=== PATIENT | female | born 1965 | race Caucasian/White ===

== ENCOUNTER 2023-09-10 06:43 | Outpatient (OUT) | payer OTHER, SELFPAY ==
[2023-09-10 07:13] LABS: Basophils Percent Auto 1.1 % (0.2-2.0); Eosinophils Absolute Auto 0.1 10^3/uL (0.0-0.7); Eosinophils Percent Auto 3.2 % (0.9-7.0); Hematocrit 42.1 % (36.0-48.0); Hemoglobin 13.5 g/dL (12.0-16.0); Immature Granulocytes Abs Auto 0.01 10^3/uL (0.00-0.03); Immature Granulocytes Pct Auto 0.3 % (0.0-0.5); Lymphocytes Absolute Auto 1.8 10^3/uL (1.2-3.8); Lymphocytes Percent Auto 47.5 % (20.5-60.0); Mean Corpuscular HGB Conc 32.1 g/dL (29.9-35.2); Mean Corpuscular Hemoglobin 30.1 pg (26.7-34.0); Mean Corpuscular Volume 93.8 fL (81.0-99.0); Mean Platelet Volume 9.4 fL (9.5-13.5); Monocytes Absolute Auto 0.4 10^3/uL (0.3-0.8); Monocytes Percent Auto 10.3 % (1.7-12.0); Neutrophils Absolute Auto 1.4 10^3/uL (1.4-6.5); Neutrophils Percent Auto 37.6 % (43.0-75.0); Platelet Count 209 10^3/uL (150-450); Red Blood Count 4.49 10^6/uL (4.20-5.40); Red Cell Distribution Width 11.7 % (11.0-15.0); White Blood Count 3.8 10^3/uL (4.0-11.0)
[2023-09-10 07:33] LABS: Alanine Aminotransferase 34 U/L (14-59); Albumin Globulin Ratio 1.2; Alkaline Phosphatase 72 U/L (46-116); Anion Gap 12.6; Aspartate Amino Transferase 21 U/L (15-37); BUN Creatinine Ratio 15.6; Bilirubin Total 0.5 mg/dL (0.2-1.0); Calcium 8.7 mg/dL (8.5-10.1); Carbon Dioxide 27.1 mmol/L (21.0-32.0); Chloride 104 mmol/L (98-107); Chol HDL Ratio 2.7; Cholesterol 239 mg/dL (<=200); Estimated GFR (African America >60 (>=60); Estimated GFR (Non-African Ame 60 (>=60); Globulin 3.3 g/dL; Glucose 101 mg/dL (74-106); HDL Cholesterol 88 mg/dL (40-60); Potassium 4.7 mmol/L (3.5-5.1); Sodium 139 mmol/L (136-145); Total Protein 7.3 g/dL (6.4-8.2); Triglycerides 104 mg/dL (<=150); VLDL CHOLESTEROL 20.8 mg/dL
== END 2023-09-10 06:44 | disposition home or self-care (01) ==
LOC: LAB 06:45
PROVIDERS: PCP Internal Medicine; Visit Provider Internal Medicine
DX: Z00.00 Encounter for general adult medical examination without abnormal findings (principal)
CPT/HCPCS: 36415; 80053; 80061; 85025

== ENCOUNTER 2024-01-06 08:56 | Outpatient (OUT) | payer OTHER, SELFPAY ==
--- NOTE | 2024-01-06 09:00 | MM_ITS ---
Patient Name: CARL MILLER MR#: [id number] : 1965 Exam Date: 01/06/2024 Ordering Doctor: DR MARIEL SINGER RADIOLOGY REPORT PROCEDURE: MM TOMOSYNTHESIS SCREENING BI COMPARISON: MG MAMM SCREEN 3D YOVANNY CAD, 10/13/2022. MG MAMM LT DIAG W CAD, 10/11/2021. MG MAMM SCREEN YOVANNY W CAD, 10/09/2021. MG MAMM SCREEN YOVANNY W CAD, 10/01/2018. INDICATIONS: Screening Calculator Name NCI Breast Cancer Risk Assessment Tool 5 Year Breast Cancer Risk 1.40% Lifetime Breast Cancer Risk 7.60% Personal Breast Cancer No Personal Ovarian Cancer No Treatments None Family Cancers Aunt-maternal with breast cancer at age 40; Grandmother-maternal with cervical cancer at age 70. LOCATION: [facility] BREAST COMPOSITION: The breasts are heterogeneously dense,which may obscure small masses. FINDINGS: DIAGNOSTIC CATEGORY 1--NEGATIVE. RIGHT BREAST: No significant suspicious finding. No significant change has occurred. LEFT BREAST: No significant suspicious finding. No significant change has occurred. RECOMMENDATIONS: ROUTINE MAMMOGRAM AND CLINICAL EVALUATION IN 12 MONTHS. PLEASE NOTE: A NORMAL MAMMOGRAM DOES NOT EXCLUDE THE POSSIBILITY OF BREAST CANCER. A CLINICALLY SUSPICIOUS PALPABLE LUMP SHOULD BE BIOPSIED. Dictated by: Juan Alberto Foote M.D. on 01/10/2024 at 18:22 Approved by: Juan Alberto Foote M.D. on 01/10/2024 at 18:25
== END 2024-01-06 08:57 | disposition home or self-care (01) ==
LOC: MAMMO 08:56
PROVIDERS: PCP Internal Medicine; Visit Provider Obstetrics & Gynecology
DX: Z12.31 Encounter for screening mammogram for malignant neoplasm of breast (principal); D72.819 Decreased white blood cell count, unspecified; Z80.3 Family history of malignant neoplasm of breast; Z80.8 Family history of malignant neoplasm of other organs or systems
CPT/HCPCS: 36415; 77063; 77067; 85025

== ENCOUNTER 2024-01-06 09:18 | Outpatient (OUT) | payer OTHER, SELFPAY ==
[2024-01-06 09:29] LABS: Basophils Percent Auto 0.8 % (0.2-2.0); Eosinophils Absolute Auto 0.1 10^3/uL (0.0-0.7); Eosinophils Percent Auto 1.7 % (0.9-7.0); Hematocrit 41.9 % (36.0-48.0); Hemoglobin 13.8 g/dL (12.0-16.0); Immature Granulocytes Abs Auto 0.01 10^3/uL (0.00-0.03); Immature Granulocytes Pct Auto 0.2 % (0.0-0.5); Lymphocytes Absolute Auto 1.9 10^3/uL (1.2-3.8); Lymphocytes Percent Auto 38.8 % (20.5-60.0); Mean Corpuscular HGB Conc 32.9 g/dL (29.9-35.2); Mean Corpuscular Volume 94.2 fL (81.0-99.0); Monocytes Absolute Auto 0.4 10^3/uL (0.3-0.8); Monocytes Percent Auto 8.1 % (1.7-12.0); Neutrophils Absolute Auto 2.4 10^3/uL (1.4-6.5); Neutrophils Percent Auto 50.4 % (43.0-75.0); Platelet Count 227 10^3/uL (150-450); Red Blood Count 4.45 10^6/uL (4.20-5.40); Red Cell Distribution Width 11.9 % (11.0-15.0); White Blood Count 4.8 10^3/uL (4.0-11.0)
== END 2024-01-06 09:19 | disposition home or self-care (01) ==
LOC: LAB 09:19
PROVIDERS: PCP Internal Medicine; Visit Provider Internal Medicine
DX: D72.819 Decreased white blood cell count, unspecified (principal)
CPT/HCPCS: 36415; 85025

== ENCOUNTER 2024-10-01 08:57 | Outpatient (OUT) | payer OTHER, SELFPAY ==
--- OUTSIDE RECORDS SUMMARY | 2024-10-01 08:59 | XMS_ITS | CCD ---
Author Organization [facility] Care Team Providers Care Shipping And Receiving Operator Name Role Phone Kartik Priest Unavailable Unavailable Unavailable Sander, Dr. Rashmi Churchill Admitting Unava ilable Sander, Dr. Rashmi Churchill Referring Unava ilable Sander, Dr. Rashmi Churchill Attending Unava ilable Kartik Priest [facility] Unavailabl e Sander, Dr. Rashmi Churchill Attending Unava ilable Self, Referral Referring Unavailable Kartik Priest [facility] Unavailabl e Sander, Dr. Rashmi Churchill Referring Unava ilable Sander, Dr. Rashmi Churchill Attending Unava ilable Kartik Priest [facility] Unavailabl e Sander, Dr. Rashmi Churchill Referring Unava ilable Sander, Dr. Rashmi Churchill Attending Unava ilable Kartik Priest [facility] Unavailabl e Kartik Priest Unavailable DR KARTIK PRIEST Attending Unavailable JENNIFER, DR BOLIVAR Consulting Unavailable JENNIFER, DR BOLIVAR Primary Care Unavailable JENNIFER, DR BOLIVAR Admitting Unavailable DO Kartik Priest Primary Care Provider MD Rashaun William Attending Provider [phone] DO Kartik Priest Primary Care Provider [phone] MD Rashaun William Attending Provider [phone] Kartik Priest Primary Care Unavailable Rashaun William Admitting Unavailable Rashaun William Attending Unavailable Kartik Priest Primary Care Unavailable Rashaun William Admitting Unavailable Rashaun William Attending Unavailable NO FAMILY, PHYSICIAN Primary Care Unavailable Nicolasa Delgado Admitting Unavailable Nicolasa Delgado Attending Unavailable Delgado, HIGHWAY ENGINEER Nicolasa Fraser Attending Provider NO FAMILY, PHYSICIAN Primary Care Provider Unava Kartik Morel MD Primary Care Provider Carolyn Jasmine MD Unavailable Kartik Priest MD Primary Care Provider Kartik Priest DO Primary Care Provider CAROLYN JASMINE Attending Unavailable TIMMIPhillip, CAROLYN H Referring Unavailable TIMMIS, CAROLYN H Attending Unavailable RUSHERFIDEL Attending Unavailable VISCI, MARIEL Saunders Attending Unavailable TIMYOANA, CAROLYN Painter Attending Unavailable MITALI, CAROLYN Painter Attending Unavailable PETITTRAULITO Fernandez Attending Unavailable Kartik Priest DO Primary Care Provider SANDERRASHMI MERINO Attending Unavailable CAROLYN JASMINE Referring Unavaila ble JENNIFER, KARTIK Moralez Primary Care Unavailable SANDERRASHMI Watson Admitting Unavailable RASHMI BOUCHER Attending Unavailable CAROLYN JASMINE Referring Unavaila ble JENNIFER, KARTIK E Primary Care Unavailable BENJIE LARSEN Attending Unavailable KARTIK PRIEST Primary Care Unavailable RASHMI BOUCHER E Referring Unavailable KARTIK PRIEST E Primary Care Unavailable Allergies Allergy Classification Reported Allergen(s) Allergy Type Date of Onset Reaction(s) Facility (3 sources) patient allergy list reviewed by nurse or physicia Propensity to adverse reactions 4 Comment:Done [employer] Other (1 source) ALLERGIES NOT ON FILE; Translations: [ALLERGIES NOT ON FILE] Propensity to adverse reactions (disorder) [facility] Medications Current Medications Medication Drug Class(es) Dates Sig (Normalized) Sig (Original) 0.5 ML semaglutide 0.5 MG/ML Auto-Injector [Wegovy] (6 sources) Start: 07-08-2022 Start: 07-08-2022 Wegovy 0.25 MG /0.5ML 0.5 mL Subcutaneous 28 for 30 days Jun, Active azithromycin 250 mg oral tablet (6 sources) Macrolide Antimicrobial Start: 03-18-2022 Azithromycin 250 MG as directed Orally daily for 5 days Jan, Active molnupiravir 200 MG Oral Capsule [Lagevrio] (1 source) Start: 02-20-2023 take 4 capsules by mouth every twelve hours Molnupiravir 200 MG 4 capsules Orally every 12 hrs for 5 days Feb, Active ofloxacin 3 mg/ml otic solution (4 sources) Quinolone Antimicrobial Start: 07-11-2024 End: 07-21-2024 ofloxacin (Floxin) 0.3 % otic solution Indications: Cholesteatoma of left external auditory canal Administer 4 drops into the left ear in the morning and 4 drops before bedtime. Do all this for 10 days. 10 mL 07/11/2024 07/21/2024 Active paxlovid (300/100) 20 x 150 mg & 10 x 100mg tablet therapy pack (1 source) Start: 02-19-2023 Paxlovid (300/100) 20 x 150 MG & 10 x 100MG as directed Orally bid for 5 days Feb, Active phentermine hydrochloride 37.5 mg oral tablet (20 sources) Sympathomimetic Amine Anorectic Start: 12-26-2023 Phentermine (Adipex-P) 37.5 mg tablet Active 18.75 MG PO Daily December 26, 2023 1:17pm must administer 30 minutes before or 1-2 hours after breakfast p/u 10/27, start 10/28 Start: 06-01-2023 End: 07-05-2024 take 1 tablet by mouth once daily 30 minutes after breakfast Phentermine (Adipex-P) 37.5 mg tablet Discontinued 37.5 MG PO Daily July 29, 2023 3:57pm August 31, 2023 4:11pm must administer 30 minutes before or 1-2 hours after breakfast Start: 09-04-2022 take 1 tablet by devika th once daily before breakfast Adipex-P 37.5 MG 1 tablet before breakfast Orally Once a day for 30 days Aug, Active Start: 06-04-2017 End: 01-07-2023 take 1 capsule by mouth once daily Phentermine (Adipex-P) 37.5 mg Capsule Discontinued 37.5 MG PO Daily June 04, 2017 12:00am January 07, 2023 3:47pm 0.25 mg, 0.5 mg dose 1.5 ml semaglutide 1.34 mg/ml pen injector (2 sources) Start: 08-18-2024 semaglutide (O zempic) 0.25 mg or 0.5 mg(2 mg/1.5 mL) pen injector Inject 0.25 mg under the skin 1 (one) time per week. 08/18/2024 Active Semaglutide (Weight Loss) (5 sources) Start: 07-13-2024 Semaglutide (W eight Loss) (Wegovy) 0.25 mg/0.5 mL pen injector Active 0.25 MG SUBCUT every week 2 July 13, 2024 12:00am administer weeks 1 through 4 of therapy Start: 05-22-2023 End: 07-29-2023 Semaglutide (Weight Loss) (W egovy) 0.25 mg/0.5 mL pen injector Discontinued 0.25 MG SUBCUT every week 2 May 22, 2023 3:26pm July 29, 2023 3:57pm Start: 05-21-2023 End: 05-22-2023 Semaglutide (Weight Loss) (W egovy) 0.25 mg/0.5 mL pen injector Discontinued 0.25 MG SUBCUT May 21, 2023 1:00am May 22, 2023 3:27pm wegovy 0.25 mg/0.5ml solution auto-injector (1 source) Start: 07-08-2022 Wegovy 0.25 MG /0.5ML 0.5 mL Subcutaneous 28 for 30 days Jun, Active zolpidem tartrate 5 mg oral tablet (14 sources) gamma-Aminobutyric Acid-ergic Agonist Start: 01-22-2024 zolpidem (Ambien) 5 MG tablet 01/22/2024 Active Start: 12-26-2023 End: 06-10-2024 take 2.5 mg by mouth once daily at bedtime as needed Zolpidem 5 mg tablet Active 2.5 MG PO Daily at bedtime as needed for insomnia June 10, 2024 12:57pm Start: 12-26-2023 take 2.5 mg by mouth once daily at bedtime Zolpidem Active 2.5 MG PO Daily at bedtime December 26, 2023 1:18pm Start: 08-31-2023 End: 12-26-2023 take 1 tablet by mouth once daily at bedtime as needed Zolpidem 5 mg tablet Discontinued 5 MG PO Daily at bedtime as needed for insomnia August 31, 2023 12:00am December 26, 2023 1:19pm {20 (nirmatrelvir 150 MG Ora l Tablet) / 10 (ritonavir 100 MG Oral Tablet) } Pack [Paxlovid 5-Day] (1 source) Start: 02-19-2023 Paxlovid (300/ 100) 20 x 150 MG & 10 x 100MG as directed Orally bid for 5 days Feb, Active Completed/Discontinued Medications Medication Drug Class(es) Dates Sig (Normalized) Sig (Original) acetaminophen 325 mg / HYDROcodone bitartrate 5 mg oral tablet (3 sources) Opioid Agonist Start: 01-22-2023 End: 05-21-2023 take 2 tablets by mouth every six hours as needed for pain Hydrocodone-Acetam inophen 5-325 mg tablet Discontinued 2 TAB PO Q6H as needed for pain 12 10January 22, 2023 May 21, 2023 11:41am cephalexin 500 mg oral capsule (2 sources) Cephalosporin Antibacterial Start: 12-26-2023 End: 07-13-2024 take 1 capsule by mouth twice daily Cephalexin 500 mg capsule Discontinued 500 MG PO Twice daily 12 18December 26, 2023 12:00am July 13, 2024 9:28am doxycycline hyclate 100 mg oral capsule (2 sources) Tetracycline-class Drug Start: 08-04-2023 End: 08-31-2023 take 1 capsule by mouth twice daily Doxycycline Hyclate 100 mg capsule Discontinued 100 MG PO Twice daily 12 18August 04, 2023 12:00am August 31, 2023 3:31pm estradiol 0.1 mg/ml vaginal cream (5 sources) Estrogen Start: 01-04-2024 End: 01-03-2025 estradiol (Estrace) 0.1 MG/GM vaginal cream Indications: Vulvovaginal Atrophy Insert 1 g into the vagina 2 (two) times a week 42.5 g 2 01/04/2024 01/05/2024 Discontinued (Therapy completed) Estradiol-Norethind joyce Acet (4 sources) Estrogen Start: 01-07-2023 End: 05-21-2023 Estradiol-Norethin drone Acet 1-0.5 mg tablet Discontinued 1 TAB PO Every morning January 07, 2023 12:00am May 21, 2023 11:41am Start: 01-07-2023 End: 05-21-2023 take 1 tablet by mouth once daily in the morning Estradiol-Norethindrone Acet Discontinue d 1 TAB PO Every morning January 07, 2023 12:00am May 21, 2023 11:41am Start: 01-07-2023 take 1 tablet by devika th once daily in the morning Estradiol-Norethindrone Acet Active 1 TA B PO Every morning January 06, 2023 11:00pm Start: 01-07-2023 take 1 tablet by devika th once daily in the morning Estradiol-Norethindrone Acet Active 1 TA B PO Every morning January 07, 2023 12:00am Estradiol-Norethindrone Acet 1-0.5 MG Oral Tablet (5 sources) Start: 09-19-2021 Estradiol-Norethindrone Acet 1-0.5 MG Oral Tablet Quantity: 28 Refills: 0 Ordered: 19-Sep-2021 DO Start : 19-Sep-2021 Active gabapentin 300 mg oral capsule (3 sources) Anti-epileptic Agent Start: 01-22-2023 End: 05-21-2023 take 1 capsule by mouth three times daily Gabapentin 300 mg capsule Discontinued 300 MG PO Three times daily 12 01January 22, 2023 1:00am May 21, 2023 11:41am oseltamivir 75 mg oral capsule (7 sources) Neuraminidase Inhibitor Start: 04-21-2018 take 1 capsule by mouth every twelve hours Tamiflu 75 MG 1 capsule Orally Twice a day for 5 day(s) Apr, Not-Taking/PRN polyethylene glycol 3350 65384 mg powder for oral solution (3 sources) Osmotic Laxative Start: 01-24-2022 take 1 capsule by mouth once daily Polyethylene Glycol 3350 17 GM/SCOOP Oral Powder TAKE 17 GRAMS (1 CAP FULL) MIX WITH LIQUID BY MOUTH ONCE A DAY Quantity: 238 Refills: 0 Ordered: 24-Jan-2022 DO Start : 24-Jan-2022 Active sulfacetamide sodium 100 mg/ml ophthalmic solution (2 sources) Sulfonamide Antibacterial Start: 08-04-2023 End: 12-26-2023 take 2 drop(s) into the eye(s) four times daily Sulfacetamide Sodium 10 % drops Discontinued 2 DROPS OPHTHALMIC Four times daily 07 23August 04, 2023 12:00am December 26, 2023 1:18pm 2 drops in right eye qid Start: 08-04-2023 End: 12-26-2023 take 2 drop(s) into the eye(s) four times daily Sulfacetamide Sodium Discontinued 2 DROPS OPHTHALMIC Four times daily 07 23August 04, 2023 12:00am December 26, 2023 1:18pm 2 drops in right eye qid valACYclovir 500 mg oral tablet (20 sources) Herpesvirus Nucleoside Analog DNA Polymerase Inhibitor, Herpes Simplex Virus Nucleoside Analog DNA Polymerase Inhibitor, Herpes Zoster Virus Nucleoside Analog DNA Polymerase Inhibitor Start: 12-26-2023 End: 07-13-2024 take 2 tablets by mouth once as needed Valacyclovir 500 mg tablet Discontinued 1000 MG PO Once as needed December 26, 2023 1:18pm July 13, 2024 9:28am Start: 12-26-2023 take 1000 mg by mouth once Mariana acyclovir Active 1000 MG PO Once December 26, 2023 1:18pm Start: 09-22-2023 End: 12-26-2023 take 1 tablet by mouth once daily Valacyclovir 500 mg tablet Discontinued 0 .ROUTE .COMPLEX September 22, 2023 8:41am December 26, 2023 1:19pm TAKE 1 TABLET BY MOUTH DAILY Start: 01-02-2022 valACYclovir H Cl - 500 MG Oral Tablet Quantity: 30 Refills: 0 Ordered: 02-Jan-2022 DO Start : 02-Jan-2022 Active Start: 06-04-2017 End: 09-22-2023 valACYclovir (Valtrex) 500 M G tablet Take 500 mg by mouth if needed 09/04/2022 Active Z Philipp (4 sources) Start: 06-05-2017 End: 01-07-2023 take 1 tablet by mouth once daily Z Philipp Discontinued 1 TAB PO Daily June 04, 2017 11:00pm January 07, 2023 2:47pm Start: 06-05-2017 End: 01-07-2023 take 1 tablet by mouth once daily Z Philipp Discontinued 1 TAB PO Daily June 05, 2017 12:00am October 25th, 2023 3:47pm Problems Active Problems Problem Classification Problem Date Documented Date Episodic/Chronic Diabetes mellitus without complication (3 sources) Impaired fasting glycemia; Translations: [Impaired fasting glucose] 05-22-2023 Episodic Diseases of white blood cells (3 sources) Leukopenia; Translations: [Decreased white blood cell count, unspecified] 11-30-2023 Chronic Genitourinary symptoms and ill-defined conditions (2 sources) Hematuria, unspecified; Translations: [Hematuria, unspecified] Onset: 12-26-2023 12-26-2023 Episodic Miscellaneous mental health disorders (2 sources) Primary insomnia; Translations: [Primary insomnia] 08-31-2023 Chronic Open wounds of head; neck; and trunk (7 sources) Traumatic tympanic membrane perforation; Translations: [Open wound of ear drum, without mention of complication] Onset: 01-24-2022 Episodic Other acquired deformities (16 sources) Contracture of joint of right ankle; Translations: [Contracture, right ankle] Onset: 01-27-2023 01-27-2023 Chronic Other aftercare (10 sources) Therapeutic drug level - finding; Translations: [Encounter for therapeutic drug level monitoring] Episodic Other and unspecified benign neoplasm (2 sources) Melanocytic nevus of trunk; Translations: [Melanocytic nevi of trunk] 02-16-2024 Episodic Other circulatory disease (2 sources) Spider nevus; Translations: [Nevus, non-neoplastic] 02-16-2024 Episodic Other connective tissue disease (7 sources) Iliotibial band friction syndrome of left knee; Translations: [Iliotibial band syndrome, left leg] Episodic Other connective tissue disease (3 sources) Enthesopathy of hip region; Translations: [Iliotibial band syndrome, left leg] Episodic Other ear and sense organ disorders (5 sources) Mixed conductive and sensorineural hearing loss, bilateral; Translations: [Mixed hearing loss, bilateral] Chronic Other ear and sense organ disorders (2 sources) Mixed conductive and sensorineural hearing loss, bilateral; Translations: [Mixed conductive and sensorineural hearing loss, bilateral] Onset: 01-24-2022 Chronic Other ear and sense organ disorders (1 source) Mixed conductive and sensorineural hearing loss, unilateral, left ear, with unrestricted hearing on the contralateral side; Translations: [Mix cndct/snrl hear loss,uni,l ear,w unrestr hear cntra side] Onset: 01-24-2022 Chronic Other ear and sense organ disorders (16 sources) Left conductive hearing loss; Translations: [Conductive hearing loss, unilateral, left ear, with unrestricted hearing on the contralateral side] Onset: 01-27-2023 01-27-2023 Chronic Other ear and sense organ disorders (16 sources) Bilateral hearing loss; Translations: [Conductive hearing loss, unilateral, left ear with restricted hearing on the contralateral side] Onset: 01-27-2023 01-27-2023 Chronic Other ear and sense organ disorders (14 sources) Cholesteatoma; Translations: [Unspecified cholesteatoma, unspecified ear] Onset: 08-30-2024 07-05-2024 Episodic Comment on above: Left EAC Other ear and sense organ disorders (5 sources) Cholesteatoma of external ear; Translations: [Cholesteatoma of left external ear] 07-05-2024 Episodic Other ear and sense organ disorders (2 sources) Unspecified cholesteatoma, left ear; Translations: [Unspecified cholesteatoma, left ear] Onset: 09-02-2024 Episodic Other female genital disorders (2 sources) Vaginal irritation; Translations: [Other specified noninflammatory disorders of vagina] 01-01-2024 Episodic Other injuries and conditions due to external causes (2 sources) Foreign body in left ear; Translations: [Foreign body in left ear, initial encounter] 01-05-2024 Episodic Other nervous system disorders (5 sources) H/O: ear disorder; Translations: [Personal history of other disorders of nervous system and sense organs] Episodic Other nutritional; endocrine; and metabolic disorders (10 sources) Obesity; Translations: [Obesity, unspecified] Chronic Other nutritional; endocrine; and metabolic disorders (12 sources) Overweight; Translations: [Overweight] 06-01-2023 Episodic Other nutritional; endocrine; and metabolic disorders (4 sources) Overweight; Translations: [Overweight] Episodic Other skin disorders (2 sources) Inflamed seborrheic keratosis; Translations: [Inflamed seborrheic keratosis] 02-16-2024 Episodic Other skin disorders (2 sources) Actinic keratosis; Translations: [Actinic keratosis] 02-16-2024 Episodic Other skin disorders (2 sources) Lentiginosis; Translations: [Other melanin hyperpigmentation] 02-16-2024 Episodic Residual codes; unclassified (3 sources) General well-being finding; Translations: [Unspecified problems with limbs and other problems] Episodic Residual codes; unclassified (1 source) Preoperative state 09-01-2024 Episodic Spondylosis; intervertebral disc disorders; other back problems (3 sources) Solitary sacroiliitis; Translations: [Sacroiliitis, not elsewhere classified] Onset: 01-01-2015 Chronic Thyroid disorders (6 sources) Subclinical hypothyroidism; Translations: [Other specified hypothyroidism] Chronic Unclassified (1 source) Encounter for preprocedural cardiovascular examination; Translations: [Encounter for preprocedural cardiovascular examination] Onset: 01-07-2023 Unclassified (1 source) Autogenerated Problem Onset: 09-01-2024 09-01-2024 Unclassified (2 sources) New Patient Visit; Translations: [New Patient Visit] Onset: 08-30-2024 Viral infection (1 source) Herpesviral vesicular dermatitis Episodic Viral infection (12 sources) Disease caused by 2019-nCoV; Translations: [COVID-19] Past or Other Problems Problem Classification Problem Date Documented Date Episodic/Chronic Allergic reactions (3 sources) Contact dermatitis; Translations: [Contact dermatitis and other eczema, due to unspecified cause] Onset: 11-27-2014 Episodic Menopausal disorders (20 sources) Menopausal symptom; Translations: [Menopausal and female climacteric states] Onset: 01-27-2023 Resolved: 01-27-2023 01-27-2023 Chronic Menstrual disorders (16 sources) Irregular periods; Translations: [Irregular menstruation, unspecified] Onset: 01-27-2023 Resolved: 01-27-2023 01-27-2023 Chronic Other connective tissue disease (3 sources) Spasm; Translations: [Spasm of muscle] Onset: 06-29-2015 Episodic Other connective tissue disease (3 sources) Achilles bursitis; Translations: [Achilles bursitis or tendinitis] Onset: 07-13-2018 Episodic Other connective tissue disease (3 sources) Plantar fascial fibromatosis; Translations: [Plantar fascial fibromatosis] Onset: 07-13-2018 Episodic Other ear and sense organ disorders (3 sources) Otorrhea of left ear; Translations: [Otorrhea, left ear] Onset: 11-12-2015 Episodic Other ear and sense organ disorders (16 sources) 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; Translations: [Cholesteatoma of left external ear] Onset: 02-17-2023 02-17-2023 Episodic Other female genital disorders (16 sources) Cervical intraepithelial neoplasia grade 1; Translations: [Mild cervical dysplasia] Onset: 06-09-2013 01-27-2023 Episodic Other lower respiratory disease (3 sources) Chronic cough; Translations: [Chronic cough] Onset: 07-28-2017 Episodic Other non-epithelial cancer of skin (16 sources) Basal cell carcinoma of back; Translations: [Basal cell carcinoma of skin of other part of trunk] Onset: 01-27-2023 01-27-2023 Episodic Other nutritional; endocrine; and metabolic disorders (12 sources) Body mass index 25-29 - overweight; Translations: [Body mass index 27.0-27.9, adult] Onset: 05-26-2016 Episodic Other screening for suspected conditions (not mental disorders or infectious disease) (20 sources) Patient encounter status; Translations: [Encounter for screening for malignant neoplasm of colon] Onset: 01-27-2023 Resolved: 01-27-2023 06-05-2017 Episodic Comment on above: Problem List clean-u p per request of Phys. EHR Cmte Other skin disorders (18 sources) Seborrheic keratosis; Translations: [Other seborrheic keratosis] Onset: 01-27-2023 01-27-2023 Episodic Otitis media and related conditions (5 sources) Unspecified perforation of tympanic membrane, left ear; Translations: [Otitis media] Onset: 11-12-2015 Episodic Residual codes; unclassified (1 source) Encounter for cosmetic surgery; Translations: [Encounter for cosmetic surgery] Onset: 01-22-2023 Episodic Sexually transmitted infections (not HIV or hepatitis) (16 sources) Human papillomavirus deoxyribonucleic acid test positive, high risk on cervical specimen; Translations: [Cervical high risk human papillomavirus (HPV) DNA test positive] Onset: 01-27-2023 01-27-2023 Episodic Spondylosis; intervertebral disc disorders; other back problems (9 sources) Low back pain; Translations: [Lumbago] Onset: 08-10-2014 Episodic Sprains and strains (3 sources) Sprain of hip; Translations: [Sprain and strain of unspecified site of hip and thigh] Onset: 11-25-2013 Episodic Superficial injury; contusion (3 sources) Contusion of left elbow; Translations: [Contusion of left elbow, initial encounter] Onset: 09-15-2018 Episodic Unclassified (1 source) Exposure to 2019 novel coronavirus; Translations: [Contact with and (suspected) exposure to COVID19] Unclassified (2 sources) Onset: 08-30-2024 08-30-2024 Results Test Name Value Interpretation Reference Range Facility CT TRANSFER OF OUTSIDE FILMS on 09-01-2024 CT TRANSFER OF OUTSIDE FILMS Outside images for comparison or treatment purposes, not interpreted by Radiologists. Normal [facility] Study Interpretation of outs chani studyon 09-01-2024 Outside images for comparison or treatment purposes, not interpreted by Radiologists. IMAGING CT ORBITS/SELLA WO IV CONTRA STon 07-08-2024 CT ORBITS/SELLA WO IV CONTRAST EXAM: CT Orbits/Sella Without IV Contrast. REASON FOR EXAM: Cholesteatoma left ear. COMPARISON: None TECHNIQUE: Multiplanar noncontrast images of the temporal bones obtained. FINDINGS: The visualized mandible is intact. The paranasal sinuses and mastoid air cells are well aerated without significant fluid or mucosal thickening. The zygomatic arches are symmetric. The internal auditory canals, semicircular canals and cochlea are symmetric. The visualized acoustic ossicles and tympanic membranes are without abnormality. The middle ear cavities and epitympanum are normal. The scuta are symmetric. The coronal thin cuts are submitted in soft tissue windows. This limits evaluation of fine bone detail. There is a soft tissue nodule along the superior border of the peripheral external auditory canal on the left measuring 1.17 x 0.88 cm. There is no bony erosion, calcification, soft tissue gas or extension into the middle ear cavity. The sella turcica is not enlarged. The ostiomeatal units are patent. The orbits are symmetric. IMPRESSION: There is a soft tissue noncalcified nodule of the superior margin of the peripheral left external auditory canal near the pinna. There is no bony erosion or deep extension. Consistent with stage I cholesteatoma of the EAC given the history. The differential includes keratosis obliterans, otitis externa, squamous cell carcinoma. *This report is generated using voice recognition reporting (Panizon). On occasion [email or web address] erroneously drops words from the report or replaces the spoken word with similar sounding words. Please call with any questions/concerns regarding this report.* Dictated and transcribed 07/11/24/dpd This report has been electronically signed and approved by the interpreting radiologist. Normal Not Available Comment on above: Order Comment: CT Te mporal WO at [facility]. Please call patient to schedule. HX CHOLESTEATOMA LT EAR No Panel Informationon 02-15 [facility] - Microbiology an d Antimicrobial susceptibilityon 01-01-2024 Bacterial vaginosis and vaginitis DNA panel Probe+sig amp (Vag fld) Negative [facility] No Panel Informationon 12-31 Interpretation and review of laboratory results Abnormal [facility] Trichomonas, UA Negative [facility] Yeast Negative [facility] + Parabasal cells c/ w atrophy [facility] Urine Cultureon 12-26-2023 Bacteria identified Cx Nom (U) ORGANISM: Escherichia coli (O:ESCCOL) Imogene Count >100,000 Aerobic MARQUIS Charge ([id number]) SUSCEPTIBILITY ORGANISM: O:ESCCOL ANTIBIOTIC INTERPRETATION MARQUIS Amikacin S <16 Amoxacillin/K Clavulanate S <8 Ampicillin S <8 Ampicillin/Sulbactam S <4 Aztreonam S <4 Cefazolin S <2 Cefepime S <2 Ceftazidime S <1 Ceftazidime/Avibactam S <4 Ceftolozane/Tazobactam S <2 Ceftriaxone S <1 Cefuroxime S <4 Ciprofloxacin S <0.25 Ertapenem S <0.5 Gentamicin S <2 Levofloxacin S <0.5 Meropenem S <1 Meropenem/Vaborbactam S <2 Nitrofurantoin S <32 Piperacillin/Tazobactam S <8 Tetracycline S <4 Tigecycline S <2 Tobramycin S <2 Trimethoprim/Sulfamethoxa zole S <0.5 S = SUSCEPTIBLE I = INTERMEDIATE R = RESISTANT BLANK = DATA NOT AVAILABLE, OR DRUG NOT ADVISABLE OR TESTED R* = RESISTANCE DUE TO EXTENDED SPECTRUM BETA-LACTAMASES ESBL = EXTENDED SPECTRUM BETA-LACTAMASE TFG = THYMIDINE-DEPENDENT STRAIN MATT = BETA-LACTAMASE POSITIVE IB = INDUCIBLE BETA-LACTAMASE. APPEARS IN PLACE OF 'S' WITH SPECIES KNOWN TO POSSESS INDUCIBLE BETA-LACTAMASES. POTENTIALLY THEY MAY BECOME RESISTANT TO ALL B-LACTAM DRUGS. PERFORMED BY: [place] [address] PATHOLOGIST PRINCIPAL WEB DEVELOPER SACHIN RAI M.D. Normal [facility] Comment on above: Performed By: #### C UU #### [address] ECG 12 lead ECGon 01-07-2023 ECG 12 lead ECG [facility] Main [place] [address] [place] [address] Electrocardiograph Report Signed Patient: Mai Miller MR#: [id number] : 1965 Acct:[id number] Age/Sex: 57 / F ADM Date: 01/07/23 Loc: Room: Type: [facility] Attending Dr: Rashaun William MD Ordering Provider: Rashaun William MD Date of Service: 01/07/23 ECG/ECG 12 lead ECG: surgery 01/22 Copies to: Test Reason : Blood Pressure : / mmHG Vent. Rate : 084 BPM Atrial Rate : 084 BPM P-R Int : 148 ms QRS Dur : 078 ms QT Int : 364 ms P-R-T Axes : 058 075 034 degrees QTc Int : 430 ms Normal sinus rhythm Normal ECG No previous ECGs available Confirmed by AMINA APODACA DO ([id number]) on 01/07/2023 6:10:09 PM Referred By: FAHAD Electronically Signed By:AMINA APODACA DO Transcribed By: DOMINIQUE Signed By Amina Apodaca DO 01/07 Normal [facility] CBC AUTO DIFFon 07-10-2022 BASO # 0.0 103/ul Normal 0.0-0.1 [facility] Comment on above: Performed By: #### C BC #### [facility] [address] [place] [address] Dr. Nelly Virk Basophils/100 WBC (Bld) 0.8 % Normal 0.2-2.0 [facility] Comment on above: Performed By: #### C BC #### [facility] [address] [place] [address] Dr. Nelly Virk EO # 0.1 103/ul Normal 0.0-0.7 [facility] Comment on above: Performed By: #### C BC #### [facility] [address] [place] [address] Dr. Nelly Virk Eosinophils/100 WBC (Bld) 2.3 % Normal 0.9-7.0 [facility] Comment on above: Performed By: #### C BC #### [facility] [address] [place] [address] Dr. Nelly Virk Erythrocyte distribution width (RBC) [Ratio] 12.3 % Normal 11.0-15.0 [facility] Comment on above: Performed By: #### C BC #### [facility] [address] [place] [address] Dr. Nelly Virk Hematocrit (Bld) [Volume fraction] 41.4 % Normal 36.0-48.0 [facility] Comment on above: Performed By: #### C BC #### [facility] [address] [place] [address] Dr. Nelly Virk Hemoglobin (Bld) [Mass/Vol] 13.5 g/dL Normal 12.0-16.0 [facility] Comment on above: Performed By: #### C BC #### [facility] [address] [place] [address] Dr. Nelly Virk IG # 0.01 10e3/ul Normal 0.00-0.03 [facility] Comment on above: Performed By: #### C BC #### [facility] [address] [place] [address] Dr. Nelly Virk IG % 0.2 % Normal 0.0-0.5 [facility] Comment on above: Performed By: #### C BC #### [facility] [address] [place] [address] Dr. Nelly Virk LYMPH # 1.9 103/ul Normal 1.2-3.8 [facility] Comment on above: Performed By: #### C BC #### [facility] [address] [place] [address] Dr. Nelly Virk Lymphocytes/100 WBC (Bld) 40.6 % Normal 20.5-60.0 [facility] Comment on above: Performed By: #### C BC #### [facility] [address] [place] [address] Dr. Nelly Virk MANUAL DIFF REQ NO Normal [facility] Comment on above: Performed By: #### C BC #### [facility] [address] [place] [address] Dr. Nelly Virk MCH (RBC) [Entitic mass] 30.8 pg Normal 26.7-34.0 [facility] Comment on above: Performed By: #### C BC #### [facility] [address] [place] [address] Dr. Nelly Virk MCHC (RBC) [Mass/Vol] 32.6 g/dL Normal 29.9-35.2 [facility] Comment on above: Performed By: #### C BC #### [facility] [address] [place] [address] Dr. Nelly Virk MCV (RBC) [Entitic vol] 94.5 fL Normal 81.0-99.0 [facility] Comment on above: Performed By: #### C BC #### [facility] [address] [place] [address] Dr. Nelly Virk MONO # 0.4 103/ul Normal 0.3-0.8 [facility] Comment on above: Performed By: #### C BC #### [facility] [address] [place] [address] Dr. Nelly Virk Monocytes/100 WBC (Bld) 8.5 % Normal 1.7-12.0 [facility] Comment on above: Performed By: #### C BC #### [facility] [address] [place] [address] Dr. Nelly Virk NEUT # 2.2 103/ul Normal 1.4-6.5 [facility] Comment on above: Performed By: #### C BC #### [facility] [address] [place] [address] Dr. Nelly Virk Neutrophils/100 WBC (Bld) 47.6 % Normal 43.0-75.0 [facility] Comment on above: Performed By: #### C BC #### [facility] [address] [place] [address] Dr. Nelly Virk Platelet mean volume (Bld) [Entitic vol] 9.3 fL Critically low 9.5-13.5 [facility] Comment on above: Performed By: #### C BC #### [facility] [address] [place] [address] Dr. Nelly Virk PLT 207 103/ul Normal 150-450 [facility] Comment on above: Performed By: #### C BC #### [facility] [address] [place] [address] Dr. Nelly Virk RBC 4.38 106/ul Normal 4.20-5.40 [facility] Comment on above: Performed By: #### C BC #### [facility] [address] [place] [address] Dr. Nelly Virk WBC 4.7 103/ul Normal 4.0-11.0 [facility] Comment on above: Performed By: #### C BC #### [facility] [address] [place] [address] Dr. Nelly Virk LIPID PROFILEon 07-10-2022 CHOL-HDL RATIO NORM SEE BELOW Normal [facility] Comment on above: Result Comment: 3.3 - 4.4 LOW RISK 4.4 - 7.1 AVERAGE RISK 7.1 - 11.0 MODERATE RISK >11.0 HIGH RISK Performed By: #### L IPID, CMP, TSH #### [facility] [address] [place] [address] Dr. Nelly Virk Cholesterol [Mass/Vol] 219 mg/dL Critically high <=200 [facility] Comment on above: Performed By: #### L IPID, CMP, TSH #### [facility] [address] [address] [address] Nelly Virk Cholesterol in HDL [Mass/Vol] 80 mg/dL Critically high 40-60 [facility] Comment on above: Performed By: #### L IPID, CMP, TSH #### [facility] [address] [address] [address] Nelyl Virk Cholesterol in LDL [Mass/Vol] 111.2 mg/dL Normal [facility] Comment on above: Performed By: #### L IPID, CMP, TSH #### [facility] [address] [address] [address] Nelly Virk Cholesterol.total/C holesterol in HDL [Mass ratio] 2.7 {ratio} Normal [facility] Comment on above: Performed By: #### L IPID, CMP, TSH #### [facility] [address] [address] [address] Nelly Virk HDL NORMAL > or = 60 mg/dl - LO W CARDIOVASCULAR RISK <40 mg/dl - HIGH CARDIOVASCULAR RISK Normal [facility] Comment on above: Performed By: #### L IPID, CMP, TSH #### [facility] [address] [address] [address] Nelly Virk LDL CALC NORMAL SEE BELOW Normal [facility] Comment on above: Result Comment: <100 mg/dl OPTIMAL 100 - 129 mg/dl NEAR OR ABOVE OPTIMAL 130 - 159 mg/dl BORDERLINE HIGH 160 - 189 mg/dl HIGH >190 mg/dl VERY HIGH Performed By: #### L IPID, CMP, TSH #### [facility] [address] [address] [address] Nelly Virk Triglyceride [Mass/Vol] 139 mg/dL Normal <=150 [facility] Comment on above: Performed By: #### L IPID, CMP, TSH #### [facility] [address] [address] [address] Nelly Virk VLDL CALC 27.8 mg/dL Normal [facility] Comment on above: Performed By: #### L IPID, CMP, TSH #### [facility] [address] [address] [address] Nelly Virk PROF 14(COMP METB)on 023 Albumin [Mass/Vol] 3.7 g/dL Normal 3.4-5.0 [facility] Comment on above: Performed By: #### L IPID, CMP, TSH #### [facility] [address] [address] [address] Nelly Virk Albumin/Globulin [Mass ratio] 1.0 {ratio} Normal [facility] Comment on above: Performed By: #### L IPID, CMP, TSH #### [facility] [address] [address] [address] Nelly Virk ALP [Catalytic activity/Vol] 62 U/L Normal 46-116 [facility] Comment on above: Performed By: #### L IPID, CMP, TSH #### [facility] [address] [address] [address] Nelly Virk ALT [Catalytic activity/Vol] 24 U/L Normal 14-59 [facility] Comment on above: Performed By: #### L IPID, CMP, TSH #### [facility] [address] [address] [address] Nelly Virk Anion gap [Moles/Vol] 14.4 mmol/L Normal [facility] Comment on above: Performed By: #### L IPID, CMP, TSH #### [facility] [address] [address] [address] Nelly Virk AST [Catalytic activity/Vol] 16 U/L Normal 15-37 [facility] Comment on above: Performed By: #### L IPID, CMP, TSH #### [facility] [address] [address] [address] Nelly Virk Bilirubin [Mass/Vol] 0.4 mg/dL Normal 0.2-1.0 [facility] Comment on above: Performed By: #### L IPID, CMP, TSH #### [facility] [address] [address] [address] Nelly Virk Calcium [Mass/Vol] 8.9 mg/dL Normal 8.5-10.1 [facility] Comment on above: Performed By: #### L IPID, CMP, TSH #### [facility] [address] [address] [address] Nelly Virk Chloride [Moles/Vol] 104 mmol/L Normal 98-107 [facility] Comment on above: Performed By: #### L IPID, CMP, TSH #### [facility] [address] [address] [address] Nelly Virk CO2 [Moles/Vol] 26.6 mmol/L Normal 21.0-32.0 [facility] Comment on above: Performed By: #### L IPID, CMP, TSH #### [facility] [address] [address] [address] Nelly Virk Creatinine [Mass/Vol] 0.88 mg/dL Normal 0.55-1.02 [facility] Comment on above: Performed By: #### L IPID, CMP, TSH #### [facility] [address] [address] [address] Nelly Virk EGFR-AF MACEDONIAN >60 Normal >=60 [facility] Comment on above: Performed By: #### L IPID, CMP, TSH #### [facility] [address] [address] [address] Nelly Virk EGFR-NON AF MACEDONIAN >60 Normal >=60 [facility] Comment on above: Performed By: #### L IPID, CMP, TSH #### [facility] [address] [address] [address] Nelly Virk Globulin (S) [Mass/Vol] 3.8 g/dL Normal [facility] Comment on above: Performed By: #### L IPID, CMP, TSH #### [facility] [address] [address] [address] Nelly Virk Glucose [Mass/Vol] 108 mg/dL Critically high 74-106 T [facility] Comment on above: Performed By: #### L IPID, CMP, TSH #### [facility] [address] [address] [address] Nelly Virk Potassium [Moles/Vol] 4.0 mmol/L Normal 3.5-5.1 [facility] Comment on above: Performed By: #### L IPID, CMP, TSH #### [facility] [address] [place] [address] Dr. Nelly Virk Protein [Mass/Vol] 7.5 g/dL Normal 6.4-8.2 [facility] Comment on above: Performed By: #### L IPID, CMP, TSH #### [facility] [address] [place] [address] Dr. Nelly Virk Sodium [Moles/Vol] 141 mmol/L Normal 136-145 [facility] Comment on above: Performed By: #### L IPID, CMP, TSH #### [facility] [address] [place] [address] Dr. Nelly Virk Urea nitrogen [Mass/Vol] 18.0 mg/dL Normal 7.0-18.0 [facility] Comment on above: Performed By: #### L IPID, CMP, TSH #### [facility] [address] [place] [address] Dr. Nelly Virk Urea nitrogen/Creatinine [Mass ratio] 20.5 mg/mg Normal [facility] Comment on above: Performed By: #### L IPID, CMP, TSH #### [facility] [address] [place] [address] Dr. Nelly Virk TSHon 07-10-2022 TSH 4.057 uIU/mL Critically high 0.358-3.740 [facility] Comment on above: Performed By: #### L IPID, CMP, TSH #### [facility] [address] [place] [address] Dr. 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 Boucher?s clinic. We are here to assist you through your ENT care at [facility]. Dr. Boucher is an Ear surgeon. This means that she specializes in taking care of patients with complex ear problems. Dr. Boucher's office number is [phone]. While you may see her at a satellite office, she has a team committed to help meet your healthcare needs at [facility]'s main [place]. This number is the most direct way to communicate with the office. Symone is Dr. Boucher?s corporate secretary and she answers the office phone from 8am-4pm Thu-Thu. She can help you with many general questions and information. Questions that she cannot answer will be directed to the appropriate staff. You may need to leave a message. In this case, someone from the team will call you back. Pj is Dr. Boucher?s primary nurse and can be reached by calling the office. Pj is in clinic with Dr. Sanford on Mondays and Tuesdays. Non-urgent calls will be returned on non-clinic days typically . Sometimes, other team members will also be involved in your care. These people may include dieticians, social workers, speech therapists, chief informatics officer, neurologist, and physical therapist. Dr. Boucher will provide these referrals as needed. Please let her know if you would like to request a specific referral. For your convenience, Dr. Boucher sees patients at several [facility] locations including [facility] and [facility] at the main campus of [facility]. While we try to make your appointments as convenient as possible, occasionally a visit to another location may be necessary to provide the best care for you. We look forward to working with you to meet your healthcare goals. Dr. Boucher makes every effort to run on time for your appointments. Therefore, if you are more than 30 minutes late unrelated to a scan or another appointment such therapy or audio you will have to reschedule. This note is prepared by Carey Thakkar acting as Rashmi Boucher MD. All medical record entries made by the Scribe were at my direction and personally dictated by me. I have reviewed the chart and agree that the record accurately reflects my personal performance of the history, physical exam, assessment, plan, and diagnosis. I have also personally directed, reviewed, and agree with the discharge instructions. Rashmi Boucher MD. Provider Impressions 56 yo female w/ a hx of left TM perforation and left-sided mixed hearing loss, she is s/p left lateral graft tympanoplasty on 01/24/22. Her hearing is not yet back to baseline, otherwise she's doing well postoperatively. It can take 3-6 months for the graft to fully thin out, her hearing should continue to improve. - No longer need to follow dry ear precautions - Okay to follow-up with Dr. Jasmine routinely, would get another hearing test summer Chief Complaint postoperative visit History of Present IllnessMai is a 56 yo female w/ a hx of left TM perforation and left-sided mixed hearing loss, she is s/p left lateral graft tympanoplasty on 01/24/22. Her hearing is not completely restored, but overall her ear is feeling better. Recall 02/11/22 Mai is a 56 yo female w/ a hx of left TM perforation and left-sided mixed hearing loss, she is s/p left lateral graft tympanoplasty on 01/24/22. She is doing well overall, she had drainage for 1 week after surgery. Denies pain, malodorous drainage. Recall 10/07/21 HPI: The patient is a 55 year old woman referred by Dr. Jasmine to ENT clinic for left sided TM perforation. Her medical history is notable for a left sided tympanoplasty and removal of cholesteatoma in 2004. She then was seen in follow up and was noted to have a TM perforation again in 2015 after a traumatic fall. She underwent revision tympanoplasty with repair of the perforation abut was then found to have recurrent perforation when seen in 2021. Her symptoms include changes in hearing, but no other significant symptoms. Prior audiogram demonstrates bilateral mixed hearing loss. Mother with history of Meniere syndrome. The patient denies otalgia, otorrhea, vertigo, tinnitus, noise exposure, denies family history of hearing disorders, denies childhood infections. PMH: Denies PSH: As above ear surgeries; bladder sling SHx: Seldom etoh, denies tob FHx: None relevant to presenting complaint Outpt Rx: Reviewed - estrogen All: NKDA ROS: A full review of systems was obtained and all other systems are negative for complaint except as stated in history Review of Systems ENT and Constitutional systems have been reviewed and are negative for complaint except what is stated in the HPI and/or Past Medical History. Active Problems History o (more content not included)... Normal [employer] Tobacco Screening.on Adult depression screening assessment No -Otolaryngo [facility] [address] Work Phone: Fall risk assessment a) No falls within the last year [facility] [address] Work Phone: Tobacco use status [facility] b) No -Otolaryngo 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 Boucher?s clinic. We are here to assist you through your ENT care at [facility]. Dr. Boucher is an Ear surgeon. This means that she specializes in taking care of patients with complex ear problems. Dr. Boucher's office number is [phone]. While you may see her at a satellite office, she has a team committed to help meet your healthcare needs at [facility]'s main campus. This number is the most direct way to communicate with the office. Symone is Dr. Boucher?s corporate secretary and she answers the office phone from 8am-4pm Thu-Thu. She can help you with many general questions and information. Questions that she cannot answer will be directed to the appropriate staff. You may need to leave a message. In this case, someone from the team will call you back. Pj is Dr. Boucher?s primary nurse and can be reached by calling the office. Pj is in clinic with Dr. Sanford on Mondays and Tuesdays. Non-urgent calls will be returned on non-clinic days typically . Sometimes, other team members will also be involved in your care. These people may include dieticians, social workers, speech therapists, chief informatics officer, neurologist, and physical therapist. Dr. Boucher will provide these referrals as needed. Please let her know if you would like to request a specific referral. For your convenience, Dr. Boucher sees patients at several [facility] locations including [facility] and [facility] at the main campus of [facility]. While we try to make your appointments as convenient as possible, occasionally a visit to another location may be necessary to provide the best care for you. We look forward to working with you to meet your healthcare goals. Dr. Boucher makes every effort to run on time for your appointments. Therefore, if you are more than 30 minutes late unrelated to a scan or another appointment such therapy or audio you will have to reschedule. Provider Impressions 56 yo female w/ a hx of left TM perforation and left-sided mixed hearing loss, she is s/p left lateral graft tympanoplasty on 01/24/22. Healing well with some exposed bone along canal. -Continue drops daily (2-3 drops) -Dry ear precautions on left -Follow up in 2-3 weeks Chief Complaint postoperative visit History of Present IllnessMai is a 56 yo female w/ a hx of left TM perforation and left-sided mixed hearing loss, she is s/p left lateral graft tympanoplasty on 01/24/22. She is doing well overall, she had drainage for 1 week after surgery. Denies pain, malodorous drainage. Recall 10/07/21 HPI: The patient is a 55 year old woman referred by Dr. Jasmine to ENT clinic for left sided TM perforation. Her medical history is notable for a left sided tympanoplasty and removal of cholesteatoma in 2004. She then was seen in follow up and was noted to have a TM perforation again in 2015 after a traumatic fall. She underwent revision tympanoplasty with repair of the perforation abut was then found to have recurrent perforation when seen in 2021. Her symptoms include changes in hearing, but no other significant symptoms. Prior audiogram demonstrates bilateral mixed hearing loss. Mother with history of Meniere syndrome. The patient denies otalgia, otorrhea, vertigo, tinnitus, noise exposure, denies family history of hearing disorders, denies childhood infections. PMH: Denies PSH: As above ear surgeries; bladder sling SHx: Seldom etoh, denies tob FHx: None relevant to presenting complaint Outpt Rx: Reviewed - estrogen All: NKDA ROS: A full review of systems was obtained and all other systems are negative for complaint except as stated in history Review of Systems ENT and Constitutional systems have been reviewed and are negative for complaint except what is stated in the HPI and/or Past Medical History. 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 Ability to communicate: Normal communication without aids, normal voice quality. Head and face: Atraumatic with no masses, lesions, or scarring. Facial strength: Normal streng (more content not included)... Normal Touchworks No Panel Informationon 01-24 [facility] Work Phone: Order Reconciliationon 01-24 Order Reconciliation Page 1 Discharge Reconciliation Document Reconciliation Type: Discharge requested on behalf of Mariel Thurman (Resident) done by Mariel Thurman (Resident)) Discharge - Reconciliation: 24-Jan-2022 11:05 by: Mariel Thurman (Resident)) Discharge - Reset to Incomplete: 24-Jan-2022 13:35 by: Mariel Thurman (Resident)) Discharge - Reconciliation: 24-Jan-2022 13:35 by: Mariel Thurman (Resident)) Home Medications EnteredHOME MEDICATIONS AT DISCHARGE DateReconciliation Comment/ Additional Information estradiol-norethindrone 0.5 mg-0.1 mg oral tablet 1 tab(s) orally once a day 08-Jan-2022 13:31 estradiol-norethindrone 0.5 mg-0.1 mg oral tablet 1 tab(s) orally once a day 08-Jan-2022 13:31 estradiol-norethindrone 0.5 mg-0.1 mg oral tablet is continued as estradiol-norethindrone 0.5 mg-0.1 mg oral tablet Current OrdersDateHOME MEDICATIONS AT DISCHARGE DateReconciliation Comment/ Additional Information HYDROmorphone Injectable (DILAUDID)DOSE = 0.5 mg IntraVenous Push Every 5 Minutes, PRN Pain - Mod (4-6) (PACU)Clinician Notes: Vivian-operative order ONLYMax total of 4 mg regardless of dose. 08-Jan-2022 17:30 HYDROmorphone Injectable is not required HYDROmorphone Injectable (DILAUDID)DOSE = 1 mg IntraVenous Push Every 5 Minutes, PRN Pain - Severe (7-10) (PACU)Clinician Notes: Vivian-operative order ONLYMax total of 4 mg regardless of dose. 08-Jan-2022 17:30 HYDROmorphone Injectable is not required Labetalol Injectable (TRANDATE)DOSE = 5 mg IntraVenous Push Once, PRN For SBP>180, DBP>100, HR>60Clinician Notes: Vivian-operative order ONLY 08-Jan-2022 17:30 Labetalol Injectable is not required Lactated Ringers Infusion IV Bag Volume = 1,000 mL Run at: 100 mL/hr IntraVenous Clinician Notes: Vivian-operative order ONLY 08-Jan-2022 17:30 Lactated Ringers Infusion is not required Lidocaine 1% Injectable DOSE = 0.1 mL SubCutaneous Once, PRN analgesia for IV startClinician Notes: Vivian-operative order ONLYTo be used for IV Insertion Only 08-Jan-2022 17:30 Lidocaine 1% Injectable is not required Ondansetron Injectable (ZOFRAN)DOSE = 4 mg IntraVenous Push Once, PRN PONV, first lineClinician Notes: Vivian-operative order ONLY 08-Jan-2022 17:30 Ondansetron Injectable is not required oxyCODONE Immediate Release Tablet (OXYIR, ROXICODONE)DOSE = 5 mg Oral Every 4 Hours, PRN Pain - Mild (1-3) (PACU) when able to take OralClinician Notes: Vivian-operative order ONLY 08-Jan-2022 17:30 oxyCODONE Immediate Release is not required Promethazine IV Piggy Back in Sodium Chloride 0.9% 50 mL (PHENERGAN)DOSE = 6.25 mg Once, PRN persistent PONV if first line ineffectiveRecommended Infusion Time: 15 minute(s)Clinician Notes: Vivian-operative order ONLY 08-Jan-2022 17:30 Promethazine IV Piggy Back is not required Home Medications Added During Discharge Reconciliation ofloxacin 0.3% ophthalmic solution 4 drop(s) in the left ear 2 times a day begin 1 week before follow-up appointment - Discontinued; Discontinue from ORM Activity as Tolerated 24-Jan-2022, Routine, Assistance Level: None, Restrictions: None, Limit your activities and rest today. Additional Patient Instructions Do not engage in sports, heavy work or lifting. Additional Patient Instructions Do not remove steri strips, they will fall off on their own. Additional Patient Instructions Keep Surgical incision dry and clean. Additional Patient Instructions remove kandis dressing 24-48 hours after surgery. Call Physician For: excessive bleeding (slow general oozing that completely soaks dressing or fresh bright red bleeding) or bleeding that will not stop. Apply pressure to the area and elevate. Call Physician For: persistant nausea and/or vomiting Over 24 hours Call Physician For: signs and sypmtoms of infection Increased redness or swelling at incision site, increased pain/tenderness at surgical site, increased temperature greater than 100 degress, increasing and/or progressive drainage from surgical site, and/or unusual odor from surgical site. cephalexin 500 mg oral tablet 1 tab(s) orally 3 times a day Diet Regular Discharge Discharge Diagnosis< H72.90 Perforation of tympanic membrane Discharge Provider, Rashmi Boucher Discharge Disposition : .Home Condition at Discharge: Satisfactory Discharge Communication Instructions for Nursing Only: Remove IV prior to discharge from hospital. Do not remove any midline, if present, without an order from the provider. Discharge Instructions - PHR After your discharge from the hospital, two Summary of Care Documents will be available online in your Personal Health Record (PHR). 1.Consolidated-Clinical Document Architecture (C-CDA) Patient Discharge Summary This document is a summary of your hospital stay to be kept for your reference.2.C-CDA Visit Summary This document is a summary of your hospital stay to be shared with you (more content not included)... Normal [facility] Surgical Pathology Depar tmenton 01-24-2022 [facility] Surgical Pathology Department Name MAI MILLER Pathologist: ANDREWS SERRANO DMD. Date of Procedure: 01/24/2022 Date Received: 01/24/2022 Date Reported 02/10/2022 Submitting Physician: RASHMI BOUCHER MD Location: [facility] Copy To/Referring/Attending: RASHMI BOUCHER MD Other External # FINAL DIAGNOSIS MIDDLE EAR, LEFT, CONTENTS, BIOPSY: --KERATINIZING SQUAMOUS EPITHELIUM AND KERATIN DEBRIS CONSISTENT WITH CHOLESTEATOMA. --MIDDLE EAR MUCOSA WITH SCAR, CHRONIC INFLAMMATORY INFILTRATE, AND GLANDULAR METAPLASIA, CONSISTENT WITH CHRONIC OTITIS MEDIA, SEE NOTE. --DEVITALIZED CARTILAGE. Note: Appropriately controlled [place] red stain shows no evidence of amyloid. at Electronically Signed Out By ANDREWS SERRANO DMD./AMT By the signature on this report, the individual or group listed as making the Final Interpretation/Diagnosis certifies that they have reviewed this case. Diagnostic interpretation performed at [facility], [place], operated by [facility] [address] Pending Sale To [facility]. [facility] [address] Clinical History: Physician Contact Number: [phone] Fixative (A): Formalin Clinical Diagnosis History 56 yo F with mixed hearing loss, prior cholesteatoma, multiple tympanoplasties with left unsable tympanic membrane perforation and u Specimens Submitted As: A: LEFT MIDDLE EAR CONTENTS Gross Description: Received in formalin, labeled with the patient's name and hospital number and left middle ear contents , are multiple segments of soft tissue aggregating to 1.2 x 0.9 x 0.2 cm. The specimen is submitted in toto in one cassette. ALT alt/01/30/2022 The assays/tests were performed with appropriate positive and negative controls which stained appropriately. [facility] Department of Pathology [address] [place] [address] Normal [facility] Comment on above: Performed By: #### U [facility] #### [facility] Surgical Pathology Department [address] [place], [place] [id number] Patient Profile - Preop v3on 01-08-2022 Patient Profile - Preop v3 Patient Profile - Preop: Initial Info: Patient DemographicsName: MAI MILLER Date: 1965 Address: [address] [place], [facility] Date/Time [id number] 13:32 Primary Phone [phone] Instructions GivenStop taking aspirin, NSAIDs (Ibuprofen, Motrin, Aleve, Naprosyn), fish oil, and vitamin E one week before surgery as these medications increase the risk of bleeding during surgery. Tylenol is okay to take. How to be AddressedKristen Spoken Language PreferredEnglish Source of Informationpatient Stated Reason for AdmissionLeft-sided lateral graft tympanoplasty with possible acicular chain reconstruction by Dr. Rashmi Boucher on January 24, 2022 Primary Contact Name and NumberMark [phone] Limitations on Visitors/Phone Callsnone Medications Brought to Hospitalno General Health: Weight in kg80 kilogram(s) Weight in vul906.3 pound(s) Weight Methodstated Scale Typestanding Height in feet5 feet Height in inches5.94 inch(es) Height in cm167.4 centimeter(s) Height Methodstated BMI (kg/m2)28.548 square meter Patient or Family Member Reaction to AnesthesiaPatient exercises at the [facility] 3-5 times a week. Patient walks on the treadmill, weight lifting, stretches. She is able to do moderate ADLs such as vacuuming, Raking leaves, walking up and down stairs. Patient denies history of chest pain, or [place]. METS >4; patient reaction Patient Reaction to Anesthesiaawakening delayed; nausea and vomiting; Tympanoplasty in 2005 patient was admitted overnight due to nausea. Revision tympanoplasty in 2016 no nausea after surgery on delayed awakening. Blood Avoidance/Restrictionsnon e Previous Transfusion Reactionno Health Mgmt: Symptoms/Conditions Managed at HomeHEENT (head, eyes, ears, nose, throat); obstetric/gynecologic HEENT Symptoms/Conditionsear problem(s) HEENT Symptoms/Conditions CommentLeft tympanic membrane perforation, bilateral high-frequency mixed hearing lossCC DBA Symptoms/Conditions Commenttakes estrogen Barriers to Managing Healthnone Relationship/Environ: Lives Withspouse Living Arrangementshouse Resource/Environmental Concernsnone Anticipated [facility] Anticipated at Transitionnone Tobacco Use: Tobacco Useno Never smoker EtOH: 1 drink per week Denies medical marijuana, recreational drug use Pre-op Checklist: Procedure TypeLEFT SIDE LATERAL GRAFT TYMPANOPLASTY WITH POSSIBLE OCR NPOyes Last Food [id number] 19:00 Last Clear Fluid [id number] 19:00 ID Band On Patientpatient ID (name) Consent Signedpending Anesthesia Assessment Completedpending EKG Performednot ordered Chest X-Ray Performednot ordered Preop Antibioticsnot ordered COVID 19 Results in Last 7 daysN/A Type and Screen Resultedn/a Chlorhexadine Bath Givennot applicable Nasal Antiseptic Appliednot applicable Soap and Water Bath the Night Before Surgerynot applicable Hair Washed with Shampoonot applicable Bowel Prepno Surgical Site Infection Preventionyes Pain Scales and Managementyes Additional Information: Information Review: Allergies, Home Meds and Significant Events have been Reviewed and Verified with Patient/Familyyes Allergy, Intolerance, Adverse Event: Allergies: No Known Allergies: Active Problem List: Medical History: Tympanic membrane perforation: Onset Date: 08-Jan-2022, Catalog Name: Unspecified perforation of tympanic membrane, unspecified ear, Description: left Surg History: History of tympanoplasty of left ear: Catalog Name: Other specified postprocedural states, Description: 2015 History of surgery: Onset Date: 08-Jan-2022, Catalog Name: Other specified postprocedural states, Description: Bladder sling placement Electronic Signatures: rPiscilla Adam (PAC) (Signed 08-Jan-2022 14:01) Authored: Initial Info, General Health, Health Mgmt, Tobacco Use, Additional Information Rachelle Murillo) (Signed 24-Jan-2022 10:57) Authored: Initial Info, General Health, Health Mgmt, Relationship/Environ, Pre-op Checklist Last Updated: 24-Jan-2022 10:57 by Rachelle Murillo) Normal [facility] Diagnostic Mammogram, Unilat eral left w/Jose Maria (3D)on 10-11-2021 Diagnostic Mammogram, Unilateral left w/Jose Maria (3D) COMPARISON: October 09, 2021 TECHNIQUE: Additional 2D and 3D Tomosynthesis of the left breast was performed. FINDINGS: On these additional views, no underlying nodule, mass, suspicious calcification or distortion is identified. IMPRESSION: BIRADS 2: Benign mammogram. Please see ultrasound report. Board Certified Radiologist. Accredited by the ACR and FDA. MAMMOGRAPHY IS VERY IMPORTANT TO YOUR HEALTH. THE CURRENT [employer] GUIDELINES RECOMMENDS ANNUAL MAMMOGRAPHY BEGINNING AT AGE 40 THIS FACILITY USES A REMINDER SYSTEM TO ENSURE ALL PATIENTS RECEIVE REMINDER NOTIFICATIONS AT THE APPROPRIATE TIME BASED ON THE RECOMMENDATIONS OF THIS EXAM. EXAM: US LEFT BREAST FINDINGS: Sonographic evaluation of the left breast was performed, correlation made with the same day mammogram and prior exam of October 09, 2021. No solid nodule or mass. Several subcentimeter cysts, largest 3 o'clock location 4 cm from the nipple, likely contribute to the mammogram findings. No suspicious solid nodule or mass. Examination demonstrates no suspicious cystic or solid mass lesions, distortion or ductal dilatation. Echotexture is normal for this age. IMPRESSION: CATEGORY 2 - Benign Report reported and signed by Ruben Bueno on 10/11/2021 1407 Normal [facility] Specialist US Breast Limited, Lefton US Breast Limited, Left Please see the mammogram report from this same date Report reported and signed by Ruben Bueno on 10/11/2021 1405 Normal [facility] SCREENING MAMMOGRAM W/JOSE MARIA, BILATERAL*on 10-09-2021 SCREENING MAMMOGRAM W/JOSE MARIA, BILATERAL* COMPARISON: Dating back to October 08, 2020, October 05, 2019 and October 01, 2018 TECHNIQUE: 2D and 3D Tomosynthesis of the right and left breasts was performed. FINDINGS: Breast composition demonstrates scattered fibroglandular densities. RIGHT BREAST: Stable, unremarkable. LEFT BREAST: New 5 mm focal asymmetry within the upper outer quadrant 5.5 cm from the nipple (BTO LMLO Image 33 of 72, BTO LCC Image 28 of 72). No significant axillary lymphadenopathy. IMPRESSION: BI RADS 0 : ADDITIONAL IMAGING EVALUATION NEEDED. Recommend spot compression and ultrasound (attention directed to the left upper outer quadrant, mid depth). Board Certified Radiologist. Accredited by the ACR and FDA. MAMMOGRAPHY IS VERY IMPORTANT TO YOUR HEALTH. THE CURRENT [employer] GUIDELINES RECOMMENDS ANNUAL MAMMOGRAPHY BEGINNING AT AGE 40. THIS FACILITY USES A REMINDER SYSTEM TO ENSURE ALL PATIENTS RECEIVE REMINDER NOTIFICATIONS AT THE APPROPRIATE TIME BASED ON THE RECOMMENDATIONS OF THIS EXAM. Asymmetry: Visible on only one projection. Asymmetries that returned telephone equipment appraiser to be summation artifact are benign (BI-RADS 2). The BI-RADS [place] offers guidance regarding the other categories of asymmetries. Focal Asymmetry: Visible on two projections, involves less than one quadrant, lacks convex-outwards borders or is interspersed with fat. A solitary focal asymmetry (without architectural distortion, calcification, or underlying mass identified on the diagnostic mammography and ultrasound) is assessed as BI-RADS 3 (likely benign). Developing Asymmetry: Focal asymmetry that is new, larger, or more conspicuous than on prior examinations. A developing asymmetry, unless shown to be characteristically benign such as a cyst or ultrasound, is assessed BI-RADS 4 (suspicious). An exception would be if there is a clear benign explanation, such as recent surgery, trauma, or infection at that site. Global Asymmetry: Visible on two projections, involves more than one quadrant. Global asymmetry, in the absence of palpable correlate, is assessed BI-RADS 2 (benign). Report reported and signed by Ruben Bueno on 10/09/2021 1531 Normal [facility] Talent Acquisition Program Manager Initial Visit (Otolaryngolog y)on 10-07-2021 Initial Visit (Otolaryngology) Diagnoses/Problems Perforation of tympanic membrane, traumatic, left, initial encounter (872.61) (S09.22XA) Mixed conductive and sensorineural hearing loss of both ears (389.22) (H90.6) History of cholesteatoma (V12.49) (Z86.69) Patient Discussion/Summary Welcome to Dr. Boucher?s clinic. We are here to assist you through your ENT care at [facility]. Dr. Boucher is an Ear surgeon. This means that she specializes in taking care of patients with complex ear problems. Dr. Boucher's office number is [phone]. While you may see her at a satellite office, she has a team committed to help meet your healthcare needs at [facility]'s main campus. This number is the most direct way to communicate with the office. Symone is Dr. Boucher?s corporate secretary and she answers the office phone from 8am-4pm Thu-Thu. She can help you with many general questions and information. Questions that she cannot answer will be directed to the appropriate staff. You may need to leave a message. In this case, someone from the team will call you back. Pj is Dr. Dominguezs primary nurse and can be reached by calling the office. Pj is in clinic with Dr. Sanford on Mondays and Tuesdays. Non-urgent calls will be returned on non-clinic days typically . Sometimes, other team members will also be involved in your care. These people may include dieticians, social workers, speech therapists, chief informatics officer, neurologist, and physical therapist. Dr. Boucher will provide these referrals as needed. Please let her know if you would like to request a specific referral. For your convenience, Dr. Boucher sees patients at several [facility] locations including [facility] and [facility] at the main campus [facility]. While we try to make your appointments as convenient as possible, occasionally a visit to another location may be necessary to provide the best care for you. We look forward to working with you to meet your healthcare goals. Dr. Boucher makes every effort to run on time for your appointments. Therefore, if you are more than 30 minutes late unrelated to a scan or another appointment such therapy or audio you will have to reschedule. Provider Impressions Mai is a 55 year old woman who presents for initial evaluation of left sided tympanic membrane perforation. Her history is notable for prior left cholesteatoma removal s/p tympanoplasty and subsequent traumatic perforation s/p revision tympanoplasty. Examination today demonstrates a left sided TM perforation with ingrowth of skin consistent with unstable perforation. Audiogram demonstrates bilateral high frequency mixed hearing loss. -Discussed lateral graft tympanoplasty and cartilage graft in detail along with the risks, benefits, and alternatives including but not limited to recurrent perforation, taste, bleeding, infection, facial weakness -Dry ear precautions -Plan to schedule surgery at her earliest convenience -Follow up postoperatively Chief Complaint NPV History of Present IllnessHPI: The patient is a 55 year old woman referred by Dr. Jasmine to ENT clinic for left sided TM perforation. Her medical history is notable for a left sided tympanoplasty and removal of cholesteatoma in 2004. She then was seen in follow up and was noted to have a TM perforation again in 2015 after a traumatic fall. She underwent revision tympanoplasty with repair of the perforation abut was then found to have recurrent perforation when seen in 2021. Her symptoms include changes in hearing, but no other significant symptoms. Prior audiogram demonstrates bilateral mixed hearing loss. Mother with history of Meniere syndrome. The patient denies otalgia, otorrhea, vertigo, tinnitus, noise exposure, denies family history of hearing disorders, denies childhood infections. PMH: Denies PSH: As above ear surgeries; bladder sling SHx: Seldom etoh, denies tob FHx: None relevant to presenting complaint Outpt Rx: Reviewed - estrogen All: NKDA ROS: A full review of systems was obtained and all other systems are negative for complaint except as stated in history Allergies No Known Drug Allergies Recorded By: Belgica Kumar; 10/07/2021 4:11:04 PM Current Meds Medication NameInstruction Estradiol-Norethindrone Acet 1-0.5 MG Oral Tablet Vitals Vital Signs Recorded: [id number] 04:10PM Ankczt147 lb Tobacco Useb) No Falls Screening (Age 18+)a) No falls within the last year Physical Exam GEN: Well appearing in no acute distress RESP: Unlabored on room air CV: Well perfused HEAD: Normocephalic and atraumatic with no facial lesions NEURO: Facial nerve appears intact bilaterally with House-Brackmann score of 1/6 bilaterally, no other cranial nerve deficits noted EXT EARS: Auricles appear normally developed with no preauricular pits or tags bilaterally; postauricular incision well healed on right AD LOS: EAC appears normal, TM appears normal with no effusion or perfora (more content not included)... Normal [facility] Tobacco Screening.on 022 Fall risk assessment a) No falls within the last year MG-Otolaryngo logy-[employer] 0720A Work Phone: Tobacco use status [facility] b) No MG-Otolaryngo logy-[employer] 3300A Work Phone: COVID-19 ([facility]on 06-12-2021 SARS-CoV-2 (COVID-19) RNA CLAUDE+probe Ql (Resp) Not detected Normal Not Detected [facility] Comment on above: Result Comment: This test result should be correlated with clinical presentations and medical history by a healthcare provider to determine its clinical significance. This assay was performed by a reverse transcriptase real-time polymerase chain reaction (rt PCR) method on the [employer] system. This test has been authorized only for the detection of nucleic acid from SARS-CoV-2, not for any other viruses or pathogens. This test has not been FDA cleared or approved. This test has been authorized by FDA under an Emergency Use Authorization (EUA). This test is only authorized for the duration of time the declaration on that circumstances exist justifying the authorization emergency use of in vitro diagnostic tests for detection and/or diagnosis of COVID-19 infection under section 564 (b) (1) of the Act, 21 U.S.C. 360 bbb-3 (b) (1), unless authorization is terminated or revoked sooner. Performed By: #### 2 [id number] #### [facility] [address] [place] [address] SARS-CoV-2 (COVID-19) RNA CLAUDE+probe Ql (Unsp spec) Pass Normal Pass [facility] Comment on above: Performed By: #### 2 [id number] #### [facility] [address] [id number] Specimen source Nom (Unsp spec) Nasal Normal [facility] Comment on above: Performed By: #### 2 [id number] #### [facility] [address] [id number] Coding Summary.on 06-12-2021 Coding Summary. [id number] Gh0bW w+PGhlYWQ+KW1FGFWqM49wkBD imH8JV6fCKW2ZRFQXLWAOIS1K SZ5gmOK3IWssP1ZtdoSk WbmbqQWrIG74RNe3GFY3zMccQ PzprI3tuHJvI6z9DmPpOT78tI 20CGrfZKPoOgE9HoZigvkseHH y W7zbNlHcyBYyScr+PHRhYmxlI HdpZHRoPScxMDAlJyBzdHlsZT 6yPw6pNYAhVOSvgZgoyDTnScI j x9xlCYElOTgmFS4lpJzwI0Nps MU2OOVpt5v4Zv26tYI+PHRkIH X5cVutMOelu042HmLdl2okQLS 3 uYCbJBtqHDU1W15cd6L4FFUsL AWgHYP1kSC3xR5pnKtxjgsoT9 WjrLEnVlW1CDI4nNIdvQ5dwXb n frijcP6cUuq+X75VCJ1QMDZCR H7KKxr9U8UgLhhptQU+PC90YW LaAE43iQSgbROfd2zssFs7EjX w OGAnAYD5qYbzVTxea7PmUCRsC 39qbEIfp2M4BZIctGtmvSMdLn NkjHM2gX7fHGqktxwoj2jxzys n Ofrod5mvva72pF39Q38iJQuiI FPeYVK7YZTmKSEhzYqpil6ddX 9wIi8+SJops5zpz7xgbYm9GpA w CDUyazDftDsqEHH9s4PwHp40E 4QufXcky7FeSzs7tw09rHXis0 E8fFQ5SFsvRSFmpV1kBQuzYpT 6 GSNxFkIfiR98tXYiYJjjLw1iz VzhaEajIX9yKJRumdkuFWAqlE 4iFTKqiCAgbQcjJD8dOEYsydn m d346VcLkGAN3ZHWlhBMqQ4Wcd E3sOfIvUHGyRSMeS2LnqACjVJ jgM165TZxvAaE0SANtcfEyH9U s CFCkcUswJrJ9x1Z3Yt8Zi7Lat jwyHVN9SGfaVJIvPvCwMxUxQg L1H0MwDqb4QAEizLpzWF0fV2C h CIPexiyawlkciUT7RTQhKDTgk M90rIGmNPljPr1po7F0a514EK HiAYDenO52Bm5jfFdfCCSutCU U zA8faolfw2aomadlAcUkFONiX Tt6SOl1XDEmyVwoKsUyKWW2Ok D8XSE7iOZprL5spFerfxywgY3 w Oyc+S95hcQ3eNAL8EII6lcydT YJobjQpFM64VL93V0QlCpyjjT FibGU+KSGiffVumXluTN6mPwG j h1zen5MkURumJ1ShCEWnVFyaK xl1JLEsLYP1cRG5uE4cGLLpWB gti7L2bXT7V5JzqoQgnm5om1r s BRLhJKlhB00avVEcg5T1NGKvf KG3HTGlbSeuWkItqB36Byj+PG GrbVfyc4GtZjsoo7oci3xxpUr 9 AaBiCCEmrjGijTbeVHZ8u6UvF h43H79dECqbDBTuFZSlRSMoUE WqjJnhda2txX6hEw9+PGNvbCB 3 dTP4fH2nHRYrDqW3KJhhV864B kNisDCfJbmjl2abk8uevPv9Hd DtTAUzxpEouJfeXOO2s7NbLd9 8 V74mSBeeJNTkTJIdCLInGIZjs Kdifd5fwU8gKt8+HE4rx1homg 66eH34rGD+NIBsJWN2sDhfGKq w RMRhpO9eICpgUiO1VWZsBoGmu X62ePSrHPxxXr1ggBcjiMbtSB 5zLEIsjlcvz045YgUsp7hrMXS w uDQlXQwoAFP3J20sy7X1BIKoE KBrNXJ4aBQ0sH6yjVtukrwzjW JauWjmdgGxtVklBGxfCGejG20 6 IHRvcDsnPlBhdGllbnQgTmFtZ Vi4M9TfIfp8VIAkdSmxMD7zsG ZjUFusWd7uoJpxmVkqWZ0yKPN p psxze784KcYqo3piHNSewTOgV JrsSZU1Q15mi8Y3VKGxJHEqIC V3bNB3sZ4usOhnkfnplHYotYk g yqTddLarSCsdSXrkG121WSFou PaoScYamuGnCPOldDO2IG56LV 22pEVbf2O5wXU4D9MxLOJczho t hjgulDI0YZDiGCOisO20Pf9hc KgzUm4pIZYsSGE8FODczUPeK5 VnaQ1mHzCoCRJoUKGbK0RtbGK t DRmcC746GNssNtJ3STZrqgIcD 7XgVFTppFwsZlA1x0F5Ts2BR6 T3NU18DA45oNXyp9Q3oIK8A4T h GXLplmrojqyrvUM9DLBwUVMjt G52Vt4hzBahGi3pHEJnNDN3LA IfoZDjC0FkaI0bDpWwFAAnBUS w E7ZsaXNxOGjmA601STxbVoP7C REulvLtM0ZaMYRbeEilSeY8c3 V7Bl0OQHv6NJ52SY66yBEda5E 5 aVZ0C9GnOQDvvfvjjwvrfEQ2E NMbRPSdxL19Ie6poPejBp4tVD UsFJX2PMNiiBKvX7AsdM0rIfJ j BIAqGOQaA0TliUWpSQdeU734W SisZyZ7VNVouyBqF7LiHLHyoU ujUoX2y6H7Ta6AEKAwGL74XJN 5 rXE6CJ50JS60J7RwLixeeKJmp +PHRhYmxlIHdpZHRoPScxMD SiFjXokJcxVP9uWq6pIDWkQGH v iWeqdXYxGhPtc7enDEHpCXceZ J5cuPgfH1ZwaQT1KJAqf5m9Uc 80E08lD5AatTA+MYEiiLD7cEK 0 yN2aEpAgWrC0FFzaO727JlEif SPcHtenb5hpm7mweMc7JfJ5BV XogdNijMzbWOM3n7ClDz26V25 s IHdpZHRoPSIxNSUiIHZhbGlnb w9orC4qYh8+MGHolWE0fOF9wD 8jHoUgPzT9FIkbF823UuEfzRR v Ejqfu2utk8zfxFf8WjBlAUHoq xApvOcwMMR7l4OyAa64U9LnuV jgj7WnFsp9rc32nARsy4Q2xEA 9 P0VqXOUfftapaPOwcGpwYK8iQ LTkgenvFPHunC2iPVAsH6o3Tv LtUmJ2QDueB2VsdyT4WIHvvDG g YHayXXJ8J12ee7C0BYRtQKMfN UN7dFI2hK6cqPxdrmulaAYxdV ruejYfjUomHRsvQEwgY754NYV v tYlaLUWkyA2mEHAspYMwnGzlA X1gOPSyuewsVgXSKCIsGM3EM9 aoPEyGGEXYWX0wBSrjmKQ+PHR k IOF7fBdvSTjfWRMdtM9jKHCyE 1k5OuNnLaO1IRgvE1EgTZSfib vaIp99hN8yCaMxXkA3BEmaM3J v gjX3DAXyqXJkZCfkDKB4X58vo 0G9PPPmBMNbMJD7fLN0tD3wqY lnbjogbGVmdDsgdmVydGljYWw t VRrkF257CCDkpQplFtH0ZuW6U uL2UiE8N5HrGge7NCSdwTpkEY 7hiVZhQTbnVn1nfYgzpOyhNF0 w GQRstilcYYXhiV8pHJWizYJyq ExiNU8xRWRkedmpy695NyTyZU C3EOFrcBZjO2MgjR7aFrNtDIN w EIBfS2OjxMRjLPwdF175KByiV oC0OVOsukNgI2QcHQPdbZtlVc W2n4B7Vf68PdKXNBRuqkibrAU + HGTvHBL0aWzoSQdaISPieN1uU CQlF1i5JyRxKfN1KSqqO4EtBF RcbojwLa85lM2mTmLvSwI4PBl u P7RiunF3FFVwpLZeOLcsVZX0R 56uo9P8HXKzFGEwFNV6sTC7nN 1hbGlnbjogbGVmdDsgdmVydGl j FDrqDYvbE684NSWmhUjzGuIar WFsZTwvdGQ+QDErLMZ7rYonJA edAOCodN3mPBVgD6p7CfBgTbW 1 VTvwS9KxYIUvapkvSo96lT2xE fAuFyR1HNweM8CyozA1EYCfbB ApQOtdDVG8H20jm1F1LWXaAJN w HSC8gND1pO7rvJkxheadcEZkb AqcqzJusPnzDVzdRAfuD511NZ DsyBcsFuLnR4QdlolvDsczpXX + DU76hx03O5IkPlzhNvi5CBMzC CU2oKI7hW5gHRNiPNggs3E0zK V8H8RezgTlwb3vs7eiAZPfFCu g Z50whSQmf3G7HMPaxXA9MPFuy MpwMuMerB06Uzb+PGNvbGdyb3 ByOnkuy1ltq4peuHz0FqQsMDS g uxCjrMelKQV4t8SuSb76W68dS HdpZHRoPSIzMCUiIHZhbGlnbj 3nqE4pDd4+PXUleHW4mFS7pS0 i AiEhJmK4HZuvP202CbGcyFUvK jpto5zud1cqcXf4MiVtQEJqrl YdoEbcTFS2z6WoKx64R2QkmCk y p2QbFgb9vb32sOBlf4B5eOT6Z 7RhZOZctgaugSRekLouHL3gGQ SicicxPBEzyP1aFQJtQ7b9AoF w RiZ0ANzzM6CyygG9IEOivSAoM OFohXWIkD6onsplg4hncjpsMw JcXGNrREe3EKv2RQXitJmdDjY s SBK4WnM9PRT2iYXyiL0lvHvwm zjphA7rWjo+ZUs3d8iplVFgYK 6sgNW1RM43QI19xYZfd9D1lDM 9 O3NtNHUxmgqcyjlihKP3LRAjS ALccM89Mi1psIxxMz0sGMVpDZ H3EZHhoFLwQ3EpsB3bCcOjTYB w FTMhO7DqwLZaVPhwN432LGlzG nY4BFGystJbF7XdGHWekVmjZw A9k8D1Cu6FJC73CW35IH37lPS g n1R5nFN5I4QnJTAqblbdwfrqs NK5FGJqQLDjcI24Ut2asSguCb 8dVNPdGJQ2XFMpyQIxA9NbcH7 y YkEzYLAaSNQiJ8KozPYmASqpS 348SBkhIpC8JMLdzdNlZ2PqIZ RmtKopKaC3w7V0Iq3XIm20WA1 0 BN12gJJtr8W2tXR6F7KcPHMzg iulhjitdPX7IMUyTQDyyT33Jr 7yhXozYw2xPNTcXHM4PTTwbLK z N2HowI0qNuCmMVKdILGuD4Uvk OUxPCnlJ653MDxdGcA6NMWiax XwR0OuVOFjuJndYbZ5x3B5Uk7 Q BVqnpec9L3DoFirvvMI+PC90Y RHvDP51vIIgpTZzs9awuGj4Wy KjKFHgVPY6bRoeBMeyq0SgKZB t Y29s (more content not included)... Normal [facility] Consent for Treatmenton 05-16 Consent for Treatment [id number]:127 Normal [facility] COVID-19 [place]on 06-11-2021 ADMITTED TO INTENSIVE CARE UNIT FOR CONDITION OF INTEREST:FIND:PT: NO Normal [facility] Comment on above: Performed By: #### 2 [id number] #### [facility] [address] [place] [address] EMPLOYED IN A HEALTHCARE SETTING:FIND:PT: Unknown Normal [facility] Comment on above: Performed By: #### 2 [id number] #### [facility] [address] [place] [address] FIRST TEST FOR CONDITION OF INTEREST:FIND:PT: Unknown Normal [facility] Comment on above: Performed By: #### 2 [id number] #### [facility] [address] [place] [address] HAS SYMPTOMS RELATED TO CONDITION OF INTEREST:FIND:PT: Unknown Normal [facility] Comment on above: Performed By: #### 2 [id number] #### [facility] [address] [place] [address] HOSPITALIZED FOR CONDITION OF INTEREST:FIND:PT: NO Normal [facility] Comment on above: Performed By: #### 2 [id number] #### [facility] [address] [id number] STATUS:FIND:PT: NO Normal [facility] Comment on above: Performed By: #### 2 [id number] #### [facility] [address] [place] [address] RESIDES IN A CONGREGATE CARE SETTING:FIND:PT: Unknown Normal [facility] Comment on above: Performed By: #### 2 [id number] #### [facility] [address] [id number] Vital Signs Date Time Vital Sign Value Performing Clinician Facility 08-30-2024 09:51-0400 Body height 165.1 cm Rashmi Boucher MD Work Phone: [facility] 08-30-2024 09:51-0400 Body mass index (BMI) [Ratio] 29.95 kg/m2 Rashmi Boucher MD Work Phone: [facility] 08-30-2024 09:51-0400 Body weight 81.65 kg Rashmi Boucher MD Work Phone: [facility] 07-18-2024 11:20-0400 Body height 165.1 cm Carolyn Jasmine MD Work Phone: [facility] 07-18-2024 11:20-0400 Body mass index (BMI) [Ratio] 31.95 kg/m2 Carolyn Jasmine MD Work Phone: [facility] 07-18-2024 11:20-0400 Body weight 87.09 kg Carolyn Jasmine MD Work Phone: [facility] 07-18-2024 11:20-0400 Diastolic blood pressure 81 mm[Hg] Carolyn Jasmine MD Work Phone: [facility] 07-18-2024 11:20-0400 Heart rate 89 /min Carolyn Jasmine MD Work Phone: [facility] 07-18-2024 11:20-0400 Systolic blood pressure 136 mm[Hg] Carolyn Jasmine MD Work Phone: [facility] 07-13-2024 09:31-0400 Body height 165.1 cm [facility] 07-13-2024 09:31-0400 Body mass index (BMI) [Ratio] 31.4 kg/m2 [facility] 07-13-2024 09:31-0400 Body weight 85.72 kg [facility] 07-13-2024 09:31-0400 Diastolic blood pressure 84 mm[Hg] [facility] 07-13-2024 09:31-0400 Heart rate 91 /min [facility] 07-13-2024 09:31-0400 Respiratory rate 12 /min [facility] 07-13-2024 09:31-0400 Systolic blood pressure 127 mm[Hg] [facility] 07-05-2024 15:38-0400 Body height 165.1 cm Carolyn Jasmine MD Work Phone: [facility] 07-05-2024 15:38-0400 Body mass index (BMI) [Ratio] 32.28 kg/m2 Carolyn Jasmine MD Work Phone: [facility] 07-05-2024 15:38-0400 Body weight 88 kg Carolyn Jasmine MD Work Phone: [facility] 07-05-2024 15:38-0400 Diastolic blood pressure 76 mm[Hg] Carolyn Jasmine MD Work Phone: [facility] 07-05-2024 15:38-0400 Heart rate 85 /min Carolyn Jasmine MD Work Phone: [facility] 07-05-2024 15:38-0400 Systolic blood pressure 126 mm[Hg] Carolyn Jasmine MD Work Phone: [facility] 01-05-2024 15:39-0400 Body height 165.1 cm Carolyn Jasmine MD Work Phone: [facility] 01-05-2024 15:39-0400 Body mass index (BMI) [Ratio] 28.46 kg/m2 Carolyn Jasmine MD Work Phone: [facility] 01-05-2024 15:39-0400 Body weight 77.56 kg Carolyn Jasmine MD Work Phone: [facility] 01-05-2024 15:39-0400 Diastolic blood pressure 80 mm[Hg] Carolyn Jasmine MD Work Phone: [facility] 01-05-2024 15:39-0400 Systolic blood pressure 133 mm[Hg] Carolyn Jasmine MD Work Phone: [facility] 01-01-2024 09:10-0400 Body mass index (BMI) [Ratio] 27.62 kg/m2 Mariel Singer DO Work Phone: [facility] 01-01-2024 09:10-0400 Body weight 75.3 kg Mariel Visci DO Work Phone: [facility] 01-01-2024 09:10-0400 Diastolic blood pressure 84 mm[Hg] Mariel Visci DO Work Phone: [facility] 01-01-2024 09:10-0400 Systolic blood pressure 118 mm[Hg] Mariel Visci DO Work Phone: [facility] 12-26-2023 13:14-0400 Body height 165.1 cm PHYSICIAN NO [facility] 12-26-2023 13:14-0400 Body mass index (BMI) [Ratio] 27.8 kg/m2 PHYSICIAN NO [facility] 12-26-2023 13:14-0400 Body temperature 97.7 [degF] PHYSICIAN NO [facility] 12-26-2023 13:14-0400 Body weight 75.86 kg PHYSICIAN NO [facility] 12-26-2023 13:14-0400 Diastolic blood pressure 88 mm[Hg] PHYSICIAN NO [facility] 12-26-2023 13:14-0400 Heart rate 91 /min PHYSICIAN NO [facility] 12-26-2023 13:14-0400 Respiratory rate 16 /min PHYSICIAN NO [facility] 12-26-2023 13:14-0400 SaO2% (BldA) [Mass fraction] 98 % PHYSICIAN NO [facility] 12-26-2023 13:14-0400 Systolic blood pressure 126 mm[Hg] PHYSICIAN NO [facility] 11-30-2023 11:21-0400 Body height 165.1 cm PHYSICIAN NO [facility] 11-30-2023 11:21-0400 Body mass index (BMI) [Ratio] 27.8 kg/m2 PHYSICIAN NO [facility] 11-30-2023 11:21-0400 Body weight 75.86 kg PHYSICIAN NO [facility] 11-30-2023 11:21-0400 Diastolic blood pressure 78 mm[Hg] PHYSICIAN NO [facility] 11-30-2023 11:21-0400 Heart rate 80 /min PHYSICIAN NO [facility] 11-30-2023 11:21-0400 Respiratory rate 12 /min PHYSICIAN NO [facility] 11-30-2023 11:21-0400 Systolic blood pressure 125 mm[Hg] PHYSICIAN NO [facility] 01-22-2023 13:56-0500 Diastolic blood pressure 87 mm[Hg] DO Kartik Ball Work Phone: [facility] 01-22-2023 13:56-0500 Heart rate 87 /min DO Kartik Ball Work Phone: [facility] 01-22-2023 13:56-0500 Respiratory rate 16 /min DO Kartik Ball Work Phone: [facility] 01-22-2023 13:56-0500 SaO2% (BldA) [Mass fraction] 96 % DO Kartik Ball Work Phone: [facility] 01-22-2023 13:56-0500 Systolic blood pressure 140 mm[Hg] DO Kartik Ball Work Phone: [facility] 01-22-2023 13:27-0500 Body height 165.1 cm DO Kartik Ball Work Phone: [facility] 01-22-2023 13:27-0500 Body mass index (BMI) [Ratio] 30 kg/m2 DO Kartik Ball Work Phone: [facility] 01-22-2023 13:27-0500 Body weight 82 kg DO Kartik Ball Work Phone: [facility] 01-22-2023 12:21-0500 Body temperature 98.1 [degF] DO Kartik Ball Work Phone: [facility] 01-22-2023 12:21-0500 Inhaled oxygen flow rate 6 L/min DO Kartik Ball Work Phone: [facility] 09-04-2022 08:45-0400 Body height 167.64 cm Kartik Ball Other [employer] Other 09-04-2022 08:45-0400 Body mass index (BMI) [Ratio] 27.44 kg/m2 Kartik Ball Other [employer] Other 09-04-2022 08:45-0400 Body weight 77.11 kg Kartik Ball Other [employer] Other 09-04-2022 08:45-0400 Diastolic blood pressure 76 mm[Hg] Kartik Ball Other [employer] Other 09-04-2022 08:45-0400 Respiratory rate 12 /min Kartik Ball Other [employer] Other 09-04-2022 08:45-0400 Systolic blood pressure 119 mm[Hg] Kartik Ball Other [employer] Other 07-08-2022 12:30-0400 Body height 167.64 cm Kartik Ball Other [employer] Other 07-08-2022 12:30-0400 Body mass index (BMI) [Ratio] 29.86 kg/m2 Kartik Ball Other [employer] Other 07-08-2022 12:30-0400 Body weight 83.92 kg Kartik Ball Other [employer] Other 07-08-2022 12:30-0400 Diastolic blood pressure 81 mm[Hg] Kartik Ball Other [employer] Other 07-08-2022 12:30-0400 Respiratory rate 12 /min Kartik Ball Other [employer] Other 07-08-2022 12:30-0400 Systolic blood pressure 136 mm[Hg] Kartik Ball Other [employer] Other 03-11-2022 14:20-0500 Body height 167.64 cm Kartik Priest Work Phone: [facility] Work Phone: 03-11-2022 14:20-0500 Body mass index (BMI) [Ratio] 27.44 kg/m2 Kartik Priest Work Phone: [facility] [address] Work Phone: 03-11-2022 14:20-0500 Body surface area Derived from formula 1.87 m2 Kartik Priest Work Phone: [facility] [address] Work Phone: 03-11-2022 14:20-0500 Body temperature 96.7 [degF] Kartik Priest Work Phone: [facility] [address] Work Phone: 03-11-2022 14:20-0500 Body weight 77.11 kg Kartik Priest Work Phone: [facility] [address] Work Phone: 10-07-2021 16:10-0400 Body weight 76.66 kg Kartik Priest Work Phone: [facility] Work Phone: Encounters Encounter Date Encounter Type Care Provider Facility Start: 09-02-2024 ambulatory RASHMI BOUCHER [facility] Start: 09-01-2024 End: 09-01-2024 Subsequent hospital visit by physician Rad External Film [facility] Comment on above: Arrived Start: 09-01-2024 End: 09-01-2024 ambulatory RASHMI BOUCHER [facility] Start: 08-30-2024 End: 08-30-2024 Office outpatient new 45 minutes Rashmi Boucher MD Work Phone: [facility] Comment on above: Preoperative clearbrandy ce; Cholesteatoma of left ear Start: 08-30-2024 End: 08-30-2024 Preoperative state Rashmi Boucher MD Work Phone: [facility] Start: 08-30-2024 End: 08-30-2024 ambulatory RASHMI Moralez SANDER [facility] Start: 07-18-2024 End: 07-18-2024 Bamboo flowsheet Carolyn Jasmine MD Work Phone: [facility] Start: 07-18-2024 End: 07-18-2024 Chandrakant Jasmine MD Work Phone: [facility] Start: 07-18-2024 End: 07-18-2024 Office outpatient visit 15 minutes Carolyn [facility]asmine MD [facility] Comment on above: 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) Start: 07-18-2024 End: 07-18-2024 ambulatory CAROLYN JASMINE Not Available Start: 07-13-2024 End: 07-13-2024 ambulatory [facility] Work Phone: Start: 07-13-2024 End: 07-13-2024 Patient encounter procedure [facility] Work Phone: Start: 07-11-2024 End: 07-11-2024 Telephone encounter Carolyn Jasmine MD Work Phone: [facility] Comment on above: needs rx Start: 07-08-2024 End: 07-08-2024 ambulatory CAROLYN DANIELSMIPhillip Not Available Start: 07-05-2024 End: 07-05-2024 Office outpatient visit 15 minutes Carolyn Jasmine MD Work Phone: [facility] Comment on above: 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) Start: 07-05-2024 End: 07-05-2024 ambulatory CAROLYN JASMINE Not Available Start: 07-05-2024 End: 07-05-2024 Bamboo flowsashley Jasmine MD Work Phone: [facility] Start: 07-05-2024 End: 07-05-2024 Bamboo flowsashley Jasmine MD Work Phone: [facility] Start: 02-16-2024 End: 02-16-2024 Office outpatient visit 15 minutes Raulito Nuñez MD Work Phone: [facility] Comment on above: Melanocytic nevus of trunk (Primary Dx); Seborrheic keratosis; Seborrheic keratosis, inflamed; Actinic keratosis; Capillary angioma; Lentigines Start: 02-16-2024 End: 02-16-2024 ambulatory RAULITO NUÑEZ Not Available Start: 02-16-2024 End: 02-16-2024 Bamboo flowsashley Nuñez MD Work Phone: [facility] Start: 02-16-2024 End: 02-16-2024 Bamboo flowsashley Nuñez MD Work Phone: [facility] Start: 01-05-2024 End: 01-05-2024 Patient encounter procedure Carolyn Jasmine MD Work Phone: [facility] Comment on above: Foreign body of left ear, initial encounter (Primary Dx) Start: 01-05-2024 End: 01-05-2024 ambulatory CAROLYN JASMINE Not Available Start: 01-05-2024 End: 01-05-2024 Bamboo flowsashley Jasmine MD Work Phone: [facility] Start: 01-05-2024 End: 01-05-2024 Bamboo flowsashley Jasmine MD Work Phone: [facility] Start: 01-01-2024 End: 01-01-2024 Bamboo flowsheet Mariel Singer DO Work Phone: [facility] Start: 01-01-2024 End: 01-01-2024 Bamboo flowsheet Mariel Saunders Visckelly DO Work Phone: [facility] Start: 01-01-2024 End: 01-01-2024 ambulatory MARIEL SINGER Not Available Start: 01-01-2024 End: 01-01-2024 Patient encounter status Mariel Saunders Visci DO Work Phone: [facility] Healthcare Work Phone: Start: 01-01-2024 End: 01-01-2024 Periodic preventive med est patient 40-64yrs Mariel Saunders Visckelly DO Work Phone: [facility] Comment on above: Encounter for gyneco logical examination with abnormal finding (Primary Dx); Encounter for screening mammogram for malignant neoplasm of breast; Vaginal atrophy; Vaginal irritation Start: 12-26-2023 End: 12-26-2023 ambulatory PHYSICIAN NO [facility] Facility:[facility] Start: 12-26-2023 End: 12-26-2023 Departed Referred PHYSICIAN NO [facility] [place] Work Phone: Start: 12-26-2023 End: 12-26-2023 Patient encounter procedure PHYSICIAN NO [facility] Work Phone: Start: 11-30-2023 End: 11-30-2023 Patient encounter procedure PHYSICIAN NO [facility] Work Phone: Start: 10-22-2023 End: 10-22-2023 ambulatory FIDEL VILLAR Not Available Start: 09-29-2023 End: 09-29-2023 ambulatory CAROLYN JASMINE Not Available Start: 02-20-2023 End: 02-20-2023 ambulatory Kartik Priest Other [employer] Other Start: 02-20-2023 Telephone encounter Kartik Priets [facility] Start: 02-19-2023 End: 02-19-2023 ambulatory Kartik Priest Other [employer] Other Start: 02-19-2023 Office outpatient vi sit 15 minutes Kartik Ball [facility] Start: 01-22-2023 Telephone encounter Kartik Priest [facility] Start: 01-22-2023 End: 01-22-2023 Admission to same day surgery center DO Kartik Ball Work Phone: [facility] [place] Start: 01-22-2023 End: 01-22-2023 ambulatory DO Kartik Ball Work Phone: [facility] Work Phone: Start: 01-07-2023 End: 01-07-2023 Patient encounter procedure DO Kartik Ball Work Phone: [facility] Work Phone: Start: 01-07-2023 End: 01-07-2023 ambulatory DO Kartik Jennifer Work Phone: [facility] Work Phone: Start: 09-04-2022 End: 09-04-2022 ambulatory Kartik Priest Other [employer] Other Start: 09-04-2022 Office outpatient vi sit 15 minutes Kartik Jennifer [facility] Start: 09-04-2022 Telephone encounter Kartik Priest [facility] Start: 08-28-2022 End: 08-28-2022 ambulatory Kartik Priest Other [employer] Other Start: 08-28-2022 Telephone encounter Kartik Priest [facility] Start: 07-14-2022 Encounter for genera l adult medical examination without abnormal findings DR KARTIK PRIEST [facility] Start: 07-10-2022 End: 07-11-[address] KARTIK PRIEST Facility:[facility] Start: 07-10-2022 End: 07-11-2022 Encounter for general adult medical examination without abnormal findings DR KARTIK PRIEST Facility:[facility] Start: 07-08-2022 End: 07-08-2022 ambulatory Kartik Priest Other [facility] [employer] Other Start: 07-08-2022 Encounter for genera l adult medical examination without abnormal findings Kartik Priest [facility] Start: 07-08-2022 Periodic preventive med est patient 40-64yrs Kartik Priest [facility] Start: 03-11-2022 Patient encounter procedure Kartik Priest Work Phone: [facility] [address] Work Phone: Start: 03-11-2022 Postop follow up vis it related to original px Kartik Priest Work Phone: [id number]-Rgwlocmkqipjoi-Pcjjy in [facility] [address] Work Phone: Start: 03-11-[address] Rashmi Boucher Facility:[id number] Start: 02-11-[address] Rashmi Boucher Facility:[id number] Start: 02-11-2022 Chart Update Kartik salamanca Work Phone: ZD[facility]Zuxouiacsviiwr[facility]Sswly in [facility] [address] Work Phone: Start: 01-24-2022 End: 01-24-[address] Rashmi Boucher Facility:[facility] Start: 10-07-2021 Office consultation new/estab patient 60 min Kartik Priest Work Phone: [facility][id number][facility]Dksna [facility] [id number] Work Phone: Start: 10-07-2021 Patient encounter procedure Kartik Priest Work Phone: [id number]-Anhzi [facility] [id number] Work Phone: Start: 10-07-[address] Rashmi Boucher Facility:[id number] Start: 06-05-2021 End: 09-10-2021 Patient encounter procedure Jasper Farley [facility] Start: 05-10-2019 Adult health examination Duy Priest Other [employer] Other Procedures Date Procedure Procedure Detail Performing Clinician Start: 09-01-2024 Study Interpretation of outside study Rashmi Boucher MD Work Phone: Start: 02-16-2024 End: 02-16-2024 CRYOTHERAPY SKIN LESION Raulito Nuñez MD Work Phone: Start: 01-01-2024 Smr prim src wet devika nt nfct agt Mariel Singer DO Work Phone: Start: 01-22-2023 Blepharoplasty DO Duy Priest Work Phone: Start: 10-13-2022 Mammography Rashmi watson MD Work Phone: Start: 04-30-2017 Screening for malign ant neoplasm of colon Kartik Priest Other Start: 01-01-2015 General examination of patient Kartik Priest Other Plan of Treatment Date Care Activity Detail Author Start: 02-15-2025 End: 02-15-2025 Patient encounter procedure 02/15/2025 4:00 PM EST Office Visit [facility] [address] [place] [address] Raulito Nuñez MD [address] [place], [place] [id number] [facility] Start: 01-11-2025 End: 01-11-2025 Patient encounter procedure 01/11/2025 3:30 PM EDT Office Visit [facility] [address] [place] [address] Mariel Singer, [address] [place], [place] [id number] [facility] Start: 01-01-2025 Yearly Adult Physical Yearly Adult P [facility] Start: 11-21-2024 Subsequent hospital visit by physician 11/21/2024 Hospital Encounter [facility] [place] [address] [place] [address] [place] [id number] [address], [place] [id number] [facility] [place] Start: 11-14-2024 Influenza vaccination Influenz a Vaccine (Season Ended) [facility] Start: 09-01-2024 End: 08-30-2025 CBC panel - Blood by Automated count CBC Lab Routine Cholesteatoma of left ear Expected: 09/01/2024 (Approximate), Expires: 08/30/2025 [facility] Service Area Work Phone: Comment on above: Expected: 09/01/2024 (Approximate), Expires: 08/30/2025 Start: 09-01-2024 End: 08-30-2025 Comprehensive metabolic 2000 panel - Serum or Plasma Comprehensive Metabolic Panel Lab Routine Cholesteatoma of left ear Expected: 09/01/2024 (Approximate), Expires: 08/30/2025 [facility] Work Phone: Comment on above: Expected: 09/01/2024 (Approximate), Expires: 08/30/2025 Start: 07-18-2024 End: 07-18-2024 Patient encounter procedure 07/18/2024 11:20 AM EDT Office Visit [facility] [address] [facility] [address] [place] [address] Carolyn Jasmine MD [address] [facility] [address] [place] [address] [facility] Start: 07-05-2024 End: 07-05-2024 Patient encounter procedure [facility] Comment on above: Arrived Start: 02-16-2024 End: 02-16-2024 Patient encounter procedure [facility] Comment on above: Arrived Start: 01-05-2024 End: 01-05-2024 Patient encounter procedure [facility] Comment on above: Arrived Start: 01-01-2024 End: 03-02-2025 DBT Breast - bilateral screening Bilateral screening mammogram with tomosynthesis Imaging Routine Encounter for screening mammogram for malignant neoplasm of breast Expected: 01/01/2024, Expires: 03/02/2025 [facility] Comment on above: Expected: 01/01/2024 , Expires: 03/02/2025 Start: 01-01-2024 End: 12-31-2024 IGP, APT HPV,RFX 16/18,45 IGP, APT HPV,RFX 16/18,45 Lab Routine Encounter for gynecological examination with abnormal finding Expected: 01/01/2024 (Approximate), Expires: 12/31/2024 [facility] Work Phone: Comment on above: Expected: 01/01/2024 (Approximate), Expires: 12/31/2024 Start: 12-26-2023 Bacteria identified in Urine by Culture Urine Culture [facility] Start: 12-26-2023 Urine culture [facility] Start: 11-15-2023 COVID-19 Vaccine ( season) COVID-19 Vaccine ( season) [facility] Start: 10-14-2023 Screening for malign ant neoplasm of breast Mammogram [facility] Start: 01-22-2023 [facility] Start: 01-22-2023 [facility] Start: 03-11-2022 FUV, Provider: Rashmi Boucher, Status: Pen, Time: 2:15 PM FUV, Provider: Rashmi Boucher, Status: Pen, Time: 2:15 PM [facility] Work Phone: Start: 2014 Pneumococcal vaccination Pneum ococcal Vaccine (1 of 1 - PCV) [facility] Start: 2014 Zoster Vaccines (1 of 2) Zoste r Vaccines (1 of 2) [facility] Start: 1986 DTaP/Tdap/Td Vaccine s (1 - Tdap) DTaP/Tdap/Td Vaccines (1 - Tdap) [facility] Start: 1985 Screening for malign ant neoplasm of cervix [facility] Start: 11-11-1983 Hepatitis B Vaccines (1 of 3 - 19+ 3-dose series) Hepatitis B Vaccines (1 of 3 - 19+ 3-dose series) [facility] Start: 1982 Diabetes mellitus screening Diabetes Screening [facility] Start: 1982 Hepatitis C screening Hepatitis C [facility] Start: 1965 MMR Vaccines (1 of 1 - Standard series) MMR Vaccines (1 of 1 - Standard series) [facility] Start: 1964 HIV screening HIV Screening [facility] Start: 1964 Lipid panel Lipid Panel [facility] Start: 1964 Screening for malign ant neoplasm of colon [facility] Start: 1964 Yearly Adult Physical Yearly Adult P hysical [facility] ECG 12 lead ECG 12 lead ECG Routine Preoperative clearance Cholesteatoma of left ear Ordered: 09/01/2024 [facility] Work Phone: Comment on above: Ordered: 09/01/2024 Patient referral [facility] Work Phone: Reconstruction exter nal auditory canal spx CANALOPLASTY, EAR Cholesteatoma of left ear [facility] [place] Payers Date Payer Category Payer Self-pay [id number] 2022 Unknown [id number] 2020 Managed Care (Private) [employer] [id number] 2019 Managed Care O (unspecified) [employer] [id number] 315 1964 Unknown [id number] 2.16.840.1.473257.3.57 9.2.356 1964 Unknown [id number] 2.16840.1.595570.3.57 9.2.356 1964 Unknown [id number] 2.16.840.1.987723.3.57 9.2.356 1964 Unknown [id number] 2.16.840.1.007276.3.57 9.2.356 1964 Unknown [id number] 2.16.840.1.955025.3.57 9.2.593 1964 Unknown [id number] 2.16.840.1.602216.3.57 9.2.1259 1964 Unknown [id number] 2.16.840.1.395595.3.57 9.2.1259 1964 Unknown [id number] 2.16.840.1.293196.3.57 9.2.1259 1964 Unknown [id number] 2.16.840.1.595905.3.57 9.2.1259 1964 Unknown [id number] 2.16.840.1.643340.3.57 9.2.1259 1964 Unknown [id number] 2.16.840.1.023272.3.57 9.2.1259 1964 Unknown [id number] 2.16.840.1.243007.3.57 9.2.1259 1964 Unknown [id number] 2.16.840.1.290336.3.57 9.2.1259 1964 Unknown [id number] 2.16.840.1.818437.3.57 9.2.1244 1964 Unknown [id number] 2.16.840.1.202954.3.57 9.2.1242 1964 Unknown [id number] 2.16.840.1.126328.3.57 9.2.1245 1964 Unknown [id number] 2.16.840.1.406100.3.57 9.2.1245 1959 Private Health Insurance [id number] [facility] [id number] Private Health Insurance [id number] 2.16840.1.736562.19 Unknown [employer] Unknown [id number] 2.16840.1.875949.3.57 9.2.531 Unknown [id number] 2.16840.1.063482.3.57 9.2.531 Unknown [id number] 2.16840.1.650378.3.57 9.2.531 Social History Date Type Detail Facility Tobacco smoking status No Smokin g Status Entered [facility] Start: 12-11-2022 End: 08-30-2024 Sex Assigned At Female [facility] Start: 1965 Sex Assigned At Female [facility] Start: 01-22-2023 End: 08-30-2024 Tobacco smoking status NHIS Never smoked tobacco (finding) [facility] Start: 10-28-2022 End: 08-30-2024 Tobacco use and exposure Smokeless tobacco non-user [facility] Start: 12-25-2023 End: 07-18-2024 Alcoholic beverage intake Current drinker of alcohol (finding) [facility] Start: 12-11-2022 End: 08-30-2024 History of Social function [facility] How often to you hav e a drink containing alcohol? Monthly or less [facility] How many standard drinks containing alcohol do you have on a typical day? 1 or 2 [facility] How often do you hav e 6 or more drinks on 1 occasion? Never [facility] Start: 10-24-2022 Alcohol Comment Caffeine: none [facility] Start: 12-10-2022 Gender identity Identifies as female gender (finding) [facility] Start: 12-10-2022 Sexual orientation Heterosexual (finding) [facility] Start: 07-13-2024 Sex Female (finding) [facility] Start: 1965 Sex assigned at Not on file [facility] Work Phone: Medical Equipment Procedure Code Equipment Code Equipment Original Text Equipment Identifier Dates Graft, Biodesign Otologic Repair 2.5 X 2.5 Case [id number] Start: 01-24-2022 Comment on above: Description: Convert ed from [facility]. Please see archived information for full log information. Goals Date Patient Goal Desired Activity /State Personal health goal Functional Status Date Assessment Result Facility 08-30-2024 Patient Health Quest ionnaire 2 item (PHQ-2) [Reported] [facility] Work Phone: Clinical Notes 01-24-2022 to 08-30-2024 Rashmi Boucher MD - 08/30/2024 9:30 AM EDTPatient InstructionsHimiky Jasmine MD - 07/18/2024 11:20 AM EDTTelephone Encounter - Carolyn Jasmine MD - 07/11/2024 11:22 AM EDT Note Date & Type Note Facility 08-30-2024 History of Present illness Narrative History Of Present Illness: Mai Miller is a 58 y.o. female whom presents for left EAC cholesteatoma, referred here today by Carolyn Jasmine MD. 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 Otology past surgical history: - left tympmastoid in 2005 for a choleste[address]oma with Dr. Jasmine - left lateral graft tympanoplasty on 01/24/[address] Boucher Recall 03/11/22: Mai is a 56 yo female w/ a hx of left TM perforation and left-sided mixed hearing loss, she is s/p left lateral graft tympanoplasty on 01/24/22. Her hearing is not completely restored, but overall her ear is feeling better. 08/30/24: Mai has been following with Dr. Jasmine every 6 months for observation and EAC debridements. In 06/2024, Dr. Jasmine noted a soft tissue mass in posterior quadrant of the left EAC. She denied recent infections, otorrhea, otalgia or changes in hearing Past Medical History: She has no past medical history on file. Surgical History: She has no past surgical history on file. Social History: She reports that she has never smoked. She has never used smokeless tobacco. No history on file for alcohol use and drug use. Family History: Family History[1] Medications: Current Outpatient Medications Medication Instructions semaglutide (OZEMPIC) 0.25 mg, Weekly Allergies: Patient has no known allergies. Review of Systems: A comprehensive 10-point review of systems was obtained including constitutional, neurological, HEENT, pulmonary, cardiovascular, genito-urinary, and other pertinent systems and was negative except as noted in the HPI. Physical Exam: Constitutional General appearance: Healthy-appearing, well-nourished, well groomed, in no acute distress. Ability to communicate: Normal communication without aids, normal voice quality. Head and face: Atraumatic with no masses, lesions, or scarring. Facial strength: Normal strength and symmetry, no synkinesis or facial tic. Ears Otoscopic examination: - Right: TM is intact with no EAC pathology - Left: large soft tissue mass in the posterior portion of the EAC at the level of the bony cartilaginous junction. There is a opening to the mass which has keratin debris in the pocket/mass. Posterior portion of the TM can not be fully visualized due to obstruction. No evidence of TM perforation in anterior quadrant. Nose: Dorsum symmetric with no visible or palpable deformities. Oral Cavity/Mouth Lips, teeth, and gums: Normal lips, gums, and dentition. Oropharynx: Mucosa moist, no lesions. Neck: Symmetrical, trachea midline. No masses visible. Neurological/Psychiatric Cranial Nerve Examination: II - XII grossly intact. Orientation to person, place, and time: Normal. Mood and affect: Normal. Skin: Normal without rashes or lesions. Pulmonary Respiratory effort: Chest expands symmetrically. Cardiovascular: Good peripheral pulses Peripheral vascular system: No varicosities, carotid pulse normal, no edema. No jugular venous distension. Extremities: Appearance of extremities: Normal. Gait normal. Procedure: Ear Cleaning Procedure: Cerumen Removal Indication: Cerumen Impaction and Debris in Ear Canal Location: Both Ears Prep: Nothing was placed in the ear canal(s) prior to the procedure. Preformed by: The procedure was performed by the Provider. Visualization Instrument: A Microscope and Speculum were placed in the ear canal(s) to visualize the ear canal debris. Ear cleaning Instruments: Alligator Forceps and Curette were used during the procedure. Outcome: The procedure was successful. Patient Status: The patient tolerated the procedure well. Complications: There were no complications. Patient Instructions: Dry Ear Precautions Last Recorded Vitals: Height 1.651 m (5' 5 ), weight 81.6 kg (180 lb). Relevant Results: I personally reviewed the CT orbit report from 07/08/24 which demonstrated a soft tissue noncalcified nodule of the superior margin of the peripheral left external auditory canal near the pinna. The images were not available for my review today. I personally reviewed the audiogram from 08/30/24 which demonstrated bilaterally mild to moderately-severe down sloping SNHL. Assessment/Plan 58 y.o. female whom presents to me as a new patient for left EAC cholesteatoma, referred here today by Carolyn Jasmine MD. Physical exam is significant for a large soft tissue mass in the posterior EAC at the level of the bony cartilaginous junction. It is most likely that this EAC cholesteatoma is due to entrapped skin from her 01/2022 lateral graft tympanoplasty. I will review the images for the CT and if there is bony eroision then she will need a mastoidectomy. I will call her when I have the images to review. We discussed the risks and benefits of left revision canalplasty, possible mastoidectomy and cartilage graft. These risks include damage to the ear bone, damage to the inner ear, hearing loss, dizziness, facial nerve injury, and taste disturbance. The patient opted to undergo this procedure and will be scheduled at their earliest convenience. - Follow up post-operatively for packing removal Sekou Salamanca, PGY-3 I saw and evaluated the patient. I personally obtained the barnes and critical portions of the history and physical exam or was physically present for barnes and critical portions performed by the resident/fellow. I reviewed the resident/fellow's documentation and discussed the patient with the resident/fellow. I agree with the resident/fellow's medical decision making as documented in the note. Rashmi Boucher MD [1] No family history on file. documented in this encounter [facility] Work Phone: 08-30-2024 Instructions Aleja Braxton - 08/30/2024 9:30 AM EDT Welcome to Dr. Boucher's clinic. We are here to assist you through your ENT care at [facility]. Dr. Boucher is an Ear surgeon. This means that she specializes in taking care of patients with complex ear problems. Dr. Boucher's office number is [phone]. While you may see her at a satellite office, she has a team committed to help meet your healthcare needs at [facility]'s main campus. This number is the most direct way to communicate with the office. Symone is Dr. Boucher's corporate secretary and she answers the office phone from 8am-4pm Thu-Thu. She can help you with many general questions and information. Questions that she cannot answer will be directed to the appropriate staff. You may need to leave a message. In this case, someone from the team will call you back. Pj Glover RN, is Dr. Boucher's primary nurse and can be reached by calling the office. Pj is in clinic with Dr. Boucher's on Mondays and Tuesdays. Non-urgent calls will be returned on non-clinic days typically . Sometimes, other team members will also be involved in your care. These people may include dieticians, social workers, speech therapists, chief informatics officer, neurologist, and physical therapist. Dr. Boucher will provide these referrals as needed. Please let her know if you would like to request a specific referral. For your convenience, Dr. Boucher sees patients at several [facility] locations including [facility] and [facility] at the main campus of [facility]. While we try to make your appointments as convenient as possible, occasionally a visit to another location may be necessary to provide the best care for you. We look forward to working with you to meet your healthcare goals. Dr. Boucher makes every effort to run on time for your appointments. Therefore, if you are more than 30 minutes late unrelated to a scan or another appointment such therapy or audio you will have to reschedule. documented in this encounter [facility] Work Phone: 07-18-2024 History of Present illness Narrative Subjective Patient ID: Mai Miller is a 58 y.o. female who presents for Ear Problem (Follow up CT [facility] 07/08/24) CT reviewed and there is a left post/lat EAC cholesteatoma with no extension into the mastoid but slight cortical erosion of the bone. Family History Problem Relation Name Age of Onset Melanoma Mother Diabetes Father Arun Hypertension Father Arun Heart disease Father Arun Melanoma Father Arun No Known Problems Sister No Known Problems Brother Breast cancer Mother's Sister Aunt Cervical cancer Maternal Grandmother Emphysema Maternal Grandfather Cancer Paternal Grandmother Hyun Heart disease Paternal Grandfather No Known Problems Daughter No Known Problems Daughter Active Ambulatory Problems Diagnosis Date Noted Basal cell carcinoma (BCC) of back 01/27/2023 Cervical high risk HPV (human papillomavirus) test positive 01/27/2023 Conductive hearing loss of left ear 01/27/2023 Conductive hearing loss, unilateral, left ear with restricted hearing on the contralateral side 01/27/2023 Contracture, right ankle 01/27/2023 Mild dysplasia of cervix 06/09/2013 Other seborrheic keratosis 01/27/2023 Keratosis obturans of external ear canal, left 02/17/2023 Resolved Ambulatory Problems Diagnosis Date Noted Abnormal mammogram 01/27/2023 Hot flashes due to menopause 01/27/2023 Menopausal symptom 01/27/2023 Irregular periods 01/27/2023 Past Medical History: Diagnosis Date Abnormal Pap smear of cervix Abnormal Pap smear of cervix Breast cyst, right 2014 Cholesteatoma 2004 COVID-19 02/2021 Pap smear abnormality of cervix/human papillomavirus (HPV) positive 2015 Ruptured ear drum YASMINE (stress urinary incontinence, female) 2011 Tinnitus Past Surgical History: Procedure Laterality Date COLONOSCOPY 06/05/2017 normal-[facility] COLPOSCOPY 2008 with biopsy -abnormal pap smear -LGSIL COLPOSCOPY 2011 with biopsy- Abnormal pap smear pos HPV DILATION AND CURETTAGE 1994 MYRINGOTOMY W/ TUBES Bilateral 07/10/2009 OTHER SURGICAL HISTORY LVB 6 7oz OTHER SURGICAL HISTORY 2003 [place] Ablation OTHER SURGICAL HISTORY 2011 TVT-O (YASMINE) TYMPANOPLASTY Left 05/06/2005 Type I tympanoplasty and canal wall reconstruction TYMPANOPLASTY Left 11/26/2004 Type I tympanoplasty w atticotomy and canal reconstruction, Timmis TYMPANOPLASTY Left 01/01/2016 lysis of ME adhesions, LMT, Timmis VAGINAL DELIVERY No Known Allergies Current Outpatient Medications on File Prior to Visit Medication Sig Dispense Refill ofloxacin (Floxin) 0.3 % otic solution Administer 4 drops into the left ear in the morning and 4 drops before bedtime. Do all this for 10 days. 10 mL 0 valACYclovir (Valtrex) 500 MG tablet Take 500 mg by mouth if needed zolpidem (Ambien) 5 MG tablet No current facility-administered medications on file prior to visit. Objective Last Recorded Vitals Vitals: 07/18/24 1120 BP: 136/81 Pulse: 89 ENT Physical Exam Constitutional Appearance: patient appears well-developed, well-nourished and well-groomed, Communication/Voice: communication appropriate for developmental age; vocal quality normal; Assessment/Plan Diagnoses and all orders for this visit: Cholesteatoma of left external auditory canal Pt has a large left EAC cholesteatoma that developed since Dec 2023. On exam there is fullness of the posterior EAC with an opening superiorly through which matrix can be suctioned. Prior to that she had been getting the EAC debrided for keratosis obturans every 3 mo. H/O left tympanomastoidectomy by Dr Boucher in 2021./ I will have Mai see her for management of this problem as well documented in this encounter [facility] 07-11-2024 Telephone encounter Note sent [facility] 07-11-2024 Miscellaneous Notes sent Pt was here last week and said a rx was to be called in but never received. Her pharmacy is [facility] in [place]. documented in this encounter [facility] 07-11-2024 Telephone encounter Note Pt was here last week and said a rx was to be called in but never received. Her pharmacy is [facility] in [place]. [facility] 07-05-2024 History of Present illness Narrative Subjective Patient ID: Mai Miller is a 58 y.o. female who presents for Ear Problem (6 month check ears) F/U to debrided left ear Family History Problem Relation Name Age of Onset Melanoma Mother Diabetes Father Arun Hypertension Father Arun Heart disease Father Arun Melanoma Father Arun No Known Problems Sister No Known Problems Brother Breast cancer Mother's Sister Aunt Cervical cancer Maternal Grandmother Emphysema Maternal Grandfather Cancer Paternal Grandmother Hyun Heart disease Paternal Grandfather No Known Problems Daughter No Known Problems Daughter Active Ambulatory Problems Diagnosis Date Noted Basal cell carcinoma (BCC) of back 01/27/2023 Cervical high risk HPV (human papillomavirus) test positive 01/27/2023 Conductive hearing loss of left ear 01/27/2023 Conductive hearing loss, unilateral, left ear with restricted hearing on the contralateral side 01/27/2023 Contracture, right ankle 01/27/2023 Mild dysplasia of cervix 06/09/2013 Other seborrheic keratosis 01/27/2023 Keratosis obturans of external ear canal, left 02/17/2023 Resolved Ambulatory Problems Diagnosis Date Noted Abnormal mammogram 01/27/2023 Hot flashes due to menopause 01/27/2023 Menopausal symptom 01/27/2023 Irregular periods 01/27/2023 Past Medical History: Diagnosis Date Abnormal Pap smear of cervix Abnormal Pap smear of cervix Breast cyst, right 2014 Cholesteatoma 2005 COVID-19 02/2021 Pap smear abnormality of cervix/human papillomavirus (HPV) positive 2015 Ruptured ear drum YASMINE (stress urinary incontinence, female) 2011 Tinnitus Past Surgical History: Procedure Laterality Date COLONOSCOPY 06/05/2017 normal-[facility]erman COLPOSCOPY 2008 with biopsy -abnormal pap smear -LGSIL COLPOSCOPY 2011 with biopsy- Abnormal pap smear pos HPV DILATION AND CURETTAGE 1994 MYRINGOTOMY W/ TUBES Bilateral 07/10/2009 OTHER SURGICAL HISTORY LVB 6 7oz OTHER SURGICAL HISTORY 2003 [place] Ablation OTHER SURGICAL HISTORY 2011 TVT-O (YASMINE) TYMPANOPLASTY Left 05/06/2005 Type I tympanoplasty and canal wall reconstruction TYMPANOPLASTY Left 11/26/2004 Type I tympanoplasty w atticotomy and canal reconstruction, Timmis TYMPANOPLASTY Left 01/01/2016 lysis of ME adhesions, LMT, Timmis VAGINAL DELIVERY No Known Allergies Current Outpatient Medications on File Prior to Visit Medication Sig Dispense Refill valACYclovir (Valtrex) 500 MG tablet Take 500 mg by mouth if needed zolpidem (Ambien) 5 MG tablet [DISCONTINUED] phentermine (Adipex-P) 37.5 MG tablet No current facility-administered medications on file prior to visit. Objective Last Recorded Vitals Vitals: 07/05/24 1538 BP: 126/76 Pulse: 85 ENT Physical Exam Ear Tympanic Membranes: left tympanic membrane normal; Ear comments: Bulging of the post EAC with a superior opening. Copious squamous debris suctioned from pocket Assessment/Plan Diagnoses and all orders for this visit: Cholesteatoma of left external auditory canal Since last being seen pt has developed a large left EAC cholesteatoma. Pocket evacuated to the extent possible. CT temporal bone to assess whether this originates within the mastoid. documented in this encounter [facility] 02-16-2024 History of Present illness Narrative Skin Check Location: Patient requests a full body skin examination Dermatologic history: no history of skin cancer, no history of atypical moles, no family history of melanoma Last visit: 1 year ago Established patient All pertinent medical history, medications, and allergies were reviewed. General Exam: alert, oriented to person, place, and time, normal affect, well appearing Unaccompanied Areas not examined despite medical recommendation: patient kept socks on Scalp, Examined , exam limited by hair Right leg Examined Head, Face Examined Left leg Examined Neck Examined Right foot Not examined Chest Examined Left foot Not examined Back Examined Buttocks Examined Abdomen Examined Digits,nails: Examined Right arm Examined Patient wearing nail filipino, Denies dark streaks under finger nails, Denies dark streaks on toenails Left arm Examined Lymphatics: Not examined Hands Examined 1. Melanocytic nevus of trunk Scattered benign appearing, regular brown to light brown melanocytic papules and macules with similar morphology Counseled regarding these benign growths. Rarely, a nevus can develop into malignant melanoma, so any changing nevi should be promptly re-evaluated. 2. Seborrheic keratosis Stuck on verrucous, ross-brown papules and plaques. Patient was counseled regarding these benign growths. Removal is normally not necessary, but they may be removed if they are symptomatic or for cosmetic reasons. 3. Seborrheic keratosis, inflamed Left Occipital Scalp [place] and brown stuck on verrucous scaly papule with surrounding erythema The patient was informed that symptomatic seborrheic keratoses are benign growths that become inflamed, itchy, tender, traumatized, caught on clothing, or bleed. Symptomatic lesions can be treated with cryotherapy or curretage. Thicker lesions treated with cryotherapy may require more than one treatment. The patient was instructed to notify the office if abnormal redness or tenderness develops at the treatment site. Cryotherapy today, see procedure note. Diagnosis: Inflamed seborrheic keratosis Indication: Inflamed Consent: Verbal consent was obtained and risks were discussed, including, but not limited to risks of scarring, darker or craft demonstrator pigmentary changes, recurrence, incomplete removal and infection. Method: Liquid nitrogen was used to treat the lesion(s) with two 5-10 second freeze-thaw cycles Number of lesions treated: 1 Post-procedure instructions: Instructions were given orally and in writing. The office will be contacted if the lesion fails to resolve despite treatment, or if a side effect develops such as abnormal crusting, scabbing, redness or tenderness Cryotherapy, skin lesion - Left Occipital Scalp 4. Actinic keratosis Mid Forehead Erythematous scaly papules Patient was counseled regarding these sun-induced growths that can develop into squamous cell carcinoma if left untreated. Discussed treatment with cryotherapy. It was emphasized that any treated lesions that fail to resolve should be re-evaluated. Cryotherapy performed today; see procedure note Diagnosis: Actinic keratosis Indication: Precancerous Location: see skin exam Consent: Verbal consent was obtained and risks were discussed, including, but not limited to risks of scarring, darker or craft demonstrator pigmentary changes, recurrence, incomplete removal and infection. Method: Liquid nitrogen was used to treat the lesion(s) with two 5-10 second freeze-thaw cycles. Number of lesions treated: 1 Post-procedure instructions: Instructions were given orally and in writing. The office will be contacted if the lesion fails to resolve despite treatment, or if a side effect develops such as abnormal crusting, scabbing, redness or tenderness Cryotherapy, skin lesion - Mid Forehead 5. Capillary angioma (2) Arms, Trunk Scattered garcias-red papule(s). The patient was informed that angiomas are benign growths on the the skin. No treatment is necessary. 6. Lentigines Scattered ross macules in sun-exposed areas. The patient was informed that lentigines are benign pigmented lesions that occur on sun-exposed and sun-damaged skin. No treatment is necessary. Recommended regular use of broad spectrum sunscreen SPF 30 or higher Next Visit: 1 year, skin check documented in this encounter [facility] 01-05-2024 History of Present illness Narrative Images from the original note were not included. Subjective Patient ID: Mai Miller is a 58 y.o. female who presents for Ear Problem (2 month check ) F/U to debride left ear Family History Problem Relation Name Age of Onset Melanoma Mother Diabetes Father Arun Hypertension Father Arun Heart disease Father Arun Melanoma Father Arun No Known Problems Sister No Known Problems Brother Breast cancer Mother's Sister Cervical cancer Maternal Grandmother Emphysema Maternal Grandfather Cancer Paternal Grandmother Hyun Heart disease Paternal Grandfather No Known Problems Daughter No Known Problems Daughter Active Ambulatory Problems Diagnosis Date Noted Basal cell carcinoma (BCC) of back 01/27/2023 Cervical high risk HPV (human papillomavirus) test positive 01/27/2023 Conductive hearing loss of left ear 01/27/2023 Conductive hearing loss, unilateral, left ear with restricted hearing on the contralateral side 01/27/2023 Contracture, right ankle 01/27/2023 Mild dysplasia of cervix 06/09/2013 Other seborrheic keratosis 01/27/2023 Keratosis obturans of external ear canal, left 02/17/2023 Resolved Ambulatory Problems Diagnosis Date Noted Abnormal mammogram 01/27/2023 Hot flashes due to menopause 01/27/2023 Menopausal symptom 01/27/2023 Irregular periods 01/27/2023 Past Medical History: Diagnosis Date Abnormal Pap smear of cervix Abnormal Pap smear of cervix Breast cyst, right 2013 Cholesteatoma 2005 COVID-19 02/2021 Pap smear abnormality of cervix/human papillomavirus (HPV) positive 2015 Ruptured ear drum YASMINE (stress urinary incontinence, female) 2011 Tinnitus Past Surgical History: Procedure Laterality Date COLONOSCOPY 06/05/2017 normal-[facility] COLPOSCOPY 2008 with biopsy -abnormal pap smear -LGSIL COLPOSCOPY 2011 with biopsy- Abnormal pap smear pos HPV DILATION AND CURETTAGE 1994 MYRINGOTOMY W/ TUBES Bilateral 07/10/2009 OTHER SURGICAL HISTORY LVB 6 7oz OTHER SURGICAL HISTORY 2003 [place] Ablation OTHER SURGICAL HISTORY 2011 TVT-O (YASMINE) TYMPANOPLASTY Left 05/06/2005 Type I tympanoplasty and canal wall reconstruction TYMPANOPLASTY Left 11/26/2004 Type I tympanoplasty w atticotomy and canal reconstruction, Timmis TYMPANOPLASTY Left 01/01/2016 lysis of ME adhesions, LMT, Timmis VAGINAL DELIVERY No Known Allergies Current Outpatient Medications on File Prior to Visit Medication Sig Dispense Refill phentermine (Adipex-P) 37.5 MG tablet Daily valACYclovir (Valtrex) 500 MG tablet Take 500 mg by mouth if needed. [DISCONTINUED] estradiol (Estrace) 0.1 MG/GM vaginal cream Insert 1 g into the vagina 2 (two) times a week 42.5 g 2 No current facility-administered medications on file prior to visit. Objective Last Recorded Vitals Vitals: 01/05/24 1539 BP: 133/80 ENT Physical Exam Ear Ear Canals: right ear canal normal; Tympanic Membranes: right tympanic membrane normal; Ear comments: LT - TM covered in thick squamous epithelium and debrided Patient ID: Mai Miller is a 58 y.o. female. Procedures Foreign body removed from the right ear canal under micro with a forecep and pick Assessment/Plan Diagnoses and all orders for this visit: Foreign body of left ear, initial encounter Left keratosis debrided documented in this encounter [facility] 01-01-2024 History of Present illness Narrative Images from the original note were not included. Mariel Singer, Obstetrics and Gynecology Mai Miller 1965 01/01/24 [id number] Yearly Wellness Exam Chief Complaint Patient presents with Gynecologic Exam Yearly, Pt denies Breast pain, urinary, bowel or internet project manager issues. LMP: Postmenopausal Last Pap: 07/27/2019 Visit Vitals BP 118/84 Wt 166 lb LMP (LMP Unknown) BMI 27.62 kg/m OB Status Postmenopausal Smoking Status Never BSA 1.86 m History of Present Illness The patient is a 58-year-old female who presents for her annual checkup. She reports that her Pap smear was normal last year, but she tested positive for HPV. She has an appointment with Dr. Jasmine next week. She is due for a mammogram and plans to have blood work done next week. Her colonoscopy in 2014 showed no abnormalities. She reports no breast issues or bowel or bladder problems. She experienced a urinary tract infection (UTI) during a trip to [facility] in either May or November 2022. She had a similar infection at the age of 15. She noticed a strong odor in her urine, which was followed by a burning sensation. She took antibiotics for 5 days, but the symptoms returned two days after she stopped the medication. She sought treatment at an urgent care center where she was prescribed cephalexin. She stopped taking it on Thursday and is unsure if her symptoms have resolved. She spent a significant amount of time in a hot pool during her trip, from 10 am to 6 pm, and wonders if this could have contributed to her UTI. She has not received any updates from the urgent care center. She reports no bladder leakage. She was on estrogen therapy for 3 to 4 years but stopped taking it in June or July 2023 on the advice of her wellness doctor. Current Outpatient Medications Medication Sig Dispense Refill phentermine (Adipex-P) 37.5 MG tablet Daily valACYclovir (Valtrex) 500 MG tablet Take 500 mg by mouth if needed. No current facility-administered medications for this visit. No Known Allergies Past Medical History: Diagnosis Date Abnormal mammogram 01/27/2023 Abnormal Pap smear of cervix pos HPV (2011) Abnormal Pap smear of cervix LGSIL Breast cyst, right 2013 Cholesteatoma 2005 left COVID-19 02/2021 Hot flashes due to menopause 01/27/2023 Irregular periods 01/27/2023 Menopausal symptom 01/27/2023 Pap smear abnormality of cervix/human papillomavirus (HPV) positive 2015 hospitalization history Ruptured ear drum YASMINE (stress urinary incontinence, female) 2011 Past Surgical History: Procedure Laterality Date COLONOSCOPY 06/05/2017 normal-[facility] COLPOSCOPY 2008 with biopsy -abnormal pap smear -LGSIL COLPOSCOPY 2011 with biopsy- Abnormal pap smear pos HPV DILATION AND CURETTAGE 1994 MYRINGOTOMY W/ TUBES Bilateral 07/10/2009 OTHER SURGICAL HISTORY LVB 6 7oz OTHER SURGICAL HISTORY 2003 [place] Ablation OTHER SURGICAL HISTORY 2011 TVT-O (YASMINE) TYMPANOPLASTY Left 05/06/2005 Type I tympanoplasty and canal wall reconstruction TYMPANOPLASTY Left 11/26/2004 Type I tympanoplasty w atticotomy and canal reconstruction, Timmis TYMPANOPLASTY Left 01/01/2016 lysis of ME adhesions, LMT, Timmis VAGINAL DELIVERY OB History Para Term AB Living 3 1 2 SAB IAB Ectopic Multiple Live Births 1 # Outcome Date GA Lbr Tate/2nd Weight Sex Type Anes PTL Lv 3 Vag-Spont 2 Vag-Spont 1 SAB Obstetric Comments Pap 12/11/22- Neg, HPV Neg ; 07/09/16- Neg; Neg HPV; 07/04/15- Neg; POSITIVE HPV (Neg 16, 18/45); 01/12/14- neg; 05/2013- ascus (neg hpv); 2012- neg; 2011- JENNIE I. Mammogram 10/13/22- Neg Colonoscopy 2018- normal ([facility]) ROS General: Denies fevers/chills Eyes: Denies vision changes ENT: Denies neck stiffness, neck mass Endocrine: Denies polydipsia and polyuria Respiratory: Denies shortness of breath Cardiovascular: Denies chest pain and palpitations Gastrointestinal: Denies changes in bowel habits, blood in stool, constipation and diarrhea. Hematology: Denies easy bruising. Women Only: Denies breast masses, skin changes, nipple discharge, abnormal bleeding, pelvic pain and dyspareunia Genitourinary: Denies dysuria, pelvic pain and nocturia Skin: Denies rashes/lesions Neurologic: Denies headaches, dizziness, syncope Psychiatric: Denies hallucinations, suicidal ideas EXAM GENERAL EXAMINATION: Alert, oriented, well developed, well nourished. HEAD: Normocephalic, atraumatic. EYES: CHAIM, sclera anicteric. EARS: No obvious hearing deficit. NECK/THYROID: Neck supple no cervical lymphadenopathy no thyromegaly. LYMPH NODES: No axillary, supraclavicular or inguinal adenopathy. SKIN: Warm and dry. No rashes HEART: Regular rate and rhythm. No murmur LUNGS: Clear to auscultation bilaterally. CHEST: Axillary nodes grossly normal. BREASTS: No dominant masses palpable bilaterally, no skin changes, nipple discharge, supra-clavicular or axillary adenopathy ABDOMEN: Soft, nontender, nondistended, no hernia or masses palpable. BACK: No obvious scoliosis/kyphosis. FEMALE GENITOURINARY: EFG without sores/lesions, atrophic vaginal mucosa-no discharge, cervix without lesions, uterus AV, NSSC, no adnexal masses, cul-de-sac negative, TVT in correct location without mesh erosion. EXTREMITIES No edema. NEUROLOGIC: Alert and oriented. PSYCH: Cooperative with exam. ICD-10-CM 1. Vaginal atrophy N95.2 2. Encounter for gynecological examination with abnormal finding Z01.411 IGP, APT HPV,RFX 16/18,45 IGP, APT HPV,RFX 16/18,45 3. Encounter for screening mammogram for malignant neoplasm of breast Z12.31 4. Vaginal irritation N89.8 POCT trichomonas manually resulted Assessment & Plan 1. Annual Checkup. Her Pap smear and HPV tests from last year were negative. A Pap smear will be conducted today to ensure there are no abnormalities, as the patient's records are currently inaccessible due to computer issues. 2. Menopausal Symptoms. The observed dryness is likely due to menopause and a lack of estrogen. She will be prescribed an estrogen cream to be applied twice weekly at bedtime. The cream will be sent to her pharmacy and should be applied in a small amount, approximately the size of a blueberry, at the vaginal opening twice weekly. 3. Urinary Tract Infection (UTI). She experienced a UTI recently and was treated with Cephalexin. Symptoms have improved, a wet prep will be examined under the microscope to ensure there is no ongoing infection. No current symptoms of bladder issues or leakage. Wet prep-+ parabasal cells c/w atrophy 4. Health Maintenance. A mammogram will be ordered and sent to [place]. She is due for a colonoscopy next year, as her last one was in 2014 and was normal. Return in 1 year. documented in this encounter [facility] 02-20-2023 Evaluation note Encounter Date Diagnosis Assessment Notes Feb, COVID- 19 (ICD-1 0 - U07.1) Tylenol and rest. Afrin x 2 days, Sudafed as needed. Initiate Paxlovid (unvaccinated w/ moderate symptoms) [employer] Other [id number] Evaluation note* Encounter Date Diagnosis Assessment Notes Treatment Notes Treatment Clinical Notes Feb, COVID-19 (ICD-10 - U07.1) Tylenol and rest. Afrin x 2 days, Sudafed as needed. Initiate Paxlovid (unvaccinated w/ moderate symptoms) Self isolate at home. - Cannot work - avoid contact with others - avoid pets - wipe counters, door knobs if touched - if can't avoid leaving home, must wear mask to protect others - need to stay isolated for 10 days from onset of symptoms - to discontinue isolation must be 5 days AND must be without fever for 24 hours AND symptoms must be improving. Always wear a mask in public places for complete 10 days Recommend starting Paxlovid to prevent hospitalization Instructed to use Robitussin or Mucinex for cough, saline or Flonase NS for congestion, Tylenol for pain and fever. [employer] Other 06-22-2023 Evaluation note* Encounter Date Diagnosis Assessment Notes Treatment Notes Treatment Clinical Notes Aug, Overweight (ICD-10 - E66.3) This patient has been instructed on a low-fat, high-fiber diet. They are instructed to reduce calories, portion sizes and snacks. It is recommended that they exercise for 30 minutes, 3-5 times weekly. Aug, Herpes labialis (ICD-10 - B00.1) Stopped her Valtrex and suffered an outbreak Requesting to restart medication [employer] Other 04-25-2023 Evaluation note* Encounter Date Diagnosis Assessment Notes Treatment Notes Treatment Clinical Notes Jun, Wellness examination (ICD-10 - Z00.00) Healthy diet and exercise. Reviewed age-appropriate preventive testing recommended. Jun, Overweight (ICD-10 - E66.3) This patient has been instructed on a low-fat, high-fiber diet. They are instructed to reduce calories, portion sizes and snacks. It is recommended that they exercise for 30 minutes, 3-5 times weekly. 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 LEFT SIDE LATERAL GRAFT TYMPANOPLASTY Anesthesia: Almazan Estimated Blood Loss: 5 Findings: see op note Specimens(s) Collected: yes, Operative Report: Operative Indications: Patient is a 56 year old female with mixed hearing loss and an unstable perforation of the left ear despite despite multiple prior surgeries. Therefore, discussion was held in clinic regarding proceeding to the OR for the above procedures. After discussing all risks, benefits, indications and alternatives to the planned procedures patient signed written informed consent to proceed. Procedure in Detail: Patient was seen and evaluated in the pre-operative area. Informed consent was obtained as described above. The patient was taken back to the operating room by the anesthesia team. Pre-operative huddle was performed by Dr. Boucher. General anesthesia was induced and patient was orotracheally intubated without issue. Patient was turned 180 degrees towards the ENT team. Patient was then secured to the table at 3 points. Test roll was performed. Facial nerve electrodes were placed over the orbicularis kay and orbicularis oculi muscles, and we confirmed appropriate functioning of the monitor. This was used throughout the case to ensure protection of the facial nerve. The ear was then prepped and draped in the usual sterile fashion. Pre-incision timeout was performed by Dr. Boucher. The surgical microscope was then brought in. The ear canal was cleared of Betadine. A four-quadrant injection of 1:20,000 epinephrine was performed. A vascular strip incision was made. The medial portion was just lateral to the annulus with the radial incisions being along the superior and inferior suture lines. Once the radial incisions were made we turned attention to the postauricular area. This area had been injected with 1% lidocaine with 1:100,000 epinephrine. The skin was incised and carried down to the periosteum. Periosteum was incised in a C shape fashion. The ear canal was exposed. The ear was then placed into retraction with the self-retaining retractor. The ear canal skin was elevated off the posterior wall to identify the ear canal incisions. Once this was done, the vascular strip was placed into a Guardado retractor. Next the anterior ear canal skin was incised lateral to the glenoid hump. This was then dissected down to the annulus and the short process of the malleus was exposed. The skin of the tympanic membrane was then decorticated. The ear canal skin was passed off and set aside for later use in a moist towel. The ear canal was examined to make sure the skin was completely removed. The glenoid hump was drilled down with a high-speed drill under continuous irrigation. Once the ear canal was widened the anterior sulcus was examined. This was widened further to create a more obtuse angle and prevent blunting. The middle ear was examined. The ossicular chain was intact and mobile. Biodesign was used to reconstruct the tympanic membrane. A slit was cut in the superior aspect of the graft to slide underneath the malleus handle. The middle ear was filled with Gelfoam impregnated with Ciprodex. The graft was brought in and placed underneath the malleus handle and slit slid up to cover the pars flaccida. The graft was positioned just to the edge of the tympanic annulus. Once the graft was in good position the previously harvested anterior ear canal skin was replaced with care being taken to make sure that the epithelial surface faced the ear canal and was appropriately positioned. The tympanic membrane graft in the medial portion of the ear canal was packed with Gelfoam impregnated with Ciprodex. The vascular strip was taken out of retraction and repositioned in its anatomic position. Once vascular strip was repositioned the ear canal was packed laterally with Gelfoam as well. The periosteum was then closed with interrupted 3-0 Vicryl. The skin was closed with interrupted 3-0 Vicryl and steri strips The facial nerve electrodes were removed and a Cottle was applied. The patient was returned to the care of anesthesia extubated without incident and transferred to the recovery room in stable condition. Dr. Boucher was presented and participated in all critical portions of the procedure. Attestation: Note Completion: Attending AttestationI was present for the entire procedure I am a:Resident/Fellow Electronic Signatures: Rashmi Boucher) (Signed 24-Jan-2022 16:13) Authored: Note Completion Co-Signer: (more content not included)...[facility]11-11-2022 History of Present illness Narrative* Mai is a 56 yo female w/ a hx of left TM perforation and left-sided mixed hearing loss, she is s/p left lateral graft tympanoplasty on 01/24/22. Her hearing is not completely restored, but overall her ear is feeling better. * Recall 02/11/22 * Mai is a 56 yo female w/ a hx of left TM perforation and left-sided mixed hearing loss, she is s/p left lateral graft tympanoplasty on 01/24/22. She is doing well overall, she had drainage for 1 week after surgery. Denies pain, malodorous drainage. * Recall 10/07/21 * HPI: The patient is a 55 year old woman referred by Dr. Jasmine to ENT clinic for left sided TM perforation. * Her medical history is notable for a left sided tympanoplasty and removal of cholesteatoma in 2004.She then was seen in follow up and was noted to have a TM perforation again in 2015 after a traumatic fall. She underwent revision tympanoplasty with repair of the perforation abut was then found to have recurrent perforation when seen in 2021. Her symptoms include changes in hearing, but no other significant symptoms. Prior audiogram demonstrates bilateral mixed hearing loss. Mother with historyof Meniere syndrome. * The patient denies otalgia, otorrhea, vertigo, tinnitus, noise exposure, denies family history of hearing disorders, denies childhood infections. * PMH: Denies * PSH: As above ear surgeries; bladder sling * SHx: Seldom etoh, denies tob * FHx: None relevant to presenting complaint * Outpt Rx: Reviewed - estrogen * All: NKDA * ROS: A full review of systems was obtained and all other systems are negative for complaint except as stated in history [facility] [address] Work Phone: [phone]) 597-776911-11-2022 History of Present illness Narrative* aMi is a 56 yo female w/ a hx of left TM perforation and left-sided mixed hearing loss, she is s/p left lateral graft tympanoplasty on 01/24/22. Her hearing is not completely restored, but overall her ear is feeling better. * Recall 02/11/22 * Mai is a 56 yo female w/ a hx of left TM perforation and left-sided mixed hearing loss, she is s/p left lateral graft tympanoplasty on 01/24/22. She is doing well overall, she had drainage for 1 week after surgery. Denies pain, malodorous drainage. * Recall 10/07/21 * HPI: The patient is a 55 year old woman referred by Dr. Jasmine to ENT clinic for left sided TM perforation. * Her medical history is notable for a left sided tympanoplasty and removal of cholesteatoma in 2004.She then was seen in follow up and was noted to have a TM perforation again in 2015 after a traumatic fall. She underwent revision tympanoplasty with repair of the perforation abut was then found to have recurrent perforation when seen in 2021. Her symptoms include changes in hearing, but no other significant symptoms. Prior audiogram demonstrates bilateral mixed hearing loss. Mother with historyof Meniere syndrome. * The patient denies otalgia, otorrhea, vertigo, tinnitus, noise exposure, denies family history of hearing disorders, denies childhood infections. * PMH: Denies * PSH: As above ear surgeries; bladder sling * SHx: Seldom etoh, denies tob * FHx: None relevant to presenting complaint * Outpt Rx: Reviewed - estrogen * All: NKDA * ROS: A full review of systems was obtained and all other systems are negative for complaint except as stated in history [facility] [address] Work Phone: [phone]) 364-866411-11-2022 NoteHistory of Present Illness: /Lactating: Are You maybe Order Testorder urine test Are You Currently Breastfeedingno History Present Illness: Reason for surgery: unstable TM perforation HPI: 56 yo F with mixed hearing loss, prior cholesteatoma, multiple tympanoplasties with left unsable tympanic membrane perforation and u Allergies: Allergies: No Known Allergies: Home Medication Review: Home Medications Reviewed: yes Impression/Procedure: Impression and Planned Procedure: left tympanoplasty, cartilage graft ERAS (Enhanced Recovery After Surgery): ERAS Patient: no Physical Exam by System: Respiratory/Thorax: nonlabored, room air Cardiovascular: no clubbing cyanosis or edema Consent: COVID-19 Consent: COVID-19 Risk ConsentSurgeon has reviewed barnes risks related to the risk of fernando COVID-19 and if they contract COVID-19 what the risks are. Attestation: Note Completion: I am a: Resident/Fellow Attending AttestationI saw and evaluated the patient. I personally obtained the barnes and critical portions of the history and physical exam or was physically present for barnes and critical portions performed by the resident/fellow. I reviewed the resident/fellows documentation and discussed the patient with the resident/fellow. I agree with the resident/fellows medical decision making as documented in the note. I personally evaluated the patient [id number] Electronic Signatures: Rashmi Boucher) (Signed 24-Jan-2022 13:28) Authored: Note Completion Co-Signer: History of Present Illness, Allergies, Home Medication Review, Impression/Procedure, ERAS, Physical Exam, Consent, Note Completion Mariel Thurman (Resident)) (Signed 24-Jan-2022 10:26) Authored: History of Present Illness, Allergies, Home Medication Review, Impression/Procedure, ERAS, Physical Exam, Consent, Note Completion Last Updated: 24-Jan-2022 13:28 by Rashmi Boucher)[facility] Evaluation + Plan note No data available for this section [facility] noteN[facility] [employer] Other Evaluation noteNo InformationNort [employer] Other Evaluation noteNo assessment information available [facility] Work Phone: Evaluation note* Diagnosis Onset Date Resolution Status IFG (impaired fasting glucose) acute Leukopenia acute Overweight acute Hematuria noneactive [facility] Work Phone: Evaluation note* Diagnosis Encounter for gynecological examination with abnormal finding- Primary Encounter for screening mammogram for malignant neoplasm of breast Vaginal atrophy Postmenopausal atrophic vaginitis Vaginal irritation Pruritus of genital organs documented in this encounter [facility] HealthcareEvaluation note* Diagnosis Foreign body of left ear, initial encounter- Primary documented in this encounter [facility] HealthcareEvaluation note* Diagnosis Melanocytic nevus of trunk- Primary Benign neoplasm of skin of trunk, except scrotum Seborrheic keratosis Seborrheic keratosis, inflamed Actinic keratosis Capillary angioma Nevus, non-neoplastic Lentigines documented in this encounter [facility] HealthcareEvaluation note* Diagnosis Cholesteatoma of left external auditory canal- Primary documented in this encounter [facility] HealthcareEvaluation note* Diagnosis Cholesteatoma of left external auditory canal- Primary documented in this encounter [facility] HealthcareEvaluation note* Diagnosis Cholesteatoma of left external auditory canal- Primary documented in this encounter [facility] Healthcare[facility] note* Diagnosis Preoperative clearance Unspecified pre-operative examination 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- Primary documented in this encounter [facility] Work Phone: History general Narrative - Reported* Type Description Date Medical History COVID Medical History Iliotibial band syndrome of left side Medical History Menopause syndrome Medical History Mild obesity Medical History Encounter for medication monitor ing Medical History Overweight with body mass index (BMI) 25.0-29.9 Medical History Unspecified cholesteatoma, unspe cified ear Surgical History bladder suspension, unspecified Surgical History ablasion of uterus Surgical History cholesteatoma left ear 2010 Surgical History left tympanoplasty 2004, 2005 Hospitalization History see surgical history [employer] Other History general Narrative - ReportedN[employer] Other History general Narrative - Reported* Type Description Date Medical History COVID Medical History Iliotibial band syndrome of left side Medical History Menopause syndrome Medical History Mild obesity Medical History Encounter for medication monitor ing Medical History Overweight with body mass index (BMI) 25.0-29.9 Medical History Unspecified cholesteatoma, unspe cified ear Surgical History bladder suspension, unspecified Surgical History ablasion of uterus Surgical History cholesteatoma left ear 2010 Surgical History left tympanoplasty 2004, 2005 Surgical History B/L blepharoplasty 01/2023 Hospitalization History see surgical history [employer] Other History of Present illness Narrative* HPI: The patient is a 55 year old woman referred by Dr. Jasmine to ENT clinic for left sided TM perforation. * Her medical history is notable for a left sided tympanoplasty and removal of cholesteatoma in 2004.She then was seen in follow up and was noted to have a TM perforation again in 2015 after a traumatic fall. She underwent revision tympanoplasty with repair of the perforation abut was then found to have recurrent perforation when seen in 2021. Her symptoms include changes in hearing, but no other significant symptoms. Prior audiogram demonstrates bilateral mixed hearing loss. Mother with historyof Meniere syndrome. * The patient denies otalgia, otorrhea, vertigo, tinnitus, noise exposure, denies family history of hearing disorders, denies childhood infections. * PMH: Denies * PSH: As above ear surgeries; bladder sling * SHx: Seldom etoh, denies tob * FHx: None relevant to presenting complaint * Outpt Rx: Reviewed - estrogen * All: NKDA * ROS: A full review of systems was obtained and all other systems are negative for complaint except as stated in history [id number] Work Phone: History of Present illness Narrative* HPI: The patient is a 55 year old woman referred by Dr. Jasmine to ENT clinic for left sided TM perforation. * Her medical history is notable for a left sided tympanoplasty and removal of cholesteatoma in 2004.She then was seen in follow up and was noted to have a TM perforation again in 2015 after a traumatic fall. She underwent revision tympanoplasty with repair of the perforation abut was then found to have recurrent perforation when seen in 2021. Her symptoms include changes in hearing, but no other significant symptoms. Prior audiogram demonstrates bilateral mixed hearing loss. Mother with historyof Meniere syndrome. * The patient denies otalgia, otorrhea, vertigo, tinnitus, noise exposure, denies family history of hearing disorders, denies childhood infections. * PMH: Denies * PSH: As above ear surgeries; bladder sling * SHx: Seldom etoh, denies tob * FHx: None relevant to presenting complaint * Outpt Rx: Reviewed - estrogen * All: NKDA * ROS: A full review of systems was obtained and all other systems are negative for complaint except as stated in history [id number] Work Phone: Hospital Discharge instructions No data available for this section [facility] Additional Instructions DISCHARGE INSTRUCTIONS FOR PLASTIC/RECONSTRUCTIVE SURGERY YOUR ACTIVITY MAY INCLUDE -Going up and down stairs slowly. -Walking around the house or outside if the weather is satisfactory. -No driving until you are seen in our office and cleared for driving. -No lifting more than 10 pounds for 2 weeks from the date of surgery. WOUND CARE -NO smoking as it may compromise your wound healing. -Do not remove dressing until your post-operative appointment. - - -Sutures will be removed at your post-operative visit. Apply Bacitracin to area 3 times a day. -Keep your incision dry for 48 hours then, you may shower (no tub baths) and allow water to flow over your incision. - -It is common to feel pulling or sharp sticking sensations in the area of the incision. PLEASE NOTIFY OUR OFFICE at [phone] if you: -Develop a fever of 101 degrees Fahrenheit, or higher. -Have increasing pain. -See redness or swelling around the incision. MEDICATION -Medications per Medication Reconciliation List. -Over the counter medications such as Acetaminophen and others may be used as directed for pain unless prescription was provided. Do NOT exceed 4 grams of Acetaminophen in a 24 hour period. -DO NOT use ibuprofen or NSAIDs unless directed by physician, as they may increase risk of bleeding. OTHER INSTRUCTIONS -No smoking as this increases post-operative complication rate. FOLLOW UP -Call the office at [phone] for a follow up appointment 1 week. * AFTER HOURS PHONE NUMBER [phone] *[facility] Work Phone: Progress note No data available for this section [facility] Summary Purpose Family History No Family History Records Found Relationship Condition Age at Onset Recorded Date/T joaquin father Heart disease Unknown Relationship Condition Age at Onset Recorded Date/T joaquin father Heart disease Unknown father Hypertension Unknown Heart disease Unknown Diabetes mellitus Unknown Advance Directives No Advanced Directives Records Found Advance Directive Response Recorded Date/ Time Advance Directives No June 02 11:04am Advance Directive Response Recorded Date/ Time Advance Directives No June 02 10:04am Chief Complaint NPVNPVpostoperative visitpostoperative visit Chief Complaint and Reason for Visit Chief Complaint Cosmetic Chief Complaint Cosmetic Cosmetic Chief Complaint check up Poss uti R31.9 Reason for Visit IFG (impaired fastin g glucose) Leukopenia Overweight Hematuria Chief Complaint Admit Date Sore throat, ackey, feverish July 13, 2024 9:17am Additional Source Comments INFORMATION SOURCE (unrecogn ized section and content) DATE CREATED AUTHOR 09/11/2021 [facility] DATE CREATED AUTHOR AUTHOR'S ORGANIZ ATION 10/12/2021 [facility] dical Specialist DATE CREATED AUTHOR AUTHOR'S ORGANIZ ATION 03/11/2022 [facility] ical Center DATE CREATED AUTHOR AUTHOR'S ORGANIZ ATION 03/14/2022 [facility] DATE CREATED AUTHOR AUTHOR'S ORGANIZ ATION 07/14/2022 [facility] pital DATE CREATED AUTHOR AUTHOR'S ORGANIZ ATION 12/28/2023 [facility] ysician Group DATE CREATED AUTHOR AUTHOR'S ORGANIZ ATION 07/21/2024 [facility] dical Specialists EPIC DATE CREATED AUTHOR AUTHOR'S ORGANIZ ATION 09/02/2024 [facility] DATE CREATED AUTHOR AUTHOR'S ORGANIZ ATION 09/05/2024 [facility] DATE CREATED AUTHOR AUTHOR'S ORGANIZ ATION 09/09/2024 [facility] REASON FOR VISIT (unrecogniz ed section and content) Reason Comments Gynecologic Exam Yearly, Pt denies Br east pain, urinary, bowel or internet project manager issues. LMP: Postmenopausal Last Pap: 07/27/2019 Reason Comments Ear Problem 2 month check Reason Comments Skin Check Reason Comments Ear Problem 6 month check ears Reason Onset Date Comments needs rx 07/11/2024 Reason Comments Ear Problem Follow up [facility] Reason Comments New Patient Visit Cholesteatoma Care Teams (unrecognized sec tion and content) Shipping And Receiving Operator Relationship Specialty Start Date End Date Kartik Priest DO PCP - General 10/07/21 Shipping And Receiving Operator Relationship Specialty Start Date End Date Kartik Priest DO [address] [place] [address] PCP - General Internal Medicine 07/05/24 Carolyn Jasmine MD [address] [facility] [address] [place] [address] Otolaryngology 08/28/21 Shipping And Receiving Operator Relationship Specialty Start Date End Date Kartik Priest MD [address] [place] [address] PCP - General Internal Medicine 12/11/22 Carolyn Jasmine MD [address] [facility] [address] [place] [address] Otolaryngology 08/28/21 Team Status: Active Member Role Status Dates PHYSICIAN NO FAMILY Primary Care Provider Active Team Status: Inactive Member Role Status Dates Kartik Priest DO Primary Care Provide r, Attending Provider Active Start: November 30, 2023 End: November 30, 2023 Team Status: Inactive Member Role Status Dates Kartik Priest DO Primary Care Provider Active Start: December 26, 2023 End: December 26, 2023 Nicolasa Delgado APRN Attending Provider Active Sta rt: December 26, 2023 End: December 26, 2023 Team Status: Inactive Member Role Status Dates Nicolasa Delgado APRN Attending Provider Active Sta rt: December 26, 2023 End: December 26, 2023 PHYSICIAN NO FAMILY Primary Care Provider Active Start: December 26, 2023 End: December 26, 2023 Team Status: Active Member Role Status Dates Kartik Priest , Primary Care Provider Active Team Status: Inactive Member Role Status Dates Kartik Priest DO Primary Care Provider Active Rashaun William MD Attending Provider Active Goals (unrecognized section and content) Goals may be documented in a n alternate section FOR RECORDS PERTAINING TO PATIENTS WHO ARE OR HAVE BEEN ENROLLED IN A CHEMICAL DEPENDENCY/SUBSTANCEABUSE PROGRAM, SOME INFORMATION MAY BE OMITTED. This clinical summary was aggregated from multiple sources. Caution should be exercised in using it in the provision of clinical care. This summary normalizes information from multiple sources, and as a consequence, information in this document may materially change the coding, format and clinical context of patient data. In addition, data may be omitted in some cases. CLINICAL DECISIONS SHOULD BE BASED ON THE PRIMARY CLINICAL RECORDS. [employer] provides no warranty or guarantee of the accuracy or completeness of information in this document.
--- OUTSIDE RECORDS SUMMARY | 2024-10-01 08:59 | XMS_ITS | Clinical Summary ---
Author Organization [facility] Address [address] [place] [address] Phone Care Team Providers Care Administrative Sales Assistant Name Role Phone Kartik Priest DO Primary Care Provider [phone] Allergies No known active allergies Medications semaglutide (Ozempic) 0.25 mg or 0.5 mg(2 mg/1.5 mL) pen injector Inject 0.25 mg under the skin 1 (one) time per week. 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/30/2024 Encounters Date Type Department Care Team Description 09/09/2024 Scanned Document [facility] [address] [place] [phone] Echo Larsen, ALESSANDRA, CCC-A 09/01/2024 2:49 PM EDT - 09/01/2024 11:59 PM EDT Hospital Encounter [facility] [address] [place] [address] Discharge Disposition: Home 08/30/2024 9:30 AM EDT Office Visit [facility] [address] [place] [phone] Rashmi Christine MD Preoperative clearance; Cholesteatoma of left ear 08/30/2024 9:00 AM EDT Clinical Support [facility] [address] [place] [address] Echo Larsen, AUD, CCC-A Sensorineural hearing loss, bilateral (Primary Dx) 08/29/2024 Travel from Last 3 Months Social History Tobacco Use Types Packs/Day Years Used Date Smoking Tobacco: Never Smokeless Tobacco: Never Tobacco Cessation:Counseling Given: Not Answered PHQ-2 Answer Date Recorded Patient Health Questionnaire-2 Score 0 08/30/2024 Comments Unknown Sex and Gender Information Value Date Recorded Sex Assigned at Not on file Legal Sex Female 1:14 AM EST Gender Identity Not on file Sexual Orientation Not on file Last Filed Vital Signs Vital Sign Reading Time Taken Comments Blood Pressure - - Pulse - - Temperature 35.9 C (96.7 F) 03/11/2022 2:20 PM EST Respiratory Rate - - Oxygen Saturation - - Inhaled Oxygen Concentration - - Weight 81.6 kg (180 lb) 08/30/2024 9:51 AM EDT Height 165.1 cm (5' 5 ) 08/30/2024 9:51 AM EDT Body Mass Index 29.95 08/30/2024 9:51 AM EDT Plan of Treatment Upcoming Encounters Date Type Department Care Team (Latest Contact Info) Description 11/21/2024 9:20 AM EDT Hospital Encounter [facility] [place] [address] [place] [address] [place] [address] [place] [address] 11/21/2024 10:50 AM EDT - 11/21/2024 1:55 PM EDT Surgery [facility] [place] [address] [place] [address] [place] [address] [id number] Left Revision Canalplasty; Possible Mastoidectomy; Cartilage Graft [62024 (CPT ) +1 more] Scheduled Procedures Name Priority Associated Diagnoses Date/Ti me CANALOPLASTY, EAR Cholesteatoma of left ear 11/21/2024 10:50 AM EDT Health Maintenance Due Date Last Done Comments CT Colonography 1965 Colonoscopy 1965 Colorectal Cancer Screening 1965 FIT-DNA (Cologuard) 1965 FIT 1965 HIV Screening 1965 Lipid Panel 1965 Sigmoidoscopy 1965 MMR Vaccines (1 of 1 - Standard series) 1965 Diabetes Screening 1982 Hepatitis C Screening 1982 Hepatitis B Vaccines (1 of 3 - 19+ 3-dose series) 11/11/1983 Cervical Cancer Screening 1985 HPV/Cotest 1985 Pap Smear 1985 DTaP/Tdap/Td Vaccines (1 - Tdap) 1986 Pneumococcal Vaccine (1 of 1 - PCV) 2014 Zoster Vaccines (1 of 2) 2014 Mammogram 10/14/2023 10/13/2022, 09/14, 10/09/2021, Additional history exists COVID-19 Vaccine ( - season) 2023 Influenza Vaccine (#1) 2024 Yearly Adult Physical 01/01/2025 01/01/2024 , 12/11/2022, 07/08/2022 HIB Vaccines Aged Out No longer eligi ble based on patient's age to complete this topic HPV Vaccines Aged Out No longer eligi ble based on patient's age to complete this topic Hepatitis A Vaccines Aged Out No long er eligible based on patient's age to complete this topic IPV Vaccines Aged Out No longer eligi ble based on patient's age to complete this topic Meningococcal Vaccine Aged Out No casie surya eligible based on patient's age to complete this topic Rotavirus Vaccines Aged Out No longer eligible based on patient's age to complete this topic Goals Goal Patient Goal Type Associated Problems Recent Progress Patient-Stated? Author Autogenerat ed Goal Care Plan Autogenerated Problem No Rashmi Christine MD Medical Devices Implanted Type Area Household Personal Assistant Device Identifier Shelf Expiration Date Model / Serial / Lot Graft, [employer] 2.5 X 2.5 Case [id number] Implanted:Qty: 1 on 01/24/2022 by Rashmi Christine MD Cochlear Implant [employer] [facility] 04/07/2023 [id number] / / [id number] Description:Converted from [facility]. Please see archived information for full log information. Procedures Procedure Name Priority Date/Time Associated Diagnosis Comments CT TRANSFER OF OUTSIDE FILMS Routine 09/01/2024 2:50 PM EDT from Last 3 Months Results * CT transfer of outside films (09/01/2024 2:50 PM EDT) Narrative IMAGING - 09/01/2024 2:51 PM EDT Outside images for comparison or treatment purposes, not interpreted by Radiologists. Rashmi Christine MD IMG CT PROCEDURES Final Result IMAGING from Last 3 Months Additional Health Concerns Active Problems Noted Date Diagnosed Date Autogenerated Problem 09/01/2024 Insurance [facility] AD[facility] [employer] [facility] Care Teams Administrative Sales Assistant Relationship Specialty Start Date End Date Kartik Priest DO PCP - General 10/07/21
--- OUTSIDE RECORDS SUMMARY | 2024-10-01 08:59 | XMS_ITS | Encounter Summary ---
Author Organization [facility] Address [address] [place] [address] Phone Care Team Providers Care Home Mortgage Disclosure Act Specialist Name Role Phone Kartik Priest Primary Care Provider [phone] Encounter Details Date Type Department Care Team (Late Contact Info) Description 08/28/2021 Orders Only [facility] [address] [place] [address] Conversion, Onbase Social History Tobacco Use Types Packs/Day Years Used Date Smoking Tobacco: Never Assessed Comments Unknown Sex and Gender Information Value Date Recorded Sex Assigned at Not on file Legal Sex Female 1:14 AM EST Gender Identity Not on file Sexual Orientation Not on file documented as of this encounter Plan of Treatment Upcoming Encounters Date Type Department Care Team (Latest Contact Info) Description 11/21/2024 9:20 AM EDT Hospital Encounter [facility] [place] [address] [place] [address] [place] [address] [place] [address] 11/21/2024 10:50 AM EDT - 11/21/2024 1:55 PM EDT Surgery [facility] [place] [address] [place] [address] [place] [address] [place], [place] [id number] Left Revision Canalplasty; Possible Mastoidectomy; Cartilage Graft [75812 (CPT ) +1 more] Scheduled Orders Name Type Priority Associated Diagnoses Orde r Schedule AUDIOLOGY REPORT - ONBASE SCAN Audiology Ordered: 022 Scheduled Procedures Name Priority Associated Diagnoses Date/Ti me CANALOPLASTY, EAR Cholesteatoma of left ear 11/21/2024 10:50 AM EDT documented as of this encounter Visit Diagnoses Not on filedocumented in this encounter Care Teams Home Mortgage Disclosure Act Specialist Relationship Specialty Start Date End Date Kartik Priest DO PCP - General 10/07/21 documented as of this encounter
[2024-10-01 09:16] LABS: Hematocrit 40.3 % (36.0-48.0); Hemoglobin 13.6 g/dL (12.0-16.0); Immature Granulocytes Abs Auto 0.01 10^3/uL (0.00-0.03); Immature Granulocytes Pct Auto 0.2 % (0.0-0.5); Lymphocytes Absolute Auto 1.9 10^3/uL (1.2-3.8); Mean Corpuscular HGB Conc 33.7 g/dL (29.9-35.2); Mean Corpuscular Hemoglobin 30.8 pg (26.7-34.0); Mean Corpuscular Volume 91.4 fL (81.0-99.0); Platelet Count 227 10^3/uL (150-450); Red Blood Count 4.41 10^6/uL (4.20-5.40); White Blood Count 4.7 10^3/uL (4.0-11.0)
[2024-10-01 09:56] LABS: Alanine Aminotransferase 40 U/L (14-59); Albumin Globulin Ratio 1.0; Albumin Level 3.6 g/dL (3.4-5.0); Alkaline Phosphatase 85 U/L (46-116); Anion Gap 14.4; Aspartate Amino Transferase 22 U/L (15-37); Blood Urea Nitrogen 19.0 mg/dL (7.0-18.0); Calcium 8.6 mg/dL (8.5-10.1); Carbon Dioxide 28.1 mmol/L (21.0-32.0); Chloride 106 mmol/L (98-107); Cholesterol 198 mg/dL (<=200); Estimated GFR (African America >60 (>=60 mL/min/1.73m^2); Estimated GFR (Non-African Ame >60 (>=60 mL/min/1.73m^2); Globulin 3.5 g/dL; Glucose 92 mg/dL (74-106); HDL Cholesterol 75 mg/dL (40-60); Potassium 4.5 mmol/L (3.5-5.1); Sodium 144 mmol/L (136-145); Thyroid Stimulating Hormone 4.370 uIU/mL (0.358-3.740); Total Protein 7.1 g/dL (6.4-8.2); Triglycerides 177 mg/dL (<=150); VLDL CHOLESTEROL 35.4 mg/dL
== END 2024-10-01 08:58 | disposition home or self-care (01) ==
LOC: LAB 08:57
PROVIDERS: PCP Internal Medicine; Visit Provider Internal Medicine
DX: Z00.00 Encounter for general adult medical examination without abnormal findings (principal)
CPT/HCPCS: 36415; 80053; 80061; 84443; 85025

== ENCOUNTER 2024-10-25 07:41 | Outpatient (OUT) | payer OTHER, SELFPAY ==
--- NOTE | 2024-10-25 08:00 | ECG_ITS ---
[facility] Test Date: 2024-10-25 Pat Name: CARL MILLER Department: Room: - Gender: Female Adjunct Political Science Instructor: : 1965 Requested By: OSMEL RODRIGUEZ Order Number: [id number] Reading MD: DEVI VENTURA M.D. Measurements Intervals [place] Rate: 78 P: 67 MS: 152 QRS: 77 QRSD: 82 T: 55 QT: 374 QTc: 429 Interpretive Statements SINUS RHYTHM Normal ECG No previous ECG available for comparison Electronically Signed On 10-25-2024 13:57:08 EDT by DEVI VENTURA M.D.
== END 2024-10-25 07:42 | disposition home or self-care (01) ==
LOC: CARD 07:42
PROVIDERS: PCP Internal Medicine; Visit Provider Otolaryngology
DX: Z01.818 Encounter for other preprocedural examination (principal); H71.92 Unspecified cholesteatoma, left ear
CPT/HCPCS: 93005

== ENCOUNTER 2024-11-16 07:16 | Outpatient (OUT) | payer OTHER, SELFPAY ==
--- OUTSIDE RECORDS SUMMARY | 2024-11-16 07:20 | XMS_ITS ---
Author Organization [facility] Address [address] [place] [address] Care Team Providers Care Caterers Helper Name Role Phone Preeti Lopez MD Unavailable [phone] Kartik Priest DO Primary Care Provider [phone] Active Problems Problem Noted Date Diagnosed Date Keratosis obturans of external ear canal, left 1 04/20/2022 Basal cell carcinoma (BCC) of back 01/27/2023 Cervical high risk HPV (human papillomavirus) te st positive 01/27/2023 Conductive hearing loss of left ear 01/27/2023 Conductive hearing loss, uni lateral, left ear with restricted hearing on the contralateral side 01/27/2023 Contracture, right ankle 01/27/2023 Other seborrheic keratosis 01/27/2023 Mild dysplasia of cervix 06/09/2013 Current Treatment and Therapy Plans No current plan information found. Past Treatment and Therapy Plans No past plan information found. Lifetime Dose Tracking * Chemical Lifetime Dose Automatic Entry Manual Entr y Radiation 37.84 mSv 37.84 mSv 0 mSv Resolved Problems Problem Noted Date Diagnosed Date Resolved Date Abnormal mammogram 01/27/2023 3 Hot flashes due to menopause 01/27/2023 01/27/2023 Menopausal symptom 01/27/2023 3 Irregular periods 01/27/2023 01/27/2023
--- OUTSIDE RECORDS SUMMARY | 2024-11-16 07:20 | XMS_ITS | Encounter Summary ---
Author Organization [facility] Address [address] [place] [address] Phone Care Team Providers Care Air Hammer Operator Name Role Phone Cem Kartik Moralez Primary Care Provider [phone] Encounter Details Date Type Department Care Team (Late st Contact Info) Description 08/28/2021 Orders Only [facility] [address] [place] [address] Conversion, Onbase Social History Tobacco Use Types [...] Care Team (Latest Contact Info) Description 11/21/2024 9:15 AM EDT Hospital Encounter [facility] [place] [address] [place] [address] [place] [address] [place], [place] [phone] 11/21/2024 10:45 AM EDT - 11/21/2024 2:15 PM EDT Surgery [facility] [place] [address] [place] [address] [place] [address] [place] [address] Left Side post auricular Revision Canalplasty; Cartilage Graft [38373 (CPT ) +1 more] 12/06/2024 1:15 PM EDT Office Visit [facility] [address] [place] [address] [place] [address] [place] [address] Scheduled Orders Name Type Priority Associated Diagnoses Orde r Schedule AUDIOLOGY REPORT - ONBASE SCAN Audiology Ordered: 022 Scheduled Procedures Name Priority Associated Diagnoses Date/Ti me CANALOPLASTY, EAR Cholesteatoma of left ear 11/21/2024 10:45 AM EDT documented as of this encounter Visit Diagnoses Not on filedocumented in this encounter Care Teams Air Hammer Operator Relationship Specialty Start Date End Date Kartik Priest DO PCP - General 10/07/21 documented as of this encounter
--- OUTSIDE RECORDS SUMMARY | 2024-11-16 07:20 | XMS_ITS | Encounter Summary ---
Author Organization [facility] Address [address] [facility] [place] [address] Care Team Providers Care Cab Worker Name Role Phone Preeti Lopez MD Unavailable [phone] aKrtik Priest DO Primary Care Provider [phone] Encounter Details Date Type Department Care Team (Late st Contact Info) Description 01/10/2024 Clinisync Result Encounter [facility] External Department Unsolicited Marcos Singer DO [address] [place] [address] Social History Tobacco Use Types Packs/Day Years Used Date Smoking Tobacco: Never Smokeless Tobacco: Never Alcohol Use Standard Drinks/Week Comments Yes 1 (1 standard drink = 0.6 oz pur e alcohol) Caffeine: none AUDIT-C Answer Date Recorded Q1: How often do you have a drink containing alc ohol? Monthly or less 12/11/2022 Q2: How many drinks containi ng alcohol do you have on a typical day when you are drinking? 1 or 2 12/11/2022 Q3: How often do you have si x or more drinks on one occasion? Never 12/11/2022 Comments No Sex and Gender Information Value Date Recorded Sex Assigned at Female 12/10/2022 6:39 PM EDT Legal Sex Female 7:06 PM EDT Gender Identity Female 12/10/2022 6:39 PM EDT Sexual Orientation Straight 12/10/2022 6: 39 PM EDT documented as of this encounter Plan of Treatment Upcoming Encounters Date Type Department Care Team (Late st Contact Info) Description 01/11/2025 3:30 PM EDT Office Visit [facility] [address] [place] [address] Marcos Singer DO [address] [place] [address] 02/15/2025 4:00 PM EST [facility] [address] [place] [address] Sharmila Cota MD [address] [place] [address] documented as of this encounter Procedures Procedure Name Priority Date/Time Associated Diagnosis Comments MM TOMOSYNTHESIS SCREENING BI 01/10/2024 6:25 PM EDT documented in this encounter Results * MM TOMOSYNTHESIS SCREENING BI (01/10/2024 6:25 PM EDT) Anatomical Region Laterality Modality Other 01/10/2024 6:25 PM EDT Narrative 01/10/2024 6:26 PM EDT The [address] [address] Mammography Report Signed Patient: MAI MILLER MR#: [id number] : 1965 Acct:[id number] Age/Sex: 58 / F ADM Date: 01/06/24 Loc: MAMMO Attending Dr: MARCOS SINGER Ordering Physician: MARCOS SINGER Results: Date of Service: 01/06/24 Follow Up: Procedure(s): MM tomosynthesis screening BI Accession Number(s): [id number] cc: Kartik Priest D.O.; MARCOS SINGER Patient Name: MAI MILLER MR#: [id number] : 1965 Exam Date: 01/06/2024 Ordering Doctor: DR MARCOS SINGER RADIOLOGY REPORT PROCEDURE: MM TOMOSYNTHESIS SCREENING BI COMPARISON: MG MAMM SCREEN 3D YOVANNY CAD, 10/13/2022. MG MAMM LT DIAG W CAD, 10/11/2021. MG MAMM SCREEN YOVANNY W CAD, 10/09/2021. MG MAMM SCREEN YOVANNY W CAD, 10/01/2018. INDICATIONS: Screening Calculator Name NCI Breast Cancer Risk Assessment Tool 5 Year Breast Cancer Risk 1.40% Lifetime Breast Cancer Risk 7.60% Personal Breast Cancer No Personal Ovarian Cancer No Treatments None Family Cancers Aunt-maternal with breast cancer at age 40; Grandmother-maternal with cervical cancer at age 70. LOCATION: The [facility] BREAST COMPOSITION: The breasts are heterogeneously dense,which may obscure small masses. FINDINGS: DIAGNOSTIC CATEGORY 1--NEGATIVE. RIGHT BREAST: No significant suspicious finding. No significant change has occurred. LEFT BREAST: No significant suspicious finding. No significant change has occurred. RECOMMENDATIONS: ROUTINE MAMMOGRAM AND CLINICAL EVALUATION IN 12 MONTHS. PLEASE NOTE: A NORMAL MAMMOGRAM DOES NOT EXCLUDE THE POSSIBILITY OF BREAST CANCER. A CLINICALLY SUSPICIOUS PALPABLE LUMP SHOULD BE BIOPSIED. Dictated by: Juan Alberto Foote M.D. on 01/10/2024 at 18:22 Approved by: Juan Alberto Foote M.D. on 01/10/2024 at 18:25 Dictated By: Juan Alberto Foote M.D. Signed By: 01/10/241825 DD/ 24 TD/TT: Bar Machine Operator: Procedure Note Radiology, Radiologist, MD - 01/10/2024 [place] [address] Mammography Report Signed Patient: MAI MILLER LMR#: [id number] : 1965Acct:[id number] Age/Sex: 58 / FADM Date: 01/06/24 Loc: MAMMO Attending Dr: MARCOS SINGER Ordering Physician: MARCOS SINGERResults: Date of Service: 01/06/24Follow Up: Procedure(s): MM tomosynthesis screening BI Accession Number(s): [id number] cc: Kartik Priest D.O.; MARCOS SINGER Patient Name: MAI MILLER MR#: [id number] : 1965 Exam Date: 01/06/2024 Ordering Doctor: DR MARCOS SINGER RADIOLOGY REPORT PROCEDURE: MM TOMOSYNTHESIS SCREENING BI COMPARISON: MG MAMM SCREEN 3D YOVANNY CAD, 10/13/2022. MG MAMM LT DIAG WCAD, 10/11/2021. MG MAMM SCREEN YOVANNY W CAD, 10/09/2021. MG MAMM SCREEN YOVANNY WCAD, 10/01/2018. INDICATIONS: Screening Calculator Name NCI Breast Cancer Risk Assessment Tool 5 Year Breast Cancer Risk 1.40% Lifetime Breast Cancer Risk 7.60% Personal Breast Cancer No Personal Ovarian Cancer No Treatments None Family Cancers Aunt-maternal with breast cancer at age 40; Grandmother-maternal with cervical cancer at age 70. LOCATION: The [facility] BREAST COMPOSITION: The breasts are heterogeneously dense,which may obscure small masses. FINDINGS: DIAGNOSTIC CATEGORY 1--NEGATIVE. RIGHT BREAST: No significant suspicious finding. No significant changehas occurred. LEFT BREAST: No significant suspicious finding. No significant changehas occurred. RECOMMENDATIONS: ROUTINE MAMMOGRAM AND CLINICAL EVALUATION IN 12 MONTHS. PLEASE NOTE: A NORMAL MAMMOGRAM DOES NOT EXCLUDE THE POSSIBILITY OFBREAST CANCER. A CLINICALLY SUSPICIOUS PALPABLE LUMP SHOULD BE BIOPSIED. Dictated by: Juan Alberto Foote M.D. on 01/10/2024 at 18:22 Approved by: Juan Alberto Foote M.D. on 01/10/2024 at 18:25 Dictated By: Juan Alberto Foote M.D. Signed By:01/10/241825 DD/ 24 TD/TT: Bar Machine Operator: Marcso Singer DO [facility] Final Resul t documented in this encounter Visit Diagnoses Not on filedocumented in this encounter Care Teams Cab Worker Relationship Specialty Start Date End Date Kartik Priest DO [address] [place] [address] PCP - General Internal Medicine 07/05/24 Preeti Lopez MD [address] [address] Otolaryngology 08/28/21 documented as of this encounter
--- OUTSIDE RECORDS SUMMARY | 2024-11-16 07:20 | XMS_ITS | Clinical Summary ---
Author Organization [facility] Address [address] [facility] [place] [address] Care Team Providers Care Fish Skinning Machine Feeder Name Role Phone Preeti Lopez MD Unavailable [phone] Kartik Priest DO Primary Care Provider [phone] Allergies No known active allergies Medications valACYclovir (Valtrex) 500 MG tablet Take 500 mg by mouth if needed 09/04/2022 Active zolpidem (Ambien) 5 MG tablet 01/22/2024 Active Active Problems Problem Noted Date Diagnosed [...] keratosis 01/27/2023 Mild dysplasia of cervix 06/09/2013 Resolved Problems Problem Noted Date Diagnosed Date Resolved Date Abnormal mammogram 01/27/2023 3 Hot flashes due to menopause 01/27/2023 01/27/2023 Menopausal symptom 01/27/2023 3 Irregular periods 01/27/2023 01/27/2023 Family History Medical History Relation Name Comments No Known Problems Brother No Known Problems Daughter 1 No Known Problems Daughter 2 Diabetes Father Arun Heart disease Father Arun Hypertension Father Arun Melanoma Father Arun Emphysema Maternal Grandfather Cervical cancer Maternal Grandmother Melanoma Mother Breast cancer Mother's Sister Aunt Heart disease Paternal Grandfather Cancer Paternal Grandmother Hyun No Known Problems Sister Relation Name Status Comments Brother Daughter 1 Alive Daughter 2 Alive Father Arun Alive Maternal Grandfather Maternal Grandmother Mother Alive Mother's Sister Aunt Paternal Grandfather Paternal Grandmother Hyun Sister Social History Tobacco Use Types Packs/Day Years Used Date Smoking Tobacco: Never Smokeless Tobacco: Never Tobacco Cessation:Counseling Given: Not Answered Alcohol Use Standard Drinks/Week Comments Yes 1 [...] Orientation Straight 12/10/2022 6: 39 PM EDT Last Filed Vital Signs Vital Sign Reading Time Taken Comments Blood Pressure 136/81 07/18/2024 11:20 AM EDT Pulse 89 07/18/2024 11:20 AM EDT Temperature - - Respiratory Rate - - Oxygen Saturation - - Inhaled Oxygen Concentration - - Weight 87.1 kg (192 lb) 07/18/2024 11:20 AM EDT Height 165.1 cm (5' 5 ) 07/18/2024 11:20 AM EDT Body Mass Index 31.95 07/18/2024 11:20 AM EDT Plan of Treatment Upcoming Encounters Date Type Department Care Team (Late st Contact Info) Description 01/11/2025 3:30 PM EDT Office Visit [facility] [address] [place] [address] Marcos Tian DO [address] [place] [address] 02/15/2025 4:00 PM EST Office Visit [facility] [address] [place] [address] Sharmila Cota MD [address] [place] [address] [place] [facility]: [place] [id number] [place] [phone] Care Teams Fish Skinning Machine Feeder Relationship Specialty Start Date End Date Kartik Priest DO [address] [facility] [place] [phone] PCP - General Internal Medicine 07/05/24 Preeti Lopez MD [address] [facility] [address] [place] [address] Otolaryngology 08/28/21
--- OUTSIDE RECORDS SUMMARY | 2024-11-16 07:20 | XMS_ITS | Clinical Summary ---
Author Organization [facility] Address [address] [place] [address] Phone Care Team Providers Care Production Superintendent Name Role Phone CemKartik Primary Care Provider [phone] Allergies No known active allergies Medications semaglutide (Ozempic) 0.25 mg or 0.5 mg(2 mg/1.5 mL) pen injector Inject 0.25 mg under the skin 1 (one) time per week. 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/30/2024 Encounters Date Type Department Care Team Description 11/11/2024 Telephone [facility] [address] [place] [address] Aleja Glover RN 09/09/2024 Scanned Document [facility] [address] [place] [address] Echo Larsen, ALESSANDRA, CCC-A 09/01/2024 2:49 PM EDT - 09/01/2024 11:59 PM EDT Hospital Encounter [facility] [address] [place] [address] Discharge Disposition: Home 08/30/2024 9:30 AM EDT Office Visit [facility] [address] [place] [address] Rashmi Christine MD Preoperative clearance; Cholesteatoma of left ear 08/30/2024 9:00 AM EDT Clinical Support [facility] [address] [place] [address] Echo Larsen, AUD, CCC-A Sensorineural hearing loss, [...] Description 11/21/2024 9:15 AM EDT Hospital Encounter [facility] [place] [address] [place] [address] [place] [address] [place] [address] 11/21/2024 10:45 AM EDT - 11/21/2024 2:15 PM EDT Surgery [facility] [place] [address] [place] [address] [place] [address] [place] [id number] Left Side post auricular Revision Canalplasty; Cartilage Graft [[id number] (CPT ) +1 more] 12/06/2024 1:15 PM EDT Office Visit [facility] [address] [place] [address] [place] [address] [place] [address] Scheduled Procedures Name Priority Associated Diagnoses Date/Ti me CANALOPLASTY, EAR Cholesteatoma of left ear 11/21/2024 10:45 AM EDT Health Maintenance Due Date Last Done Comments CT Colonography 1965 Colonoscopy 1965 Colorectal Cancer Screening 1965 FIT-DNA (Cologuard) 1965 FIT 1965 HIV Screening 1965 Lipid Panel 1965 Sigmoidoscopy 1965 MMR Vaccines (1 of 1 - Standard series) 1965 COVID-19 Vaccine (#1) 1969 Diabetes Screening 1982 Hepatitis C Screening 1982 Pneumococcal Vaccine (1 of 2 - PCV) 11/11/1983 Zoster Vaccines (1 of 2) 11/11/1983 Cervical Cancer Screening 1985 HPV/Cotest 1985 Pap Smear 1985 DTaP/Tdap/Td Vaccines (1 - Tdap) 1986 Mammogram 10/14/2023 10/13/2022, 09/14, 10/09/2021, Additional history exists RSV High Risk: (Elderly (60+) or Population) (1 - Risk 60-74 years 1-dose series) 2024 Influenza Vaccine (#1) 2024 Yearly Adult Physical 01/01/2025 01/01/2024 , 01/01/2024, 08/31/2023, Additional history exists HIB Vaccines Aged Out No longer eligi ble based on patient's age to complete this topic HPV Vaccines Aged Out No longer eligi ble based on patient's age to complete this topic Hepatitis A Vaccines Aged Out No long er eligible based on patient's age to complete this topic Hepatitis B Vaccines Aged Out No long er eligible [...] Christine MD Medical Devices Implanted Type Area Crutch Maker Device Identifier Shelf Expiration Date Model / Serial / Lot Graft, Biod[employer] 2.5 X 2.5 Case [id number] Implanted:Qty: 1 on 01/24/2022 by Rashmi Christine MD Cochlear Implant [employer] 04/07/2023 [id number] / / [id number] Description:Converted from [facility]. Please see archived information for full [...] Date Diagnosed Date Autogenerated Problem 09/01/2024 Insurance [employer] N[employer] Care Teams Production Superintendent Relationship Specialty Start Date End Date Kartik Priest DO PCP - General 10/07/21
--- OUTSIDE RECORDS SUMMARY | 2024-11-16 07:20 | XMS_ITS | Encounter Summary ---
Author Organization [facility] Address [address] [place] [address] Phone Care Team Providers Care Yard Clerk Name Role Phone Kartik Priest DO Primary Care Provider [phone] Encounter Details Date Type Department Care Team (Late st Contact Info) Description 11/11/2024 Telephone [facility] [address] [facility] [address] [place] [address] Aleja Glover RN Social History Tobacco Use Types Packs/Day Years Used Date Smoking Tobacco: Never Smokeless Tobacco: Never PHQ-2 Answer Date Recorded Patient Health Questionnaire-2 Score 0 08/30/2024 Comments Unknown Sex and Gender Information Value Date Recorded Sex Assigned at Not on file Legal Sex Female 1:14 AM EST Gender Identity Not on file Sexual Orientation Not on file documented as of this encounter Miscellaneous Notes * Telephone Encounter - Aleja Glover RN - 11/11/2024 1:35 PM EDT Patient called regaridng completing lab work prior to surgery on 11/21. CBC and CMP orders sent to [facility] fax [phone] as well as patient's email address. She has no other questions or concerns at this time. documented in this encounter Plan of Treatment Upcoming Encounters Date Type Department Care Team (Latest Contact Info) Description 11/21/2024 9:15 AM EDT Hospital Encounter [facility] [place] [address] [place] [address] [place] [address] [place], [place] [phone] 11/21/2024 10:45 AM EDT - 11/21/2024 2:15 PM EDT Surgery [facility] [place] [address] [place] [address] [place] [address] [place], [place] [phone] Left Side post auricular Revision Canalplasty; Cartilage Graft [18692 (CPT ) +1 more] 12/06/2024 1:15 PM EDT Office Visit [facility] [address] [place] [address] [place] [address] [place], [place] [phone] Scheduled Procedures Name Priority Associated Diagnoses Date/Ti me CANALOPLASTY, EAR Cholesteatoma of left ear 11/21/2024 10:45 AM EDT documented as of this encounter Goals Goal Patient Goal Type Associated Problems Recent Progress Patient-Stated? Author Autogenerat ed Goal Care Plan Autogenerated Problem No Rashmi Christine MD documented as of this encounter Visit Diagnoses Not on filedocumented in this encounter Additional Health Concerns Active Problems Noted Date Diagnosed Date Autogenerated Problem 09/01/2024 Assessment Noted Time A fall risk assessment has been complete d for the patient 08/30/2024 9:55 AM EDT documented as of this encounter Care Teams Yard Clerk Relationship Specialty Start Date End Date Kartik Priest DO PCP - General 10/07/21 documented as of this encounter
--- OUTSIDE RECORDS SUMMARY | 2024-11-16 07:21 | XMS_ITS | CCD ---
Author Organization [facility] Care Team Providers Care Chief Radiologic Technologist Name Role Phone Kartik Priest Unavailable Unavailable Unavailable Sander, Dr. Rashmi Churchill Admitting Unava ilable Sander, Dr. Rashmi Churchill Referring Unava ilable Sander, Dr. Rashmi Churchill Attending Unava ilable Kartik Priest [facility] Unavailabl e Sander, Dr. Rashmi Churchill Attending Unava ilable Self, Referral Referring Unavailable Kartik Priest Primary Care Unavailabl e Sander, Dr. Rashmi Churchill Referring Unava ilable Sander, Dr. Rashmi Churchill Attending Unava ilable Kartik Priest [facility] Unavailabl e Sander, Dr. Rashmi Churchill Referring Unava ilable Sander, Dr. Rashmi Churchill Attending Unava ilable Kartik Priest Primary Care Unavailmichelle e Kartik Priest Unavailable DR KARTIK PRIEST Attending Unavailable JENNIFER, DR BOLIVAR Consulting Unavailable JENNIFER, DR BOLIVAR Primary Care Unavailable JENNIFER, DR BOLIVAR Admitting Unavailable DO Kartik Priest Primary Care Provider [phone] MD Rashaun William Attending Provider DO Kartik Priest Primary Care Provider [phone] MD Rashaun William Attending Provider Kartik Priest Primary Care Unavailable Rashaun William Admitting Unavailable Rashaun William Attending Unavailable Kartik Priest Primary Care Unavailable Rashaun William Admitting Unavailable Rashaun William Attending Unavailable NO FAMILY, PHYSICIAN Primary Care Unavailable Nicolasa Delgado Admitting Unavailable Nicolasa Delgado Attending Unavailable Delgado, OPERATIONS PROJECT MANAGER Nicolasa Fraser Attending Provider NO FAMILY, PHYSICIAN Primary Care Provider Unava Kartik Morel MD Primary Care Provider Carolyn Jasmine MD Unavailable [phone] Kartik Priest MD Primary Care Provider Kartik Priest DO Primary Care Provider CAROLYN JASMINE Attending Unavailable TIMMIS, CAROLYN H Referring Unavailable TIMMIS, CAROLYN Painter Attending Unavailable RUSHER, FIDEL Saunders Attending Unavailable VISCI, MARIEL Saunders Attending Unavailable TIMMIS, CAROLYN Painter Attending Unavailable TIMMIS, CAROLYN Painter Attending Unavailable PETITTI, RAULITO Saunders Attending Unavailable Kartik Priest DO Primary Care Provider BENJIE LARSEN Attending Unavailable KARTIK PRIEST Primary Care Unavailable SANDER, RASHMI E Referring Unavailable KARTIK PRIEST Primary Care Unavailable SANDER, RASHMI E Admitting Unavailable SANDER, RASHMI E Attending Unavailable CAROLYN JASMINE Referring Unavaila ble KARTIK PRIEST Primary Care Unavailable SANDERRASHMI Watson E Attending Unavailable CAROLYN JASMINE Referring Unavaila ble JENNIFER, KATRIK Moralez Primary Care Unavailable Allergies Allergy Classification Reported Allergen(s) Allergy Type Date of Onset Reaction(s) Facility (3 sources) patient allergy list reviewed by nurse or physicia Propensity to adverse reactions 4 Comment:Done [employer] Other (1 source) ALLERGIES NOT ON FILE; Translations: [ALLERGIES NOT ON FILE] Propensity to adverse reactions (disorder) [facility] Medications Current Medications Medication Drug Class(es) [...] 2 01/04/2024 01/05/2024 Discontinued (Therapy completed) Estradiol-Norethind jocye Acet (4 sources) Estrogen Start: 01-07-2023 End: [...] 5 day(s) Apr, Not-Taking/PRN polyethylene glycol 3350 58128 mg powder for oral solution (3 sources) [...] TAB PO Daily June 05, 2017 12:00am January 07, 2023 3:47pm Problems Active Problems Problem Classification [...] ear; Translations: [Unspecified cholesteatoma, left ear] Onset: 11-11-2024 Episodic Other female genital disorders (2 sources) [...] treatment purposes, not interpreted by Radiologists. Normal [facility] Study Interpretation of outs chani studyon 09-01-2024 [...] report is generated using voice recognition reporting ([employer]). On occasion [employer] erroneously drops words from the report or replaces the spoken word with similar sounding words. Please call with any questions/concerns regarding this report.* Dictated and transcribed 07/11/24/dpd This report has been electronically signed and approved by the interpreting radiologist. Normal Not Available Comment on above: Order Comment: CT Te mporal WO at [facility]. Please call patient to schedule. HX CHOLESTEATOMA LT EAR No Panel Informationon 02-15 [facility] - Microbiology an d Antimicrobial susceptibilityon 01-01-2024 Bacterial vaginosis and vaginitis DNA panel Probe+sig amp (Vag fld) Negative [facility] No Panel Informationon 12-31 Interpretation and review of laboratory results Abnormal [facility] Trichomonas, UA Negative [facility] Yeast Negative [facility] + Parabasal cells c/ w atrophy [facility] Urine Cultureon 12-26-2023 Bacteria identified Cx Nom (U) ORGANISM: Escherichia coli (O:ESCCOL) [place] Count >100,000 Aerobic MARQUIS Charge (NMIC56) SUSCEPTIBILITY [...] RESISTANT TO ALL B-LACTAM DRUGS. PERFORMED BY: [place] [address] PATHOLOGIST WEB DEVELOPMENT INSTRUCTOR SACHIN RAI M.D. Normal [facility] Comment on above: Performed By: #### C UU #### [address] ECG 12 lead ECGon 01-07-2023 ECG 12 lead ECG [facility] Main [place] [address] [place] [address] Electrocardiograph Report Signed Patient: Mai Miller MR#: [id number] : 1965 Acct:[id number] Age/Sex: 57 / F ADM Date: 01/07/23 Loc: Room: Type: [facility] Attending Dr: Rashaun William MD Ordering [...] By Amina Apodaca DO 01/07 Normal [facility] CBC AUTO DIFFon 07-10-2022 BASO # 0.0 103/ul Normal 0.0-0.1 [facility] Comment on above: Performed By: #### C BC #### [facility] [address] [place] [address] Dr. Nelly Virk Basophils/100 WBC (Bld) 0.8 % Normal 0.2-2.0 [facility] Comment on above: Performed By: #### C BC #### [facility] [address] [place] [address] Dr. Nelly Virk EO # 0.1 103/ul Normal 0.0-0.7 [facility] Comment on above: Performed By: #### C BC #### [facility] [address] [place] [address] Dr. Nelly Virk Eosinophils/100 WBC (Bld) 2.3 % Normal 0.9-7.0 [facility] Comment on above: Performed By: #### C BC #### [facility] [address] [place] [address] Dr. Nelly Virk Erythrocyte distribution width (RBC) [Ratio] 12.3 % Normal 11.0-15.0 [facility] Comment on above: Performed By: #### C BC #### [facility] [address] [place] [address] Dr. Nelly Virk Hematocrit (Bld) [Volume fraction] 41.4 % Normal 36.0-48.0 [facility] Comment on above: Performed By: #### C BC #### [facility] [address] [place] [address] Dr. Nelly Virk Hemoglobin (Bld) [Mass/Vol] 13.5 g/dL Normal 12.0-16.0 [facility] Comment on above: Performed By: #### C BC #### [facility] [address] [place] [address] Dr. Nelly Virk IG # 0.01 10e3/ul Normal 0.00-0.03 [facility] Comment on above: Performed By: #### C BC #### [facility] [address] [place] [address] Dr. Nelly Virk IG % 0.2 % Normal 0.0-0.5 [facility] Comment on above: Performed By: #### C BC #### [facility] [address] [place] [address] Dr. Nelly Virk LYMPH # 1.9 103/ul Normal 1.2-3.8 [facility] Comment on above: Performed By: #### C BC #### [facility] [address] [place] [address] Dr. Nelly Virk Lymphocytes/100 WBC (Bld) 40.6 % Normal 20.5-60.0 [facility] Comment on above: Performed By: #### C BC #### [facility] [address] [place] [address] Dr. Nelly Virk MANUAL DIFF REQ NO Normal [facility] Comment on above: Performed By: #### C BC #### [facility] [address] [place] [address] Dr. Nelly Virk MCH (RBC) [Entitic mass] 30.8 pg Normal 26.7-34.0 [facility] Comment on above: Performed By: #### C BC #### [facility] [address] [place] [address] Dr. Nelly Virk MCHC (RBC) [Mass/Vol] 32.6 g/dL Normal 29.9-35.2 [facility] Comment on above: Performed By: #### C BC #### [facility] [address] [place] [address] Dr. Nelly Virk MCV (RBC) [Entitic vol] 94.5 fL Normal 81.0-99.0 [facility] Comment on above: Performed By: #### C BC #### [facility] [address] [place] [address] Dr. Nelly Virk MONO # 0.4 103/ul Normal 0.3-0.8 [facility] Comment on above: Performed By: #### C BC #### [facility] [address] [place] [address] Dr. Nelly Virk Monocytes/100 WBC (Bld) 8.5 % Normal 1.7-12.0 [facility] Comment on above: Performed By: #### C BC #### [facility] [address] [place] [address] Dr. Nelly Virk NEUT # 2.2 103/ul Normal 1.4-6.5 [facility] Comment on above: Performed By: #### C BC #### [facility] [address] [place] [address] Dr. Nelly Virk Neutrophils/100 WBC (Bld) 47.6 % Normal 43.0-75.0 [facility] Comment on above: Performed By: #### C BC #### [facility] [address] [place] [address] Dr. Nelly Virk Platelet mean volume (Bld) [Entitic vol] 9.3 fL Critically low 9.5-13.5 [facility] Comment on above: Performed By: #### C BC #### [facility] [address] [place] [address] Dr. Nelly Virk PLT 207 103/ul Normal 150-450 [facility] Comment on above: Performed By: #### C BC #### [facility] [address] [place] [address] Dr. Nelly Virk RBC 4.38 106/ul Normal 4.20-5.40 [facility] Comment on above: Performed By: #### C BC #### [facility] [address] [place] [address] Dr. Nelly Virk WBC 4.7 103/ul Normal 4.0-11.0 [facility] Comment on above: Performed By: #### C BC #### [facility] [address] [place] [address] Dr. Nelly Virk LIPID PROFILEon 07-10-2022 CHOL-HDL RATIO NORM SEE BELOW Normal [facility] Comment on above: Result Comment: 3.3 - 4.4 LOW RISK 4.4 - 7.1 AVERAGE RISK 7.1 - 11.0 MODERATE RISK >11.0 HIGH RISK Performed By: #### L IPID, CMP, TSH #### [facility] [address] [place] [address] Dr. Nelly Virk Cholesterol [Mass/Vol] 219 mg/dL Critically high <=200 [facility] Comment on above: Performed By: #### L IPID, CMP, TSH #### [facility] [address] [address] [address] Nelly Virk Cholesterol in HDL [Mass/Vol] 80 mg/dL Critically high 40-60 [facility] Comment on above: Performed By: #### L IPID, CMP, TSH #### [facility] [address] [address] [address] Nelly Virk Cholesterol in LDL [Mass/Vol] 111.2 mg/dL Normal [facility] Comment on above: Performed By: #### L IPID, CMP, TSH #### [facility] [address] [address] [address] Nelly Virk Cholesterol.total/C holesterol in HDL [Mass ratio] 2.7 {ratio} Normal [facility] Comment on above: Performed By: #### L IPID, CMP, TSH #### [facility] [address] [address] [address] Nelly Virk HDL NORMAL > or = 60 mg/dl - LO W CARDIOVASCULAR RISK <40 mg/dl - HIGH CARDIOVASCULAR RISK Normal [facility] Comment on above: Performed By: #### L IPID, CMP, TSH #### [facility] [address] [address] [address] Nelly Virk LDL CALC NORMAL SEE BELOW Normal [facility] Comment on above: Result Comment: <100 mg/dl OPTIMAL 100 - 129 mg/dl NEAR OR ABOVE OPTIMAL 130 - 159 mg/dl BORDERLINE HIGH 160 - 189 mg/dl HIGH >190 mg/dl VERY HIGH Performed By: #### L IPID, CMP, TSH #### [facility] [address] [address] [address] Nelly Virk Triglyceride [Mass/Vol] 139 mg/dL Normal <=150 [facility] Comment on above: Performed By: #### L IPID, CMP, TSH #### [facility] [address] [address] [address] Nelly Virk VLDL CALC 27.8 mg/dL Normal [facility] Comment on above: Performed By: #### L IPID, CMP, TSH #### [facility] [address] [address] [address] Nelly Virk PROF 14(COMP METB)on 023 Albumin [Mass/Vol] 3.7 g/dL Normal 3.4-5.0 [facility] Comment on above: Performed By: #### L IPID, CMP, TSH #### [facility] [address] [address] [address] Nelly Virk Albumin/Globulin [Mass ratio] 1.0 {ratio} Normal [facility] Comment on above: Performed By: #### L IPID, CMP, TSH #### [facility] [address] [address] [address] Nelly Virk ALP [Catalytic activity/Vol] 62 U/L Normal 46-116 [facility] Comment on above: Performed By: #### L IPID, CMP, TSH #### [facility] [address] [place] [address] Dr. Nelly Virk ALT [Catalytic activity/Vol] 24 U/L Normal 14-59 [facility] Comment on above: Performed By: #### L IPID, CMP, TSH #### [facility] [address] [address] [address] Nelly Virk Anion gap [Moles/Vol] 14.4 mmol/L Normal [facility] Comment on above: Performed By: #### L IPID, CMP, TSH #### [facility] [address] [place] [address] Dr. Nelly Virk AST [Catalytic activity/Vol] 16 U/L Normal 15-37 [facility] Comment on above: Performed By: #### L IPID, CMP, TSH #### [facility] [address] [address] [address] Nelly Virk Bilirubin [Mass/Vol] 0.4 mg/dL Normal 0.2-1.0 [facility] Comment on above: Performed By: #### L IPID, CMP, TSH #### [facility] [address] [address] [address] Nelly Virk Calcium [Mass/Vol] 8.9 mg/dL Normal 8.5-10.1 [facility] Comment on above: Performed By: #### L IPID, CMP, TSH #### [facility] [address] [address] [address] Nelly Virk Chloride [Moles/Vol] 104 mmol/L Normal 98-107 [facility] Comment on above: Performed By: #### L IPID, CMP, TSH #### [facility] [address] [address] [address] Nlely Virk CO2 [Moles/Vol] 26.6 mmol/L Normal 21.0-32.0 [facility] Comment on above: Performed By: #### L IPID, CMP, TSH #### [facility] [address] [address] [address] Nelly Virk Creatinine [Mass/Vol] 0.88 mg/dL Normal 0.55-1.02 [facility] Comment on above: Performed By: #### L IPID, CMP, TSH #### [facility] [address] [place] [address] Dr. Nelly Virk EGFR-AF [place] >60 Normal >=60 [facility] Comment on above: Performed By: #### L IPID, CMP, TSH #### [facility] [address] [place] [address] Dr. Nelly Virk EGFR-NON AF [place] >60 Normal >=60 [facility] Comment on above: Performed By: #### L IPID, CMP, TSH #### [facility] [address] [address] [address] Nelly Virk Globulin (S) [Mass/Vol] 3.8 g/dL Normal [facility] Comment on above: Performed By: #### L IPID, CMP, TSH #### [facility] [address] [address] [address] Nelly Virk Glucose [Mass/Vol] 108 mg/dL Critically high 74-106 [facility] Comment on above: Performed By: #### L IPID, CMP, TSH #### [facility] [address] [address] [address] Nelly Virk Potassium [Moles/Vol] 4.0 mmol/L Normal 3.5-5.1 [facility] Comment on above: Performed By: #### L IPID, CMP, TSH #### [facility] [address] [place] [address] Dr. Nelly Virk Protein [Mass/Vol] 7.5 g/dL Normal 6.4-8.2 [facility] Comment on above: Performed By: #### L IPID, CMP, TSH #### [facility] [address] [place] [address] Dr. Nelly Virk Sodium [Moles/Vol] 141 mmol/L Normal 136-145 [facility] Comment on above: Performed By: #### L IPID, CMP, TSH #### [facility] [address] [place] [address] Dr. Nelly Virk Urea nitrogen [Mass/Vol] 18.0 mg/dL Normal 7.0-18.0 [facility] Comment on above: Performed By: #### L IPID, CMP, TSH #### [facility] [address] [place] [address] Dr. Nelly Virk Urea nitrogen/Creatinine [Mass ratio] 20.5 mg/mg Normal [facility] Comment on above: Performed By: #### L IPID, CMP, TSH #### [facility] [address] [place] [address] Dr. Nelly Virk TSHon 07-10-2022 TSH 4.057 uIU/mL Critically high 0.358-3.740 [facility] Comment on above: Performed By: #### L IPID, CMP, TSH #### [facility] [address] [place] [address] Dr. 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 Boucher?s clinic. We are here to assist you through your ENT care at [facility]. Dr. Boucher is an Ear surgeon. This means that she specializes in taking care of patients with complex ear problems. Dr. Boucher's office number is [phone]. While you may see her at a satellite office, she has a team committed to help meet your healthcare needs at [facility]. This number is the most direct way to communicate with the office. Symone is Dr. Boucher?s adoption specialist and she answers the office phone from [...] may include dieticians, social workers, speech therapists, cook enchilada, neurologist, and physical therapist. Dr. Boucher will provide these referrals as needed. Please let her know if you would like to request a specific referral. For your convenience, Dr. Boucher sees patients at several [facility] locations including [facility] and [facility] at the main campus of [facility]. While we try to make your appointments [...] Screening.on Adult depression screening assessment No -Otolaryngo [facility] 4100 Work Phone: Fall risk assessment a) No falls within the last year [facility] 4100 Work Phone: Tobacco use status [facility] b) No -Otolaryngo 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 Boucher?s clinic. We are here to assist you through your ENT care at [facility]. Dr. Boucher is an Ear surgeon. This means that she specializes in taking care of patients with complex ear problems. Dr. Boucher's office number is [phone]. While you may see her at a satellite office, she has a team committed to help meet your healthcare needs at [facility]'s main campus. This number is the most direct way to communicate with the office. Symone is Dr. Boucher?s adoption specialist and she answers the office phone from [...] may include dieticians, social workers, speech therapists, cook enchilada, neurologist, and physical therapist. Dr. Boucher will provide these referrals as needed. Please let her know if you would like to request a specific referral. For your convenience, Dr. Boucher sees patients at several [facility] locations including [facility] and [facility] at the main campus [facility]. While we try to make your appointments [...] Normal [employer] No Panel Informationon 01-24 MG-Otolaryngo logy-[facility] 2684 Work Phone: Order Reconciliationon 01-24 Order Reconciliation [...] with you (more content not included)... Normal [facility] Surgical Pathology Depar tmenton 01-24-2022 [facility] Surgical Pathology Department Name MAI MILLER Pathologist: ANDREWS SERRANO DMD. Date of Procedure: 01/24/2022 Date Received: 01/24/2022 Date Reported 02/10/2022 Submitting Physician: RASHMI BOUCHER MD Location: [facility] Copy To/Referring/Attending: RASHMI BOUCHER MD Other External [...] reviewed this case. Diagnostic interpretation performed at [facility] [address] [facility] [address] Clinical History: Physician Contact Number: [phone] Fixative (A): Formalin Clinical Diagnosis History 56 [...] positive and negative controls which stained appropriately. [facility] Department of Pathology [address] [id number] Normal [facility] Comment on above: Performed By: #### U [facility] #### [facility] Surgical Pathology Department [id number] [place], [place] [id number] Patient Profile - Preop v3on 01-08-2022 Patient Profile - Preop v3 Patient Profile - Preop: Initial Info: Patient DemographicsName: MAI MILLER Date: 1965 Address: [address] [place] [place], [address] Date/Time [id number] 13:32 Primary Phone [phone] Instructions GivenStop taking aspirin, NSAIDs (Ibuprofen, Motrin, [...] 24, 2022 Primary Contact Name and NumberMark [phone] Limitations on Visitors/Phone Callsnone Medications Brought to Hospital[facility] General Health: Weight in kg80 kilogram(s) Weight in ijq594.3 pound(s) Weight Methodstated Scale Typestanding Height in feet5 feet Height in inches5.94 inch(es) Height in cm167.4 centimeter(s) Height Methodstated BMI (kg/m2)28.548 square meter Patient or Family Member Reaction to AnesthesiaPatient exercises at the [facility]-5 times a week. Patient walks [...] membrane perforation, bilateral high-frequency mixed hearing lossCC CLINICAL INFORMATICS STRATEGIST Symptoms/Conditions Commenttakes estrogen Barriers to Managing Healthnone Relationship/Environ: Lives Withspouse Living Arrangementshouse Resource/Environmental Concernsnone Anticipated Transition [facility] Anticipated at Transitionnone Tobacco Use: Tobacco Useno Never smoker EtOH: 1 drink per week Denies medical marijuana, recreational drug use Pre-op Checklist: Procedure TypeLEFT SIDE LATERAL GRAFT TYMPANOPLASTY WITH POSSIBLE OCR NPOyes Last Food [id number] 19:00 Last Clear Fluid [id number] 19:00 ID Band On Patientpatient ID (name) [...] states, Description: Bladder sling placement Electronic Signatures: Priscilla Adam (PAC) (Signed 08-Jan-2022 14:01) Authored: Initial Info, General Health, Health Mgmt, Tobacco Use, Additional Information Rachelle Murillo) (Signed 24-Jan-2022 10:57) Authored: Initial Info, General Health, Health Mgmt, Relationship/Environ, Pre-op Checklist Last Updated: 24-Jan-2022 10:57 by Rachelle Murillo) Normal [facility] Diagnostic Mammogram, Unilat eral left w/Jose Maria [...] VERY IMPORTANT TO YOUR HEALTH. THE CURRENT [place] [...] by Ruben Bueno on 10/11/2021 1407 Normal [facility] Intermediate Project Manager US Breast Limited, Lefton US Breast Limited, Left Please see the mammogram report from this same date Report reported and signed by Ruben Bueno on 10/11/2021 1405 Normal [facility] [facility] SCREENING MAMMOGRAM W/JOSE MARIA, BILATERAL*on 10-09-2021 [...] VERY IMPORTANT TO YOUR HEALTH. THE CURRENT [employer] GUIDELINES RECOMMENDS ANNUAL MAMMOGRAPHY BEGINNING AT AGE 39. THIS FACILITY USES A REMINDER SYSTEM TO ENSURE ALL PATIENTS RECEIVE REMINDER NOTIFICATIONS AT THE APPROPRIATE TIME BASED ON THE RECOMMENDATIONS OF THIS EXAM. Asymmetry: Visible on only one projection. Asymmetries that turnaround planner to be summation artifact are benign (BI-RADS 2). 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 Boucher?s clinic. We are here to assist you through your ENT care at [facility]. Dr. Boucher is an Ear surgeon. This means that she specializes in taking care of patients with complex ear problems. Dr. Boucher's office number is [phone]. While you may see her at a satellite office, she has a team committed to help meet your healthcare needs at [facility]'s main campus. This number is the most direct way to communicate with the office. Symone is Dr. Dominguezs adoption specialist and she answers the office phone from 8am-4pm Thu-Thu. She can help you with many general questions and information. Questions that she cannot answer will be directed to the appropriate staff. You may need to leave a message. In this case, someone from the team will call you back. Pj is Dr. Sanford primary nurse and can be reached by calling the office. Pj is in clinic with Dr. Sanford on Mondays and Tuesdays. Non-urgent calls will be returned on non-clinic days typically . Sometimes, other team members will also be involved in your care. These people may include dieticians, social workers, speech therapists, cook enchilada, neurologist, and physical therapist. Dr. Boucher will provide these referrals as needed. Please let her know if you would like to request a specific referral. For your convenience, Dr. Boucher sees patients at several [facility] locations including [facility] and [facility] at the [facility]. 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 She underwent revision [...] MG Oral Tablet Vitals Vital Signs Recorded: 11Pgh2515 04:10PM Axlqai622 lb Tobacco Useb) No Falls Screening (Age [...] or perfora (more content not included)... Normal [employer] Tobacco Screening.on 022 Fall risk assessment a) No falls within the last year MG-Otolaryngo logy-[facility] 3300A Work Phone: Tobacco use status [facility] b) No MG-Otolaryngo logy[facility] Work Phone: COVID-19 ([facility])on 06-12-2021 SARS-CoV-2 (COVID-19) RNA CLAUDE+probe Ql (Resp) Not detected Normal Not Detected [facility] Comment on above: Result Comment: This test result should be correlated with clinical presentations and medical history by a healthcare provider to determine its clinical significance. This assay was performed by a reverse transcriptase real-time polymerase chain reaction (rt PCR) method on the [employer] system. This test has been authorized only [...] or revoked sooner. Performed By: #### 2 [id number] #### [facility] [address] [place] [address] SARS-CoV-2 (COVID-19) RNA CLAUDE+probe Ql (Unsp spec) Pass Normal Pass [facility] Comment on above: Performed By: #### 2 [id number] #### [facility] [address] [place] [address] Specimen source Nom (Unsp spec) Nasal Normal [facility] Comment on above: Performed By: #### 2 [id number] #### [facility] [address] [place] [address] Coding Summary.on 06-12-2021 Coding Summary. CD:[id number] Gh0bW w+PGhlYWQ+TU1GEFDeT55dcQQ mdL1YJ8rDUO1TABPDLGKYQO2R IS3sxLY2KWhsU7UjgmSv VxubrINdIP41HQw5LXN3lZxtO WvmrU7kvMXpA4f2JoGtAD50nH 49BAopXDXzFjW9CtDlfewyhMA y O0nlYaTweXFhGit+PHRhYmxlI HdpZHRoPScxMDAlJyBzdHlsZT 3sEw4pXNXeMJVtfShxxJJkYoK j r7vgHKTsHDqhCI3udYqaV2Aol QJ3AFCts0l4Kv17yLA+PHRkIH M9fWsnHJnto858QmQxo5nmXYH 3 vTCjEDlkLGQ9J09lk0C9ELRwT ZBbQIB4wQX5gN7kwNamkpzpY1 DfqCEpZtB6RWZ0jAUpaT8lkEx n ikoysL5jWii+U32NWO3NZZFYS J8JByk9J0PgCnxuxEJ+PC90YW JhPJ24sOIgdUZsd1oduQs5UoL w ZLMhYCC4nBlkJTfbu2OlBIEyE 87gyGVgv5G7FFLkoKtjfYLkEe EanTX9pG4rAOhsrqcji4byuqq n Czfpw3gycg21oO23F52qHSmaI TLlYHW8MJMcAWPbvXfbor7dyU 9wIi8+NPlvl5vcc5whxGx8RfK w EGJzhnZhqPmwHBL8l3NkPs24X 3VjkKcgx6KfBng2hf97qTKiy2 B7sLB0VAnmVOLrlY1qHQffOvD 6 DRYuFbMubP10iDYzWTwxVr0av OmhqNczRC8tZTBjenbtOXXydD 2zUNHqbRRvdMqrNN2qOGUdhze m u033YiOcIZH4MYMfqRGiJ0Alz C9uSlPfLJEaVADaS4CfwYHmCN chI420ZInxCeY0DSQaejBfN7Q s NSFezUczSrW7u5P8Gg4Ou2Jyh oozUNG2SDyeLRZzYaJkWlHjQs T3W7JcBde9TSOfnYqtTV7lD1E h DPYmacjhcwjxmGA6IXRjGTOds I77uZTzYRloQw0ey1R3e887WY FrLETgkX05Rm2alWqsEKBphAP U iD1mnzcyl7rcrpqcWzTpOYTgQ Fs7JNs8TQNxzMgxXvFsSMN9Ep L2BTS7jLUdzJ2iiKyhvoukmN4 w Oyc+G64vmD3rMNL1RXD4bcsvW ZEgrhKqWJ93PL91J3RjNokulX FibGU+BLZdjbSyyLjyDI3kHqB j v5ntn0FjAExpC6ArPTDfZBlbE fq4WMJeXXA7kKW7pX7hPEMzBC ljw0U8wVJ2R8HzqfDtls4ti6d s TRVvFDkaM59nxIRch9M2CFMwh PQ4DHFcfRtlDvNvxE85Nnp+PG AaxIabu8CvXzcta0ajg3gedHn 9 JlHtYFXmeuTsfMhfIFZ8e2PaG a27K77wFArdGKMaYPMpQECpCV SzuCvjyx4kjK7eNk2+PGNvbCB 3 iFZ0wA4yMNGrAeO3KRbbH338G aZfkHWaLsype1iol7lrzVe6Sy ExWSQeogIxaAmpBZE7x5ReHv1 8 I68tOCnsEIGtAEFqVUElIWIvv Ijzmj7rxY3jKb1+RV1ys8ecsv 84kI20tKQ+RLLaYZN3pCtwBEx w HAHhvV3jTGekMiF9HHSjWhYun U41aQJjVNojKi8faMlitUpqFG 4fCDOwhevfb231EoRyx0mgSBA w cAIjFCskHEM6L63ap8V6EMHtK OHwAZM4dDH2pM6lyGcneilwpB CfpOiziyGbaUkfMIlzRJznH80 6 IHRvcDsnPlBhdGllbnQgTmFtZ Ik1K1UxXcq8AZEuhGwiGU6hlY SyCFpgJu6bcOppvLauKR9wSLQ p pyobq956ViSfo3kuCGCdhGIyM PapUWJ4K02zh4B3KELeTKGoVI R1uZG6dU8tqElpaqyswBXenTc g poYtqPiyQSsrMAvmD582GUUfq LioRnQwlzIbVIHvxIM1IE12PZ 16hNEcw3H0aMQ6O3WnQBSbgzd t sttegBV9EQRaWNNsuT82Nc4ae ZftYi0sLKEfBQO7YUQzwGJaV0 VohD4xVyKaHHIrRIXcK7SacBK t PQffL034IQuhBuG4WEWydhZvH 5KmXGYkuDtvJyA4y6Q1Do1IL0 U6FD04TB92cIJdb8Y3bQI6O7G h BFCvqaitevglpVQ0BJSmHMOic S99Vy3hoTqlLq2uHJYoETQ8IM HrhPFoD0UepJ5xReQuPCPcFHJ w Q1NtcBHsUThwT200FNaaSgZ7V XOwydLcZ8LuPSBfjVzzZjK2g5 Z1Cn4AXFv4YB01UE29aTWpf6U 5 xCC0C8IuEMShcryebspgyVG0M SUpXGGfkK58Xp9zvSdxCz0dHT AhZVS9PXXclBCaB5DuqA1qUnV j NUWrDSFmZ1ZkjVNlPJoqM455F SnbYzD7IADkdpBmX0HaRPHtwL pdExN6l4I4Qb8GBOOvKK39REZ 5 rPH2GK67TW75M9RwEddojIWmk +PHRhYmxlIHdpZHRoPScxMD XeFrYzkVaeTF4mPo3tIIBxMAJ v hBdukRThBuXtn7tpCAWrVTauQ G8qbMogN2YjwIV6IIFka9j0Yi 26Q81eT9ZmtTA+ZGCclOR9kUL 0 zN2jGdIrZnC9UDemF796WoWbl MBuGmqwf1pdm9qvvRt3VvS9MX RmeyNswIrzSWA6k3KtFz12Y44 s IHdpZHRoPSIxNSUiIHZhbGlnb c8hnM6yOp2+BILbgMW4uTE1yG 1oZuNqTyB4NOwgH756WiJnbUP v Sdfcl0xlk1emrXp7VyDjVRAdl wDbnYoyHSD3j5TuBp18X5BghC qzi5KnXds4tf26iVWtv2G6yRI 9 T4TaSZZybhnstIWukKdxXJ5jW LRombzfADFrzA2lQTMwA2d9Vo OxRiL6OKimL8QtsyI2QRXtdXD g HMnqGQO1V51hx9X5PPSoAEXgW QH0eYX5cF0qfLiizynfxNSfcW mpvoWluGiaVNhqHWtgP325JEM v iAueKRUooV6cGQYwmPArzRvbR S9cEVPzjprhJsQUPECmSL9UK0 icZAgMJOHQAX4lUEqyiWQ+PHR k FUS0wYcjCKyqZOZmmG5tJGXvI 1l8KtYjWcY5HMjkN7BsRETouv yuAv72aY2qUiPsZwL6RQpvH1K v bcP4SFNnnPKrCEjaDFD7L39wo 1L6LCJtUDIrBJK8hMQ6yO1wnE lnbjogbGVmdDsgdmVydGljYWw t MUoxP921ESMxgRksHvC1CnS8O xE8ItK4D3CjAys3SODcgAxnOR 2puRVsRQufYy4hrQxcoStiIZ1 w UCQcjezhYJOeyF6pGJLmqKOvj WwbOG7nCAEpdlpgx543EmUrMD N2ETZmsPVtP4BodK3wAgJdZQU w IVPsA4TtfMBhABdeF692NYicU mY5MCWymcSgP9GyIRYuxFnuAk X0k2C9Tb00RvYJNYTcezxnqLO + RTRvVVJ4hFqiCDvsHXTgrE0iT MTiX1a5McEoJuU2JNtzE7TsVS JiuuyvAd54gZ2xZrFeBpI9MSi u B6AgrqB9YNKjlOEeLQiqZKD9X 45ee8A8XHWyWYOeKCH0rFV5mZ 1hbGlnbjogbGVmdDsgdmVydGl j HWwxPVonS947CDKxxTpuFsBkm WFsZTwvdGQ+VXNyWKQ4kOiiHI yyMRQxxN3gJMZuJ0l8FxIkPtW 1 IRfiR8KaAZXrfufgYz14xV9dJ yIzAtA3QUtoI2SdhsR3XNJajE WoNZdqDTF3S75em2E8QVFeZGJ w SNI0kGO6uY1gmRyhwearoTXht YpjfqOgrZdaKLhrGSlzC041HC ItdKxwVgMtD8FbsvqgBphlvTP + QR13sn08P0SuIifvOce0IDJxT VL8rAI1pI9zVVRnWQqua9P9zJ I0M6HfooTpjj0rj7tvAIMhZWn g K35fsMTyd1R7YHOohCR5QPIef JzaJeAmxJ88Uki+PGNvbGdyb3 QrSybax1etb9tseCe1SsCdKRG g pjBolWkkTLR7q8DoBp55U24sN HdpZHRoPSIzMCUiIHZhbGlnbj 2cyE8oZn9+SIDvbEM7qHR2aX9 i MwLtSqY5NYucP649AmKjsIBbY dvmd9xcm2fccJc4OjScMVRyxk FngJvyHQP0q1YhZa74J8WspRn y q7YgNzy3sd36gLGxa7U4eSJ0R 4KqCQKkcsjnxSBvvCugLL5iHK DnwrhkBWAfcR5iAACmT5t6OwN w JlL6CCnoF9AhkwN4SFXbkAJrH EYxqYXNdQ1jnglqu9fuopxjSt VpXJIpENp9DAb5BRRzzNsoLnZ s VVK2BrM9EFU7gPTfvO7gkPtdm rnwgB0vEhh+SPo6u5rjqQHgVI 9mdEY1NS57SE96zWUhd0Q5eEZ 9 V0LiYAOdtdobjswusDQ0XMRbW KXxdR95Mw9zqGkiNg8kGQTuRD O5GVJyfFLfY3QrkT9xKwGiPEE w QKOrV0PeuGXqTQxuY081UVftA kE4TFZdypKdL7QqYVDlsOvwPv R9w7N0De7GSS14VQ69NJ94nFU g w9M5gAP0S3XnBQVywwjlxuokz AW4OSDdPWIcaI53Om9cjXvkQo 0qMVCmOUV7GYCujFJgI7DnjL2 y VqGdXZFgNVSnV4GeaTFoQWwbR 945OZjmUsJ4ZOWvhuDyU7JoGA YjrBtfGfQ2q7G0Um3AEy29QI3 0 GR27yOEep0D5wQD8Y2CbUBMfw bgmgkdgwDD8TINnJPLqjY25Xl 1bxDfrJt9pYFIqCPV3VQDazWV z M6GaeE9dCwOmIOAeQWYwO3Xib VQiPAagN388OFsiWnR2JTMrpp AsK4DsHXCrdKanOsP1o8L6Cs5 Q XZzwkpd9C6PrQqasfJL+PC90Y MRyTB88nWLsvAYim9xckZb6Hz HuLSYuVZO8mWzjKMcug6OjCNT t Y29s (more content not included)... Normal [facility] Consent for Treatmenton 05-16 Consent for Treatment [id number]:127 Normal [facility] COVID-19 ([facility])on 06-11-2021 ADMITTED TO INTENSIVE CARE UNIT FOR CONDITION OF INTEREST:FIND:PT: NO Normal [facility] Comment on above: Performed By: #### 2 [id number] #### [facility] [address] [place] [address] EMPLOYED IN A HEALTHCARE SETTING:FIND:PT: Unknown Normal [facility] Comment on above: Performed By: #### 2 [id number] #### [facility] [address] [place] [address] FIRST TEST FOR CONDITION OF INTEREST:FIND:PT: Unknown Normal [facility] Comment on above: Performed By: #### 2 [id number] #### [facility] [address] [place] [address] HAS SYMPTOMS RELATED TO CONDITION OF INTEREST:FIND:PT: Unknown Normal [facility] Comment on above: Performed By: #### 2 [id number] #### [facility] [address] [place] [address] HOSPITALIZED FOR CONDITION OF INTEREST:FIND:PT: NO Normal [facility] Comment on above: Performed By: #### 2 [id number] #### [facility] [address] [place] [address] STATUS:FIND:PT: NO Normal [facility] Comment on above: Performed By: #### 2 [id number] #### [facility] [address] [place] [address] RESIDES IN A CONGREGATE CARE SETTING:FIND:PT: Unknown Normal [facility] Comment on above: Performed By: #### 2 [id number] #### [facility] [address] [place] [address] Vital Signs Date Time Vital Sign Value Performing Clinician Facility 08-30-2024 09:51-0400 Body height 165.1 cm Rashmi Boucher MD Work Phone: [facility] 08-30-2024 09:51-0400 Body mass index (BMI) [Ratio] 29.95 kg/m2 Rashmi Boucher MD Work Phone: [facility] 08-30-2024 09:51-0400 Body weight 81.65 kg Rashmi Boucher MD Work Phone: [facility] 07-18-2024 11:20-0400 Body height 165.1 cm Carolyn Jasmine MD Work Phone: [facility] 07-18-2024 11:20-0400 Body mass index (BMI) [Ratio] 31.95 kg/m2 Carolyn Jasmine MD Work Phone: [facility] 07-18-2024 11:20-0400 Body weight 87.09 kg Carolyn Jasmine MD Work Phone: [facility] 07-18-2024 11:20-0400 Diastolic blood pressure 81 mm[Hg] Carolyn Jasmine MD Work Phone: [facility] 07-18-2024 11:20-0400 Heart rate 89 /min Carolyn Jasmine MD Work Phone: [facility] 07-18-2024 11:20-0400 Systolic blood pressure 136 mm[Hg] Carolyn Jasmine MD Work Phone: [facility] 07-13-2024 09:31-0400 Body height 165.1 cm [facility] 07-13-2024 09:31-0400 Body mass index (BMI) [Ratio] 31.4 kg/m2 [facility] 07-13-2024 09:31-0400 Body weight 85.72 kg [facility] 07-13-2024 09:31-0400 Diastolic blood pressure 84 mm[Hg] [facility] 07-13-2024 09:31-0400 Heart rate 91 /min [facility] 07-13-2024 09:31-0400 Respiratory rate 12 /min [facility] 07-13-2024 09:31-0400 Systolic blood pressure 127 mm[Hg] [facility] 07-05-2024 15:38-0400 Body height 165.1 cm Carolyn Jasmine MD Work Phone: [facility] 07-05-2024 15:38-0400 Body mass index (BMI) [Ratio] 32.28 kg/m2 Carolyn Jasmine MD Work Phone: [facility] 07-05-2024 15:38-0400 Body weight 88 kg Carolyn Jasmine MD Work Phone: [facility] 07-05-2024 15:38-0400 Diastolic blood pressure 76 mm[Hg] Carolyn Jasmine MD Work Phone: [facility] 07-05-2024 15:38-0400 Heart rate 85 /min Carolyn Jasmine MD Work Phone: [facility] 07-05-2024 15:38-0400 Systolic blood pressure 126 mm[Hg] Carolyn Jasmine MD Work Phone: [facility] 01-05-2024 15:39-0400 Body height 165.1 cm Carolyn Jasmine MD Work Phone: [facility] 01-05-2024 15:39-0400 Body mass index (BMI) [Ratio] 28.46 kg/m2 Carolyn Jasmine MD Work Phone: [facility] 01-05-2024 15:39-0400 Body weight 77.56 kg Carolyn Jasmine MD Work Phone: [facility] 01-05-2024 15:39-0400 Diastolic blood pressure 80 mm[Hg] Carolyn Jasmine MD Work Phone: [facility] 01-05-2024 15:39-0400 Systolic blood pressure 133 mm[Hg] Carolyn Jasmine MD Work Phone: [facility] 01-01-2024 09:10-0400 Body mass index (BMI) [Ratio] 27.62 kg/m2 Mariel Tian DO Work Phone: [facility] 01-01-2024 09:10-0400 Body weight 75.3 kg Mariel Visci DO Work Phone: [facility] 01-01-2024 09:10-0400 Diastolic blood pressure 84 mm[Hg] Mariel Visci DO Work Phone: [facility] 01-01-2024 09:10-0400 Systolic blood pressure 118 mm[Hg] Mariel Visci DO Work Phone: [facility] 12-26-2023 13:14-0400 Body height 165.1 cm PHYSICIAN NO [facility] 12-26-2023 13:14-0400 Body mass index (BMI) [Ratio] 27.8 kg/m2 PHYSICIAN NO [facility] 12-26-2023 13:14-0400 Body temperature 97.7 [degF] PHYSICIAN NO [facility] 12-26-2023 13:14-0400 Body weight 75.86 kg PHYSICIAN NO [facility] 12-26-2023 13:14-0400 Diastolic blood pressure 88 mm[Hg] PHYSICIAN NO [facility] 12-26-2023 13:14-0400 Heart rate 91 /min PHYSICIAN NO [facility] 12-26-2023 13:14-0400 Respiratory rate 16 /min PHYSICIAN NO [facility] 12-26-2023 13:14-0400 SaO2% (BldA) [Mass fraction] 98 % PHYSICIAN NO [facility] 12-26-2023 13:14-0400 Systolic blood pressure 126 mm[Hg] PHYSICIAN NO [facility] 11-30-2023 11:21-0400 Body height 165.1 cm PHYSICIAN NO [facility] 11-30-2023 11:21-0400 Body mass index (BMI) [Ratio] 27.8 kg/m2 PHYSICIAN NO [facility] 11-30-2023 11:21-0400 Body weight 75.86 kg PHYSICIAN NO [facility] 11-30-2023 11:21-0400 Diastolic blood pressure 78 mm[Hg] PHYSICIAN NO [facility] 11-30-2023 11:21-0400 Heart rate 80 /min PHYSICIAN NO [facility] 11-30-2023 11:21-0400 Respiratory rate 12 /min PHYSICIAN NO [facility] R [facility] 11-30-2023 11:21-0400 Systolic blood pressure 125 mm[Hg] PHYSICIAN NO [facility] 01-22-2023 13:56-0500 Diastolic blood pressure 87 mm[Hg] DO Kartik Ball Work Phone: [facility] 01-22-2023 13:56-0500 Heart rate 87 /min DO Kartik Ball Work Phone: [facility] 01-22-2023 13:56-0500 Respiratory rate 16 /min DO Kartik Ball Work Phone: [facility] 01-22-2023 13:56-0500 SaO2% (BldA) [Mass fraction] 96 % DO Kartik Ball Work Phone: [facility] 01-22-2023 13:56-0500 Systolic blood pressure 140 mm[Hg] DO Kartik Ball Work Phone: [facility] 01-22-2023 13:27-0500 Body height 165.1 cm DO Kartik Ball Work Phone: [facility] 01-22-2023 13:27-0500 Body mass index (BMI) [Ratio] 30 kg/m2 DO Kartik Ball Work Phone: [facility] 01-22-2023 13:27-0500 Body weight 82 kg DO Kartik Ball Work Phone: [facility] 01-22-2023 12:21-0500 Body temperature 98.1 [degF] DO Kartik Ball Work Phone: [facility] 01-22-2023 12:21-0500 Inhaled oxygen flow rate 6 L/min DO Kartik Ball Work Phone: [facility] 09-04-2022 08:45-0400 Body height 167.64 cm Kartik Ball Other [employer] Other 09-04-2022 08:45-0400 Body mass index (BMI) [Ratio] 27.44 kg/m2 Kartik Ball Other [employer] Other 09-04-2022 08:45-0400 Body weight 77.11 kg Kartik Ball Other [employer] Other 09-04-2022 08:45-0400 Diastolic blood pressure 76 mm[Hg] Kartik Ball Other [employer] Other 09-04-2022 08:45-0400 Respiratory rate 12 /min Kartik Ball Other [employer] Other 09-04-2022 08:45-0400 Systolic blood pressure 119 mm[Hg] Kartik Ball Other [employer] Other 07-08-2022 12:30-0400 Body height 167.64 cm Kartik Ball Other [employer] Other 07-08-2022 12:30-0400 Body mass index (BMI) [Ratio] 29.86 kg/m2 Kartik Ball Other [employer] Other 07-08-2022 12:30-0400 Body weight 83.92 kg Kartik Ball Other [employer] Other 07-08-2022 12:30-0400 Diastolic blood pressure 81 mm[Hg] Kartik Ball Other [employer] Other 07-08-2022 12:30-0400 Respiratory rate 12 /min Kartik Ball Other [employer] Other 07-08-2022 12:30-0400 Systolic blood pressure 136 mm[Hg] Kartik Ball Other [facility] [employer] Other 03-11-2022 14:20-0500 Body height 167.64 cm Kartik Priest Work Phone: [facility] [address] Work Phone: 03-11-2022 14:20-0500 Body mass index (BMI) [Ratio] 27.44 kg/m2 Kartik Priest Work Phone: [facility] Work Phone: 03-11-2022 14:20-0500 Body surface area Derived from formula 1.87 m2 Kartik Priest Work Phone: [facility] [address] Work Phone: 03-11-2022 14:20-0500 Body temperature 96.7 [degF] Kartik Priest Work Phone: [facility] [address] Work Phone: 03-11-2022 14:20-0500 Body weight 77.11 kg Kartik Priest Work Phone: [facility] [address] Work Phone: 10-07-2021 16:10-0400 Body weight 76.66 kg Kartik Priest Work Phone: [facility] Work Phone: Encounters Encounter Date Encounter Type Care Provider Facility Start: 11-11-2024 ambulatory [facility] Start: 09-01-2024 End: 09-01-2024 Subsequent hospital visit by physician Rad External Film EF [facility] EXTERNAL FILM [facility]IRTUAL Comment on above: Arrived Start: 09-01-2024 End: 09-01-2024 ambulatory RASHMI Kirt [facility] Start: 08-30-2024 End: 08-30-2024 Office outpatient new 45 minutes Rashmi Boucher MD Work Phone: [facility] Comment on above: Preoperative clearbrandy ce; Cholesteatoma of left ear Start: 08-30-2024 End: 08-30-2024 Preoperative state Rashmi Boucher MD Work Phone: [facility] Start: 08-30-2024 End: 08-30-2024 ambulatory BENJIE Campbell [facility] Start: 07-18-2024 End: 07-18-2024 Bamboo flowsashley Jasmine MD Work Phone: [facility] Start: 07-18-2024 End: 07-18-2024 Bamboo flowsashley Jasmine MD Work Phone: [facility] Start: 07-18-2024 End: 07-18-2024 Office outpatient visit 15 minutes Carolyn Jasmine MD Work Phone: [facility] Comment on above: 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) Start: 07-18-2024 End: 07-18-2024 ambulatory CAROLYN JASMINE Not Available Start: 07-13-2024 End: 07-13-2024 ambulatory [facility] Work Phone: Start: 07-13-2024 End: 07-13-2024 Patient encounter procedure [facility] Physician [facility] Work Phone: Start: 07-11-2024 End: 07-11-2024 Telephone encounter Carolyn Jasmine MD Work Phone: [facility] Comment on above: needs rx Start: 07-08-2024 End: 07-08-2024 ambulatory CAROLYN JASMINE Not Available Start: 07-05-2024 End: 07-05-2024 Office outpatient visit 15 minutes Carolyn Jasmine MD Work Phone: [facility] Comment on above: 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) Start: 07-05-2024 End: 07-05-2024 ambulatory CAROLYN JASMINE Not Available Start: 07-05-2024 End: 07-05-2024 Bamboo flowsheet Carolyn Jasmine MD Work Phone: [facility] [...] Not Available Start: 01-05-2024 End: 01-05-2024 Bamboo flowsheet Carolyn Jasmine MD Work Phone: [facility] Start: 01-05-2024 End: 01-05-2024 Bamboo flowsheet Carolyn Jasmine MD Work Phone: [facility] Start: 01-01-2024 End: 01-01-2024 Bamboo flowsheet Mariel Saunders Visci DO Work Phone: [facility] Start: 01-01-2024 End: 01-01-2024 Bamboo flowsheet Mariel Saunders Visci DO Work Phone: [facility] Start: 01-01-2024 End: 01-01-2024 ambulatory MARIEL HYDEI Not Available Start: 01-01-2024 End: 01-01-2024 Patient encounter status Mariel Saunders Visci DO Work Phone: [facility] Work Phone: Start: 01-01-2024 End: 01-01-2024 Periodic preventive med est patient 40-64yrs Mariel Saunders Visci DO Work Phone: [facility] Comment on above: Encounter for gyneco logical examination with abnormal finding (Primary Dx); Encounter for screening mammogram for malignant neoplasm of breast; Vaginal atrophy; Vaginal irritation Start: 12-26-2023 End: 12-26-2023 ambulatory PHYSICIAN NO FAMILY Facility:[facility] Start: 12-26-2023 End: 12-26-2023 Departed Referred PHYSICIAN NO [facility] [place] Work Phone: Start: 12-26-2023 End: 12-26-2023 Patient encounter procedure PHYSICIAN NO [facility] [place] Work Phone: Start: 11-30-2023 End: 11-30-2023 Patient encounter procedure PHYSICIAN NO [facility] Work Phone: Start: 10-22-2023 End: 10-22-2023 ambulatory FIDEL VILLAR Not Available Start: 09-29-2023 End: 09-29-2023 ambulatory CAROLYN JASMINE Not Available Start: 02-20-2023 End: 02-20-2023 ambulatory Kartik Priest Other [facility] Other Start: 02-20-2023 Telephone encounter Kartik JUAREZ [facility] Start: 02-19-2023 End: 02-19-2023 ambulatory Kartik Priest Other [facility] Other Start: 02-19-2023 Office outpatient vi sit 15 minutes Kartik Priest [facility] Start: 01-22-2023 Telephone encounter Kartik JUAREZ [facility] Start: 01-22-2023 End: 01-22-2023 Admission to same day surgery center DO Kartik Priest Work Phone: [facility] [place] Start: 01-22-2023 End: 01-22-2023 ambulatory DO Kartik Priest Work Phone: [facility] Work Phone: Start: 01-07-2023 End: 01-07-2023 Patient encounter procedure DO Kartik Priest Work Phone: [facility] Work Phone: Start: 01-07-2023 End: 01-07-2023 ambulatory DO Kartik Priest Work Phone: [facility] Work Phone: Start: 09-04-2022 End: 09-04-2022 ambulatory Kartik Priest Other [facility] Other Start: 09-04-2022 Office outpatient vi sit 15 minutes Kartik Priest [facility] Start: 09-04-2022 Telephone encounter Kartik JUAREZ [facility] Start: 08-28-2022 End: 08-28-2022 ambulatory Kartik Jennifer Other [facility] Other Start: 08-28-2022 Telephone encounter Kartik JUAREZ [facility] Start: 07-14-2022 Encounter for genera l adult medical examination without abnormal findings DR KARTIK PRIEST [facility] Start: 07-10-2022 End: 07-11-[address] KARTIK PRIEST Facility:H1 Start: 07-10-2022 End: 07-11-2022 Encounter for general adult medical examination without abnormal findings DR KARTIK PRIEST Facility:H1 Start: 07-08-2022 End: 07-08-2022 ambulatory Kartik Priest Other [facility] [employer] Other Start: 07-08-2022 Encounter for genera l adult medical examination without abnormal findings Kartik Priest [facility] Start: 07-08-2022 Periodic preventive med est patient 40-64yrs Kartik Priest [facility] Start: 03-11-2022 Patient encounter procedure Kartik Priest Work Phone: GW-Sxrfjigwtnlcwc-Kjtvi in [facility] 4100 Work Phone: Start: 03-11-2022 Postop follow up vis it related to original px Kartik Priest Work Phone: DZ-Iatkucwokbfpgq-Nbaso in [facility] 4100 Work Phone: Start: 03-11-[address] Rashmi Boucher Facility:[id number] Start: 02-11-[address] Rashmi Boucher Facility:[id number] Start: 02-11-2022 Chart Update Kartik salamanca Work Phone: IK-Gtutlzmukvdzzk-Asqcf in [facility] 4100 Work Phone: Start: 01-24-2022 End: 01-24-[address] Rashmi Boucher Facility:[facility] Start: 10-07-2021 Office consultation new/estab patient 60 min Kartik Priest Work Phone: QL-Lqtwwcbvddrbxg-Wsoxf 9010Q Work Phone: Start: 10-07-2021 Patient encounter procedure Kartik Priest Work Phone: EA-Gwzkhoasjwogog-Vdmrt ll 8359Q Work Phone: Start: 10-07-[address] Rashmi Boucher Facility:[id number] Start: 06-05-2021 End: 09-10-2021 Patient encounter procedure Jasper Farley [facility] Start: 05-10-2019 Adult health examination Duy Priest Other [employer] Other Procedures Date Procedure Procedure Detail Performing Clinician Start: 09-01-2024 Study Interpretation of outside study Rashmi Boucher MD Work Phone: Start: 02-16-2024 End: 02-16-2024 CRYOTHERAPY SKIN LESION Raulito Nuñez MD Work Phone: Start: 01-01-2024 Smr prim src wet devika nt nfct agt Mariel Tian DO Work Phone: Start: 01-22-2023 Blepharoplasty DO [...] MD [address] [place], [place] [id number] [facility] Start: 01-11-2025 End: 01-11-2025 Patient encounter procedure 01/11/2025 3:30 PM EDT Office Visit [facility] [address] [place] [address] Mariel Tian, [address] [place] [address] [facility] Start: 01-01-2025 Yearly Adult Physical Yearly Adult P [facility] Start: 11-21-2024 Subsequent hospital visit by physician 11/21/2024 Hospital Encounter Formerly named [facility] [place] [address] [place] [address] [place] [address] [place] [address] Formerly named [facility] [place] Start: 11-14-2024 Influenza vaccination Influenz a Vaccine (Season Ended) [facility] Start: 09-01-2024 End: 08-30-2025 CBC panel - Blood by Automated count CBC Lab Routine Cholesteatoma of left ear Expected: 09/01/2024 (Approximate), Expires: 08/30/2025 [facility] Service Area Work Phone: Comment on above: Expected: 09/01/2024 (Approximate), Expires: 08/30/2025 Start: 09-01-2024 End: 08-30-2025 Comprehensive metabolic 2000 panel - Serum or Plasma Comprehensive Metabolic Panel Lab Routine Cholesteatoma of left ear Expected: 09/01/2024 (Approximate), Expires: 08/30/2025 [facility] Work Phone: Comment on above: Expected: 09/01/2024 (Approximate), Expires: 08/30/2025 Start: 07-18-2024 End: 07-18-2024 Patient encounter procedure 07/18/2024 11:20 AM EDT Office Visit [facility] [address] [facility] [address] [place] [address] Carolyn Jasmine MD [address] [facility] [address] [place] [address] [facility] Start: 07-05-2024 End: 07-05-2024 [...] neoplasm of breast Expected: 01/01/2024, Expires: 03/02/2025 [facility] Comment on above: Expected: 01/01/2024 , Expires: 03/02/2025 Start: 01-01-2024 End: 12-31-2024 IGP, APT HPV,RFX 16/18,45 IGP, APT HPV,RFX 16/18,45 Lab Routine Encounter for gynecological examination with abnormal finding Expected: 01/01/2024 (Approximate), Expires: 12/31/2024 [facility] Work Phone: Comment on above: Expected: 01/01/2024 (Approximate), Expires: 12/31/2024 Start: 12-26-2023 Bacteria identified in Urine by Culture Urine Culture [facility] Start: 12-26-2023 Urine culture [facility] Start: 11-15-2023 COVID-19 Vaccine ( season) COVID-19 Vaccine ( season) [facility] Start: 10-14-2023 Screening for malign ant neoplasm of breast Mammogram [facility] Start: 01-22-2023 [facility] Start: 01-22-2023 [facility] Start: 03-11-2022 FUV, Provider: Rashmi Boucher, Status: Pen, Time: 2:15 PM FUV, Provider: Rashmi Boucher, Status: Pen, Time: 2:15 PM [facility] Work Phone: Start: 2014 Pneumococcal vaccination Pneum ococcal Vaccine (1 of 1 - PCV) [facility] Start: 2014 Zoster Vaccines (1 of 2) Zoste r Vaccines (1 of 2) [facility] Start: 1986 DTaP/Tdap/Td Vaccine s (1 - Tdap) DTaP/Tdap/Td Vaccines (1 - Tdap) [facility] Start: 1985 Screening for malign ant neoplasm of cervix [facility] Start: 11-11-1983 Hepatitis B Vaccines (1 of 3 - 19+ 3-dose series) Hepatitis B Vaccines (1 of 3 - 19+ 3-dose series) [facility] Start: 1982 Diabetes mellitus screening Diabetes Screening [facility] Start: 1982 [facility]atitis C [facility] Start: 1965 MMR Vaccines (1 of 1 - Standard series) MMR Vaccines (1 of 1 - Standard series) [facility] Start: 1964 HIV screening HIV Screening [facility] Start: 1964 Lipid panel Lipid Panel [facility] Start: 1964 Screening for malign ant neoplasm of colon [facility] Start: 1964 Yearly Adult Physical Yearly Adult P hysical [facility] ECG 12 lead ECG 12 lead ECG Routine Preoperative clearance Cholesteatoma of left ear Ordered: 09/01/2024 [facility] Work Phone: Comment on above: Ordered: 09/01/2024 Patient referral [facility] Work Phone: Reconstruction exter nal auditory canal spx CANALOPLASTY, EAR Cholesteatoma of left ear [facility] [place] Payers Date Payer Category Payer Self-pay [id number] 2022 Unknown [id number] 2020 Managed Care (Private) [employer] [id number] 2019 Managed Care HMO (unspecified) [employer] [id number]. 315 1964 Unknown [id number] 2.16.840.1.851789.3.57 9.2.356 1964 Unknown [id number] 2.16840.1.357121.3.57 9.2.356 1964 Unknown [id number] 2.16840.1.497833.3.57 9.2.356 1964 Unknown [id number] 2.16.840.1.414071.3.57 9.2.356 1964 Unknown [id number] 2.16.840.1.375123.3.57 9.2.593 1964 Unknown [id number] 2.16.840.1.431140.3.57 9.2.1259 1964 Unknown [id number] 2.16.840.1.697126.3.57 9.2.1259 1964 Unknown [id number] 2.16.840.1.766151.3.57 9.2.1259 1964 Unknown [id number] 2.16.840.1.979225.3.57 9.2.1259 1964 Unknown [id number] 2.16.840.1.929138.3.57 9.2.1259 1964 Unknown [id number] 2.16.840.1.219882.3.57 9.2.1259 1964 Unknown [id number] 2.16.840.1.458348.3.57 9.2.1259 1964 Unknown [id number] 2.16.840.1.790115.3.57 9.2.1259 1964 Unknown [id number] 2.16.840.1.526700.3.57 9.2.1245 1964 Unknown [id number] 2.16.840.1.349068.3.57 9.2.1245 1964 Unknown [id number] 2.16.840.1.238911.3.57 9.2.1242 1964 Unknown [id number] 2.16.840.1.274165.3.57 9.2.1244 1959 Private Health Insurance [id number] [facility] [id number] 2.16.840.1.309487.19 Private Health Insurance [id number] 2.16.840.1.919601.19 Unknown [employer] Unknown [id number] 2.16.840.1.796171.3.57 9.2.531 Unknown [id number] 2.16.840.1.162788.3.57 9.2.531 Unknown [id number] 2.16840.1.940172.3.57 9.2.531 Social History Date Type Detail Facility Tobacco smoking status No Smokin g Status Entered [facility] Start: 12-11-2022 End: 08-30-2024 Sex Assigned At Female [facility] Start: 1965 Sex Assigned At Female [facility] Start: 01-22-2023 End: 08-30-2024 Tobacco smoking status NHIS Never smoked tobacco (finding) [facility] Start: 10-28-2022 End: 08-30-2024 Tobacco use and exposure Smokeless tobacco non-user [facility] Start: 12-25-2023 End: 07-18-2024 Alcoholic beverage intake Current drinker of alcohol (finding) [facility] Start: 12-11-2022 End: 08-30-2024 History of [...] [facility] Start: 07-13-2024 Sex Female (finding) [facility] Start: 1965 Sex assigned at Not on file [facility] Work Phone: Medical Equipment Procedure Code Equipment Code Equipment Original Text Equipment Identifier Dates Graft, Biodesign Otologic Repair 2.5 X 2.5 Case [id number] Start: 01-24-2022 Comment on above: Description: Convert ed from [facility]. Please see archived information for full log information. Goals Date Patient Goal Desired Activity /State Personal health goal Functional Status Date Assessment Result Facility 08-30-2024 Patient Health Quest ionnaire 2 item (PHQ-2) [Reported] [facility] Work Phone: Clinical Notes 01-24-2022 to [...] Follow up post-operatively for packing removal Sekou Salamanca DO PGY-3 I saw and evaluated the patient. [...] history on file. documented in this encounter [facility] Work Phone: 08-30-2024 Instructions Aleja Braxton - 08/30/2024 9:30 AM EDT Welcome to Dr. Boucher's clinic. We are here to assist you through your ENT care at [facility]. Dr. Boucher is an Ear surgeon. This means that she specializes in taking care of patients with complex ear problems. Dr. Boucher's office number is [phone]. While you may see her at a satellite office, she has a team committed to help meet your healthcare needs at [facility]'s main campus. This number is the most direct way to communicate with the office. Symone is Dr. Boucher's adoption specialist and she answers the office phone from [...] may include dieticians, social workers, speech therapists, cook enchilada, neurologist, and physical therapist. Dr. Boucher will provide these referrals as needed. Please let her know if you would like to request a specific referral. For your convenience, Dr. Boucher sees patients at several [facility] locations including [facility] and [facility] at the main campus [facility]. While we try to make your appointments [...] have to reschedule. documented in this encounter [facility] Work Phone: 07-18-2024 History of Present [...] problem as well documented in this encounter [facility] 07-11-2024 Telephone encounter Note sent [facility] 07-11-2024 Miscellaneous Notes sent Pt was here last week and said a rx was to be called in but never received. Her pharmacy is [facility] in [place]. documented in this encounter [facility] 07-11-2024 Telephone encounter Note Pt was here last week and said a rx was to be called in but never received. Her pharmacy is [facility] in [place]. [facility] 07-05-2024 History of Present illness Narrative Subjective [...] HISTORY 2003 [place] [employer] OTHER SURGICAL HISTORY 2012 TVT-O (YASMINE) TYMPANOPLASTY Left 05/06/2005 Type I [...] within the mastoid. documented in this encounter [facility] 02-16-2024 History of Present illness Narrative Skin [...] Examined Right arm Examined Patient wearing nail khmer, Denies dark streaks under finger nails, Denies [...] 3. Seborrheic keratosis, inflamed Left Occipital Scalp [place] and brown stuck on verrucous scaly papule [...] limited to risks of scarring, darker or commission associate pigmentary changes, recurrence, incomplete removal and infection. [...] limited to risks of scarring, darker or commission associate pigmentary changes, recurrence, incomplete removal and infection. [...] year, skin check documented in this encounter [facility] 01-05-2024 History of Present illness Narrative Images [...] Left keratosis debrided documented in this encounter [facility] 01-01-2024 History of Present illness Narrative Images from the original note were not included. Mariel Tian, Obstetrics and Gynecology Mai Miller 1965 01/01/24 [id number] Yearly Wellness Exam Chief Complaint Patient presents with Gynecologic Exam Yearly, Pt denies Breast pain, urinary, bowel or talent specialist issues. LMP: Postmenopausal Last Pap: 07/27/2019 Visit [...] tract infection (UTI) during a trip to [facility] in either May or November 2022. [...] smear abnormality of cervix/human papillomavirus (HPV) positive 2016 hospitalization history Ruptured ear drum YASMINE (stress [...] I. Mammogram 10/13/22- Neg Colonoscopy 2018- normal ([facility]) ROS General: Denies fevers/chills Eyes: Denies vision [...] mammogram will be ordered and sent to [place]. She is due for a colonoscopy next year, as her last one was in 2014 and was normal. Return in 1 year. documented in this encounter [facility] 02-20-2023 Evaluation note Encounter Date Diagnosis Assessment Notes Feb, COVID- 19 (ICD-1 0 - U07.1) Tylenol and rest. Afrin x 2 days, Sudafed as needed. Initiate Paxlovid (unvaccinated w/ moderate symptoms) [facility] Other 12-07-2023 Evaluation note* Encounter Date Diagnosis Assessment Notes [...] for congestion, Tylenol for pain and fever. 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 LEFT SIDE LATERAL GRAFT [...] facial nerve electrodes were removed and a Kandis was applied. The patient was returned to [...] Authored: Note Completion Co-Signer: (more content not included)...[facility]11-11-2022 History of Present illness Narrative* Mai is [...] for complaint except as stated in history [facility] Work Phone: [phone]) 614-837711-11-2022 History of Present illness Narrative* Mai is [...] for complaint except as stated in history [facility] 4[facility] Work Phone: 1([phone]) 157-349311-11-2022 NoteHistory of Present Illness: /Lactating: Are You [...] the note. I personally evaluated the patient [id number] Electronic Signatures: Rashmi Boucher) (Signed 24-Jan-2022 13:28) Authored: Note Completion Co-Signer: History of Present Illness, Allergies, Home Medication Review, Impression/Procedure, ERAS, Physical Exam, Consent, Note Completion Mariel Thurman (Resident)) (Signed 24-Jan-2022 10:26) Authored: History of Present Illness, Allergies, Home Medication Review, Impression/Procedure, ERAS, Physical Exam, Consent, Note Completion Last Updated: 24-Jan-2022 13:28 by Rashmi Boucher)[facility] Evaluation + Plan note No data available for this section [facility] note[facility] [employer] Other Evaluation noteNo InformationNort [employer] Other Evaluation noteNo assessment information available [facility] [employer] Work Phone: Evaluation note* Diagnosis Onset Date Resolution Status IFG (impaired fasting glucose) acute Leukopenia acute Overweight acute Hematuria noneactive [facility] Work Phone: Evaluation note* Diagnosis Encounter for gynecological examination with abnormal finding- Primary Encounter for screening mammogram for malignant neoplasm of breast Vaginal atrophy Postmenopausal atrophic vaginitis Vaginal irritation Pruritus of genital organs [facility] Diagnosis Foreign body of left ear, initial encounter- Primary documented in this encounter [facility]* Diagnosis Melanocytic nevus of trunk- Primary Benign neoplasm of skin of trunk, except scrotum Seborrheic keratosis Seborrheic keratosis, inflamed Actinic keratosis Capillary angioma Nevus, non-neoplastic Lentigines documented in [facility]* Diagnosis Cholesteatoma of left external auditory canal- Primary documented in [facility] encounter [facility] Diagnosis Cholesteatoma of left external auditory canal- Primary documented in [facility] Diagnosis Cholesteatoma of left external auditory canal- Primary [facility] Diagnosis Preoperative clearance Unspecified pre-operative examination 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- Primary documented in this encounter [facility] Work Phone: History general Narrative - [...] 2004, 2005 Hospitalization History see surgical history [facility] Other History general Narrative - ReportedNort [employer] Other Hisdlxp general Narrative - Reported* Type Description Date [...] blepharoplasty 01/2023 Hospitalization History see surgical history [facility] Other History of Present illness Narrative* HPI: [...] for complaint except as stated in history [place]-Hdzpcmioulglwp-Unxhnli 8761A Work Phone: History of Present illness Narrative* [...] for complaint except as stated in history OT-Cdxwvjvathybmz-Lfticsp 6222I Work Phone: Hospital Discharge instructions No data available for this section [facility] Additional Instructions DISCHARGE INSTRUCTIONS FOR [...] the incision. PLEASE NOTIFY OUR OFFICE at [phone] if you: -Develop a fever of 101 [...] rate. FOLLOW UP -Call the office at [phone] for a follow up appointment 1 week. * AFTER HOURS PHONE NUMBER [phone] *[facility] Work Phone: Progress note No data available for this section [facility] Summary Purpose Family History No Family History [...] section and content) DATE CREATED AUTHOR 09/11/2021 [facility] DATE CREATED AUTHOR AUTHOR'S ORGANIZ ATION 10/12/2021 [facility] dical Specialist DATE CREATED AUTHOR AUTHOR'S ORGANIZ ATION 03/11/2022 [facility] DATE CREATED AUTHOR AUTHOR'S ORGANIZ ATION 03/14/2022 [employer] DATE CREATED AUTHOR AUTHOR'S ORGANIZ ATION 07/14/2022 [facility] pital DATE CREATED AUTHOR AUTHOR'S ORGANIZ ATION 12/28/2023 [facility] ysician Group DATE CREATED AUTHOR AUTHOR'S ORGANIZ ATION 07/21/2024 [facility] dical Specialists [facility] DATE CREATED AUTHOR AUTHOR'S ORGANIZ ATION 09/09/2024 [facility] DATE CREATED AUTHOR AUTHOR'S ORGANIZ ATION 11/12/2024 [facility] DATE CREATED AUTHOR AUTHOR'S ORGANIZ ATION 11/13/2024 [facility] REASON FOR VISIT (unrecogniz ed section and content) Reason Comments Gynecologic Exam Yearly, Pt denies Br east pain, urinary, bowel or talent specialist issues. LMP: Postmenopausal Last Pap: 07/27/2019 Reason Comments Ear Problem 2 month check Reason Comments Skin Check Reason Comments Ear Problem 6 month check ears Reason Onset Date Comments needs rx 07/11/2024 Reason Comments Ear Problem Follow up [facility] Reason Comments New Patient Visit Cholesteatoma Care Teams (unrecognized sec tion and content) Chief Radiologic Technologist Relationship Specialty Start Date End Date Kartik Priest DO PCP - General 10/07/21 Chief Radiologic Technologist Relationship Specialty Start Date End Date Kartik Priest DO [address] [place] [address] PCP - General Internal Medicine 07/05/24 Carolyn Jasmine MD [address] [facility] [address] [place] [address] Otolaryngology 08/28/21 Chief Radiologic Technologist Relationship Specialty Start Date End Date Kartik Priest MD [address] [place] [address] PCP - General Internal Medicine 12/11/22 Carolyn Jasmine MD [address] [facility] [address] [place] [address] Otolaryngology 08/28/21 Team Status: Active Member Role Status Dates PHYSICIAN NO FAMILY Primary Care Provider Active Team Status: Inactive Member Role Status Dates Kartik Priest DO Primary Care Provide r, Attending Provider Active Start: November 30, 2023 End: November 30, 2023 Team Status: Inactive Member Role Status Dates Kartik Priest , Primary Care Provider Active Start: December 26, [...] Inactive Member Role Status Dates Kartik Priest , Primary Care Provider Active Rashaun William MD [...] BE BASED ON THE PRIMARY CLINICAL RECORDS. [email or web address] provides no warranty or guarantee of the accuracy or completeness of information in this document.
[2024-11-16 08:06] LABS: Hematocrit 41.7 % (36.0-48.0); Hemoglobin 13.9 g/dL (12.0-16.0); Immature Granulocytes Abs Auto 0.01 10^3/uL (0.00-0.03); Immature Granulocytes Pct Auto 0.2 % (0.0-0.5); Lymphocytes Absolute Auto 2.2 10^3/uL (1.2-3.8); Mean Corpuscular HGB Conc 33.3 g/dL (29.9-35.2); Mean Corpuscular Hemoglobin 30.5 pg (26.7-34.0); Mean Corpuscular Volume 91.6 fL (81.0-99.0); Platelet Count 211 10^3/uL (150-450); Red Blood Count 4.55 10^6/uL (4.20-5.40); White Blood Count 5.3 10^3/uL (4.0-11.0)
[2024-11-16 10:23] LABS: Alanine Aminotransferase 42 U/L (14-59); Albumin Globulin Ratio 1.0; Albumin Level 3.8 g/dL (3.4-5.0); Alkaline Phosphatase 87 U/L (46-116); Anion Gap 12.2; Aspartate Amino Transferase 20 U/L (15-37); Blood Urea Nitrogen 15.0 mg/dL (7.0-18.0); Calcium 9.1 mg/dL (8.5-10.1); Carbon Dioxide 28.9 mmol/L (21.0-32.0); Chloride 106 mmol/L (98-107); Estimated GFR (African America >60 (>=60 mL/min/1.73m^2); Estimated GFR (Non-African Ame >60 (>=60 mL/min/1.73m^2); Globulin 3.9 g/dL; Glucose 107 mg/dL (74-106); Potassium 5.1 mmol/L (3.5-5.1); Sodium 142 mmol/L (136-145); Total Protein 7.7 g/dL (6.4-8.2)
== END 2024-11-16 07:17 | disposition home or self-care (01) ==
LOC: LAB 07:18
PROVIDERS: PCP Internal Medicine; Visit Provider Otolaryngology
DX: H71.92 Unspecified cholesteatoma, left ear (principal)
CPT/HCPCS: 36415; 80053; 85025

== ENCOUNTER 2024-11-26 11:48 | Outpatient (OUT) | payer OTHER, SELFPAY ==
--- OUTSIDE RECORDS SUMMARY | 2024-11-21 09:16 | XMS_ITS | Encounter Summary ---
Author Organization [facility] Address [address] 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] Procedures PA RECONSTRUCTION EXTERNAL AUDITORY CANAL SPX PA TMPP MASTOIDECT NTC/RCNSTED WALL W/O OCR Left Side Post Auricular Revision Canalplasty; Cartilage Graft Left Side Post Auricular Revision Canalplasty; [place] [address] [place] [address] Phone: tel: fax: [facility] [place] [address] [place] [address] fax: Referral ID Status Reason Start Date Expiration Date Visits Re quested Visits Authorized [id number] 1 1 Encounter Details Date Type Department Care Team (Latest Contact Info) Description 11/21/2024 9:16 AM EDT - 11/21/2024 3:45 PM EDT Hospital Encounter [facility] [place] [address] [place] [address] [place] [address] [place] [address] Cholesteatoma of left ear (Primary Dx) Discharge Disposition: Home Social History Tobacco Use Types Packs/Day Years Used Date Smoking Tobacco: Never Smokeless Tobacco: Never Alcohol Use Standard Drinks/Week Comments Not Asked 0 (1 standard drink = 0.6 oz pur e alcohol) once a month PHQ-2 Answer Date Recorded Patient Health Questionnaire-2 Score 0 08/30/2024 Comments No Sex and Gender Information Value Date Recorded Sex Assigned at Not on file Legal Sex Female 1:14 AM EST Gender Identity Not on file Sexual Orientation Not on file documented as of this encounter Last Filed Vital Signs Vital Sign Reading Time Taken Comments Blood Pressure 132/84 11/21/2024 3:10 PM EDT Pulse 94 11/21/2024 3:10 PM EDT Temperature 35.7 C (96.3 F) 11/21/2024 3:10 PM EDT Respiratory Rate 15 11/21/2024 3:10 PM EDT Oxygen Saturation 94% 11/21/2024 3:10 PM EDT Inhaled Oxygen Concentration - - Weight 85 kg (187 lb 6.3 oz) 11/21/2024 9:46 AM EDT Height 165.1 cm (5' 5 ) 11/21/2024 9:46 AM EDT Body Mass Index 31.18 11/21/2024 9:46 AM EDT documented in this encounter Functional Status * Calculated C-SSRS Risk Score (Lifetime/Recent) Answer Date of Assessment Author No Risk Indicated 11/21/2024 9:45 AM EDT Tila Villanueva RN * [place] Suicide Severity Rating Scale (Screener/Recent Self-Report) Question Answer Date of Assessment Author 1. Wish to be (Past 1 Month) No 025 9:45 AM EDT Tila Villanueva RN 2. Non-Specific Active Suici kirit Thoughts (Past 1 Month) No 11/21/2024 9:45 AM EDT Fern Villanueva RN 6. Suicidal Behavior (Lifetime) No 9:45 AM EDT Tila Villanueva RN documented as of this encounter Discharge Instructions * Discharge Instructions* Aleja Peguero MD - 11/21/2024 12:32 PM EDT POST OPERATIVE INSTRUCTIONS AFTER EAR SURGERY Rashmi Christine MD ? Robin Romero MD ? Jeff Wren MD? Cody Pineda MD Most ear surgeries should have a 2-4 week postoperative appointment. Please be sure to call the doctor's office and make a follow-up appointment, if you don't already have it. Dressing or Band-Aid can be removed the day after surgery. Once removed, replace the cotton ball inthe ear as needed. Once the dressing is off, and if you have an incision behind your ear with stitches, clean the incision twice daily with soap and water and apply Vaseline or antibiotic ointment after cleaning. If you have paper strips or surgical glue over the incision, Do not apply anything behi nd the ear. Bloody drainage from the ear is common. Call the office if discharge from the ear last longer than 21 days or develops an odor or color. Water should be kept out of the ear until it is healed. You may shower the day after surgery, if you keep your head dry. The hair may be shampooed 2 days following surgery, providing water is not allowed into the ear canal. A cotton ball covered with Vaseline should be used in the ear whenever you are around water. Bloody discharge from incision area may occur during the first 10 days following surgery. If this persists or increases, please call the office. A full sensation with popping sounds may be noticed during the healing process. DO NOT BLOW YOUR NOSE FOR THREE WEEKS FOLLOWING SURGERY. If you sneeze, do so with your mouth open for three weeks following surgery. Do not use a straw to drink beverages for 3 weeks following surgery. Do not use Q-Tips or put anything in the canal, until approved by your doctor. Do not be concerned regarding your hearing for a period of six to eight weeks following surgery. Your hearing will be evaluated at this time; until then, your hearing may sound muffled and your voicemay echo in your ear during speech. Minor swelling of the face on the same side of the surgery is not uncommon. Small bruising near theeye or mouth is not uncommon from the facial nerve monitor. Dizziness, ringing in the ear, taste disturbance, and after surgery are common. Call if severe. You might notice pain when chewing, please use soft diet for 2 weeks if you experience this. No lifting (more than 10 lbs) or straining until follow up. You will be discharged on pain medications and usually antibiotics. You may resume your routine medications as directed, unless you have been instructed otherwise by the prescribing healthcare provider. Should you experience any difficulty upon returning home, or if you simply have questions, please contact us. As your surgeons, we are most familiar with your operation and postoperative procedures. We are accessible by telephone 24 hours a day, 7 days a week. Once we have assessed your situation, we will be prepared to make specific suggestions for your care. Call [phone] ([phone]) or [phone] (after-hours) any time day or night if you have any of the following: Bad smell coming out of your ear Severe swelling around your ear Any questions Pain in your ear Redness around your ear Severe dizziness * Attachments The following attachments cannot be sent through Care Everywhere. * How to Prevent Surgical Site Infections (Tajik) documented in this encounter Medications at Time of Discharge acetaminophen (TylenoL) 325 mg tabletIndication s:Cholesteatoma of left ear Take 2 tablets (650 mg) by mouth every 6 hours if needed for mild pain (1 - 3) for up to 20 doses. 20 tablet 11/21/2024 cephalexin (Keflex) 500 mg capsuleIndicatio ns:Cholesteatoma of left ear Take 1 capsule (500 mg) by mouth 3 times a day for 7 days. 21 capsule 11/21/2024 5 docusate sodium (Colace) 100 mg capsuleIndicatio ns:Cholesteatoma of left ear Take 1 capsule (100 mg) by mouth 2 times a day for 10 days. Take while using narcotics for pain control. 20 capsule 11/21/2024 5 ibuprofen 600 mg tabletIndication s:Cholesteatoma of left ear Take 1 tablet (600 mg) by mouth every 6 hours if needed for moderate pain (4 - 6) for up to 20 doses. 20 tablet 11/21/2024 semaglutide (Ozempic) 0.25 mg or 0.5 mg(2 mg/1.5 mL) pen injector Inject 0.25 mg under the skin 1 (one) time per week. 08/18/2024 traMADol (Ultram) 50 mg tabletIndication s:Cholesteatoma of left ear Take 1 tablet (50 mg) by mouth every 4 hours if needed for severe pain (7 - 10) ((pain unrelieved by tylenol/ibuprofe n)) for up to 12 doses. 12 tablet 11/21/2024 ondansetron (Zofran) 4 mg tabletIndication s:Cholesteatoma of left ear Take 1 tablet (4 mg) by mouth every 8 hours if needed for nausea or vomiting for up to 3 days. 9 tablet 11/21/2024 documented as of this encounter H&P Notes * Aleja Peguero MD - 11/21/2024 9:56 AM EDT History Of Present Illness Mai Landa is a 59 y.o. female presenting with canal cholesteatoma. Past Medical History She has a past medical history of Ankle contracture, right, Breast cyst, right, Delayed emergence from general anesthesia, [place] (hard of hearing), HPV (human papilloma virus) anogenital infection, andPulsatile tinnitus. Surgical History She has a past surgical history that includes Colonoscopy; Colposcopy; Dilation and curettage of uterus; Other surgical history (Bilateral); Incontinence surgery; and Tympanoplasty (Left). Social History She reports that she has never smoked. She has never used smokeless tobacco. No history on file foralcohol use and drug use. Family History Family History[1] Allergies Patient has no known allergies. Review of Systems negative Physical Exam Constitutional General appearance: Healthy-appearing, well-nourished, [...] Extremities: Appearance of extremities: Normal. Gait normal. Last Recorded Vitals Blood pressure 132/80, pulse 85, temperature 36.2 ??C (97.2 ??F), temperature source Skin, resp. rate 16, height 1.651 m (5' 5 ), weight 85 kg (187 lb 6.3 oz), SpO2 96%. Relevant Results Scheduled medications Scheduled Medications[2] Continuous medications Continuous Medications[3] PRN medications PRN Medications[4] Assessment/Plan Assessment & Plan Cholesteatoma of left ear OR for Left canalplasty Aleja Peguero MD [1] No family history on file. [2] ceFAZolin, 2 g, intravenous, Once [3] [4] Cosigned by Rashmi Christine MD at 11/21/2024 9:58 AM EDT documented in this encounter Miscellaneous Notes * Significant Event - Carol Ann Cai RN - 11/21/2024 3:48 PM EDT at bedside, states he spoke with doctor awhile ago, but forgot the plan as she lives 2 hours away and will follow up with different doctor. Not clarified on instructions. Message with Dr. Christine. Pt will see Dr. Lopez [place] next [place], she needs to call his office, will remove packing and she will start drops. She will need to still follow up with her with scheduled appt and have deeper packing removed. All other instructions reviewed. All questions answered, and patient and verbalize an understanding. * Op Note - Rashmi Christine MD - 11/21/2024 11:06 AM EDT Left Side Post Auricular Revision Canalplasty;removal of ear canal cyst (L) Operative Note Date: 11/21/2024 OR Location: [facility] OR Name: Mai Landa, : 1965, Age: 59 y.o., , Sex: female Diagnosis Pre-op Diagnosis * 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] Post-op Diagnosis * 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] Procedures Left Side Post Auricular Revision Canalplasty;removal of ear canal cyst 75[address] - PA RECONSTRUCTION EXTERNAL AUDITORY CANAL SPX Left Side Post Auricular Revision Canalplasty;removal of ear canal cyst 58994 - PA TMPP MASTOIDECT NTC/RCNSTED WALL W/O OCR Surgeons * Rashmi Christine - Primary Resident/Fellow/Other Inspector Rag Sorting: Surgeons and Role: * No surgeons found with a matching role * Staff: Claim Approver: Priscilla Moran Person: Demi Nolasco Claim Approver: Cheyenne Nolasco Scrub: Heaven Anesthesia Staff: Anesthesiologist: Joo Andres MD CERTIFIED MEDICAL ASST: Lindsey Grayson APRN-JOSEY SRNA: Jaquan Ross Procedure Summary Anesthesia: General ASA: II Estimated Blood Loss: 3mL Intra-op Medications: Administrations occurring from 1045 to 1415 on 11/21/24: Medication Name Total Dose bacitracin ointment 1 Application lidocaine-epinephrine (Xylocaine W/EPI) 1 %-1:100,000 injection 3 mL ciprofloxacin-dexamethasone (CiproDEX) otic suspension 4 drop sodium chloride 0.9 % irrigation solution 1,000 mL ceFAZolin (Ancef) vial 1 g 2 g dexAMETHasone (Decadron) 4 mg/mL IV Syringe 2 mL 10 mg diphenhydrAMINE 50 mg/mL 6.25 mg LR infusion Cannot be calculated ondansetron (Zofran) 2 mg/mL injection 4 mg phenylephrine 100 mcg/mL syringe 10 mL (prefilled) 300 mcg remifentanil (Ultiva) 1,000 mcg in sodium chloride 0.9% 50 mL (20 mcg/mL) infusion 0.47 mg Anesthesia Record Intraprocedure I/O Totals Intake Remifentanil Drip 0.00 mL The total shown is the total volume documented since Anesthesia Start was filed. LR infusion 600.00 mL Total Intake 600 mL Output Est. Blood Loss 3 mL Total Output 3 mL Net Net Volume 597 mL Specimen: ID Type Source Tests Collected by Time 1 : LEFT EAR CANAL CONTENTS Tissue EAR LEFT SURGICAL PATHOLOGY EXAM Rashmi Christine MD 11/21/2024 1221 Drains and/or Catheters: * None in log * Tourniquet Times: Implants: Findings: Left lateral posterior superior EAC cholesteatoma with erosion through canal skin No evidence of cortical erosion Indications: Mai Landa is an 59 y.o. female who is having surgery for 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]. The patient was seen in the preoperative area. The risks, benefits, complications, treatment options, non-operative alternatives, expected recovery and outcomes were discussed with the patient. The possibilities of reaction to medication, pulmonary aspiration, injury to surrounding structures, bleeding, recurrent infection, the need for additional procedures, failure to diagnose a condition, and creating a complication requiring transfusion or operation were discussed with the patient. The patient concurred with the proposed plan, giving informed consent. The site of surgery was properly noted/marked if necessary per policy. The patient has been actively warmed in preoperative area. Preopera tive antibiotics have been ordered and given within 1 hours of incision. Venous thrombosis prophylaxis are not indicated. Procedure Details: Informed consent was obtained and the operative ear was marked. The patient was transported to the operating room. I conducted a timeout. General anesthesia was induced, the patient was intubated without complication, and the bed was turned 180-degrees. Facial nerve monitoring was setup and confirmed to be working. The postauricular incision was injected with 1% Lidocaine with 1:100,000 epinephrin e. The operative ear was prepped in a sterile fashion with betadine paint and draped in the standard otologic fashion. A pre-surgical pause was performed to confirm correct side and procedure. I then made a postauricular incision using a 15-blade scalpel. An anteriorly based modified Palva flap was formed and secured under a Weitlaner retractor. The otomicroscope was then brought into the field. Immediately there was evidence of skin emanating from the ear canal though the postauricular tissue. The cholesteatoma was then carefully dissected away from the bony EAC with care to preserve its sac. The sac was further from the posterior EAC skin and there was noted to be a smallthrough and through defect in the ear canal skin. The mastoid aircells were not exposed. The specimen was then removed from the field and sent for permanent pathology. Then, using an otologic drill with 3-mm ana maria meng a canalplasty was performed. This expanded the size of the EAC and smoothed down the edges. The cortex remained intact but was translucent. Next, the ear was examined using a speculum to reveal a small 1cm skin defect. Cartilage was then harvested from the tragus and shaped and thinned to fit the EAC bony cortical bone defect. Additionalperichondrium was pressed to overly the cartilage graft in order to fill the canal defect without exposed skin. Next, the EAC was packed with ciprodex gelfoam and bacitracin strip gauze. The wound was closed in a multi-layered fashion with the periosteum closed using 3-0 Vicryl sutures and the deepdermal layer using 3-0 Vicryl sutures, both thrown in a simple interrupted fashion. The superficiallayer was closed with 5-0 fast gut. All counts were confirmed to be correct. A mastoid dressing wasplaced and the patient was handed back to anesthesia. Evidence of Infection: No Complications: None; patient tolerated the procedure well. Disposition: PACU - hemodynamically stable. Condition: stable Additional Details: Attending Attestation: I was present for the entirety of the procedure(s). MD Rashmi Peralta documented in this encounter Plan of Treatment Upcoming Encounters Date Type Department Care Team (Late st Contact Info) Description 12/06/2024 1:15 PM EDT Office Visit [facility] [address] [place] [address] [place] [id number] [place] [address] [place] [address] documented as of this encounter Goals Goal Patient Goal Type Associated Problems Recent Progress Patient-Stated? Author Autogenerat ed Goal Care Plan Autogenerated Problem No Rashmi Christine MD documented as of this encounter Procedures Procedure Name Priority Date/Time Associated Diagnosis Comments SURGICAL PATHOLOGY EXAM Routine 11/21/2024 12:21 PM EDT Cholesteatoma of left ear PA TMPP MASTOIDECT NTC/RCNSTED WALL W/O OCR 11/21/2024 10:23 AM EDT Cholesteatoma of left ear Special Needs [facility] Microscope; NIM PA RECONSTRUCTION EXTERNAL AUDITORY CANAL SPX 11/21/2024 10:23 AM EDT Cholesteatoma of left ear Special Needs [facility] Microscope; NIM documented in this encounter Results * Surgical Pathology Exam (11/21/2024 12:21 PM EDT) Case Report Surgical Pathology Case: [id number] Authorizing Provider: Rashmi Christine MD Collected: 11/21/2024 1221 Ordering Location: [facility] [place] Received: 11/21/2024 1242 Pathologist: Avril Mckoy MD PhD Specimen: EAR EXTERNAL AUDITORY CANAL LEFT, LEFT EAR CANAL CONTENTS 11/23/2024 1:58 PM EDT [facility] FINAL DIAGNOSIS A. Left ear canal contents: - Cholesteatoma 11/23/2024 1:58 PM EDT [facility] at 1358 EDT By the signature on this report, the individual or group listed as making the Final Interpretation/D iagnosis certifies that they have reviewed this case. 11/23/2024 1:58 PM EDT [facility] Clinical History Pre-op diagnosis: 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] 11/23/2024 1:58 PM EDT [facility] Gross Description A. Received in formalin, labeled with the patient's name and number and left ear canal contents , are multiple fragments of ross-white soft tissue aggregating to 2.5 x 2.0 x 0.5 cm. The specimen is entirely submitted in one cassette. ATB Gross performed at: [facility] Department of Pathology [address] [id number] 11/23/2024 1:58 PM EDT [facility] Tissue (EAR EXTERNAL AUDITORY CANAL LEFT) 11/21/2024 12:21 PM EDT 11/21/2024 12:42 PM EDT Comment:Pre-op diagnosis: 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] us Rashmi Christine MD LAB PATHOLOGY ORDERABLES Final Result [facility] [id number] [place], [place] [id number] [facility] [address] [place] [address] documented in this encounter Visit Diagnoses Diagnosis Cholesteatoma of left ear- Primary Cholesteatoma of left ear documented in this encounter Admitting Diagnoses Diagnosis Cholesteatoma of left ear documented in this encounter Administered Medications Inactive Administered Medications - up to 3 most recent administrations Medication Order MAR Action Action Date Dose Rate Site acetaminophen (Tylenol) tablet 650 mg 650 mg, oral, Every 4 hours PRN, pain mild (1-3), first line, Starting on Thu11/21/24 at 1304, Recovery (only), When able to take oral medications., If ordered PRN for pain, nurse is permitted to administer this medication for higher pain scores based on patient preference? Yes albuterol 2.5 mg /3 mL (0.083 %) nebulizer solution 2.5 mg 2.5 mg, nebulization, Once as needed, wheezing, Starting on Thu11/21/24 at 1304, For 1 dose, Recovery (only) droperidol (Inapsine) injection 0.625 mg 0.625 mg, intravenous, Once as needed, nausea/vomiting, second line, Starting on Thu11/21/24 at 1304, For 1 dose, Recovery (only), Monitor QTc while on therapy (2 lead monitoring) HYDROmorphone (Dilaudid) injection 0.25 mg 0.25 mg, intravenous, Every 5 min PRN, pain moderate (4-6), first line, Starting on Thu11/21/24 at 1304, Recovery (only), Max total of 4 mg regardless of dose. HYDROmorphone (Dilaudid) injection 0.5 mg 0.5 mg, intravenous, Every 5 min PRN, pain severe (7-10), first line, Starting on Thu11/21/24 at 1304, For 4 doses, Recovery (only), Max total of 4 mg regardless of dose. Given 11/21/2024 1:46 PM EDT 0.5 mg Given 11/21/2024 1:07 PM EDT 0.5 mg lactated Ringer's infusion 100 mL/hr, intravenous, Continuous, Starting on Thu11/21/24 at 1330, For 3 hours, Recovery (only) Rate/Dose Verify 11/21/2024 2:30 PM EDT 100 mL/hr 100 mL/hr ondansetron (Zofran) injection 4 mg 4 mg, intravenous, Once as needed, nausea/vomiting, first line, Starting on Thu11/21/24 at 1304, For 1 dose, Recovery (only), When administering via IV Push, administer over 3-5 minutes. oxyCODONE (Roxicodone) immediate release tablet 5 mg 5 mg, oral, Every 4 hours PRN, pain moderate (4-6), second line, Starting on Thu11/21/24 at 1304, Recovery (only), When able to take oral medications., If ordered PRN for pain, nurse is permitted to administer this medication for higher pain scores based on patient preference? Yes Given 11/21/2024 2:45 PM EDT 5 mg oxygen (O2) therapy inhalation, Continuous - O2/gases, oxygen, Starting on Thu11/21/24 at 1304, Recovery (only), Device: Nasal Cannula, Rate in liters per minute: 4 LPM, Keep O2 Sat Above: 92% Start 11/21/2024 1:57 PM EDT documented in this encounter Active and Recently Administered Medications Times are shown in EDT. Scheduled Medication Order 11/19/2024 11/20/2024 11/21/2024 ceFAZolin (Ancef) 2 g in dextrose (iso) IV 50 mL 2 g, intravenous, at 100 mL/hr, Administer over 30 Minutes, Once, On Thu11/21/24 at 0945, For 1 dose, Preprocedure, Administer within 60 minutes prior to incision. Duplex bag - activate before hanging., Dosing of this medication varies based on severity of illness. Does this patient have sepsis or concern for sepsis (probable or documented infection plus systemic manifestations of infection)? No, Suspected Indication (Select all that apply): Surgical Prophylaxis, Indications: Surgical Prophylaxis 0945 (Canceled Entry - Provider: Automatic Discharge Provider - Comment: Automatically canceled at discontinue of medication order) ipratropium (Atrovent) 0.02 % nebulizer solution 500 mcg 500 mcg, nebulization, Once, On Thu11/21/24 at 1330, For 1 dose, Recovery (only) 1441 (Not Given - Pr ovider: Mago Haque RN - Reason: Other - Comment: per provider) lidocaine PF (Xylocaine) 10 mg/mL (1 %) injection 1 mg 1 mg (0.1 mL), subcutaneous, Once, On Thu11/21/24 at 1330, For 1 dose, Recovery (only), To be used for IV insertion ONLY 1441 (Not Given - Pr ovider: Mago Haque RN - Reason: Other - Comment: per provider) Continuous Medication Order 11/19/2024 11/20/2024 11/21/2024 lactated Ringer's infusion 100 mL/hr, intravenous, Continuous, Starting on Thu11/21/24 at 1330, For 3 hours, Recovery (only) 1430 (Rate/Dose Veri fy - Provider: Mago Haque RN)1501 (Stopped - Provider: Mago Haque RN) PRN Medication Order 11/19/2024 11/20/2024 11/21/2024 acetaminophen (Tylenol) tablet 650 mg 650 mg, oral, Every 4 hours PRN, pain mild (1-3), first line, Starting on Thu11/21/24 at 1304, Recovery (only), When able to take oral medications., If ordered PRN for pain, nurse is permitted to administer this medication for higher pain scores based on patient preference? Yes albuterol 2.5 mg /3 mL (0.083 %) nebulizer solution 2.5 mg 2.5 mg, nebulization, Once as needed, wheezing, Starting on Thu11/21/24 at 1304, For 1 dose, Recovery (only) bacitracin ointment (CANCELED) As needed, Starting on Thu11/21/24 at 1200, Intraprocedure 1200 (Given - Provid er: Rashmi Christine MD) balanced salts (BSS) intraocular solution (CANCELED) As needed, Starting on Thu11/21/24 at 1040, Intraprocedure 1040 (Given - Provid er: Rashmi Christine MD - Comment: irrigation) ciprofloxacin-dexamethasone (CiproDEX) otic suspension (CANCELED) As needed, Starting on Thu11/21/24 at 1130, Intraprocedure 1130 (Given - Provid er: Rashmi Christine MD - Comment: gelfoam dipped in ciprodex) droperidol (Inapsine) injection 0.625 mg 0.625 mg, intravenous, Once as needed, nausea/vomiting, second line, Starting on Thu11/21/24 at 1304, For 1 dose, Recovery (only), Monitor QTc while on therapy (2 lead monitoring) EPINEPHrine HCl (PF) (Adrenalin) 1 mL in sodium chloride 0.9% 19 mL syringe (CANCELED) As needed, Starting on Thu11/21/24 at 1041, Intraprocedure 1041 (Given - Provid er: Rashmi Christine MD) HYDROmorphone (Dilaudid) injection 0.25 mg 0.25 mg, intravenous, Every 5 min PRN, pain moderate (4-6), first line, Starting on Thu11/21/24 at 1304, Recovery (only), Max total of 4 mg regardless of dose. HYDROmorphone (Dilaudid) injection 0.5 mg 0.5 mg, intravenous, Every 5 min PRN, pain severe (7-10), first line, Starting on Thu11/21/24 at 1304, For 4 doses, Recovery (only), Max total of 4 mg regardless of dose. 1307 (Given - Provid er: Kristen Lott RN)1346 (Given - Provider: Kristen Lott RN) lidocaine-epinephrine (Xylocaine W/EPI) 1 %-1:100,000 injection (CANCELED) As needed, Starting on Thu11/21/24 at 1055, Intraprocedure 1055 (Given - Provid er: Rashmi Christine MD) ondansetron (Zofran) injection 4 mg 4 mg, intravenous, Once as needed, nausea/vomiting, first line, Starting on Thu11/21/24 at 1304, For 1 dose, Recovery (only), When administering via IV Push, administer over 3-5 minutes. oxyCODONE (Roxicodone) immediate release tablet 5 mg 5 mg, oral, Every 4 hours PRN, pain moderate (4-6), second line, Starting on Thu11/21/24 at 1304, Recovery (only), When able to take oral medications., If ordered PRN for pain, nurse is permitted to administer this medication for higher pain scores based on patient preference? Yes 1445 (Given - Provid er: Mago Haque RN) oxygen (O2) therapy inhalation, Continuous - O2/gases, oxygen, Starting on Thu11/21/24 at 1304, Recovery (only), Device: Nasal Cannula, Rate in liters per minute: 4 LPM, Keep O2 Sat Above: 92% 1357 (Start - Provid er: Kristen Lott RN)1430 (Stopped - Provider: Mago Haque RN) sodium chloride 0.9 % irrigation solution (CANCELED) As needed, Starting on Thu11/21/24 at 1055, Intraprocedure 1055 (Given - Provid er: Rashmi Christine MD - Comment: warmed irrigation dispensed to sterile field) documented in this encounter Additional Health Concerns Active Problems Noted Date Diagnosed Date Autogenerated Problem 11/22/2024 Assessment Noted Time A fall risk assessment has been complete d for the patient 08/30/2024 9:55 AM EDT documented as of this encounter Care Teams E Learning Developer Relationship Specialty Start Date End Date Kartik Priest DO PCP - General 10/07/21 documented as of this encounter
--- OUTSIDE RECORDS SUMMARY | 2024-11-21 10:36 | XMS_ITS | Encounter Summary ---
Author Organization [facility] Address [address] [place] [address] Phone Care Team Providers Care Spa Attendant Name Role Phone Kartik Priest DO Primary Care Provider [phone] Reason for Visit * Auth/Cert Specialty Diagnoses / Procedures Referred By Fabienne adler Referred To Contact Diagnoses 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] Procedures MN RECONSTRUCTION EXTERNAL AUDITORY CANAL SPX MN TMPP MASTOIDECT NTC/RCNSTED WALL W/O OCR Left Side Post Auricular Revision Canalplasty; Cartilage Graft Left Side Post Auricular Revision Canalplasty; [place] [address] [place] [address] Phone: tel: fax: [facility] [place] [address] [place] [address] fax: Referral ID Status Reason Start Date Expiration Date Visits Re quested Visits Authorized [id number] 1 1 Encounter Details Date Type Department Care Team (Late st Contact Info) Description 11/21/2024 10:36 AM EDT Anesthesia Event [facility] [place] [address] [place] [address] [place] [address] [place] [id number] Anesthesia Record Procedure Summary Procedure Name Responsible Anesthesiologist Anesthesia Start Time Anesthesia Stop Time Left Side Post Auricular Revision Canalplasty;removal of ear canal cyst (Left: Ear) Joo Andres MD 11/21/24 1036 11/21/24 1232 Events Date Time Event Comment 11/21/2024 1036 An Start 1038 In Room 1038 An Start Data 1044 An Induction The patient was reevaluated immediately before moderate or deep sedation use and before anesthesia induction. 1046 An Intubation 1050 Anesthesia Ready 1106 Proc Start 1221 Proc Fin 1222 An Extubation 1226 an stop data 1226 Out of Room 1232 Handoff to Receiving I compl eted my handoff to the receiving clinician during which we: 1. Identified the patient 2. Identified the responsible provider 3. Reviewed the pertinent medical history 4. Discussed the surgical course 5. Reviewed intra-op anesthesia management and issues during anesthesia 6. Set expectations for post-procedure period 7. Allowed opportunity for questions and acknowledgement of understanding. 1232 An Stop Meds Name Total fentaNYL PF 50 mcg/mL 100 mcg midazolam 1 mg/mL 2 mg propofol 10 mg/mL 200 mg dexAMETHasone 4 mg/mL 10 mg ondansetron 4 mg/2 mL 4 mg lidocaine PF 20 mg/mL (2 %) 100 mg succinylcholine 20 mg/mL 60 mg ceFAZolin 1 gram 2 g remifentanil (Ultiva) 1,000 mcg in sodium chloride 0.9% 50 mL (20 mcg/mL) infusion 0.47 mg phenylephrine 100 mcg/mL syringe 10 mL ( prefilled) 300 mcg diphenhydrAMINE 50 mg/mL 6.25 mg LR infusion 600 mL * Agents Name O2 Air Sevoflurane Inspired Sevoflurane N2O Inspired N2O * Blood No blood administrations on file. Lines, Drains, and Airways Type Details Placement Removal Wound 11/21/24; 1106; Y; Y es; Surgical; Ear; Left, Lower, Posterior 11/21/24 1106 by Cheyenne Kumar RN Peripheral IV Placement Date: 11/07; Placement Time: 948; Catheter Size: 20 G; Orientation: Right, Posterior; Location: Wrist; Removal Date: 11/21/24; Removal Time: 1535 11/21/24 0949 by Tila Villanueva RN 11/21/24 1535 by Carol Ann Cai RN ETT Placement Date: 11/07; Placement Time: 1046 (created via procedure documentation); Mask Ventilation: 1; Technique: Direct laryngoscopy; Type: ETT - single; Single Lumen Tube Size: 6.5 mm; Cuffed: Yes; Laryngoscope: Brandon; Blade Size: 4; Location: Oral; Grade View: Grade IIa; Insertion Attempts: 1; Placement Verification: Capnometry; Airway Comments: Atraumatic- no changes to dentition. Cuff to MOV. Pt intubated by SRNA. Cody; Removal Date: 11/21/24; Removal Time: 1222 11/21/24 1046 by MIKAELA Saha 11/21/24 1222 by MIKAELA Saha documented in this encounter Social History Tobacco Use Types Packs/Day Years [...] on file documented as of this encounter Functional Status * Calculated C-SSRS Risk Score (Lifetime/Recent) Answer Date of Assessment Author No Risk Indicated 11/21/2024 9:45 AM EDT Tila Villanueva RN * Taliaferro Suicide Severity Rating Scale (Screener/Recent Self-Report) Question Answer Date of Assessment Author 1. Wish to be (Past 1 Month) No 025 9:45 AM ROBERT Tila Villanueva RN 2. Non-Specific Active Suici kirit Thoughts (Past 1 Month) No 11/21/2024 9:45 AM EDT Fern Villanueva RN 6. Suicidal Behavior (Lifetime) No 9:45 AM EDT Tila Villanueva RN documented as of this encounter OR Notes * Anesthesia Postprocedure Evaluation - Joo Andres MD - 11/21/2024 12:47 PM EDT Patient: Mai Landa Procedure Summary Date: 11/21/24 Room / Location: [facility] [place] Anesthesia Start: 1036 Anesthesia Stop: 1232 Procedure: Left Side Post Auricular Revision Canalplasty;removal of ear canal cyst (Left: Ear) Diagnosis: Cholesteatoma of left ear (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]) Surgeons: Rashmi Christine MD Responsible Provider: oJo Andres MD Anesthesia Type: general ASA Status: 2 Anesthesia Type: general Vitals Value Taken Time BP 149/86 11/21/24 12:46 Temp 36.2 ??C (97.2 ??F) 11/21/24 12:30 Pulse 101 11/21/24 12:47 Resp 18 11/21/24 12:30 SpO2 93 % 11/21/24 12:47 Vitals shown include unfiled device data. Anesthesia Post Evaluation Patient location during evaluation: bedside Patient participation: complete - patient participated Level of consciousness: awake Pain management: adequate Airway patency: patent Cardiovascular status: acceptable Respiratory status: acceptable Hydration status: acceptable Postoperative Nausea and Vomiting: none There were no known notable events for this encounter. * Anesthesia Procedure Notes - MIKAELA Saha - 11/21/2024 10:57 AM EDTAssociated Order(s): Airway Airway Date/Time: 11/21/2024 10:46 AM Reason: elective Airway not difficult Staffing Performed: SRNA Authorized by: Joo Andres MD Performed by: MIKAELA Saha Patient location during procedure: OR Patient Condition Indications for airway management: anesthesia Patient position: sniffing MILS not maintained throughout No planned trial extubation Sedation level: deep Final Airway Details Preoxygenated: yes Final airway type: endotracheal airway Successful airway: ETT Cuffed: yes Successful intubation technique: direct laryngoscopy Endotracheal tube insertion site: oral Blade: Brandon Blade size: #4 ETT size (mm): 6.5 Cormack-Lehane Classification: grade IIa - partial view of glottis Placement verified by: capnometry Measured from: teeth (21) ETT to teeth (cm): 21 Number of attempts at approach: 1 Additional Comments Atraumatic- no changes to dentition. Cuff to MOV. Pt intubated by DENY Ross. * Anesthesia Preprocedure Evaluation - Joo Andres MD - 11/18/2024 11:08 AM EDT Pre-Anesthesia Evaluation Mai Landa is a 59 y.o. female who presents for the above mentioned procedure due to 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] Medical History[1] Surgical History[2] Social History[3] RX Allergies[4] Current Medications[5] Prior to Admission medications Medication Sig Start Date End Date Taking? Authorizing Provider semaglutide (Ozempic) 0.25 mg or 0.5 mg(2 mg/1.5 mL) pen injector Inject 0.25 mg under the skin 1 (one) time per week. 08/18/24 Historical Provider, No medication comments found. Visit Vitals Smoking Status Never BP Readings from Last 4 Encounters: No data found for BP If applicable: No results found for: PREGTESTUR , PREGSERUM , HCG , HCGQUANT No results for input(s): WBC , HGB , HCT , PLT , MCV in the last 20245 hours. No results for input(s): LACTATE , EGFR , ANIONGAP , BUN , CREATININE , NA , K , CL , CO2 , GLUCOSE , CALCIUM , PHOS in the last 07092 hours. No lab exists for component: MAGNESIUM No results for input(s): HGBA1C , TSH , FREET4 , PTH , BNP , TROPHS in the last 60405 hours. No lab exists for component: MAG No results for input(s): BILITOT , PROT , ALBUMIN , ALKPHOS , ALT , AST , LIPASE , AMYLASE in the last 01677 hours. No results for input(s): PROTIME , INR in the last 72220 hours. No results found for: ABO , LABRH , ABSCRN No results found for: FERRITIN , TIBC , IRONSAT No results found for: STAPHMRSASCR No results for input(s): AMPHETAMINE , MAMPHBLDS , BARBITURATE , BENZODIAZ , BUPRENBLDS , CANNABBLDS , COCBLDS , METHABLDS , OXYBLDS , PCPBLDS , OPIATBLDS , DRBLDCOMM in the last 13444 hours. No results for input(s): PHART , PZW0FOW , PO2ART , ZDM4MJM , F1UCDIQH , BEART , C7XDQKFU in the last 67796 hours. EKG No results found for this or any previous visit (from the past 4464 hours). No results found for this or any previous visit. Ejection Fractions:No results found for: EF Echocardiogram No results found for this or any previous visit from the past 1095 days. Stress TestingNo results found for this or any previous visit from the past 4000 days. No results found for this or any previous visit from the past 4000 days. No results found for this or any previous visit from the past 4000 days. Cardiac Catheterization No results found for this or any previous visit from the past 4000 days. No results found for this or any previous visit from the past 4000 days. No results found for this or any previous visit from the past 4000 days. Right Heart Cath No results found for this or any previous visit from the past 4000 days. Coronary Artery Calcium Score No results found for this or any previous visit from the past 4000 days. AAA screen No results found for this or any previous visit from the past 4000 days. Carotid DopplerNo results found for this or any previous visit from the past 4000 days. X Ray Pulmonary Function Tests No results found for this or any previous visit from the past 4000 days. No results found for: FEV1 , FVC , HKZ5JEO , TLC , DLCO OTHER: No results found for this or any previous visit from the past 1825 days. The ASCVD Risk score (Kurtis SAGASTUME, et al., 2019) failed to calculate for the following reasons: The systolic blood pressure is missing Cannot find a previous HDL lab Cannot find a previous total cholesterol lab Unable to determine if patient is Non- Code Status: Assume Full Patient: Mai Landa Procedure Information Date/Time: 11/21/24 1045 Procedure: Left Side Post Auricular Revision Canalplasty; Cartilage Graft (Left: Ear) Location: [facility] Surgeons: Rashmi Christine MD Relevant Problems No relevant active problems Clinical information reviewed: NPO Detail: No data recorded Physical Exam Airway Mallampati: II Cardiovascular Rhythm: regular Rate: normal Dental Pulmonary Abdominal Anesthesia Plan History of general anesthesia?: yes History of complications of general anesthesia?: no ASA 2 general intravenous induction Anesthetic plan and risks discussed with patient. Plan discussed with JOSEY and CAA. [1] No past medical history on file. [2] No past surgical history on file. [3] Social History Tobacco Use Smoking status: Never Smokeless tobacco: Never [4] No Known Allergies [5] No current facility-administered medications for this encounter. Current Outpatient Medications: semaglutide (Ozempic) 0.25 mg or 0.5 mg(2 mg/1.5 mL) pen injector, Inject 0.25 mg under the skin 1 (one) time per week., Disp: , Rfl: documented in this encounter Plan of Treatment Upcoming Encounters Date Type Department Care Team (Late st Contact Info) Description 12/06/2024 1:15 PM EDT Office Visit [facility] [address] [place] [address] [place] [address] [place], [place] [id number] documented as of this encounter Goals Goal Patient Goal Type Associated Problems Recent Progress Patient-Stated? Author Autogenerat ed Goal Care Plan Autogenerated Problem No Rashmi Christine MD documented as of this encounter Procedures Procedure Name Priority Date/Time Associated Diagnosis Comments MN AN ELECTIVE ENDOTRACHEAL AIRWAY Routine 11/21/2024 10:46 AM EDT documented in this encounter Results * MN AN ELECTIVE ENDOTRACHEAL AIRWAY (11/21/2024 10:46 AM EDT) Narrative Lindsey Grayson APRN-CRNA - 11/21/2024 10:46 AM EDT MIKAELA Saha 11/21/2024 11:03 AM Airway Date/Time: 11/21/2024 10:46 AM Reason: elective Airway not difficult Staffing Performed: SRNA Authorized by: Joo Andres MD Performed by: Lindsey Grayson APRN-JOSEY Patient location during procedure: OR Patient Condition Indications for airway management: anesthesia Patient position: sniffing MILS not maintained throughout No planned trial extubation Sedation level: deep Final Airway Details Preoxygenated: yes Final airway type: endotracheal airway Successful airway: ETT Cuffed: yes Successful intubation technique: direct laryngoscopy Endotracheal tube insertion site: oral Blade: Brandon Blade size: #4 ETT size (mm): 6.5 Cormack-Lehane Classification: grade IIa - partial view of glottis Placement verified by: capnometry Measured from: teeth (21) ETT to teeth (cm): 21 Number of attempts at approach: 1 Additional Comments Atraumatic- no changes to dentition. Cuff to MOV. Pt intubated by SRNA. Cody us Joo Andres MD ANESTHESIA ORDERABLES Final Resu lt documented in this encounter Visit Diagnoses Not on filedocumented in this encounter Administered Medications Inactive Administered Medications - up to 3 most recent administrations Medication Order MAR Action Action Date Dose Rate Site ceFAZolin (Ancef) injection intravenous, As needed, Starting on Thu11/21/24 at 1048, Anesthesia Intraprocedure Given 11/21/2024 10:48 AM EDT 2 g dexAMETHasone (Decadron) injection intravenous, As needed, Starting on Thu11/21/24 at 1050, Anesthesia Intraprocedure Given 11/21/2024 10:50 AM EDT 10 mg diphenhydrAMINE (BENADryl) injection intravenous, As needed, Starting on Thu11/21/24 at 1224, Anesthesia Intraprocedure Given 11/21/2024 12:24 PM EDT 6.25 mg fentaNYL PF (Sublimaze) injection intravenous, As needed, Starting on Thu11/21/24 at 1041, Anesthesia Intraprocedure Given 11/21/2024 10:41 AM EDT 100 mcg lactated Ringer's infusion intravenous, Continuous PRN, Starting on Thu11/21/24 at 1036, Anesthesia Intraprocedure New Bag 11/21/2024 10:36 AM EDT lidocaine PF (Xylocaine) 20 mg/mL (2 %) injection intravenous, As needed, Starting on Thu11/21/24 at 1044, Anesthesia Intraprocedure Given 11/21/2024 10:44 AM EDT 100 mg midazolam (Versed) injection intravenous, As needed, Starting on Thu11/21/24 at 1036, Anesthesia Intraprocedure Given 11/21/2024 10:36 AM EDT 2 mg ondansetron (Zofran) injection intravenous, As needed, Starting on Thu11/21/24 at 1211, Anesthesia Intraprocedure Given 11/21/2024 12:11 PM EDT 4 mg phenylephrine in NS (Roberto-Synephrine) 100 mcg/mL syringe intravenous, As needed, Starting on Thu11/21/24 at 1113, Anesthesia Intraprocedure Given 11/21/2024 12:00 PM EDT 50 mcg Given 11/21/2024 11:49 AM EDT 100 mcg Given 11/21/2024 11:38 AM EDT 50 mcg propofol (Diprivan) injection intravenous, As needed, Starting on Thu11/21/24 at 1044, Anesthesia Intraprocedure Given 11/21/2024 10:44 AM EDT 200 mg remifentanil (Ultiva) 1,000 mcg in sodium chloride 0.9% 50 mL (20 mcg/mL) infusion intravenous, Continuous PRN, Starting on Thu11/21/24 at 1053, Anesthesia Intraprocedure Rate/Dose Change 11/21/2024 12:09 PM EDT 0.05 mcg/kg/min 12.75 mL/hr Rate/Dose Change 11/21/2024 11:43 AM EDT 0.07 mcg/kg/min 1 7.85 mL/hr Rate/Dose Change 11/21/2024 11:27 AM EDT 0.08 mcg/kg/min 2 0.4 mL/hr succinylcholine (Anectine) injection intravenous, As needed, Starting on Thu11/21/24 at 1044, Anesthesia Intraprocedure Given 11/21/2024 10:44 AM EDT 6 0 mg documented in this encounter Additional Health Concerns Active Problems Noted Date Diagnosed Date Autogenerated Problem 11/22/2024 Assessment Noted Time A fall risk assessment has been complete d for the patient 08/30/2024 9:55 AM EDT documented as of this encounter Care Teams Spa Attendant Relationship Specialty Start Date End Date Kartik Priest DO PCP - General 10/07/21 documented as of this encounter
--- OUTSIDE RECORDS SUMMARY | 2024-11-21 10:45 | XMS_ITS | Encounter Summary ---
Author Organization [facility] Address [address] 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 [place] [address] [place] [address] fax: Referral ID Status Reason Start Date Expiration Date Visits Re quested Visits Authorized [id number] 1 1 Encounter Details Date Type Department Care Team (Late st Contact Info) Description 11/21/2024 10:45 AM EDT - 11/21/2024 2:[address] [facility] [place] [address] [place] [address] [place] [address] [place] [address] Left Side Post Auricular Revision Canalplasty;removal of ear canal cyst [22958 (CPT ) +1 more] Social History Tobacco Use Types Packs/Day Years [...] Sign Reading Time Taken Comments Blood Pressure 138/79 11/21/2024 2:15 PM EDT Pulse 92 11/21/2024 2:15 PM EDT Temperature 36 C (96.8 F) 11/21/2024 2:15 PM EDT Respiratory Rate 20 11/21/2024 2:15 PM EDT Oxygen Saturation 95% 11/21/2024 2:15 PM EDT Inhaled Oxygen Concentration - - [...] 9:45 AM EDT Tila Villanueva RN * [place] Suicide Severity Rating Scale (Screener/Recent Self-Report) Question [...] this encounter Discharge Instructions * Discharge Instructions* lAeja Peguero MD - 11/21/2024 12:32 PM EDT [...] make specific suggestions for your care. Call [phone] ([phone]) or [phone] (after-hours) any time day or night if you have any of the following: Bad smell coming out of your ear Severe swelling around your ear Any questions Pain in your ear Redness around your ear Severe dizziness * Attachments The following attachments cannot be sent through Care Everywhere. * How to Prevent Surgical Site Infections (Armenian) documented in this encounter Medications at Time [...] up to 3 days. 9 tablet 11/21/2024 5 documented as of this encounter H&P Notes * Aleja Peguero MD - 11/21/2024 9:56 AM EDT History Of Present Illness Mai Landa is a 59 y.o. female presenting with canal cholesteatoma. Past Medical History She has a past medical history of Ankle contracture, right, Breast cyst, right, Delayed emergence from general anesthesia, [place] (hard of hearing), HPV (human papilloma virus) [...] Christine. Pt [place]. [place], she needs to call his [...] (L) Operative Note Date: 11/21/2024 OR Location: [facility] OR Name: Mai Landa, : 1965, Age: 59 y.o., , Sex: female Diagnosis Pre-op Diagnosis * 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] Post-op Diagnosis * 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] Procedures Left Side Post Auricular Revision Canalplasty;removal of ear canal cyst 99110 - DC RECONSTRUCTION EXTERNAL AUDITORY CANAL SPX Left Side Post Auricular Revision Canalplasty;removal of ear canal cyst 71379 - DC TMPP MASTOIDECT NTC/RCNSTED WALL W/O OCR Surgeons * Rashmi Christine - Primary Resident/Fellow/Other Biofuels Production Associate: Surgeons and Role: * No surgeons found with a matching role * Staff: Civil Manager: Priscilla Moran Person: Demi Nolasco Civil Manager: Cheyenne Nolasco Scrub: Heaven Anesthesia Staff: Anesthesiologist: Joo Andres MD TRAINING EXECUTIVE: Lindsey Grayson APRN-TRAINING EXECUTIVE SRNA: Jaquan Ross Procedure Summary Anesthesia: General [...] Description 12/06/2024 1:15 PM EDT Office Visit [facility] [address] [place] [address] [place] [address] [place] [address] documented as of this encounter Goals Goal Patient Goal Type Associated Problems Recent Progress Patient-Stated? Author Autogenerat ed Goal Care Plan Autogenerated Problem No Rashmi Christine MD documented as of this encounter Procedures Procedure Name Priority Date/Time Associated Diagnosis Comments SURGICAL PATHOLOGY EXAM Routine 11/21/2024 12:21 PM EDT Cholesteatoma of left ear DC TMPP MASTOIDECT NTC/RCNSTED WALL W/O OCR 11/21/2024 10:23 AM EDT Cholesteatoma of left ear Special Needs [facility] ENT Microscope; NIM DC RECONSTRUCTION EXTERNAL AUDITORY CANAL SPX 11/21/2024 10:23 AM EDT Cholesteatoma of left ear Special Needs [facility] ENT Microscope; NIM documented in this encounter Results * Surgical Pathology Exam (11/21/2024 12:21 PM EDT) Case Report Surgical Pathology Case: [id number] Authorizing Provider: Rashmi Christine MD Collected: 11/21/2024 1221 Ordering Location: [facility] OR Received: 11/21/2024 1242 Pathologist: Avril Mckoy MD PhD Specimen: EAR EXTERNAL AUDITORY CANAL LEFT, LEFT EAR CANAL CONTENTS 11/23/2024 1:[address] [facility] FINAL DIAGNOSIS A. Left ear canal contents: - Cholesteatoma 11/23/2024 1:[address] [facility] at 1358 EDT By the signature on this report, the individual or group listed as making the Final Interpretation/D crescencio certifies that they have reviewed this case. 11/23/2024 1:[address] [facility] Clinical History Pre-op diagnosis: 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] 11/23/2024 1:58 PM EDT [facility] Gross Description A. Received in formalin, labeled with the patient's name and number and left ear canal contents , are multiple fragments of ross-white soft tissue aggregating to 2.5 x 2.0 x 0.5 cm. The specimen is entirely submitted in one cassette. ATB Gross performed at: [facility] Department of Pathology [address] [id number] 11/23/2024 1:58 PM EDT [facility] Tissue (EAR EXTERNAL AUDITORY CANAL LEFT) 11/21/2024 12:21 PM EDT 11/21/2024 12:42 PM EDT Comment:Pre-op diagnosis: 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] us Rashmi Christine MD LAB PATHOLOGY ORDERABLES Final Result [facility] [address] [place] [address] [facility] [address] [place] [address] documented in this encounter Visit Diagnoses Diagnosis Cholesteatoma of left ear- Primary 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 documented in this encounter Admitting Diagnoses Diagnosis Cholesteatoma of left ear documented in this encounter Administered Medications Inactive Administered Medications - up to 3 most recent administrations Medication Order MAR Action Action Date Dose Rate Site acetaminophen (Tylenol) tablet 650 mg 650 mg, oral, Every 4 hours PRN, pain mild (1-3), first line, Starting on 11/21/24 at 1304, Recovery (only), When able to take oral medications., If ordered PRN for pain, nurse is permitted to administer this medication for higher pain scores based on patient preference? Yes albuterol 2.5 mg /3 mL (0.083 %) nebulizer solution 2.5 mg 2.5 mg, nebulization, Once as needed, wheezing, Starting on Thu11/21/24 at 1304, For 1 dose, Recovery (only) bacitracin ointment As needed, Starting on Thu11/21/24 at 1200, Intraprocedure Given 11/21/2024 12:00 PM EDT 1 Application Other balanced salts (BSS) intraocular solution As needed, Starting on Thu11/21/24 at 1040, Intraprocedure Given 11/21/2024 10:40 AM EDT 15 mL Other ciprofloxacin-dexamethasone (CiproDEX) otic suspension As needed, Starting on Thu11/21/24 at 1130, Intraprocedure Given 11/21/2024 11:30 AM EDT 4 drops Left Ear droperidol (Inapsine) injection 0.625 mg 0.625 mg, intravenous, Once as needed, nausea/vomiting, second line, Starting on Thu11/21/24 at 1304, For 1 dose, Recovery (only), Monitor QTc while on therapy (2 lead monitoring) EPINEPHrine HCl (PF) (Adrenalin) 1 mL in sodium chloride 0.9% 19 mL syringe As needed, Starting on Thu11/21/24 at 1041, Intraprocedure Given 11/21/2024 10:41 AM EDT 5 mL Left Ear HYDROmorphone (Dilaudid) injection 0.25 mg 0.25 mg, [...] 2:30 PM EDT 100 mL/hr 100 mL/hr lidocaine-epinephrine (Xylocaine W/EPI) 1 %-1:100,000 injection As needed, Starting on Thu11/21/24 at 1055, Intraprocedure Given 11/21/2024 10:55 AM EDT 3 mL Left Ear ondansetron (Zofran) injection 4 mg 4 mg, [...] Above: 92% Start 11/21/2024 1:57 PM EDT sodium chloride 0.9 % irrigation solution As needed, Starting on Thu11/21/24 at 1055, Intraprocedure Given 11/21/2024 10:55 AM EDT 1,000 mL Other documented in this encounter Active and Recently [...] that apply): Surgical Prophylaxis, Indications: Surgical Prophylaxis 45 (Canceled Entry - Provider: Automatic Discharge Provider [...] documented as of this encounter Care Teams Value Stream Coach Relationship Specialty Start Date End Date Kartik Priest DO PCP - General 10/07/21 documented as of this encounter
--- OUTSIDE RECORDS SUMMARY | 2024-11-26 11:53 | XMS_ITS | Encounter Summary ---
Author Organization [facility] Address [address] [place] [address] Phone Care Team Providers Care Histology Specialist Name Role Phone CemKartik Kirt VERDUGO Primary Care Provider [phone] Encounter Details Date Type Department Care Team (Latest Contact Info) Description 11/21/2024 Travel Social History Tobacco Use Types Packs/Day Years [...] 9:45 AM EDT Tila Villanueva RN * [place] Suicide Severity Rating Scale (Screener/Recent Self-Report) Question Answer Date of Assessment Author 1. Wish to be (Past 1 Month) No 025 9:45 AM EDT Tila Villanueva RN 2. Non-Specific Active Suici kirit Thoughts (Past 1 Month) No 11/21/2024 9:45 AM EDT Fern Villanueva RN 6. Suicidal Behavior (Lifetime) No 9:45 AM EDT Tila Villanueva RN documented as of this encounter Plan of Treatment Upcoming Encounters Date Type Department Care Team (Late st Contact Info) Description 12/06/2024 1:15 PM EDT Office Visit [facility] [address] [place] [address] [place] [address] [place], [place] [phone] documented as of this encounter Goals Goal [...] documented as of this encounter Care Teams Histology Specialist Relationship Specialty Start Date End Date Kartik Priest DO PCP - General 10/07/21 documented as of this encounter
--- OUTSIDE RECORDS SUMMARY | 2024-11-26 11:53 | XMS_ITS ---
Author Organization [facility] Address [address] [facility] [place] [address] Care Team Providers Care Spa Consultant Name Role Phone Preeti Lopez MD Unavailable [phone] Kartik Priest DO Primary Care Provider [phone] Active Problems Problem Noted Date Diagnosed Date Cholesteatoma of left ear 08/30/2024 Keratosis obturans of external ear canal, left [...]
--- OUTSIDE RECORDS SUMMARY | 2024-11-26 11:53 | XMS_ITS | Clinical Summary ---
Author Organization [facility] Address [address] [facility] [place] [address] Care Team Providers Care Professional Soccer Player Name Role Phone Preeti Lopez MD Unavailable [phone] Kartik Priest DO Primary Care Provider [phone] Allergies No known active allergies Medications valACYclovir (Valtrex) 500 MG tablet Take 500 mg by mouth if needed 09/04/2022 Active zolpidem (Ambien) 5 MG tablet 01/22/2024 Active acetaminophen (Tylenol) 325 MG tablet Take 650 mg by mouth every 6 (six) hours if needed 11/21/2024 Active Docusate Sodium (DSS) 100 MG capsule Take 100 mg by mouth in the morning and 100 mg in the evening. 11/21/2024 12/02/19 25 Active ibuprofen 600 MG tablet Take 600 mg by mouth every 6 (six) hours if needed 11/21/2024 Active semaglutide (Ozempic) 2 MG/1.5ML solution pen-injector Inject 0.25 mg under the skin 08/18/2024 Active traMADol (Ultram) 50 MG tablet Take 50 mg by mouth every 4 (four) hours if needed 11/21/2024 Active ondansetron (Zofran) 4 MG tablet Take 4 mg by mouth every 8 (eight) hours if needed 11/21/2024 11/25/19 25 Active Problems Problem Noted Date Diagnosed Date [...] Care Team (Late st Contact Info) Description 11/28/2024 8:30 AM EDT Office Visit [facility] [address] [facility] [address] [place] [address] Preeti Lopez MD [address] [facility] [address] [place] [address] 01/11/2025 3:30 PM EDT Office Visit [facility] [address] [place] [address] Marcos Tian DO [address] [place] [address] 02/15/2025 4:00 PM EST Office Visit [facility] [address] [place] [address] Sharmila Cota MD [address] [place] [address] Insurance [facility] [facility] [place] Address: [facility] [id number] [place] [address] Care Teams Professional Soccer Player Relationship Specialty Start Date End Date Kartik Priest DO [address] [place] [address] PCP - General Internal Medicine 07/05/24 Preeti Lopez MD [address] [address] Otolaryngology 08/28/21
--- OUTSIDE RECORDS SUMMARY | 2024-11-26 11:53 | XMS_ITS | Encounter Summary ---
Author Organization [facility] Address [address] [place] [address] Phone Care Team Providers Care Book Mender Name Role Phone Kartik Priest DO Primary Care Provider [phone] Encounter Details Date Type Department Care Team (Late st Contact Info) Description 08/28/2021 Orders Only [facility] [address] [place] [address] Conversion, Onbase Social History Tobacco Use Types [...] Description 12/06/2024 1:15 PM EDT Office Visit [facility] [address] [place] [address] [place] [address] [place], [place] [phone] Scheduled Orders Name Type Priority Associated Diagnoses Orde r Schedule AUDIOLOGY REPORT - ONBASE SCAN Audiology Ordered: 022 documented as of this encounter Visit Diagnoses Not on filedocumented in this encounter Care Teams Book Mender Relationship Specialty Start Date End Date Kartik Priest DO PCP - General 10/07/21 documented as of this encounter
--- OUTSIDE RECORDS SUMMARY | 2024-11-26 11:53 | XMS_ITS | Clinical Summary ---
Author Organization [facility] Address [address] [place] [address] Phone Care Team Providers Care Custodial Officer Name Role Phone Kartik Priest DO Primary Care Provider [phone] Allergies No known active allergies Medications semaglutide (Ozempic) 0.25 mg or 0.5 mg(2 mg/1.5 mL) pen injector Inject 0.25 mg under the skin 1 (one) time per week. 5 Active docusate sodium (Colace) 100 mg capsuleIndicati ons:Cholesteato ma of left ear Take 1 capsule (100 mg) by mouth 2 times a day for 10 days. Take while using narcotics for pain control. 20 capsule 5 12/02/19 25 Active ibuprofen 600 mg tabletIndicatio ns:Cholesteatom a of left ear Take 1 tablet (600 mg) by mouth every 6 hours if needed for moderate pain (4 - 6) for up to 20 doses. 20 tablet 5 Active cephalexin (Keflex) 500 mg capsuleIndicati ons:Cholesteato ma of left ear Take 1 capsule (500 mg) by mouth 3 times a day for 7 days. 21 capsule 5 11/29/19 25 Active traMADol (Ultram) 50 mg tabletIndicatio ns:Cholesteatom a of left ear Take 1 tablet (50 mg) by mouth every 4 hours if needed for severe pain (7 - 10) ((pain unrelieved by tylenol/ibuprof en)) for up to 12 doses. 12 tablet 5 Active acetaminophen (TylenoL) 325 mg tabletIndicatio ns:Cholesteatom a of left ear Take 2 tablets (650 mg) by mouth every 6 hours if needed for mild pain (1 - 3) for up to 20 doses. 20 tablet 5 Active ondansetron (Zofran) 4 mg tabletIndicatio ns:Cholesteatom a of left ear Take 1 tablet (4 mg) by mouth every 8 hours if needed for nausea or vomiting for up to 3 days. 9 tablet 5 11/25/19 25 Active Problems Problem Noted Date Diagnosed Date Cholesteatoma of left ear 08/30/2024 Encounters Date Type Department Care Team Description 11/24/2024 Telephone [facility] [address] [place] [address] Aleja Glover RN 11/22/2024 Telephone [facility] [address] [place] [address] Aleja Glover RN 11/21/2024 10:45 AM EDT - 11/21/2024 2:15 PM EDT Surgery [facility] [place] [address] [place] [address] Rashmi Christine MD Left Side Post Auricular Revision Canalplasty;removal of ear canal cyst [13980 (CPT ) +1 more] 11/21/2024 10:36 AM EDT Anesthesia Event [facility] [place] [address] [place] [address] Joo Andres MD 11/21/2024 9:16 AM EDT - 11/21/2024 3:45 PM EDT Hospital Encounter [facility] [place] [address] [place] [address] Rashmi Christine MD Cholesteatoma of left ear (Primary Dx) Discharge Disposition: Home 11/21/2024 Travel 11/11/2024 Telephone [facility] [address] [place] [address] Aleja Glover RN 09/09/2024 Scanned Document [facility] [address] [place] [address] Echo Larsen AUD, CCC-A 09/01/2024 2:49 PM EDT - 09/01/2024 11:59 PM EDT [facility] [address] [facility] [place] [address] Discharge Disposition: Home 08/30/2024 9:30 AM EDT Office Visit [facility] [address] [place] [address] Rashmi Christine MD Preoperative clearance; Cholesteatoma of left ear 08/30/2024 9:00 AM EDT Clinical Support [facility] [address] [place] [address] Echo Larsen, ALESSANDRA, CCC-A Sensorineural hearing loss, bilateral (Primary Dx) 08/29/2024 Travel from Last 3 Months Social History Tobacco Use Types Packs/Day Years Used Date Smoking Tobacco: Never Smokeless Tobacco: Never Tobacco Cessation:Counseling Given: Not Answered Alcohol Use Standard Drinks/Week Comments Not Asked [...] Mass Index 31.18 11/21/2024 9:46 AM EDT Plan of Treatment Upcoming Encounters Date Type Department Care Team (Late st Contact Info) Description 12/06/2024 1:15 PM EDT Office Visit [facility] [address] [place] [address] [place] [address] [place] [address] Health Maintenance Due Date Last Done Comments [...] Christine MD Medical Devices Implanted Type Area Wheat Grower Device Identifier Shelf Expiration Date Model / Serial / Lot Graft, Biodesign Otologic Repair 2.5 X 2.5 Case [id number] Implanted:Qty: 1 on 01/24/2022 by Rashmi Christine MD Cochlear [employer]plant [employer] 04/07/2023 [id number] / / [id number] Description:Converted from [facility] Acute. Please see archived information for full log information. Procedures Procedure Name Priority Date/Time Associated Diagnosis Comments SURGICAL PATHOLOGY EXAM Routine 11/21/2024 12:21 PM EDT Cholesteatoma of left ear ID AN ELECTIVE ENDOTRACHEAL AIRWAY Routine 11/21/2024 10:46 AM EDT ID TMPP MASTOIDECT NTC/RCNSTED WALL W/O OCR 11/21/2024 10:23 AM EDT Cholesteatoma of left ear Special Needs [facility] ENT Microscope; NIM ID RECONSTRUCTION EXTERNAL AUDITORY CANAL SPX 11/21/2024 10:23 AM EDT Cholesteatoma of left ear Special Needs [facility] ENT Microscope; NIM CT TRANSFER OF OUTSIDE FILMS Routine 09/01/2024 2:50 PM EDT from Last 3 Months Results * Surgical Pathology Exam (11/21/2024 12:21 PM EDT) Case Report Surgical Pathology Case: [id number] Authorizing Provider: Rashmi Christine MD Collected: 11/21/2024 1221 Ordering Location: [facility] OR Received: 11/21/2024 1242 Pathologist: Avril Mckoy MD PhD Specimen: EAR EXTERNAL AUDITORY CANAL LEFT, LEFT EAR CANAL CONTENTS 11/23/2024 1:58 PM EDT [facility] FINAL DIAGNOSIS A. Left ear canal contents: - Cholesteatoma 11/23/2024 1:58 PM EDT [facility] at 1358 EDT By the signature on this report, the individual or group listed as making the Final Interpretation/D iagnosis certifies that they have reviewed this case. 11/23/2024 1:58 PM EDT [facility] Clinical History Pre-op diagnosis: 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] 11/23/2024 1:58 PM EDT [facility] Gross Description A. Received in formalin, labeled with the patient's name and number and left ear canal contents , are multiple fragments of ross-white soft tissue aggregating to 2.5 x 2.0 x 0.5 cm. The specimen is entirely submitted in one cassette. ATB Gross performed at: [facility] Department of Pathology [address] [place] [address] 11/23/2024 1:58 PM EDT [facility] Tissue (EAR EXTERNAL AUDITORY CANAL LEFT) 11/21/2024 12:21 PM EDT 11/21/2024 12:42 PM EDT Comment:Pre-op diagnosis: 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] Rashmi Christine MD LAB PATHOLOGY ORDERABLES Final Result Performing Organization Address City/State/[facility] Co de Phone Number [facility] [address] [id number] [facility] [address] [place] [address] * ID AN ELECTIVE ENDOTRACHEAL AIRWAY (11/21/2024 10:46 AM [...] to MOV. Pt intubated by DENY Ross. us Joo Andres MD ANESTHESIA ORDERABLES Final Resu lt * CT transfer of outside films (09/01/2024 2:50 PM EDT) Narrative IMAGING - 09/01/2024 2:51 PM EDT Outside images for comparison or treatment purposes, not interpreted by Radiologists. us Rashmi Christine MD IMG CT PROCEDURES Final Result IMAGING from Last 3 Months Additional Health Concerns Active Problems Noted Date Diagnosed Date Autogenerated Problem 11/22/2024 Insurance [employer] [place] [employer] Advance Directives For more information, please contact: [phone] (Available ) * Full Code (Latest Code Status on File) Date Activated Date Inactivated Comments 11/21/2024 9:27 AM Question Answer Comments Plan of Care: Code Status Discussion Completed Decision Maker: Patient Care Teams Custodial Officer Relationship Specialty Start Date End Date Kartik Priest DO PCP - General 10/07/21
--- OUTSIDE RECORDS SUMMARY | 2024-11-26 11:53 | XMS_ITS | CCD ---
Author Organization [facility] Care Team Providers Care Asphalt Raker Name Role Phone Kartik Priest Unavailable Unavailable Unavailable Sander, Dr. Rashmi Churchill Admitting Unava ilable Sander, Dr. Rashmi Churchill Referring Unava ilable Sander, Dr. Rashmi Churchill Attending Unava ilable Kartik Priest Primary Care Unavailabl e Sander, Dr. Rashmi Churchill Attending Unava ilable Self, Referral Referring Unavailable Kartik Priest Primary Care Unavailabl e Sander, Dr. Rashmi Churchill Referring Unava ilable Sander, Dr. Rashmi Churchill Attending Unava ilable Kartik Priest Primary Care Unavailabl e Sander, Dr. Rashmi Churchill Referring Unava ilable Sander, Dr. Rashmi Churcihll Attending Unava ilable Kartik Priest Primary Care Unavailmichelle e Kartik Priest Unavailable DR KARTIK PRIEST Attending Unavailable JENNIFER, DR BOLIVAR Consulting Unavailable JENNIFER, DR BOLIVAR Primary Care Unavailable JENNIFER, DR BOLIVAR Admitting Unavailable DO Kartik Priest Primary Care Provider [phone] MD Rashaun William Attending Provider DO Kartik Priest Primary Care Provider [phone] MD Rashaun William Attending Provider [phone] Kartik Priest Primary Care Unavailable Rashaun William Admitting Unavailable Rashaun William Attending Unavailable Kartik Priest Primary Care Unavailable Rashaun William Admitting Unavailable Rashaun William Attending Unavailable NO FAMILY, PHYSICIAN Primary Care Unavailable Nicolasa Delgado Admitting Unavailable Nicolasa Delgado Attending Unavailable Danny, MAGDALENA Fraser Attending Provider [phone] NO FAMILY, PHYSICIAN Primary Care Provider Unava Kartik Morel MD Primary Care Provider Carolyn Jasmine MD Unavailable Kartik Priest MD Primary Care Provider Kartik Priest DO Primary Care Provider TIMCAROLYN LEES Attending Unavailable TIMMIS, CAROLYN H Referring Unavailable TIMMIS, CAROLYN H Attending Unavailable RUSHERFIDEL Attending Unavailable VISCI, MARIEL Saunders Attending Unavailable TIMMIS, CAROLYN H Attending Unavailable TIMMIS, CAROLYN H Attending Unavailable PETITTI, RAULITO Saunders Attending Unavailable Kartik Priest DO Primary Care Provider BENJIE KOENIG Attending Unavailable KARTIK PRIEST Primary Care Unavailable SANDER, RASHMI E Referring Unavailable KARTIK PRIEST Primary Care Unavailable SANDER, RASHMI E Attending Unavailable JEREMIAHMIAshley, CAROLYN CHOUDHURY Referring Unavaila ble JENNIFER, KARTIK E Primary Care Unavailable Wayne Munoz Attending Unavailable Marcus Vera Jr Attending Unavailable Wayne Munoz Attending Unavailable Kamla Verdin Referring Unavailable SANDER, RASHMI E Admitting Unavailable SANDER, RASHMI E Attending Unavailable JEREMIAHMIAshley, CAROLYN CHOUDHURY Referring Unavaila ble BALL, KARTIK E Primary Care Unavailable Allergies Allergy Classification Reported Allergen(s) Allergy Type Date of Onset Reaction(s) Facility (3 sources) patient allergy list reviewed by nurse or physicia Propensity to adverse reactions 4 Comment:Done Giving Assistant Other (1 source) ALLERGIES NOT ON FILE; Translations: [ALLERGIES NOT ON FILE] Propensity to adverse reactions (disorder) [facility] Medications Current Medications Medication Drug Class(es) Dates [...] 5 day(s) Apr, Not-Taking/PRN polyethylene glycol 3350 60420 mg powder for oral solution (3 sources) [...] Discontinued 2 DROPS OPHTHALMIC Four times daily 5 August 04, 2023 12:00am December 26, 2023 1:18pm [...] ear; Translations: [Unspecified cholesteatoma, left ear] Onset: 09-01-2024 Episodic Other female genital disorders (2 sources) [...] Test Name Value Interpretation Reference Range Facility Surgical pathology studyon 0 11-21-2024 Surgical pathology study Pathology report.total SEE COMMENT Surgical Pathology Case: [id number] Authorizing Provider: Rashmi Boucher MD Collected: 11/21/2024 1221 Ordering Location: [facility] OR Received: 11/21/2024 1242 Pathologist: Avril Mckoy MD PhD Specimen: EAR EXTERNAL AUDITORY CANAL LEFT, LEFT EAR CANAL CONTENTS Path report.final diagnosis SEE COMMENT A. Left ear canal contents: - Cholesteatoma at 1358 EDT Laboratory comment By the signature on this report, the individual or group listed as making the Final Interpretation/Diagnosis certifies that they have reviewed this case. Path report.relevant Hx SEE COMMENT Pre-op diagnosis: 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] Path report.gross observation SEE COMMENT A. Received in formalin, labeled with the patient's name and number and left ear canal contents , are multiple fragments of ross-white soft tissue aggregating to 2.5 x 2.0 x 0.5 cm. The specimen is entirely submitted in one cassette. ATB Gross performed at: [facility] Department of Pathology [address] [place] [address] [facility] Comment on above: Order Comment: Pre-o p diagnosis: 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] CT TRANSFER OF OUTSIDE FILMS on 09-01-2024 CT TRANSFER OF OUTSIDE FILMS Outside images for comparison or treatment purposes, not interpreted by Radiologists. Normal [facility] Study Interpretation of outs chani [...] report is generated using voice recognition reporting ([employer]). On occasion [employer] erroneously drops words from the report or replaces the spoken word with similar sounding words. Please call with any questions/concerns regarding this report.* Dictated and transcribed 07/11/24/dpd This report has been electronically signed and approved by the interpreting radiologist. Normal Not Available Comment on above: Order Comment: CT Te mporal WO at [facility]. Please call patient to schedule. HX CHOLESTEATOMA LT EAR No Panel Informationon 02-15 [facility] Laboratory - Microbiology an d Antimicrobial susceptibilityon 01-01-2024 Bacterial vaginosis and vaginitis DNA panel Probe+sig amp (Vag fld) Negative [facility] No Panel Informationon 12-31 Interpretation and review of laboratory results Abnormal [facility] Trichomonas, UA Negative [facility] Yeast Negative [facility] + Parabasal cells c/ w atrophy [facility] Urine Cultureon 12-26-2023 Bacteria identified Cx Nom (U) ORGANISM: Escherichia coli (O:ESCCOL) Rougon Count >100,000 Aerobic MARQUIS Charge (NMIC56) SUSCEPTIBILITY [...] RESISTANT TO ALL B-LACTAM DRUGS. PERFORMED BY: [address] [address] PATHOLOGIST SCRIPT READER SACHIN RAI M.D. Normal [facility] Comment on above: Performed By: #### C UU #### [address] [place] [address] [facility] ECG 12 lead ECGon 01-07-2023 ECG 12 lead ECG [facility] [place] [address] [place] [address] Electrocardiograph Report Signed Patient: Mai Miller MR#: [id number] : 1965 Acct:[id number] Age/Sex: 57 / F ADM Date: 01/07/23 Loc: Room: Type: [facility] Attending Dr: Rashaun William MD Ordering [...] Electronically Signed By:AMINA APODACA DO Transcribed By: MUS Signed By Amina Apodaca DO 01/07 1810 Normal [facility] CBC AUTO DIFFon 07-10-2022 BASO # 0.0 103/ul Normal 0.0-0.1 [facility] Comment on above: Performed By: #### C BC #### [facility] [address] [place] [address] Dr. Nelly Virk Basophils/100 WBC (Bld) 0.8 % Normal 0.2-2.0 [facility] Comment on above: Performed By: #### C BC #### [facility] [address] [address] [address] Nelly Virk EO # 0.1 103/ul Normal 0.0-0.7 [facility] Comment on above: Performed By: #### C BC #### [facility] [address] [place] [address] Dr. Nelly Virk Eosinophils/100 WBC (Bld) 2.3 % Normal 0.9-7.0 [facility] Comment on above: Performed By: #### C BC #### [facility] [address] [place] [address] Dr. Nelly Virk Erythrocyte distribution width (RBC) [Ratio] 12.3 % Normal 11.0-15.0 [facility] Comment on above: Performed By: #### C BC #### [facility] [address] [place] [address] Dr. Nelly Virk Hematocrit (Bld) [Volume fraction] 41.4 % Normal 36.0-48.0 [facility] Comment on above: Performed By: #### C BC #### [facility] [address] [place] [address] Dr. Nelly Virk Hemoglobin (Bld) [Mass/Vol] 13.5 g/dL Normal 12.0-16.0 [facility] Comment on above: Performed By: #### C BC #### [facility] [address] [place] [address] Dr. Nelly Virk IG # 0.01 10e3/ul Normal 0.00-0.03 [facility] Comment on above: Performed By: #### C BC #### [facility] [address] [place] [address] Dr. Nelly Virk IG % 0.2 % Normal 0.0-0.5 [facility] Comment on above: Performed By: #### C BC #### [facility] [address] [place] [address] Dr. Nelly Virk LYMPH # 1.9 103/ul Normal 1.2-3.8 [facility] Comment on above: Performed By: #### C BC #### [facility] [address] [place] [address] Dr. Nelly Virk Lymphocytes/100 WBC (Bld) 40.6 % Normal 20.5-60.0 [facility] Comment on above: Performed By: #### C BC #### [facility] [address] [place] [address] Dr. Nelly Virk MANUAL DIFF REQ NO Normal [facility] Comment on above: Performed By: #### C BC #### [facility] [address] [address] [address] Nelly Virk MCH (RBC) [Entitic mass] 30.8 pg Normal 26.7-34.0 [facility] Comment on above: Performed By: #### C BC #### [facility] [address] [address] [address] Nelly Virk MCHC (RBC) [Mass/Vol] 32.6 g/dL Normal 29.9-35.2 [facility] Comment on above: Performed By: #### C BC #### [facility] [address] [address] [address] Nelly Virk MCV (RBC) [Entitic vol] 94.5 fL Normal 81.0-99.0 [facility] Comment on above: Performed By: #### C BC #### [facility] [address] [place] [address] Dr. Nelly Virk MONO # 0.4 103/ul Normal 0.3-0.8 [facility] Comment on above: Performed By: #### C BC #### [facility] [address] [place] [address] Dr. Nelly Virk Monocytes/100 WBC (Bld) 8.5 % Normal 1.7-12.0 [facility] Comment on above: Performed By: #### C BC #### [facility] [address] [place] [address] Dr. Nelly Virk NEUT # 2.2 103/ul Normal 1.4-6.5 [facility] Comment on above: Performed By: #### C BC #### [facility] [address] [place] [address] Dr. Nelly Virk Neutrophils/100 WBC (Bld) 47.6 % Normal 43.0-75.0 [facility] Comment on above: Performed By: #### C BC #### [facility] [address] [place] [address] Dr. Nelly Virk Platelet mean volume (Bld) [Entitic vol] 9.3 fL Critically low 9.5-13.5 [facility] Comment on above: Performed By: #### C BC #### [facility] [address] [address] [address] Nelly Virk PLT 207 103/ul Normal 150-450 [facility] Comment on above: Performed By: #### C BC #### [facility] [address] [address] [address] Nelly iVrk RBC 4.38 106/ul Normal 4.20-5.40 [facility] Comment on above: Performed By: #### C BC #### [facility] [address] [address] [address] Nelly Virk WBC 4.7 103/ul Normal 4.0-11.0 [facility] Comment on above: Performed By: #### C BC #### [facility] [address] [place] [address] Dr. Nelly Virk LIPID PROFILEon 07-10-2022 CHOL-HDL RATIO NORM SEE BELOW Normal [facility] Comment on above: Result Comment: 3.3 - 4.4 LOW RISK 4.4 - 7.1 AVERAGE RISK 7.1 - 11.0 MODERATE RISK >11.0 HIGH RISK Performed By: #### L IPID, CMP, TSH #### [facility] [address] [place] [address] Dr. Nelly Virk Cholesterol [Mass/Vol] 219 mg/dL Critically high <=200 [facility] Comment on above: Performed By: #### L IPID, CMP, TSH #### [facility] [address] [place] [address] Dr. Nelly Virk Cholesterol in HDL [Mass/Vol] 80 mg/dL Critically high 40-60 [facility] Comment on above: Performed By: #### L IPID, CMP, TSH #### [facility] [address] [place] [address] Dr. Nelly Virk Cholesterol in LDL [Mass/Vol] 111.2 mg/dL Normal [facility] Comment on above: Performed By: #### L IPID, CMP, TSH #### [facility] [address] [place] [address] Dr. Nelly Virk Cholesterol.total/C holesterol in HDL [Mass ratio] 2.7 {ratio} Normal [facility] Comment on above: Performed By: #### L IPID, CMP, TSH #### [facility] [address] [place] [address] Dr. Nelly Virk HDL NORMAL > or = 60 mg/dl - LO W CARDIOVASCULAR RISK <40 mg/dl - HIGH CARDIOVASCULAR RISK Normal [facility] Comment on above: Performed By: #### L IPID, CMP, TSH #### [facility] [address] [address] [address] Nelly Virk LDL CALC NORMAL SEE BELOW Normal [facility] Comment on above: Result Comment: <100 mg/dl OPTIMAL 100 - 129 mg/dl NEAR OR ABOVE OPTIMAL 130 - 159 mg/dl BORDERLINE HIGH 160 - 189 mg/dl HIGH >190 mg/dl VERY HIGH Performed By: #### L IPID, CMP, TSH #### [facility] [address] [place] [address] Dr. Nelly Virk Triglyceride [Mass/Vol] 139 mg/dL Normal <=150 [facility] Comment on above: Performed By: #### L IPID, CMP, TSH #### [facility] [address] [place] [address] Dr. Nelly Virk VLDL CALC 27.8 mg/dL Normal [facility] Comment on above: Performed By: #### L IPID, CMP, TSH #### [facility] [address] [place] [address] Dr. Nelly Virk PROF 14(COMP METB)on 023 Albumin [Mass/Vol] 3.7 g/dL Normal 3.4-5.0 [facility] Comment on above: Performed By: #### L IPID, CMP, TSH #### [facility] [address] [place] [address] Dr. Nelly Virk Albumin/Globulin [Mass ratio] 1.0 {ratio} Normal [facility] Comment on above: Performed By: #### L IPID, CMP, TSH #### [facility] [address] [place] [address] Dr. Nelly Virk ALP [Catalytic activity/Vol] 62 U/L Normal 46-116 [facility] Comment on above: Performed By: #### L IPID, CMP, TSH #### [facility] [address] [address] [address] Nelly Virk ALT [Catalytic activity/Vol] 24 U/L Normal 14-59 [facility] Comment on above: Performed By: #### L IPID, CMP, TSH #### [facility] [address] [address] [address] Nelly Virk Anion gap [Moles/Vol] 14.4 mmol/L Normal [facility] Comment on above: Performed By: #### L IPID, CMP, TSH #### [facility] [address] [place] [address] Dr. Nelly Virk AST [Catalytic activity/Vol] 16 U/L Normal 15-37 [facility] Comment on above: Performed By: #### L IPID, CMP, TSH #### [facility] [address] [place] [address] Dr. Nelly Virk Bilirubin [Mass/Vol] 0.4 mg/dL Normal 0.2-1.0 [facility] Comment on above: Performed By: #### L IPID, CMP, TSH #### [facility] [address] [place] [address] Dr. Nelly Virk Calcium [Mass/Vol] 8.9 mg/dL Normal 8.5-10.1 [facility] Comment on above: Performed By: #### L IPID, CMP, TSH #### [facility] [address] [place] [address] Dr. Nelly Virk Chloride [Moles/Vol] 104 mmol/L Normal 98-107 [facility] Comment on above: Performed By: #### L IPID, CMP, TSH #### [facility] [address] [place] [address] Dr. Nelly Virk CO2 [Moles/Vol] 26.6 mmol/L Normal 21.0-32.0 [facility] Comment on above: Performed By: #### L IPID, CMP, TSH #### [facility] [address] [address] [address] Nelly Virk Creatinine [Mass/Vol] 0.88 mg/dL Normal 0.55-1.02 [facility] Comment on above: Performed By: #### L IPID, CMP, TSH #### [facility] [address] [address] [address] Nelly Virk EGFR-AF BENINESE >60 Normal >=60 [facility] Comment on above: Performed By: #### L IPID, CMP, TSH #### [facility] [address] [address] [address] Nelly Virk EGFR-NON AF BENINESE >60 Normal >=60 [facility] Comment on above: Performed By: #### L IPID, CMP, TSH #### [facility] [address] [address] [address] Nelly Virk Globulin (S) [Mass/Vol] 3.8 g/dL Normal [facility] Comment on above: Performed By: #### L IPID, CMP, TSH #### [facility] [address] [address] [address] Nelly Virk Glucose [Mass/Vol] 108 mg/dL Critically high 74-106 [facility] Comment on above: Performed By: #### L IPID, CMP, TSH #### [facility] [address] [address] [address] Nelly Virk Potassium [Moles/Vol] 4.0 mmol/L Normal 3.5-5.1 [facility] Comment on above: Performed By: #### L IPID, CMP, TSH #### [facility] [address] [address] [address] Nelly Virk Protein [Mass/Vol] 7.5 g/dL Normal 6.4-8.2 [facility] Comment on above: Performed By: #### L IPID, CMP, TSH #### [facility] [address] [address] [address] Nelly Virk Sodium [Moles/Vol] 141 mmol/L Normal 136-145 [facility] Comment on above: Performed By: #### L IPID, CMP, TSH #### [facility] [address] [address] [address] Nelly Virk Urea nitrogen [Mass/Vol] 18.0 mg/dL Normal 7.0-18.0 [facility] Comment on above: Performed By: #### L IPID, CMP, TSH #### [facility] [address] [address] [address] Nelly Virk Urea nitrogen/Creatinine [Mass ratio] 20.5 mg/mg Normal [facility] Comment on above: Performed By: #### L IPID, CMP, TSH #### [facility] [address] [address] [address] Nelly Virk TSHon 07-10-2022 TSH 4.057 uIU/mL Critically high 0.358-3.740 [facility] Comment on above: Performed By: #### L IPID, CMP, TSH #### [facility] [address] [address] [address] 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 Boucher?s clinic. We are here to assist you through your ENT care at . Dr. Boucher is an Ear surgeon. This means that she specializes in taking care of patients with complex ear problems. Dr. Boucher's office number is [phone]. While you may see her at a satellite office, she has a team committed to help meet your healthcare needs at 's main campus. This number is the most direct way to communicate with the office. Symone is Dr. Boucher?s coordinator of genetic services and she answers the office phone from 8am-4pm Mon-Fri. She can help you with many general [...] may include dieticians, social workers, speech therapists, tank setter helper, neurologist, and physical therapist. Dr. Boucher will provide these referrals as needed. Please let her know if you would like to request a specific referral. For your convenience, Dr. Boucher sees patients at several locations including [facility] and [facility] at the main campus [facility]. While we try to make your [...] History o (more content not included)... 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 Boucher?s clinic. We are here to assist you through your ENT care at . Dr. Boucher is an Ear surgeon. This means that she specializes in taking care of patients with complex ear problems. Dr. Boucher's office number is [phone]. While you may see her at a satellite office, she has a team committed to help meet your healthcare needs at 's [facility]. This number is the most direct way to communicate with the office. Symone is Dr. Boucher?s coordinator of genetic services and she answers the office phone from [...] office. Pj is in clinic with Dr. Boucher?ashley on Mondays and Tuesdays. Non-urgent calls will be returned on non-clinic days typically . Sometimes, other team members will also be involved in your care. These people may include dieticians, social workers, speech therapists, tank setter helper, neurologist, and physical therapist. Dr. Boucher will provide these referrals as needed. Please let her know if you would like to request a specific referral. For your convenience, Dr. Boucher sees patients at several locations including [facility] and [facility] at the main campus of . While we try to make your appointments [...] Normal streng (more content not included)... Normal [facility] No Panel Informationon 01-24 MG-Otolaryngo logy-[facility] 2228 Work Phone: Order Reconciliationon 01-24 Order Reconciliation Page 1 Discharge Reconciliation Document Reconciliation Type: Discharge requested on behalf of Mariel Thurman (Resident) done by Mariel Thurman ( (Resident)) Discharge - Reconciliation: 24-Jan-2022 11:05 by: Mariel Thurman ( (Resident)) Discharge - Reset to Incomplete: 24-Jan-2022 [...] with you (more content not included)... Normal [facility] Surgical Pathology Depar tmenton 01-24-2022 [facility] Surgical Pathology Department Name MAI MILLER Pathologist: ANDREWS SERRANO DMD. Date of Procedure: 01/24/2022 Date Received: 01/24/2022 Date Reported 02/10/2022 Submitting Physician: RASHMI BOUCHER MD Location: [facility] Copy To/Referring/Attending: RASHMI BOUCHER MD Other External [...] reviewed this case. Diagnostic interpretation performed at [place] [address] Clinical History: Physician Contact Number: [phone] Fixative (A): Formalin Clinical Diagnosis History 56 [...] positive and negative controls which stained appropriately. [facility] Department of Pathology [address] [place] [address] Normal [facility] Comment on above: Performed By: #### [facility] #### [facility] Surgical Pathology Department [address] [place] [address] Patient Profile - Preop v3on 01-08-2022 Patient Profile - Preop v3 Patient Profile - Preop: Initial Info: Patient DemographicsName: MAI MILLER Date: 1965 Address: [address] [place], [facility] Date/Time [id number] 13:32 Primary Phone [phone] Instructions GivenStop taking aspirin, NSAIDs (Ibuprofen, Motrin, [...] 24, 2022 Primary Contact Name and [phone] Limitations on Visitors/Phone Callsnone Medications Brought to [facility]: Weight in kg80 kilogram(s) Weight in xep683.3 pound(s) Weight Methodstated Scale Typestanding Height in feet5 feet Height in inches5.94 inch(es) Height in cm167.4 centimeter(s) Height Methodstated BMI (kg/m2)28.548 square meter Patient or Family Member Reaction to AnesthesiaPatient [facility] the [facility]. 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 Symptoms/Conditions Commenttakes estrogen Barriers to Managing Healthnone Relationship/Environ: Lives Withspouse Living Arrangementshouse Resource/Environmental Concernsnone [facility] Antic[facility] at Transition[facility] Tobacco Use: Tobacco Useno Never smoker EtOH: 1 drink per week Denies medical marijuana, recreational drug use Pre-op Checklist: Procedure TypeLEFT SIDE LATERAL GRAFT TYMPANOPLASTY WITH POSSIBLE OCR NPOyes Last Food [id number] 19:00 Last Clear Fluid [id number] 19:00 ID Band On Patientpatient ID (name) [...] Health Mgmt, Tobacco Use, Additional Information Rachelle Murillo (KISHORE) (Signed 24-Jan-2022 10:57) Authored: Initial Info, General Health, Health Mgmt, Relationship/Environ, Pre-op Checklist Last Updated: 24-Jan-2022 10:57 by Rachelle Murillo (KISHORE) Normal [facility] Diagnostic Mammogram, Unilat eral left w/Jose [...] VERY IMPORTANT TO YOUR HEALTH. 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 THE CURRENT [employer] NETWORK GUIDELINES RECOMMENDS ANNUAL MAMMOGRAPHY BEGINNING AT AGE 39. THIS FACILITY USES A REMINDER SYSTEM TO ENSURE ALL PATIENTS RECEIVE REMINDER NOTIFICATIONS AT THE APPROPRIATE TIME BASED ON THE RECOMMENDATIONS OF THIS EXAM. Asymmetry: Visible on only one projection. Asymmetries that returns clerk to be summation artifact are benign (BI-RADS 2). 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 Boucher?s clinic. We are here to assist you through your ENT care at . Dr. Boucher is an Ear surgeon. This means that she specializes in taking care of patients with complex ear problems. Dr. Boucher's office number is [phone]. While you may see her at a satellite office, she has a team committed to help meet your healthcare needs at 's main campus. This number is the most direct way to communicate with the office. Symone is Dr. Boucher?s coordinator of genetic services and she answers the office phone from [...] may include dieticians, social workers, speech therapists, tank setter helper, neurologist, and physical therapist. Dr. Boucher will provide these referrals as needed. Please let her know if you would like to request a specific referral. For your convenience, Dr. Boucher sees patients at several locations including [facility] and [facility] at the main campus [facility]. While we try to make your [...] MG Oral Tablet Vitals Vital Signs Recorded: [id number] 04:10PM Gbztqp863 lb Tobacco Useb) No Falls Screening (Age [...] or perfora (more content not included)... Normal [employer] Tobacco Screening.on 022 Fall risk assessment a) No falls within the last year MG-Otolaryngo logy-[employer] Work Phone: Tobacco use status [facility] b) No MG-Otolaryngo logy-[employer] 3300A Work Phone: COVID-19 ([facility])on 06-12-2021 SARS-CoV-2 (COVID-19) RNA CLAUDE+probe Ql (Resp) Not detected Normal Not Detected [facility] Comment on above: Result Comment: This test result should be correlated with clinical presentations and medical history by a healthcare provider to determine its clinical significance. This assay was performed by a reverse transcriptase real-time polymerase chain reaction (rt PCR) method on the [employer] system. This test has been authorized only [...] or revoked sooner. Performed By: #### 2 [id number] #### [facility] Laboratory [address] [place] [address] SARS-CoV-2 (COVID-19) RNA CLAUDE+probe Ql (Unsp spec) Pass Normal Pass [facility] Comment on above: Performed By: #### 2 [id number] #### [facility] Laboratory [address] [place] [address] Specimen source Nom (Unsp spec) Nasal Normal [facility] Comment on above: Performed By: #### 2 [id number] #### [facility] Laboratory [address] [place] [address] Coding Summary.on 06-12-2021 Coding Summary. CD:[id number] Gh0bW w+PGhlYWQ+ZB8KYZAbO19ssKV dtX2HJ9fLWJ1VZKDHVTCDHK4G VJ4xgPR8DIqvB7ErvdTv AufnhMLjYD62AOl1PED9fAnbX PfucP3wmOXjP7t7YbQkPI52vK 00TVzaOWDpPxL7HqDfifolqGJ y G4yqPnXevDZkMll+PHRhYmxlI HdpZHRoPScxMDAlJyBzdHlsZT 9hWk6hDWFqWPEjqByieAHzRlJ j n3xoJVWqCWcjWL8lkMgcC6Xvg UB5FQNqs0j7Th18jWX+PHRkIH G5yYopRAqdp313EfQsw2voTRU 3 wPFbWSljITQ8O11ou9A3TARxK KElEEJ1wBM9wR2beKimneeeK8 QlmBIcAmB4TTZ7iNJkrR9xmUq n duivaK2yJxq+H57AGC2NRDJYE S6VEjq3L3ZzKnhgdPR+PC90YW NoXC25bHMpsECvi9pvjQe8OpY w LDRrVXI9vKtxBGznz9SoQJKiU 60arGUec8Q5SVFmeHwyiVNbDb JmdDN3uG6iXEuxrsjxs9ssrhs n Sisqq5akga53oM64G59lPVchD VEwHLG5PNGsGAXwzJzfzp2avQ 9wIi8+GPwfr1mil1ztoFg7WhR w BOXuakSxfCxuVFQ7s7KgPc24A 6LvcLfqj0CbSfi1lv88cHLlh6 X1kBD3OGjiYXEhwT7lXVyvGbB 6 EFYyUdIgcQ70wSJmWFpbKy8yr JhxlXsrDA7mKDRzxunaIDZghW 7zEJAxpWUrpZiiYZ8kXZPkttb m f940WeIiTUV3AOLbiJRdS5Rle O2yOmLkRPSiSNQbF9TuyOOzBJ eiL465ZPgcCbA4VNZfrsPlB2X s OFHoyFzjUaP0t2C7Ai7Zi0Rhq swqGXX4HRagZFXyBaOmApAvGg C4J7UaOot6WFFbvAgwQJ5qM9G h WSRwiluegdzmuTW2TJPjAFXxj E66pLPmZTulNm2lg6G1j696EW KbPOZttP01Ym0mvCvkFIFsjSA U kQ1zvqehx3nmbpzuScYpXRIjJ Iz2CAy2AFIizCyjBbEuMPF0Tq B8LYM4aXYqtL7tnLzvjryhxX8 w Oyc+Z44qiA1vAKF3MNW7fdfnH ABcblChAT68OI27U6AzUqgniD FibGU+XCJmopOgtUjfOU6uVuI j n0fwm1StSMnwQ5KvTSYrKAdmQ jt6PTBdCSS6xQJ5kC0dEQQeVY exd4F2jFL0M3HcznJgez7ry0h s QBAyHOetX83mbSXtj3T5JEVgf TS3DPGhuMcbXmGnfU20Qrz+PG KjyPnkn1DkRipwe1nah0coxOz 9 ZjNqHSYgtrHvzMomDPQ6p1BuZ i65B26vIKwdYDPaLUHbPMTxEZ WbnTuroy2vsM7kYz6+PGNvbCB 3 lLQ0aX9fOHNzKkK9JGnlG588F sFafAHaGzzmj5rsv7upqNu6St RyITLtqgIyjVhhPQM8i5AbDs3 8 W65mAIalYMAbITQqOQTbXOFsa Hsgnv9jmH3xYp2+AB9wm0slmn 10wP45zDD+ILFmTTX5vVjqHKs w ZRKlnZ5jHScmQiO1XZFeBhWcz C65vWQxLVkxGk4oyJdggQvaFA 9jTFQtzklyt158MzEbk1yyHYF w iQTaNWnvXKY2D87jj4F4CXPvP TFrESF3rUV2cB2xtDhkeucziR FlpGjwwzUwrIitYQguPMywZ39 6 IHRvcDsnPlBhdGllbnQgTmFtZ Oe2W4BrHph9VOCngGyoBD6uaT CqJOkhXn2jbKtqpHkxXC7sLUJ p wxewn658GaRwv7vpRWNcaQJsR JmaMVP4G61eh3N1AOYeLGWgVU G5oVA2oW8ksCwolkklqTSljDf g pmTajPdjBLgzJTrjI787GAMer KiwFrDxofBaJJLgiWY9YC71OK 10eEXtn1Y2vQE8K4NuUZNdfiu t roineHQ3UNWtXXPfuB67Li2rq QvsKf5hHTFtNTM1XGTdaLYtB2 PwjK4tFlMiSCPxOBWhM7PgkJG t NUibH655UJxdSaC9DAArrmErF 5GgYFJpcJgoFrH2h7C5Pl8TA1 D6LI13OH62aNZdi1Y7sZW5G4V h GVKzhuveieuvaJN2NYHfKBJez O37Az4gqNljWy8sZRGcGGL5FY XsdJAeM7PjyV9lMuEgFSCbZHD w B5PstRMeJAajI212RMdtXvZ7S GMvxmXsK1IvRLJabWjcJlZ3q0 Q7Il0SLLl4TI80MP83kBFwm2G 5 iEX9V3RzATYzlolzqtwtjWZ3O KPpNMTmdS24Hf5rrSdeQh9hTG VhOOK2QLEbmNGeV3XxpS9vTlF j RBReAQLbJ3GuxVRdSHolI726K DuzSoF7BPCtvgVzM5LsBCZxgC fzCxE3f3S9Lo4KGDMjOE25MXX 5 yAD5GD05VE85G2SlQjkobAEit +PHRhYmxlIHdpZHRoPScxMD ZaCsHskYueSS3oXx1aNFUjNPL v fVhwnOJmXjJsd6woGUOgMCywW L5uoQeqO9XleFI9FVDjv1m4So 34D43nY9PtmSE+ETVeaYC1yUF 0 fJ4uLvJcIgD4ZKtdR871NgQbd ABzYpxgs8ycc9tlbEd9KbF2GU GwilVkzUkaQSX4t1ZgTw86Z30 s IHdpZHRoPSIxNSUiIHZhbGlnb m2boJ2eFs9+MJXjlKG1wPI7mN 7hKcIjNxN1PEjlU273HxUkhHW v Fvzjz0npf8bqgAf5FxOhKGBip qEijPblYJS5a5GoFs48W7VbpU bzb5MiAsj2fy65rYQnt2K3xBK 9 U2YtYPBtzloutWXmeVwtVY1rP EDwoktuQLMzzI3tKPDjL4o5Ai HeNkH3KKwgR0KqgvL6TBPpuDT g TDwgKAK2R25nb3F4SLWwRBPjF SA2qZV9jH8ajWsuewachFRshC dcqgVzoLczGMuyEMjsQ409FBG v qJveEOHjbV6wUSWktGKdqXeaN E0pJWCxetioSpKMXLAsON8MO4 rmJUjKIFWOVD2uHQdxrYE+PHR k AFJ1pYwxKQcfSLMklE9rFSKcN 1p0UpStJvF5DAhsR5SqZQXocm agBx53sU6eLhWlKmM7ARbfN6E v bpK7VXXzaDWzSKqkMPC6G97wc 4F0EGXjZRUpLRV4zTT9wI8odV lnbjogbGVmdDsgdmVydGljYWw t FVbjB810TTPbvEqzYpZ1WdY0F hP6SkV6T3VeOzi0UTHijJmeQH 3swNZuXOeoNb4srFbtzVsgQY4 w EGZqijveWYRouZ3gUBUijFUpp XdyJJ2rPIHzxvpkt929BbReDM S8YNPkhIGuA0UsjP5zEiHrRYH w XHPzZ7NbtEAaAIxsD520WLpbC wQ4XWAcrzAkI7CzAVYbbWnvSc Q1s5Z4Od74PpANZHHkmovjaWL + TZLnEGQ8cZujDYcxFTEucY0hC VBzK2m7QoTlZlS6DQrdW8UhXF RsumcdRu50cO7zZmQuXiI7LZy u I5GjywA6POVyeUOhBSkxDKE3N 23ea2D5VUFzRRLlTDM2yFC3xL 1hbGlnbjogbGVmdDsgdmVydGl j SSkkBLpcK265PLVfePguPvLtk WFsZTwvdGQ+ZQElFCJ1pAjnXT qzRIZapN2mWZCgE8j2NjSfEcT 1 TMmbF4WtAPHkviaaMi56wW6rH jRfBrW8CXpjB1MiaqB9XWZtkX KkAXkhLNQ9F05dp7F1KVJgSUI w IUO2dNT3cS2yyYmzyboiqWAnw PautiKiaDdmEMbjLBggD214GC HedIunVbQwN0RzqjotXwmlsPO + FQ56ao39X1LzPoyfAyu3EGNiO TV3yQT7aQ7eRBAqUCenw9D8gE K9V8SircQmfr9gi5rgOQHvJZw g M18djPMbv9P2YKHfuEP3VUYjk DssVqPloK36Iev+PGNvbGdyb3 RiVffab7ker3mjuDv1MfGnGZN g rlVeaKfnGFT4u7VmOp19W69kO HdpZHRoPSIzMCUiIHZhbGlnbj 8orR2gBm9+ETNlzMM1kXY0eX2 i AkTeKiD2XOnfS834DvImxPLsQ maah4dde4cvdMp4LlDiUEOjzi EzvBayAQM1c9GdLs20G1HjwId y q6ByPcc7zf98gTDru2R3jVA4G 3GoPICdfdzmsUHriVezPX1iXD YyfhqyTOIizO6zVIGhY8d1MkN w WmT0LXgsU9IoiuV9DTRqzBOzQ XBldQRZaK6ghtbpv0eolkqdUs KlAFZyWEi5AGi5JSTpvUlpYrB s WEJ0BfU1SQF9pHZxiM6xfJyoe blugH9eZps+QEa2q3uvgYIxRZ 5ndKT4OW61GS74zBVzp3K8gLM 9 Q5KbMPOkkgwztuehaRN0AHFgT IWwzI30Ry8olOhtPt7qLYVwJD C7AMAmmWYbU6GymT7vRyPbRFU w HKXiT2ZbhHWhGVqyT157GFrhV gS8IBZsoaAaD9JmAJAirRxoKc A1m9D7Sv2OAN42GP56XG32fHB g y6S6aDO7R7ImBHRoctiiiyaxa WR4NBEwEEThvX79Ep3upPzkNn 1wMMGePSJ0CNIvsBSdG7CltY8 y EjRjJBOyCTLrU3AffRSqGMcbZ 092AXzyOmI4QCTixqTfY5NmEU AyyAhxCbT0v5Y4Ie8HJg29OZ0 0 VD57cIMjy3R2nSH8B6DjOOVmk wvuryxabUQ1MNIfDHQygJ64Gg 5epGxeNn7gZTWdFNH7EYTuqPO z U8ObgP0cSgMdHIJxNXInX9Toi VOyPLpsM484EYvoLiN3MCWztw KqQ4JrSDPsaIkcIhM9k6W1Rj5 Q FUokmpe9A5PuPzcviDV+PC90Y KVqQH78pFOjlUGen4bqdTr6Vz IdJMThEGA9vTfeVFrfo7WoBXP t Y29s (more content not included)... Normal [facility] Consent for Treatmenton 05-16 Consent for Treatment [id number]:127 Normal [facility] COVID-19 ([facility])on 06-11-2021 ADMITTED TO INTENSIVE CARE UNIT FOR CONDITION OF INTEREST:FIND:PT: NO Normal [facility] Comment on above: Performed By: #### 2 [id number] #### [facility] Laboratory [address] [place] [id number] EMPLOYED IN A HEALTHCARE SETTING:FIND:PT: Unknown Normal [facility] Comment on above: Performed By: #### 2 [id number] #### [facility] Laboratory [address] [place] [address] FIRST TEST FOR CONDITION OF INTEREST:FIND:PT: Unknown Normal [facility] Comment on above: Performed By: #### 2 [id number] #### [facility] Laboratory [address] [place] [address] HAS SYMPTOMS RELATED TO CONDITION OF INTEREST:FIND:PT: Unknown Normal [facility] Comment on above: Performed By: #### 2 [id number] #### [facility] Laboratory [address] [place] [address] HOSPITALIZED FOR CONDITION OF INTEREST:FIND:PT: NO Normal [facility] Comment on above: Performed By: #### 2 [id number] #### [facility] Laboratory [address] [place] [address] STATUS:FIND:PT: NO Normal [facility] Comment on above: Performed By: #### 2 [id number] #### [facility] Laboratory [address] [place] [address] RESIDES IN A [facility] CARE SETTING:FIND:PT: Unknown Normal [facility] Comment on above: Performed By: #### 2 [id number] #### [facility] Laboratory [address] [id number] Vital Signs Date Time Vital Sign Value Performing Clinician Facility 08-30-2024 09:51-0400 Body height 165.1 cm Rashmi Boucher MD Work Phone: [facility] 08-30-2024 09:51-0400 Body mass index (BMI) [Ratio] 29.95 kg/m2 Rashmi Boucher MD Work Phone: [facility] 08-30-2024 09:51-0400 Body weight 81.65 kg Rashmi Boucher MD Work Phone: [facility] 07-18-2024 11:20-0400 Body height 165.1 cm Carolyn Jasmine MD Work Phone: [facility] 07-18-2024 11:20-0400 Body mass index (BMI) [Ratio] 31.95 kg/m2 Carolyn Jasmine MD Work Phone: [facility] 07-18-2024 11:20-0400 Body weight 87.09 kg Carolyn Jasmine MD Work Phone: [facility] 07-18-2024 11:20-0400 Diastolic blood pressure 81 mm[Hg] Carolyn Jasmine MD Work Phone: [facility] 07-18-2024 11:20-0400 Heart rate 89 /min Carolyn Jasmine MD Work Phone: [facility] 07-18-2024 11:20-0400 Systolic blood pressure 136 mm[Hg] Carolyn Jasmine MD Work Phone: [facility] 07-13-2024 09:31-0400 Body height 165.1 cm [facility] 07-13-2024 09:31-0400 Body mass index (BMI) [Ratio] 31.4 kg/m2 [facility] 07-13-2024 09:31-0400 Body weight 85.72 kg [facility] 07-13-2024 09:31-0400 Diastolic blood pressure 84 mm[Hg] [facility] 07-13-2024 09:31-0400 Heart rate 91 /min [facility] 07-13-2024 09:31-0400 Respiratory rate 12 /min [facility] 07-13-2024 09:31-0400 Systolic blood pressure 127 mm[Hg] [facility] 07-05-2024 15:38-0400 Body height 165.1 cm Carolyn Jasmine MD Work Phone: [facility] 07-05-2024 15:38-0400 Body mass index (BMI) [Ratio] 32.28 kg/m2 Carolyn Jasmine MD Work Phone: [facility] 07-05-2024 15:38-0400 Body weight 88 kg Carolyn Jasmine MD Work Phone: [facility] 07-05-2024 15:38-0400 Diastolic blood pressure 76 mm[Hg] Carolyn Jasmine MD Work Phone: [facility] 07-05-2024 15:38-0400 Heart rate 85 /min Carolyn Jasmine MD Work Phone: [facility] 07-05-2024 15:38-0400 Systolic blood pressure 126 mm[Hg] Carolyn Jasmine MD Work Phone: [facility] 01-05-2024 15:39-0400 Body height 165.1 cm Carolyn Jasmine MD Work Phone: [facility] 01-05-2024 15:39-0400 Body mass index (BMI) [Ratio] 28.46 kg/m2 Carolyn Jasmine MD Work Phone: [facility] 01-05-2024 15:39-0400 Body weight 77.56 kg Carolyn Jasmine MD Work Phone: [facility] 01-05-2024 15:39-0400 Diastolic blood pressure 80 mm[Hg] Carolyn Jasmine MD Work Phone: [facility] 01-05-2024 15:39-0400 Systolic blood pressure 133 mm[Hg] Carolyn Jasmine MD Work Phone: [facility] 01-01-2024 09:10-0400 Body mass index (BMI) [Ratio] 27.62 kg/m2 Mariel Visci DO Work Phone: [facility] 01-01-2024 09:10-0400 Body weight 75.3 kg Mariel Visci DO Work Phone: [facility] 01-01-2024 09:10-0400 Diastolic blood pressure 84 mm[Hg] Mariel Visci DO Work Phone: [facility] 01-01-2024 09:10-0400 Systolic blood pressure 118 mm[Hg] Mariel Visci DO Work Phone: [facility] 12-26-2023 13:14-0400 Body height 165.1 cm [facility] 12-26-2023 13:14-0400 Body mass index (BMI) [Ratio] 27.8 kg/m2 PHYSICIAN NO [facility] 12-26-2023 13:14-0400 Body temperature 97.7 [degF] PHYSICIAN NO [facility] 12-26-2023 13:14-0400 Body weight 75.86 kg PHYSICIAN NO [facility] 12-26-2023 13:14-0400 Diastolic blood pressure 88 mm[Hg] PHYSICIAN NO [facility] 12-26-2023 13:14-0400 Heart rate 91 /min PHYSICIAN NO [facility] 12-26-2023 13:14-0400 Respiratory rate 16 /min PHYSICIAN NO [facility] 12-26-2023 13:14-0400 SaO2% (BldA) [Mass fraction] 98 % PHYSICIAN NO [facility] 12-26-2023 13:14-0400 Systolic blood pressure 126 mm[Hg] PHYSICIAN NO [facility] 11-30-2023 11:21-0400 Body height 165.1 cm PHYSICIAN NO [facility] 11-30-2023 11:21-0400 Body mass index (BMI) [Ratio] 27.8 kg/m2 PHYSICIAN NO [facility] 11-30-2023 11:21-0400 Body weight 75.86 kg PHYSICIAN NO [facility] 11-30-2023 11:21-0400 Diastolic blood pressure 78 mm[Hg] PHYSICIAN NO [facility] 11-30-2023 11:21-0400 Heart rate 80 /min PHYSICIAN NO [facility] 11-30-2023 11:21-0400 Respiratory rate 12 /min PHYSICIAN NO [facility] 11-30-2023 11:21-0400 Systolic blood pressure 125 mm[Hg] PHYSICIAN NO [facility] 01-22-2023 13:56-0500 Diastolic blood pressure 87 mm[Hg] DO Kartik Ball Work Phone: [facility] 01-22-2023 13:56-0500 Heart rate 87 /min DO Kartik Ball Work Phone: [facility] 01-22-2023 13:56-0500 Respiratory rate 16 /min DO Kartik Ball Work Phone: [facility] 01-22-2023 13:56-0500 SaO2% (BldA) [Mass fraction] 96 % DO Kartik Ball Work Phone: [facility] 01-22-2023 13:56-0500 Systolic blood pressure 140 mm[Hg] DO Kartik Ball Work Phone: [facility] 01-22-2023 13:27-0500 Body height 165.1 cm DO Kartik Ball Work Phone: [facility] 01-22-2023 13:27-0500 Body mass index (BMI) [Ratio] 30 kg/m2 DO Kartik Ball Work Phone: [facility] 01-22-2023 13:27-0500 Body weight 82 kg DO Kartik Ball Work Phone: [facility] 01-22-2023 12:21-0500 Body temperature 98.1 [degF] DO Kartik Ball Work Phone: [facility] 01-22-2023 12:21-0500 Inhaled oxygen flow rate 6 L/min DO Kartik Ball Work Phone: [facility] 09-04-2022 08:45-0400 Body height 167.64 cm Kartik Ball Other [place] [employer] Other 09-04-2022 08:45-0400 Body mass index (BMI) [Ratio] 27.44 kg/m2 Kartik Ball Other [employer] Other 09-04-2022 08:45-0400 Body weight 77.11 kg Kartik Ball Other [employer] Other 09-04-2022 08:45-0400 Diastolic blood pressure 76 mm[Hg] Kartik Ball Other [employer] Other 09-04-2022 08:45-0400 Respiratory rate 12 /min Kartik Ball Other [place] [employer] Other 09-04-2022 08:45-0400 Systolic blood pressure 119 mm[Hg] Kartik Ball Other [place] [employer] Other 07-08-2022 12:30-0400 Body height 167.64 cm Kartik Ball Other [employer] Other 07-08-2022 12:30-0400 Body mass index (BMI) [Ratio] 29.86 kg/m2 Kartik Ball Other [employer] Other 07-08-2022 12:30-0400 Body weight 83.92 kg Kartik Ball Other [employer] Other 07-08-2022 12:30-0400 Diastolic blood pressure 81 mm[Hg] Kartik Ball Other [place] [employer] Other 07-08-2022 12:30-0400 Respiratory rate 12 /min Kartik Ball Other [employer] Other 07-08-2022 12:30-0400 Systolic blood pressure 136 mm[Hg] Kartik Ball Other [place] [employer] Other 03-11-2022 14:20-0500 Body height 167.64 cm Kartik E Ball Work Phone: [facility] Work Phone: 03-11-2022 14:20-0500 Body mass index (BMI) [Ratio] 27.44 kg/m2 Kartik E Ball Work Phone: NX[facility]wo[facility] 4108 Work Phone: 03-11-2022 14:20-0500 Body surface area Derived from formula 1.87 m2 Kartik Priest Work Phone: BM[facility]ejgwnvs[facility] 4100 Work Phone: 03-11-2022 14:20-0500 Body temperature 96.7 [degF] Kartik Priest Work Phone: KE[facility]ocpuialflex[facility] 4[facility] Work Phone: 03-11-2022 14:20-0500 Body weight 77.11 kg Kartik Priest Work Phone: GC-Focbujwliwnfww-[facility] 4100 Work Phone: 10-07-2021 16:10-0400 Body weight 76.66 kg Kartik Priest Work Phone: PU-Mqioocnkthgijc-[facility] 3300A Work Phone: Encounters Encounter Date Encounter Type Care Provider Facility Start: 11-25-2024 ambulatory Wayne Vizcaino adelia [facility] Start: 11-23-2024 ambulatory Marcus Vera Jr [facility] Start: 11-21-2024 End: 11-21-2024 ambulatory [facility] Start: 10-24-2024 ambulatory Wayne Munoz [facility] Start: 09-01-2024 End: 09-01-2024 Subsequent hospital visit by physician Rad External Film [facility]TERNAL [facility] Comment on above: Arrived Start: 09-01-2024 End: 09-01-2024 ambulatory [facility] Start: 08-30-2024 End: 08-30-2024 Office outpatient new 45 minutes Rashmi Boucher MD Work Phone: [facility] Comment on above: Preoperative clearan ce; Cholesteatoma of left ear Start: 08-30-2024 End: 08-30-2024 Preoperative state Rashmi Boucher MD Work Phone: [facility] Start: 08-30-2024 End: 08-30-2024 ambulatory BENJIE Campbell [facility] Start: 07-18-2024 End: 07-18-2024 Bamboo flowsashley Jasmine MD Work Phone: [facility] Start: 07-18-2024 End: 07-18-2024 Bamboo flowsashley Jasmine MD Work Phone: [facility] Start: 07-18-2024 End: 07-18-2024 Office outpatient visit 15 minutes Carolyn Jasmine MD Work Phone: [facility] Comment on above: 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) Start: 07-18-2024 End: 07-18-2024 ambulatory CAROLYN H TIMMIS Not Available Start: 07-13-2024 End: 07-13-2024 ambulatory [facility] Work Phone: Start: 07-13-2024 End: 07-13-2024 Patient encounter procedure [facility] Work Phone: Start: 07-11-2024 End: 07-11-2024 Telephone encounter Carolyn Jasmine MD Work Phone: [facility] Comment on above: needs rx Start: 07-08-2024 End: 07-08-2024 ambulatory CAROLYN H TIMMIS Not Available Start: 07-05-2024 End: 07-05-2024 Office outpatient visit 15 minutes Carolyn Jasmine MD Work Phone: [facility] Comment on above: 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) Start: 07-05-2024 End: 07-05-2024 ambulatory CAROLYN H TIMMIS Not Available Start: 07-05-2024 End: 07-05-2024 Chandrakant Jasmine MD Work Phone: [facility] Start: 07-05-2024 End: 07-05-2024 Bamboo flowsheet Carolyn Jasmine MD Work Phone: [facility] Start: 02-16-2024 End: 02-16-2024 Office outpatient visit 15 minutes Raulito Nuñez MD Work Phone: [facility] Comment on above: Melanocytic nevus of trunk (Primary Dx); Seborrheic keratosis; Seborrheic keratosis, inflamed; Actinic keratosis; Capillary angioma; Lentigines Start: 02-16-2024 End: 02-16-2024 ambulatory RAULITO NUÑEZ Not Available Start: 02-16-2024 End: 02-16-2024 Chandrakant Nuñez MD Work Phone: [facility] Start: 02-16-2024 End: 02-16-2024 Bamjocy Nuñez MD Work Phone: [facility] Start: 01-05-2024 End: 01-05-2024 Patient encounter [...] Start: 01-01-2024 End: 01-01-2024 Bamboo flowsheet Mariel A Visci DO Work Phone: [facility] Start: 01-01-2024 End: 01-01-2024 Bamboo flowsheet Mariel A Visci DO Work Phone: [facility] Start: 01-01-2024 End: 01-01-2024 ambulatory MARIEL SINGER Not Available Start: 01-01-2024 End: 01-01-2024 Patient encounter status Mariel Singer DO Work Phone: [facility] Work Phone: Start: 01-01-2024 End: 01-01-2024 Periodic preventive med est patient 40-64yrs Mariel Singer DO Work Phone: [facility] Comment on above: Encounter for gyneco logical examination with abnormal finding (Primary Dx); Encounter for screening mammogram for malignant neoplasm of breast; Vaginal atrophy; Vaginal irritation Start: 12-26-2023 End: 12-26-2023 ambulatory PHYSICIAN NO FAMILY Facility:[facility] Start: 12-26-2023 End: 12-26-2023 Departed Referred PHYSICIAN NO [facility] Main [place] Work Phone: Start: 12-26-2023 End: 12-26-2023 Patient encounter procedure PHYSICIAN NO [facility] [place] Work Phone: Start: 11-30-2023 End: 11-30-2023 Patient encounter procedure PHYSICIAN NO [facility] Work Phone: Start: 10-22-2023 End: 10-22-2023 ambulatory FIDEL VILLAR Not Available Start: 09-29-2023 End: 09-29-2023 ambulatory CAROLYN Madina MITALI Not Available Start: 02-20-2023 End: 02-20-2023 ambulatory Kartik Priest Other Giving Assistant Other Start: 02-20-2023 Telephone encounter Kartik JUAREZ Counts Include 234 Beds [facility] Start: 02-19-2023 End: 02-19-2023 ambulatory Kartik Priest Other Giving Assistant Other Start: 02-19-2023 Office outpatient vi sit 15 minutes Kartik Priest [facility] Start: 01-22-2023 Telephone encounter Kartik JUAREZ [facility] Start: 01-22-2023 End: 01-22-2023 Admission to same day surgery center DO Kartik Ball Work Phone: [facility] Main [place] Start: 01-22-2023 End: 01-22-2023 ambulatory DO Kartik Ball Work Phone: [facility] Work Phone: Start: 01-07-2023 End: 01-07-2023 Patient encounter procedure DO Kartik Ball Work Phone: [facility] Work Phone: Start: 01-07-2023 End: 01-07-2023 ambulatory DO Kartik Ball Work Phone: [facility] Work Phone: Start: 09-04-2022 End: 09-04-2022 ambulatory Kartik Jennifer Other Giving Assistant Other Start: 09-04-2022 Office outpatient vi sit 15 minutes Kartik Priest [facility] Start: 09-04-2022 Telephone encounter Kartik Priest [facility] Start: 08-28-2022 End: 08-28-2022 ambulatory Kartik Priest Other Giving Assistant Other Start: 08-28-2022 Telephone encounter Kartik Priest [facility] Start: 07-14-2022 Encounter for genera l adult medical examination without abnormal findings DR KARTIK PRIEST [facility] Start: 07-10-2022 End: 07-11-[address] KARTIK PRIEST Facility:[facility] Start: 07-10-2022 End: 07-11-2022 Encounter for general adult medical examination without abnormal findings DR KARTIK PRIEST Facility:[facility] Start: 07-08-2022 End: 07-08-2022 ambulatory Kartik Priest Other Giving Assistant Other Start: 07-08-2022 Encounter for genera l adult medical examination without abnormal findings Kartik Priest [facility] Start: 07-08-2022 Periodic preventive med est patient 40-64yrs Kartik Priest [facility] Start: 03-11-2022 Patient encounter procedure Kartik Priest Work Phone: EE-Jsnszwbpbulghp-Vvsos [facility] Work Phone: Start: 03-11-2022 Postop follow up vis it related to original px Kartik Priest Work Phone: HU-Zafebiuydqcurr-Trgvb [facility] Work Phone: Start: 03-11-[address] Rashmi Boucher Facility:[id number] Start: 02-11-[address] Rashmi Boucher Facility:[id number] Start: 02-11-2022 Chart Update Kartik salamanca Work Phone: SC-Rzoztnvopywgjy-Aykqd in [facility] Work Phone: Start: 01-24-2022 End: 01-24-[address] Rashmi Boucher Facility:[facility] Start: 10-07-2021 Office consultation new/estab patient 60 min Kartik Priest Work Phone: SD-Nvgpslxmtuphhe-Nmryu ll 3300 Work Phone: Start: 10-07-2021 Patient encounter procedure Kartik Priest Work Phone: PK-Lgdvdgxdrwazxu-Zyjmz ll 3300A Work Phone: Start: 10-07-[address] Rashmi Boucher Facility:[id number] Start: 06-05-2021 End: 09-10-2021 Patient encounter procedure Jasper Salamanca Miguelito [facility] Start: 05-10-2019 Adult health examination Duy Priest Other Giving Assistant Other Procedures Date Procedure Procedure Detail Performing [...] DERM [address] [place] [address] Raulito Nuñez MD [address] [place], [place] [id number] [facility] Start: 01-11-2025 End: 01-11-2025 Patient encounter procedure 01/11/2025 3:30 PM EDT Office Visit [facility] [address] [place] [address] Mariel Singer, DO [address] [place] [address] [facility] Start: 01-01-2025 Yearly Adult Physical Yearly Adult P [facility] Start: 11-21-2024 Subsequent hospital visit by physician 11/21/2024 Hospital Encounter [facility] [place] [address] [place] [address] [place] [address] [place], [place] [id number] [facility] [place] Start: 11-14-2024 Influenza vaccination Influenz a Vaccine (Season Ended) [facility] Start: 09-01-2024 End: 08-30-2025 CBC panel - Blood by Automated count CBC Lab Routine Cholesteatoma of left ear Expected: 09/01/2024 (Approximate), Expires: 08/30/2025 [facility] Service Area Work Phone: Comment on above: Expected: 09/01/2024 (Approximate), Expires: 08/30/2025 Start: 09-01-2024 End: 08-30-2025 Comprehensive metabolic 2000 panel - Serum or Plasma Comprehensive Metabolic Panel Lab Routine Cholesteatoma of left ear Expected: 09/01/2024 (Approximate), Expires: 08/30/2025 [facility] Work Phone: Comment on above: Expected: 09/01/2024 (Approximate), Expires: 08/30/2025 Start: 07-18-2024 End: 07-18-2024 Patient encounter procedure 07/18/2024 11:20 AM EDT [facility] [address] [facility] [address] [place] [address] Carolyn Jasmine MD [address] [facility] [address] [place] [address] [facility] [place] Start: 07-05-2024 End: 07-05-2024 [...] neoplasm of breast Expected: 01/01/2024, Expires: 03/02/2025 [facility] Comment on above: Expected: 01/01/2024 , Expires: 03/02/2025 Start: 01-01-2024 End: 12-31-2024 IGP, APT HPV,RFX 16/18,45 IGP, APT HPV,RFX 16/18,45 Lab Routine Encounter for gynecological examination with abnormal finding Expected: 01/01/2024 (Approximate), Expires: 12/31/2024 [facility] Work Phone: Comment on above: Expected: 01/01/2024 (Approximate), Expires: 12/31/2024 Start: 12-26-2023 Bacteria identified in Urine by Culture Urine Culture [facility] Start: 12-26-2023 Urine culture [facility] Start: 11-15-2023 COVID-19 Vaccine ( season) COVID-19 Vaccine ( season) [facility] Start: 10-14-2023 Screening for malign ant neoplasm of breast Mammogram [facility] Start: 01-22-2023 [facility] Start: 01-22-2023 [facility] Start: 03-11-2022 FUV, Provider: Rashmi Boucher, Status: Pen, Time: 2:15 PM FUV, Provider: Rashmi Boucher, Status: Pen, Time: 2:15 PM [facility] Work Phone: Start: 2014 Pneumococcal vaccination Pneum ococcal Vaccine (1 of 1 - PCV) [facility] Start: 2014 Zoster Vaccines (1 of 2) Zoste r Vaccines (1 of 2) [facility] Start: 1986 DTaP/Tdap/Td Vaccine s (1 - Tdap) DTaP/Tdap/Td Vaccines (1 - Tdap) [facility] Start: 1985 Screening for malign ant neoplasm of cervix [facility] Start: 11-11-1983 Hepatitis B Vaccines (1 of 3 - 19+ 3-dose series) Hepatitis B Vaccines (1 of 3 - 19+ 3-dose series) [facility] Start: 1982 Diabetes mellitus screening Diabetes Screening [facility] Start: 1982 Hepatitis C screening Hepatitis C [facility] Start: 1965 MMR Vaccines (1 of 1 - Standard series) MMR Vaccines (1 of 1 - Standard series) [facility] Start: 1964 HIV screening HIV Screening [facility] Start: 1964 Lipid panel Lipid Panel [facility] Start: 1964 Screening for malign ant neoplasm of colon [facility] Start: 1964 Yearly Adult Physical Yearly Adult P hysical [facility] ECG 12 lead ECG 12 lead ECG Routine Preoperative clearance Cholesteatoma of left ear Ordered: 09/01/2024 [facility] Work Phone: Comment on above: Ordered: 09/01/2024 Patient referral [facility] Work Phone: Reconstruction exter nal auditory canal spx CANALOPLASTY, EAR Cholesteatoma of left ear [facility] [place] Payers Date Payer Category Payer Self-pay [id number] 2022 Unknown [id number] 2020 Managed Care (Private) [employer] [id number] 315 2019 Managed Care HMO (unspecified) [employer] [id number] 315 1964 Unknown [id number] 2.16840.1.332681.3.57 9.2.356 1964 Unknown [id number] 2.16840.1.067910.3.57 9.2.356 1964 Unknown [id number] 2.16840.1.078355.3.57 9.2.356 1964 Unknown [id number] 2.16840.1.695145.3.57 9.2.356 1964 Unknown [id number] 2.16840.1.985378.3.57 9.2.593 1964 Unknown [id number] 2.16.840.1.891851.3.57 9.2.1259 1964 Unknown [id number] 2.16.840.1.273545.3.57 9.2.1259 1964 Unknown [id number] 2.16840.1.638331.3.57 9.2.1259 1964 Unknown [id number] 2.16840.1.631303.3.57 9.2.1259 1964 Unknown [id number] 2.16.840.1.859619.3.57 9.2.1259 1964 Unknown [id number] 2.16.840.1.867021.3.57 9.2.1259 1964 Unknown [id number] 2.16.840.1.812598.3.57 9.2.1259 1964 Unknown [id number] 2.16840.1.320424.3.57 9.2.1259 1964 Unknown [id number] 2.0.1.578280.3.57 9.2.1245 1964 Unknown [id number] 2.840.1.950534.3.57 9.2.1245 1964 Unknown [id number] 2.840.1.398272.3.57 9.2.1244 1964 Unknown [id number] 2.0.1.857475.3.57 9.2.1242 1959 Private Health Insurance [id number] [facility] [id number] 2.0.1.697068.19 Private Health Insurance [id number] 2.840.1.056924.19 Unknown [employer] Unknown [id number] 2.0.1.241730.3.57 9.2.531 Unknown [id number] 2.0.1.091773.3.57 9.2.531 Unknown [id number] 2.840.1.616605.3.57 9.2.531 Social History Date Type Detail Facility Tobacco smoking status No Smokin g Status Entered [facility] Start: 12-11-2022 End: 08-30-2024 Sex Assigned At Female [facility] Start: 1965 Sex Assigned At Female [facility] Start: 01-22-2023 End: 08-30-2024 Tobacco smoking status NHIS Never smoked tobacco (finding) [facility] Start: 10-28-2022 End: 08-30-2024 Tobacco use and exposure Smokeless tobacco non-user [facility] Start: 12-25-2023 End: 07-18-2024 Alcoholic beverage [...] [facility] Start: 07-13-2024 Sex Female (finding) [facility] Start: 1965 Sex assigned at Not on file [facility] Work Phone: Medical Equipment Procedure Code Equipment Code Equipment Original Text Equipment Identifier Dates Graft, Biodesign Otologic Repair 2.5 X 2.5 Case [id number] Start: 01-24-2022 Comment on above: Description: Convert ed from [facility]. Please see archived information for full log information. Goals Date Patient Goal Desired Activity /State Personal health goal Functional Status Date Assessment Result Facility 08-30-2024 Patient Health Quest ionnaire 2 item (PHQ-2) [Reported] [facility] Work Phone: Clinical Notes 01-24-2022 to 08-30-2024 [...] history on file. documented in this encounter [facility] Work Phone: 08-30-2024 Instructions Aleja Braxton - 08/30/2024 9:30 AM EDT Welcome to Dr. Boucher's clinic. We are here to assist you through your ENT care at . Dr. Boucher is an Ear surgeon. This means that she specializes in taking care of patients with complex ear problems. Dr. Boucher's office number is [phone]. While you may see her at a satellite office, she has a team committed to help meet your healthcare needs at '[facility]. This number is the most direct way to communicate with the office. Symone is Dr. Boucher's coordinator of genetic services and she answers the office phone from [...] may include dieticians, social workers, speech therapists, tank setter helper, neurologist, and physical therapist. Dr. Boucher will provide these referrals as needed. Please let her know if you would like to request a specific referral. For your convenience, Dr. Boucher sees patients at several locations including [facility] and [facility] at the main campus of . While we try to make your appointments [...] have to reschedule. documented in this encounter [facility] Work Phone: 07-18-2024 History of Present illness [...] problem as well documented in this encounter [facility] 07-11-2024 Telephone encounter Note sent [facility] 07-11-2024 Miscellaneous Notes sent Pt was here last week and said a rx was to be called in but never received. Her pharmacy is [facility] in [place]. documented in this encounter [facility] 07-11-2024 Telephone encounter Note Pt was here last week and said a rx was to be called in but never received. Her pharmacy is [facility] in [place]. [facility] 07-05-2024 History of Present illness Narrative Subjective [...] within the mastoid. documented in this encounter [facility] 02-16-2024 History of Present illness Narrative Skin [...] Examined Right arm Examined Patient wearing nail [place], Denies dark streaks under finger nails, Denies [...] 3. Seborrheic keratosis, inflamed Left Occipital Scalp [place] and brown stuck on verrucous scaly papule [...] limited to risks of scarring, darker or tree deadener pigmentary changes, recurrence, incomplete removal and infection. [...] limited to risks of scarring, darker or tree deadener pigmentary changes, recurrence, incomplete removal and infection. [...] year, skin check documented in this encounter [facility] 01-05-2024 History of Present illness Narrative Images [...] Left keratosis debrided documented in this encounter [facility] 01-01-2024 History of Present illness Narrative Images from the original note were not included. 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 LMP: Postmenopausal Last Pap: 07/27/2019 Visit [...] tract infection (UTI) during a trip to [facility] in either May or November 2022. She [...] Surgical History: Procedure Laterality Date COLONOSCOPY 06/05/2017 normal-[facility] COLPOSCOPY 2008 with biopsy -abnormal pap smear [...] 2011- JENNIE I. Mammogram 10/13/22- Neg Colonoscopy 2017- normal ([facility]) ROS General: Denies fevers/chills Eyes: Denies vision [...] mammogram will be ordered and sent to [place]. She is due for a colonoscopy next year, as her last one was in 2014 and was normal. Return in 1 year. documented in this encounter [facility] 02-20-2023 Evaluation note Encounter Date Diagnosis Assessment Notes Feb, COVID- 19 (ICD-1 0 - U07.1) Tylenol and rest. Afrin x 2 days, Sudafed as needed. Initiate Paxlovid (unvaccinated w/ moderate symptoms) Giving Assistant Other 12-07-2023 Evaluation note* Encounter Date Diagnosis [...] for congestion, Tylenol for pain and fever. 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 LEFT SIDE LATERAL GRAFT [...] Authored: Note Completion Co-Signer: (more content not included)...[facility]11-11-2022 History of Present illness Narrative* Mai [...] for complaint except as stated in history [facility] Work Phone: 1(878) 404-816311-11-2022 History of Present illness Narrative* Mai is [...] for complaint except as stated in history RP[facility]wuzvwbvvtkjse[facility] Work Phone: 1(651) 971-425311-11-2022 NoteHistory of Present Illness: /Lactating: Are You [...] the note. I personally evaluated the patient [id number] Electronic Signatures: Rashmi Boucher) (Signed 24-Jan-2022 13:28) Authored: Note Completion Co-Signer: History of Present Illness, Allergies, Home Medication Review, Impression/Procedure, ERAS, Physical Exam, Consent, Note Completion Mariel Thurman (Resident)) (Signed 24-Jan-2022 10:26) Authored: History of Present Illness, Allergies, Home Medication Review, Impression/Procedure, ERAS, Physical Exam, Consent, Note Completion Last Updated: 24-Jan-2022 13:28 by Rashmi Boucher)[facility] Evaluation + Plan note No data available for this section [facility] noteNort BasharJobs Other Evaluation noteNo InformationNort BasharJobs Other Evaluation noteNo assessment information available [facility] Work Phone: Evaluation note* Diagnosis Onset Date Resolution Status IFG (impaired fasting glucose) acute Leukopenia acute Overweight acute Hematuria noneactive [facility] Work Phone: Evaluation note* Diagnosis Encounter for gynecological examination with abnormal finding- Primary Encounter for screening mammogram for malignant neoplasm of breast Vaginal atrophy Postmenopausal atrophic vaginitis Vaginal irritation Pruritus of genital organs documented in this encounter [facility] Healthcare[facility]* Diagnosis Foreign body of left ear, initial encounter- Primary documented in this encounter [facility] HealthcareEvaluation note* Diagnosis Melanocytic nevus of trunk- Primary Benign neoplasm of skin of trunk, except scrotum Seborrheic keratosis Seborrheic keratosis, inflamed Actinic keratosis Capillary angioma Nevus, non-neoplastic Lentigines documented in this encounter [facility] HealthcareEvaluation note* Diagnosis Cholesteatoma of left external auditory canal- Primary documented in this encounter [facility] HealthcareEvaluation [facility]* Diagnosis Cholesteatoma of left external auditory canal- Primary documented in this encounter [facility] note* Diagnosis Cholesteatoma of left external auditory canal- Primary documented in this encounter [facility]* Diagnosis Preoperative clearance Unspecified pre-operative examination 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- Primary documented in this encounter [facility] Work Phone: History general Narrative - Reported* [...] 2004, 2005 Hospitalization History see surgical history Giving Assistant Other History general Narrative - ReportedN[facility]En[facility] Spotlight Other History general Narrative - Reported* Type [...] blepharoplasty 01/2023 Hospitalization History see surgical history [place] BasharJobs Other History of Present illness Narrative* HPI: [...] for complaint except as stated in history LO-Irxugzwoyvxizr-Jcnvebz 330A Work Phone: History of Present illness Narrative* [...] for complaint except as stated in history OP-Itlrvubhdxrbzo-Fdftdrh 5190R Work Phone: Hospital Discharge instructions No data available for this section [facility] Additional Instructions DISCHARGE INSTRUCTIONS FOR [...] the incision. PLEASE NOTIFY OUR OFFICE at [phone] if you: -Develop a fever of 101 [...] rate. FOLLOW UP -Call the office at [phone] for a follow up appointment 1 week. * AFTER HOURS PHONE NUMBER [phone] *[facility] Work Phone: Progress note No data available for this section [facility] Summary Purpose Family History No Family History [...] section and content) DATE CREATED AUTHOR 09/11/2021 [facility] DATE CREATED AUTHOR AUTHOR'S ORGANIZ ATION 10/12/2021 [facility] DATE CREATED AUTHOR AUTHOR'S ORGANIZ ATION 03/11/2022 [facility] DATE CREATED AUTHOR AUTHOR'S ORGANIZ ATION 03/14/2022 [employer] DATE CREATED AUTHOR AUTHOR'S ORGANIZ ATION 07/14/2022 [facility] pital DATE CREATED AUTHOR AUTHOR'S ORGANIZ ATION 12/28/2023 [facility] DATE CREATED AUTHOR AUTHOR'S ORGANIZ ATION 07/21/2024 [facility] DATE CREATED AUTHOR AUTHOR'S ORGANIZ ATION 09/09/2024 [facility] DATE CREATED AUTHOR AUTHOR'S ORGANIZ ATION 11/24/2024 [facility] DATE CREATED AUTHOR AUTHOR'S ORGANIZ ATION 11/25/2024 [facility] DATE CREATED AUTHOR AUTHOR'S ORGANIZ ATION 11/25/2024 [facility] REASON FOR VISIT (unrecogniz ed section and content) Reason Comments Gynecologic Exam Yearly, Pt denies [place] pain, urinary, bowel or state federal relations deputy director issues. LMP: Postmenopausal Last Pap: 07/27/2019 Reason Comments Ear Problem 2 month check Reason Comments Skin Check Reason Comments Ear Problem 6 month check ears Reason Onset Date Comments needs rx 07/11/2024 Reason Comments Ear Problem Follow up [facility] Reason Comments New Patient Visit Cholesteatoma Care Teams (unrecognized sec tion and content) Asphalt Raker Relationship Specialty Start Date End Date Kartik Priest DO PCP - General 10/07/21 Asphalt Raker Relationship Specialty Start Date End Date Kartik Priest DO [address] [place] [address] PCP - General Internal Medicine 07/05/24 Carolyn Jasmine MD [address] [facility] [address] [place] [address] Otolaryngology 08/28/21 Asphalt Raker Relationship Specialty Start Date End Date Kartik Priest MD [address] [place] [address] PCP - General Internal Medicine 12/11/22 Carolyn Jasmine MD [address] [facility] [address] [place] [address] Otolaryngology 08/28/21 Team Status: Active Member Role [...] BE BASED ON THE PRIMARY CLINICAL RECORDS. [employer] provides no warranty or guarantee of the accuracy or completeness of information in this document.
--- OUTSIDE RECORDS SUMMARY | 2024-11-26 11:53 | XMS_ITS | Encounter Summary ---
Author Organization [facility] Address [address] [place] [address] Phone Care Team Providers Care Chute Man Name Role Phone Kartik Priest DO Primary Care Provider [phone] Encounter Details Date Type Department Care Team (Late st Contact Info) Description 11/24/2024 Telephone [facility] [address] [facility] [address] [place] [address] Aleja Glover RN Social History [...] Telephone Encounter - Aleja Glover RN - 11/24/2024 1:08 PM EDT Spoke with patient regarding concern with flying on December 20. She is s/p left ear surgery and isstill in the initial recovery period. Dr. Christine does not recommend flying within 1 month of having ear surgery due to risks to completed repair at high altitudes. Patient aware of recommendation not to fly. She plans to make other arrangements for travel by car. No other questions or concerns at this time. Has ENT appointment on Thursday with outside provider to remove packing. documented in this encounter Plan of Treatment Upcoming Encounters Date Type Department Care Team (Late st Contact Info) Description 12/06/2024 1:15 PM EDT Office Visit [facility] [address] [place] [address] [place] [address] [place] [address] documented as of this encounter Goals Goal [...] documented as of this encounter Care Teams Chute Man Relationship Specialty Start Date End Date Kartik Priest DO PCP - General 10/07/21 documented as of this encounter
--- OUTSIDE RECORDS SUMMARY | 2024-11-26 11:53 | XMS_ITS | Encounter Summary ---
Author Organization [facility] Address [address] [facility] [place] [address] Care Team Providers Care Water Jet Operator Name Role Phone Preeti Lopez MD Unavailable [phone] Kartik Priest DO Primary Care Provider [phone] Encounter Details Date Type Department Care Team (Late st Contact Info) Description 01/10/2024 Clinisync Result Encounter [facility] External Department Unsolicited Marcos Singer DO [address] [place] [address] Social History Tobacco Use Types Packs/Day Years [...] Description 11/28/2024 8:30 AM EDT Office Visit [facility] [place] [facility] [address] [place] [address] Preeti Lopez MD [address] [place] [address] 01/11/2025 3:30 PM EDT Office Visit [facility] [place] [facility] [address] [place] [address] Marcos Singer DO [address] [place], [place] [address] 02/15/2025 4:00 PM EST Office Visit [facility] [place] [facility] [address] [place] [address] Sharmila Cota MD [address] [place] [address] documented as of this encounter Procedures Procedure Name Priority Date/Time Associated Diagnosis Comments MM TOMOSYNTHESIS SCREENING BI 01/10/2024 6:25 PM EDT documented in this encounter Results * MM TOMOSYNTHESIS SCREENING BI (01/10/2024 6:25 PM EDT) Anatomical Region Laterality Modality Other 01/10/2024 6:25 PM EDT Narrative 01/10/2024 6:26 PM EDT The [address] [address] Mammography Report Signed Patient: MAI MILLER MR#: [id number] : 1965 Acct:[id number] Age/Sex: 58 / F ADM Date: 01/06/24 Loc: MAMMO Attending Dr: MARCOS SINGER Ordering Physician: MARCOS SINGER Results: Date of Service: 01/06/24 Follow Up: Procedure(s): MM tomosynthesis screening BI Accession Number(s): [id number] cc: Kartik Priest D.O.; MARCOS SINGER Patient Name: MAI MILLER MR#: [id number] : 1965 Exam Date: 01/06/2024 Ordering Doctor: [...] cervical cancer at age 69. LOCATION: The [facility] BREAST COMPOSITION: The breasts are heterogeneously [...] M.D. Signed By: 01/10/241825 DD/ 24 TD/TT: Asphalt Machine Operator: Procedure Note Radiology, Radiologist, MD - 01/10/2024 [place] [address] Mammography Report Signed Patient: MAI MILLER LMR#: [id number] : 1965Acct:[id number] Age/Sex: 58 / FADM Date: 01/06/24 Loc: MAMMO Attending Dr: MARCOS SINGER Ordering Physician: MARCOS SINGERResults: Date of Service: 01/06/24Follow Up: Procedure(s): MM tomosynthesis screening BI Accession Number(s): [id number] cc: Kartik Priest D.O.; MARCOS SINGER Patient Name: MAI MILLER MR#: [id number] : 1965 Exam Date: 01/06/2024 Ordering Doctor: [...] cervical cancer at age 69. LOCATION: The [facility] BREAST COMPOSITION: The breasts are heterogeneously [...] Foote M.D. Signed By:01/10/241825 DD/ 24 TD/TT: Asphalt Machine Operator: Marcos Singer DO [facility] Final Resul t documented in this encounter Visit Diagnoses Not on filedocumented in this encounter Care Teams Water Jet Operator Relationship Specialty Start Date End Date Kartik Priest DO [address] [place] [address] PCP - General Internal Medicine 07/05/24 Preeti Lopez MD [address] [address] Otolaryngology 08/28/21 documented as of this encounter
--- OUTSIDE RECORDS SUMMARY | 2024-11-26 11:53 | XMS_ITS | Encounter Summary ---
Author Organization [facility] Address [address] [place] [address] Phone Care Team Providers Care Show Jumping Instructor Name Role Phone Kartik Priest DO Primary Care Provider [phone] Encounter Details Date Type Department Care Team (Late st Contact Info) Description 11/22/2024 Telephone [facility] [address] [facility] [address] [place] [address] Aleja Glover RN Social History [...] Telephone Encounter - Aleja Glover RN - 11/22/2024 9:28 AM EDT Attempted to call patient regarding post operative course. Left direct line for return call if she has questions or concerns. documented in this encounter Plan of Treatment Upcoming Encounters Date Type Department Care Team (Late st Contact Info) Description 12/06/2024 1:15 PM EDT Office Visit [facility] [address] [place] [address] [place] [address] [place] [address] documented as of this encounter Goals Goal [...] documented as of this encounter Care Teams Show Jumping Instructor Relationship Specialty Start Date End Date Kartik Priest DO PCP - General 10/07/21 documented as of this encounter
[2024-11-26 12:41] LABS: Thyroid Stimulating Hormone 1.962 uIU/mL (0.358-3.740)
== END 2024-11-26 11:49 | disposition home or self-care (01) ==
LOC: LAB 11:51
PROVIDERS: PCP Internal Medicine; Visit Provider Internal Medicine
DX: R79.89 Other specified abnormal findings of blood chemistry (principal); R63.5 Abnormal weight gain; R53.83 Other fatigue
CPT/HCPCS: 36415; 84439; 84443; 86376

== ENCOUNTER 2024-12-27 06:50 | Outpatient (OUT) | payer OTHER, SELFPAY ==
--- OUTSIDE RECORDS SUMMARY | 2024-12-27 06:53 | XMS_ITS | Encounter Summary ---
Author Organization [facility] Address [address] [place] [address] Phone Care Team Providers Care Pmo Consultant Name Role Phone Kartik Priest DO Primary Care Provider [phone] Encounter Details Date Type Department Care Team (Late st Contact Info) Description 08/28/2021 Orders Only [facility] [address] [place] [address] Conversion, Onbase Social History Tobacco Use Types Packs/Day Years Used Date Smoking Tobacco: Never Assessed Comments Unknown Sex and Gender Information Value Date Recorded Sex Assigned at Not on file Legal Sex Female 1:14 AM EST Gender Identity Not on file Sexual Orientation Not on file documented as of this encounter Plan of Treatment Scheduled Orders Name Type Priority Associated Diagnoses Orde r Schedule AUDIOLOGY REPORT - ONBASE SCAN Audiology Ordered: 022 documented as of this encounter Visit Diagnoses Not on filedocumented in this encounter Care Teams Pmo Consultant Relationship Specialty Start Date End Date Kartik Priest DO PCP - General 10/07/21 documented as of this encounter
--- OUTSIDE RECORDS SUMMARY | 2024-12-27 06:53 | XMS_ITS | Encounter Summary ---
Author Organization [facility] Address [address] [facility] [address] Care Team Providers Care Data Security Coordinator Name Role Phone Preeti Lopez MD Unavailable [phone] Kartik Priest DO Primary Care Provider [phone] Encounter Details Date Type Department Care Team (Late st Contact Info) Description 01/10/2024 Clinisync Result Encounter [facility] External Department Unsolicited Marcos Singer DO [address] [place] [address] Social History Tobacco Use Types Packs/Day Years [...] [address] [place] [address] Marcos Singer DO [address] [place] [address] 02/15/2025 4:00 PM EST [facility] [address] [place] [address] Sharmila Cota MD [address] [place] [address] documented as of this encounter Procedures Procedure Name Priority Date/Time Associated Diagnosis Comments MM TOMOSYNTHESIS SCREENING BI 01/10/2024 6:25 PM EDT documented in this encounter Results * MM TOMOSYNTHESIS SCREENING BI (01/10/2024 6:25 PM EDT) Anatomical Region Laterality Modality Other 01/10/2024 6:25 PM EDT Narrative 01/10/2024 6:26 PM EDT The [address] [address] Mammography Report Signed Patient: MAI MILLER MR#: [id number] : 1965 Acct:[id number] Age/Sex: 58 / F ADM Date: 01/06/24 Loc: MAMMO Attending Dr: MARCOS SINGER Ordering Physician: MARCOS SINGER Results: Date of Service: 01/06/24 Follow Up: Procedure(s): MM tomosynthesis screening BI Accession Number(s): [id number] cc: Kartik Priest D.O.; MARCOS SINGER Patient Name: MAI MILLER MR#: [id number] : 1965 Exam Date: 01/06/2024 Ordering Doctor: [...] cervical cancer at age 69. LOCATION: The [facility] BREAST COMPOSITION: The breasts are heterogeneously [...] M.D. Signed By: 01/10/241825 DD/ 24 TD/TT: Outside Plant Technician: Procedure Note Radiology, Radiologist, MD - 01/10/2024 [place] [address] Mammography Report Signed Patient: MAI MILLER LMR#: [id number] : 1965Acct:[id number] Age/Sex: 58 / FADM Date: 01/06/24 Loc: MAMMO Attending Dr: MARCOS SINGER Ordering Physician: MARCOS SINGERResults: Date of Service: 01/06/24Follow Up: Procedure(s): MM tomosynthesis screening BI Accession Number(s): [id number] cc: Kartik Priest D.O.; MARCOS SINGER Patient Name: MAI MILLER MR#: [id number] : 1965 Exam Date: 01/06/2024 Ordering Doctor: [...] cervical cancer at age 69. LOCATION: The [facility] BREAST COMPOSITION: The breasts are heterogeneously [...] Foote M.D. Signed By:01/10/241825 DD/ 24 TD/TT: Outside Plant Technician: Marcos Singer DO [facility] Final Resul t documented in this encounter Visit Diagnoses Not on filedocumented in this encounter Care Teams Data Security Coordinator Relationship Specialty Start Date End Date Kartik Priest DO [address] [place] [address] PCP - General Internal Medicine 07/05/24 Preeti Lopez MD [address] [place] [address] [address] Otolaryngology 08/28/21 documented as of this encounter
--- OUTSIDE RECORDS SUMMARY | 2024-12-27 06:53 | XMS_ITS ---
Author Organization [facility] Address [address] [facility] [place] [address] Care Team Providers Care Talent Sourcing Specialist Name Role Phone Preeti Lopez MD Unavailable [phone] Kartik Priest DO Primary Care Provider [phone] Active Problems Problem Noted Date Diagnosed Date [...]
--- OUTSIDE RECORDS SUMMARY | 2024-12-27 06:53 | XMS_ITS | Clinical Summary ---
Author Organization [facility] Address [address] [place] [address] Phone Care Team Providers Care Sand Carrier Name Role Phone Kartik Priest DO Primary Care Provider [phone] Allergies No known active allergies Medications semaglutide (Ozempic) 0.25 mg or 0.5 mg(2 mg/1.5 mL) pen injector Inject 0.25 mg under the skin 1 (one) time per week. 5 Active ibuprofen 600 mg tabletIndicatio ns:Cholesteatom a of left ear Take 1 tablet (600 mg) by mouth every 6 hours if needed for moderate pain (4 - 6) for up to 20 doses. 20 tablet 5 Active traMADol (Ultram) 50 mg tabletIndicatio ns:Cholesteatom [...] to 20 doses. 20 tablet 5 Active docusate sodium (Colace) 100 mg capsuleIndicati ons:Cholesteato ma of left ear Take 1 capsule (100 mg) by mouth 2 times a day for 10 days. Take while using narcotics for pain control. 20 capsule 5 12/02/19 25 cephalexin (Keflex) 500 mg capsuleIndicati ons:Cholesteato ma of left ear Take 1 capsule (500 mg) by mouth 3 times a day for 7 days. 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 Encounters Date Type Department Care Team Description 12/06/2024 1:15 PM EDT Office Visit [facility] [address] [place] [address] Rashmi Christine MD Postoperative state (Primary Dx); Cholesteatoma of left ear Discharge Disposition: Home 12/05/2024 Travel 11/24/2024 Telephone [facility] [address] [place] [address] Aleja Glover RN 11/22/2024 Telephone [facility] [address] [place] [address] Aleja Glover RN 11/21/2024 10:45 AM EDT - 11/21/2024 2:15 PM EDT [facility] [place] [address] [place] [address] Rashmi Christine MD Left Side Post Auricular Revision Canalplasty;removal of ear canal cyst [28191 (CPT ) +1 more] 11/21/2024 10:36 AM EDT Anesthesia Event [facility] [place] [address] [place] [address] Joo Andres MD 11/21/2024 9:16 AM EDT - 11/21/2024 3:45 PM EDT Hospital Encounter [facility] [place] [address] [place] [address] Rashmi Christine MD Cholesteatoma of left ear (Primary Dx) Discharge Disposition: Home 11/21/2024 Travel 11/11/2024 Telephone [facility] [address] [facility] [address] [place] [address] Aleja Glover RN from Last 3 Months Social History Tobacco Use Types Packs/Day Years Used Date Smoking Tobacco: Never Smokeless Tobacco: Never Tobacco Cessation:Counseling Given: Not Answered Alcohol Use Standard Drinks/Week Comments Never 0 (1 standard drink = 0.6 oz [...] EDT Inhaled Oxygen Concentration - - Weight 84.8 kg (187 lb) 12/06/2024 1:13 PM EDT Height 165.1 cm (5' 5 ) 12/06/2024 1:13 PM EDT Body Mass Index 31.12 12/06/2024 1:13 PM EDT Plan of Treatment Health Maintenance Due Date Last Done Comments CT Colonography 1965 Colonoscopy 1965 Colorectal Cancer Screening 1965 FIT-DNA (Cologuard) 1965 FIT 1965 HIV Screening 1965 Lipid Panel 1964 Sigmoidoscopy 1964 MMR Vaccines (1 of 1 - Standard series) 1965 Diabetes Screening 1982 Hepatitis C Screening 1982 Cervical Cancer Screening 1985 HPV/Cotest 1985 Pap Smear 1985 DTaP/Tdap/Td Vaccines (1 - Tdap) 1986 Pneumococcal Vaccine (1 of 1 - PCV) 2014 Zoster Vaccines (1 of 2) 2014 Mammogram 10/14/2023 10/13/2022, 0711/2021, 10/09/2021, Additional history exists COVID-19 Vaccine ( season) 2024 Influenza Vaccine (#1) 2024 Yearly Adult Physical 09/01/2025 08/31/2024 , 01/01/2024, 01/01/2024, Additional history exists RSV High Risk: (Elderly (60+) or Population) (1 - 1-dose 75+ series) 11/11/2039 HIB Vaccines Aged Out No longer eligi [...] on patient's age to complete this topic Medical Devices Implanted Type Area Chip Bin Operator Device Identifier Shelf Expiration Date Model / Serial / Lot Graft, [employer] Otologic Repair 2.5 X 2.5 Case [id number] Implanted:Qty: 1 on 01/24/2022 by Rashmi Christine MD Cochlear Implant [employer] [facility] 04/07/2023 [id number] / / [id number] Description:Converted from [facility] Acute. Please see archived information for full log information. Procedures Procedure Name Priority Date/Time Associated Diagnosis Comments SURGICAL PATHOLOGY EXAM Routine 11/21/2024 12:21 PM EDT Cholesteatoma of left ear DC AN ELECTIVE ENDOTRACHEAL AIRWAY Routine 11/21/2024 10:46 AM EDT DC TMPP MASTOIDECT NTC/RCNSTED WALL W/O OCR 11/21/2024 10:23 AM EDT Cholesteatoma of left ear Special Needs [facility] ENT Microscope; NIM DC RECONSTRUCTION EXTERNAL AUDITORY CANAL SPX 11/21/2024 10:23 AM EDT Cholesteatoma of left ear Special Needs [place] ENT Microscope; NIM from Last 3 Months Results * Surgical Pathology Exam (11/21/2024 12:21 PM EDT) Case Report Surgical Pathology Case: [id number] Authorizing Provider: Rashmi Christine MD Collected: 11/21/2024 1221 Ordering Location: [facility] OR Received: 11/21/2024 1242 Pathologist: Avril Mckoy MD PhD Specimen: EAR EXTERNAL AUDITORY CANAL LEFT, LEFT EAR CANAL CONTENTS 11/23/2024 1:58 PM EDT [facility] FINAL DIAGNOSIS A. Left ear canal contents: - Cholesteatoma 11/23/2024 1:58 PM EDT [facility] at 1358 EDT By the signature on this report, the individual or group listed as making the Final Interpretation/D iagnosis certifies that they have reviewed this case. 11/23/2024 1:58 PM EDT [facility] Clinical History Pre-op diagnosis: 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] 11/23/2024 1:58 PM EDT [facility] Gross Description A. Received in formalin, labeled with the patient's name and number and left ear canal contents , are multiple fragments of ross-white soft tissue aggregating to 2.5 x 2.0 x 0.5 cm. The specimen is entirely submitted in one cassette. ATB Gross performed at: [facility] Department of Pathology [address] [place] [address] 11/23/2024 1:58 PM EDT [facility] Tissue (EAR EXTERNAL AUDITORY CANAL LEFT) 11/21/2024 12:21 PM EDT 11/21/2024 12:42 PM EDT Comment:Pre-op diagnosis: 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] us Rashmi Christine MD LAB PATHOLOGY ORDERABLES Final Result [facility] [address] [place] [address] [facility] [address] [place] [address] * DC AN ELECTIVE ENDOTRACHEAL AIRWAY (11/21/2024 10:46 AM EDT) Lindsey Delgado APRN-CRNA - 11/21/2024 10:46 AM EDT MIKAELA [...] to MOV. Pt intubated by DENY Ross. Joo Andres MD ANESTHESIA ORDERABLES Final Resu lt from Last 3 Months Insurance [employer] NATIONAL [employer]VANTAGE PROGRAM [employer] ADVANTAGE PROGRAM Advance Directives For more information, please contact: [phone] (Available ) * Full Code (Latest Code Status on File) Date Activated Date Inactivated Comments 11/21/2024 9:27 AM Question Answer Comments Plan of Care: Code Status Discussion Completed Decision Maker: Patient Care Teams Sand Carrier Relationship Specialty Start Date End Date Kartik Priest DO PCP - General 10/07/21
--- OUTSIDE RECORDS SUMMARY | 2024-12-27 06:53 | XMS_ITS | Clinical Summary ---
Author Organization [facility] Address [address] [facility] [place] [address] Care Team Providers Care Fur Floor Worker Name Role Phone Preeti Lopez MD Unavailable [phone] Kartik Priest DO Primary Care Provider [phone] Allergies No known active allergies Medications valACYclovir (Valtrex) 500 MG tablet Take 500 mg by mouth if needed 3 Active zolpidem (Ambien) 5 MG tablet 4 Active acetaminophen (Tylenol) 325 MG tablet Take 650 mg by mouth every 6 (six) hours if needed 5 Active ibuprofen 600 MG tablet Take 600 mg by mouth every 6 (six) hours if needed 5 Active semaglutide (Ozempic) 2 MG/1.5ML solution pen-injector Inject 0.25 mg under the skin 5 Active traMADol (Ultram) 50 MG tablet Take 50 mg by mouth every 4 (four) hours if needed 5 Active cephalexin (Keflex) 500 MG capsule 5 Active Docusate Sodium (DSS) 100 MG capsule Take 100 mg by mouth in the morning and 100 mg in the evening. 5 12/02/19 25 ondansetron (Zofran) 4 MG tablet Take 4 mg by mouth every 8 (eight) hours if needed 11/29/19 25 Discontinue d(Therapy completed) Active Problems Problem Noted Date Diagnosed Date [...] symptom 01/27/2023 3 Irregular periods 01/27/2023 01/27/2023 Encounters Date Type Department Care Team Description 11/28/2024 8:30 AM EDT Office Visit [facility] [place] [facility] [address] [place] [address] Preeti Lopez MD 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) 11/28/2024 Bamboo flowsheet [facility] [place] [facility] [address] [place] [address] Preeti Lopez MD 11/28/2024 Travel from Last 3 Months Family History Medical History Relation Name Comments [...] Sign Reading Time Taken Comments Blood Pressure 129/85 11/28/2024 8:41 AM EDT Pulse 93 11/28/2024 8:41 AM EDT Temperature - - Respiratory Rate - - Oxygen Saturation - - Inhaled Oxygen Concentration - - Weight 85.3 kg (188 lb) 11/28/2024 8:41 AM EDT Height 165.1 cm (5' 5 ) 11/28/2024 8:41 AM EDT Body Mass Index 31.28 11/28/2024 8:41 AM EDT Plan of Treatment Upcoming Encounters Date Type Department Care Team (Late st Contact Info) Description 01/11/2025 3:30 PM EDT Office Visit [facility] [address] [place] [address] Marcos Tian DO [address] [place] [address] 02/15/2025 4:00 PM EST Office Visit [facility] [address] [place] [address] Sharmila Cota MD [address] [place] [address] Insurance [employer] Member Subscriber Plan / Payer (Ef fective 2019-Present) Name:Mai Landa Relation to Subscriber:Self Name:Mai Landa Payer ID:[id number] ([facility]) Type:[facility] Address: [facility] [address] [place] [address] Care Teams Fur Floor Worker Relationship Specialty Start Date End Date Kartik Priest DO [address] [facility] [place] [address] PCP - General Internal Medicine 07/05/24 Preeti Lopez MD [address] [place] [address] [address] Otolaryngology 08/28/21
--- OUTSIDE RECORDS SUMMARY | 2024-12-27 06:54 | XMS_ITS | CCD ---
Author Organization [facility] Care Team Providers Care Ocean Export Account Manager Name Role Phone Kartik Priest Unavailable Unavailable Unavailable Sander, Dr. Rashmi Churchill Admitting Unava ilable Sander, Dr. Rashmi Churchill Referring Unava ilable Sander, Dr. Rashmi Churchill Attending Unava ilable Kartik Priest [facility] Unavailabl e Sander, Dr. Rashmi Churchill Attending Unava ilable Self, Referral Referring Unavailable Katrik Priest [facility] Unavailabl e Sander, Dr. Rashmi Churchill Referring Unava ilable Sander, Dr. Rashmi Churchill Attending Claudiava ilable Kartik Priest [facility] Unavailabl e Sander, Dr. Rashmi Churchill Referring Unava ilable Sander, Dr. Rashmi Churchill Attending Unava ilKartik Huitron [facility] Unavailmichelle e Kartik Priest Unavailable DR KARTIK PRIEST Attending Unavailable JENNIFER, DR BOLIVAR Consulting Unavailable JENNIFER, DR BOLIVAR Primary Care Unavailable JENNIFER, DR BOLIVAR Admitting Unavailable DO Kartik Priest Primary Care Provider MD Rashaun William Attending Provider DO Kartik Priest Primary Care Provider [phone] MD Rashaun William Attending Provider Kartik Priest Primary Care Unavailable Rashaun William Admitting Unavailable Rashaun William Attending Unavailable Kartik Priest Primary Care Unavailable Rashaun William Admitting Unavailable Rashaun William Attending Unavailable NO FAMILY, PHYSICIAN Primary Care Unavailable Nicolasa Delgado Admitting Unavailable Nicolasa Delgado Attending Unavailable Delgado, SEWAGE RETICULATION DRAFTING OFFICER Nicolasa Fraser Attending Provider [phone] NO FAMILY, PHYSICIAN Primary Care Provider Unava ilKartik Huitron MD Primary Care Provider Carolyn Jasmine MD Unavailable Kartik Priest MD Primary Care Provider Kartik Priest DO Primary Care Provider Kartik Priest DO Primary Care Provider BENJIE LARSEN Attending Unavailable JENNIFER, KARTIK E Primary Care Unavailable SANDER, RASHMI E Referring Unavailable BALL, KARTIK E Primary Care Unavailable SANDER, RASHMI E Admitting Unavailable SANDER, RASHMI E Attending Unavailable TIMMIS, CAROLYN CHOUDHURY Referring Unavaila ble BALL, KARTIK E Primary Care Unavailable TIMMIS, CAROLYN Painter Attending Unavailable TIMMIS, CAROLYN Painter Referring Unavailable VISCI, MARIEL Saunders Attending Unavailable TIMMIS, CAROLYN Painter Attending Unavailable TIMMIS, CAROLYN Painter Attending Unavailable TIMMIS, CAROLYN H Attending Unavailable PETITTI, RAULITO A Attending Unavailable Al Shweiki, Wayne Attending Unavailable Chuy Melendez, Marcus Dos Santos Attending Unavailable Al Shweiki, Wayne Attending Unavailable Al Shadelia, Wayne Referring Unavailable SANDER, RASHMI E Attending Unavailable JENNIFER, KARTIK E Primary Care Unavailable SANDER, RASHMI E Attending Unavailable TIMMIS, CAROLYN CHOUDHURY Referring Unavaila ble BALL, KARTIK E Primary Care Unavailable Allergies Allergy Classification Reported Allergen(s) Allergy Type Date of Onset Reaction(s) Facility (3 sources) patient allergy list reviewed by nurse or physicia Propensity to adverse reactions 4 Comment:Done [employer] Other (1 source) ALLERGIES NOT ON FILE; Translations: [ALLERGIES NOT ON FILE] Propensity to adverse reactions (disorder) [facility] Medications Current Medications Medication Drug Class(es) Dates Sig (Normalized) Sig (Original) 0.5 ML semaglutide 0.5 MG/ML Auto-Injector [Wegovy] (6 sources) Start: 07-08-2022 Start: 07-08-2022 Wegovy 0.25 MG /0.5ML 0.5 mL Subcutaneous 28 for 30 days Jun, Active acetaminophen 325 mg oral tablet (6 sources) Start: 11-21-2024 take 2 tablets by mouth every six hours for pain acetaminophen (TylenoL) 325 mg tablet Indications: Cholesteatoma of left ear Take 2 tablets (650 mg) by mouth every 6 hours if needed for mild pain (1 - 3) for up to 20 doses. 20 tablet 11/21/2024 Active Start: 11-21-2024 take 1 tablet by devika every four hours as needed 650 mg, oral, Every 4 hours PRN, pain mild (1-3), first line, Starting on Thu11/21/24 at 1304, Recovery (only), When able to take oral medications., If ordered PRN for pain, nurse is permitted to administer this medication for higher pain scores based on patient preference? Yes albuterol 0.83 mg/ml inhalation solution (1 source) beta2-Adrenergic Agonist Start: 11-21-2024 2.5 mg, nebulization, Once as needed, wheezing, Starting on Thu11/21/24 at 1304, For 1 dose, Recovery (only) azithromycin 250 mg oral tablet (6 sources) Macrolide Antimicrobial Start: 03-18-2022 Azithromycin 250 MG as directed Orally daily for 5 days Jan, Active calcium chloride 0.0014 meq/ml / potassium chloride 0.004 meq/ml / sodium chloride 0.103 meq/ml / sodium lactate 0.028 meq/ml injectable solution (1 source) Start: 11-21-2024 End: 11-21-2024 take 100 mL intravenously every hour 100 mL/hr, intravenous, Continuous, Starting on Thu11/21/24 at 1330, For 3 hours, Recovery (only) cephalexin 500 mg oral capsule (5 sources) Cephalosporin Antibacterial Start: 11-21-2024 End: 11-28-2024 cephalexin (Keflex) 500 MG capsule 11/21/2024 Active Start: 12-26-2023 End: 07-13-2024 take 1 capsule by mouth twice daily Cephalexin 500 mg capsule Discontinued 500 MG PO Twice daily 10 December 26, 2023 12:00am July 13, 2024 9:28am docusate sodium 100 mg oral capsule (4 sources) Start: 11-21-2024 End: 12-01-2024 take 1 capsule by mouth in the morning Docusate Sodium (DSS) 100 MG capsule Take 100 mg by mouth in the morning and 100 mg in the evening. 11/21/2024 12/01/2024 Active 2 ml droperidol 2.5 mg/ml injection (1 source) Dopamine-2 Receptor Antagonist Start: 11-21-2024 0.625 mg, intravenous, Once as needed, nausea/vomiting, second line, Starting on Thu11/21/24 at 1304, For 1 dose, Recovery (only), Monitor QTc while on therapy (2 lead monitoring) 0.5 ml HYDROmorphone hydrochloride 1 mg/ml prefilled syringe (2 sources) Opioid Agonist Start: 11-21-2024 0.5 mg, intravenous, Every 5 min PRN, pain severe (7-10), first line, Starting on Thu11/21/24 at 1304, For 4 doses, Recovery (only), Max total of 4 mg regardless of dose. Start: 11-21-2024 0.25 mg, intra venous, Every 5 min PRN, pain moderate (4-6), first line, Starting on Thu11/21/24 at 1304, Recovery (only), Max total of 4 mg regardless of dose. ibuprofen 600 mg oral tablet (5 sources) Nonsteroidal Anti-inflammatory Drug Start: 11-21-2024 take 1 tablet by mouth every six hours for pain ibuprofen 600 mg tablet Indications: Cholesteatoma of left ear Take 1 tablet (600 mg) by mouth every 6 hours if needed for moderate pain (4 - 6) for up to 20 doses. 20 tablet 11/21/2024 Active molnupiravir 200 MG Oral Capsule [Lagevrio] [...] 10 days. 10 mL 07/11/2024 07/21/2024 Active ondansetron 4 mg oral tablet (4 sources) Serotonin-3 Receptor Antagonist Start: 11-21-2024 End: 11-28-2024 take 1 tablet by mouth every eight hours as needed ondansetron (Zofran) 4 MG tablet Take 4 mg by mouth every 8 (eight) hours if needed 11/21/2024 11/28/2024 Discontinued (Therapy completed) Start: 11-21-2024 4 mg, intraven ous, Once as needed, nausea/vomiting, first line, Starting on Thu11/21/24 at 1304, For 1 dose, Recovery (only), When administering via IV Push, administer over 3-5 minutes. oxyCODONE hydrochloride 5 mg oral tablet (1 source) Opioid Agonist Start: 11-21-2024 take 1 tablet by mouth every four hours as needed 5 mg, oral, Every 4 hours PRN, pain moderate (4-6), second line, Starting on Thu11/21/24 at 1304, Recovery (only), When able to take oral medications., If ordered PRN for pain, nurse is permitted to administer this medication for higher pain scores based on patient preference? Yes oxygen (O2) therapy (1 source) Start: 11-21-2024 inhalation, Continuous - O2/gases, oxygen, Starting on Thu11/21/24 at 1304, Recovery (only), Device: Nasal Cannula, Rate in liters per minute: 4 LPM, Keep O2 Sat Above: 92% paxlovid (300/100) 20 x 150 mg & [...] 1.5 ml semaglutide 1.34 mg/ml pen injector (7 sources) Start: 08-18-2024 semaglutide (O zempic) 0.25 [...] 21, 2023 1:00am May 22, 2023 3:27pm traMADol hydrochloride 50 mg oral tablet (5 sources) Opioid Agonist Start: 11-21-2024 take 1 tablet by mouth every four hours for pain traMADol (Ultram) 50 mg tablet Indications: Cholesteatoma of left ear Take 1 tablet (50 mg) by mouth every 4 hours if needed for severe pain (7 - 10) ((pain unrelieved by tylenol/ibuprofen)) for up to 12 doses. 12 tablet 11/21/2024 Active wegovy 0.25 mg/0.5ml solution auto-injector (1 source) Start: 07-08-2022 Wegovy 0.25 MG/0.5ML 0.5 mL Subcutaneous 28 for 30 days Jun, Active zolpidem tartrate 5 mg oral tablet (17 sources) gamma-Aminobu tyric Acid-ergic Agonist Start: 01-22-2024 zolpidem (Ambien) 5 [...] TAB PO Q6H as needed for pain 30 January 22, 2023 May 21, 2023 11:41am doxycycline hyclate 100 mg oral capsule (2 sources) Tetracycline-cla ss Drug Start: 08-04-2023 End: 08-31-2023 take 1 capsule by mouth twice daily Doxycycline Hyclate 100 mg capsule Discontinued 100 MG PO Twice daily 10 August 04, 2023 12:00am August 31, 2023 3:31pm estradiol 0.1 mg/ml vaginal cream (5 sources) Estrogen Start: 01-04-2024 End: 01-03-2025 estradiol (Estrace) 0.1 MG/GM vaginal cream Indications: Vulvovaginal Atrophy Insert 1 g into the vagina 2 (two) times a week 42.5 g 2 01/04/2024 01/05/2024 Discontinued (Therapy completed) Estradiol-Norethindr one Acet (4 sources) Estrogen Start: 01-07-2023 End: [...] 5 day(s) Apr, Not-Taking/PRN polyethylene glycol 3350 75008 mg powder for oral solution (3 sources) [...] Problem Classification Problem Date Documented Date Episodic/Chronic Cataract (1 source) Age-related nuclear cataract, bilateral; Translations: [Cataract, Nuclear Sclerosis OU] Onset: 11-25-2024 Chronic Diabetes mellitus without complication (3 sources) Impaired [...] complication] Onset: 01-24-2022 Episodic Other acquired deformities (19 sources) Contracture of joint of right ankle; Translations: [Contracture, right ankle] Onset: 01-27-2023 01-27-2023 Chronic Other aftercare (10 sources) Therapeutic drug level - finding; Translations: [Encounter for therapeutic drug level monitoring] Episodic Other and unspecified benign neoplasm (2 sources) Melanocytic nevus of trunk; Translations: [Melanocytic nevi of trunk] 02-16-2024 Episodic Other and unspecified benign neoplasm (1 source) Benign neoplasm of right choroid; 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, both eyes] Onset: 11-25-2024 Episodic Other circulatory disease (2 sources) Spider [...] Chronic Other ear and sense organ disorders (19 sources) Left conductive hearing loss; Translations: [Conductive hearing loss, unilateral, left ear, with unrestricted hearing on the contralateral side] Onset: 01-27-2023 01-27-2023 Chronic Other ear and sense organ disorders (19 sources) Bilateral hearing loss; Translations: [Conductive hearing loss, unilateral, left ear with restricted hearing on the contralateral side] Onset: 01-27-2023 01-27-2023 Chronic Other ear and sense organ disorders (7 sources) Cholesteatoma of external ear; Translations: [Cholesteatoma of left external ear] 07-05-2024 Episodic Other ear and sense organ disorders (4 sources) Unspecified cholesteatoma, left ear; Translations: [Unspecified [...] unclassified (1 source) Preoperative state 09-01-2024 Episodic Residual codes; unclassified (1 source) Postoperative state; Translations: [Other specified postprocedural states] 12-05-2024 Episodic Residual codes; unclassified (2 sources) Other specified postprocedural states; Translations: [Other specified postprocedural states] Onset: 12-06-2024 Episodic Retinal detachments; defects; vascular occlusion; and retinopathy (2 sources) Puckering of macula, left eye; 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, left eye] Onset: 11-25-2024 Chronic Spondylosis; intervertebral disc disorders; other back problems (3 sources) Solitary sacroiliitis; Translations: [Sacroiliitis, not elsewhere classified] Onset: 01-01-2015 Chronic Thyroid disorders (6 sources) Subclinical hypothyroidism; Translations: [Other specified hypothyroidism] Chronic Unclassified (1 source) Encounter for preprocedural cardiovascular examination; Translations: [Encounter for preprocedural cardiovascular examination] Onset: 01-07-2023 Unclassified (2 sources) Autogenerated Problem Onset: 09-01-2024 09-01-2024 Unclassified (2 [...] 01-27-2023 Resolved: 01-27-2023 01-27-2023 Chronic Menstrual disorders (19 sources) Irregular periods; Translations: [Irregular menstruation, unspecified] [...] Episodic Other ear and sense organ disorders (20 sources) Cholesteatoma; Translations: [Unspecified cholesteatoma, unspecified ear] Onset: 08-30-2024 07-05-2024 Episodic Comment on above: Left EAC Other ear and sense organ disorders (3 sources) Otorrhea of left ear; Translations: [Otorrhea, left ear] Onset: 11-12-2015 Episodic Other ear and sense organ disorders (19 sources) 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 EHR Cmte Other skin disorders (20 sources) Seborrheic keratosis; Translations: [Other seborrheic keratosis] Onset: 01-27-2023 01-27-2023 Episodic Otitis media and related conditions (5 sources) Unspecified perforation of tympanic membrane, left ear; Translations: [Otitis media] Onset: 11-12-2015 Episodic Residual codes; unclassified (1 source) Encounter for cosmetic surgery; Translations: [Encounter for cosmetic surgery] Onset: 01-22-2023 Episodic Sexually transmitted infections (not HIV or hepatitis) (19 sources) Human papillomavirus deoxyribonucleic acid test positive, [...] with and (suspected) exposure to COVID19] Unclassified (4 sources) Onset: 08-30-2024 Resolved: 12-06-2024 08-30-2024 Results Test Name Value Interpretation Reference Range Facility Surgical pathology studyon 0 11-21-2024 Surgical pathology study Pathology report.total SEE COMMENT Surgical Pathology Case: [id number] Authorizing Provider: Rashmi Boucher MD Collected: 11/21/2024 1221 Ordering Location: [facility] OR Received: 11/21/2024 1242 Pathologist: Avril Mckoy [...] in one cassette. ATB Gross performed at: [facility] Department of Pathology [address] [place] [address] Normal [facility] Comment on above: Order Comment: Pre-o [...] report is generated using voice recognition reporting ([employer]). On occasion [employer] erroneously drops words from the report or replaces the spoken word with similar sounding words. Please call with any questions/concerns regarding this report.* Dictated and transcribed 07/11/24/dpd This report has been electronically signed and approved by the interpreting radiologist. Normal Not Available Comment on above: Order Comment: CT Te mporal WO at [facility]. Please call patient to schedule. HX CHOLESTEATOMA LT EAR No Panel Informationon 02-15 [facility] Laboratory - Microbiology an d Antimicrobial susceptibilityon 01-01-2024 Bacterial vaginosis and vaginitis DNA panel Probe+sig amp (Vag fld) Negative [facility] No Panel Informationon 12-31 Interpretation and review of laboratory results Abnormal [facility] Trichomonas, UA Negative [facility] Yeast Negative [facility] + Parabasal cells c/ w atrophy [facility] Urine Cultureon 12-26-2023 Bacteria identified Cx Nom (U) ORGANISM: Escherichia coli (O:ESCCOL) [place] Count >100,000 Aerobic MARQUIS Charge (NMIC56) SUSCEPTIBILITY [...] RESISTANT TO ALL B-LACTAM DRUGS. PERFORMED BY: [place] [address] PATHOLOGIST TIRE FABRICATOR SACHIN RAI M.D. Normal [facility] Comment on above: Performed By: #### C UU #### [address] ECG 12 lead ECG 01-07-2023 ECG 12 lead ECG [facility] [place] [address] [place] [address] Electrocardiograph Report Signed Patient: Mai Miller MR#: [id number] : 1965 Acct:[id number] Age/Sex: 57 / F ADM Date: 01/07/23 Loc: PS Room: Type: [facility] Attending Dr: Rashaun William MD Ordering [...] DOMINIQUE Signed By Amina Apodaca DO 01/07 1810 Normal [facility] CBC AUTO DIFFon 07-10-2022 BASO # 0.0 103/ul Normal 0.0-0.1 [facility] Comment on above: Performed By: #### C BC #### [facility] [address] [place] [address] Dr. Nelly Virk Basophils/100 WBC (Bld) 0.8 % Normal 0.2-2.0 [facility] Comment on above: Performed By: #### C BC #### [facility] [address] [address] [address] Nelly Virk EO # 0.1 103/ul Normal 0.0-0.7 [facility] Comment on above: Performed By: #### C BC #### [facility] [address] [place] [address] Dr. Nelly Virk Eosinophils/100 WBC (Bld) 2.3 % Normal 0.9-7.0 [facility] Comment on above: Performed By: #### C BC #### [facility] [address] [address] [address] Nelly Virk Erythrocyte distribution width (RBC) [Ratio] 12.3 % Normal 11.0-15.0 [facility] Comment on above: Performed By: #### C BC #### [facility] [address] [place] [address] Dr. Nelly Virk Hematocrit (Bld) [Volume fraction] 41.4 % Normal 36.0-48.0 [facility] Comment on above: Performed By: #### C BC #### [facility] [address] [place] [address] Dr. Nelly Virk Hemoglobin (Bld) [Mass/Vol] 13.5 g/dL Normal 12.0-16.0 [facility] Comment on above: Performed By: #### C BC #### [facility] [address] [place] [address] Dr. Nelly Virk IG # 0.01 10e3/ul Normal 0.00-0.03 [facility] Comment on above: Performed By: #### C BC #### [facility] [address] [place] [address] Dr. Nelly Virk IG % 0.2 % Normal 0.0-0.5 [facility] Comment on above: Performed By: #### C BC #### [facility] [address] [place] [address] Dr. Nelly Virk LYMPH # 1.9 103/ul Normal 1.2-3.8 [facility] Comment on above: Performed By: #### C BC #### [facility] [address] [place] [address] Dr. Nelly Virk Lymphocytes/100 WBC (Bld) 40.6 % Normal 20.5-60.0 [facility] Comment on above: Performed By: #### C BC #### [facility] [address] [place] [address] Dr. Nelly Virk MANUAL DIFF REQ NO Normal [facility] Comment on above: Performed By: #### C BC #### [facility] [address] [place] [address] Dr. Nelly Virk MCH (RBC) [Entitic mass] 30.8 pg Normal 26.7-34.0 [facility] Comment on above: Performed By: #### C BC #### [facility] [address] [place] [address] Dr. Nelly Virk MCHC (RBC) [Mass/Vol] 32.6 g/dL Normal 29.9-35.2 [facility] Comment on above: Performed By: #### C BC #### [facility] [address] [place] [address] Dr. Nelly Virk MCV (RBC) [Entitic vol] 94.5 fL Normal 81.0-99.0 [facility] Comment on above: Performed By: #### C BC #### [facility] [address] [place] [address] Dr. Nelly Virk MONO # 0.4 103/ul Normal 0.3-0.8 [facility] Comment on above: Performed By: #### C BC #### [facility] [address] [place] [address] Dr. Nelly Virk Monocytes/100 WBC (Bld) 8.5 % Normal 1.7-12.0 [facility] Comment on above: Performed By: #### C BC #### [facility] [address] [place] [address] Dr. Nelly Virk NEUT # 2.2 103/ul Normal 1.4-6.5 [facility] Comment on above: Performed By: #### C BC #### [facility] [address] [place] [address] Dr. Nelly Virk Neutrophils/100 WBC (Bld) 47.6 % Normal 43.0-75.0 [facility] Comment on above: Performed By: #### C BC #### [facility] [address] [place] [address] Dr. Nelly Virk Platelet mean volume (Bld) [Entitic vol] 9.3 fL Critically low 9.5-13.5 [facility] Comment on above: Performed By: #### C BC #### [facility] [address] [place] [address] Dr. Nelly Virk PLT 207 103/ul Normal 150-450 [facility] Comment on above: Performed By: #### C BC #### [facility] [address] [place] [address] Dr. Nelly Virk RBC 4.38 106/ul Normal 4.20-5.40 [facility] Comment on above: Performed By: #### C BC #### [facility] [address] [place] [address] Dr. Nelly Virk WBC 4.7 103/ul Normal 4.0-11.0 [facility] Comment on above: Performed By: #### C BC #### [facility] [address] [address] [address] Nelly Virk LIPID PROFILEon 07-10-2022 CHOL-HDL RATIO NORM SEE BELOW Normal [facility] Comment on above: Result Comment: 3.3 - 4.4 LOW RISK 4.4 - 7.1 AVERAGE RISK 7.1 - 11.0 MODERATE RISK >11.0 HIGH RISK Performed By: #### L IPID, CMP, TSH #### [facility] [address] [address] [address] Nelly Virk Cholesterol [Mass/Vol] 219 mg/dL Critically high <=200 [facility] Comment on above: Performed By: #### L IPID, CMP, TSH #### [facility] [address] [address] [address] Nelly Virk Cholesterol in HDL [Mass/Vol] 80 mg/dL Critically high 40-60 [facility] Comment on above: Performed By: #### L IPID, CMP, TSH #### [facility] [address] [address] [address] Nelly Virk Cholesterol in LDL [Mass/Vol] 111.2 mg/dL Normal [facility] Comment on above: Performed By: #### L IPID, CMP, TSH #### [facility] [address] [address] [address] Nelly Virk Cholesterol.total/C holesterol in HDL [Mass ratio] 2.7 {ratio} Normal [facility] Comment on above: Performed By: #### L IPID, CMP, TSH #### [facility] [address] [address] [address] Nelly Virk HDL NORMAL > or = 60 mg/dl - LO W CARDIOVASCULAR RISK <40 mg/dl - HIGH CARDIOVASCULAR RISK Normal [facility] Comment on above: Performed By: #### L IPID, CMP, TSH #### [facility] [address] [address] [address] Nelly Virk LDL CALC NORMAL SEE BELOW Normal [facility] Comment on above: Result Comment: <100 mg/dl OPTIMAL 100 - 129 mg/dl NEAR OR ABOVE OPTIMAL 130 - 159 mg/dl BORDERLINE HIGH 160 - 189 mg/dl HIGH >190 mg/dl VERY HIGH Performed By: #### L IPID, CMP, TSH #### [facility] [address] [address] [address] Nelly Virk Triglyceride [Mass/Vol] 139 mg/dL Normal <=150 [facility] Comment on above: Performed By: #### L IPID, CMP, TSH #### [facility] [address] [address] [address] Nelly Virk VLDL CALC 27.8 mg/dL Normal [facility] Comment on above: Performed By: #### L IPID, CMP, TSH #### [facility] [address] [address] [address] Nelly Virk PROF 14(COMP METB)on 023 Albumin [Mass/Vol] 3.7 g/dL Normal 3.4-5.0 [facility] [facility] Comment on above: Performed By: #### L IPID, CMP, TSH #### [facility] [address] [address] [address] Nelly Virk Albumin/Globulin [Mass ratio] 1.0 {ratio} Normal [facility] Comment on above: Performed By: #### L IPID, CMP, TSH #### [facility] [address] [address] [address] Nelly Virk ALP [Catalytic activity/Vol] 62 U/L Normal 46-116 [facility] Comment on above: Performed By: #### L IPID, CMP, TSH #### [facility] [address] [address] [address] Nelly Virk ALT [Catalytic activity/Vol] 24 U/L Normal 14-59 [facility] Comment on above: Performed By: #### L IPID, CMP, TSH #### [facility] [address] [address] [address] Nelly Virk Anion gap [Moles/Vol] 14.4 mmol/L Normal [facility] Comment on above: Performed By: #### L IPID, CMP, TSH #### [facility] [address] [place] [address] Dr. Nelly Virk AST [Catalytic activity/Vol] 16 U/L Normal 15-37 [facility] Comment on above: Performed By: #### L IPID, CMP, TSH #### [facility] [address] [place] [address] Dr. Nelly Virk Bilirubin [Mass/Vol] 0.4 mg/dL Normal 0.2-1.0 [facility] Comment on above: Performed By: #### L IPID, CMP, TSH #### [facility] [address] [place] [address] Dr. Nelly Virk Calcium [Mass/Vol] 8.9 mg/dL Normal 8.5-10.1 [facility] Comment on above: Performed By: #### L IPID, CMP, TSH #### [facility] [address] [place] [address] Dr. Nelly Virk Chloride [Moles/Vol] 104 mmol/L Normal 98-107 [facility] Comment on above: Performed By: #### L IPID, CMP, TSH #### [facility] [address] [place] [address] Dr. Nelly Virk CO2 [Moles/Vol] 26.6 mmol/L Normal 21.0-32.0 [facility] Comment on above: Performed By: #### L IPID, CMP, TSH #### [facility] [address] [place] [address] Dr. Nelly Virk Creatinine [Mass/Vol] 0.88 mg/dL Normal 0.55-1.02 [facility] Comment on above: Performed By: #### L IPID, CMP, TSH #### [facility] [address] [place] [address] Dr. Nelly Virk EGFR-AF MAURITIAN >60 Normal >=60 [facility] Comment on above: Performed By: #### L IPID, CMP, TSH #### [facility] [address] [place] [address] Dr. Nelly Virk EGFR-NON AF MAURITIAN >60 Normal >=60 [facility] Comment on above: Performed By: #### L IPID, CMP, TSH #### [facility] [address] [address] [address] Nelly Virk Globulin (S) [Mass/Vol] 3.8 g/dL Normal [facility] Comment on above: Performed By: #### L IPID, CMP, TSH #### [facility] [address] [address] [address] Nelly Virk Glucose [Mass/Vol] 108 mg/dL Critically high 74-106 [facility] Comment on above: Performed By: #### L IPID, CMP, TSH #### [facility] [address] [place] [address] Dr. Nelly Virk Potassium [Moles/Vol] 4.0 mmol/L Normal 3.5-5.1 [facility] Comment on above: Performed By: #### L IPID, CMP, TSH #### [facility] [address] [place] [address] Dr. Nelly Virk Protein [Mass/Vol] 7.5 g/dL Normal 6.4-8.2 [facility] Comment on above: Performed By: #### L IPID, CMP, TSH #### [facility] [address] [place] [address] Dr. Nelly Virk Sodium [Moles/Vol] 141 mmol/L Normal 136-145 [facility] Comment on above: Performed By: #### L IPID, CMP, TSH #### [facility] [address] [place] [address] Dr. Nelly Virk Urea nitrogen [Mass/Vol] 18.0 mg/dL Normal 7.0-18.0 [facility] Comment on above: Performed By: #### L IPID, CMP, TSH #### [facility] [address] [place] [address] Dr. Nelly Virk Urea nitrogen/Creatinine [Mass ratio] 20.5 mg/mg Normal [facility] Comment on above: Performed By: #### L IPID, CMP, TSH #### [facility] [address] [place], [place] [address] Dr. Nelly Virk TSHon 07-10-2022 TSH 4.057 uIU/mL Critically high 0.358-3.740 [facility] Comment on above: Performed By: #### L IPID, CMP, TSH #### [facility] [address] [place], [place] [address] Dr. 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 Boucher?s clinic. We are here to assist you through your ENT care at [facility]. Dr. Boucher is an Ear surgeon. This means that she specializes in taking care of patients with complex ear problems. Dr. Boucher's office number is [phone]. While you may see her at a satellite office, she has a team committed to help meet your healthcare needs at [facility]'s main [facility]. This number is the most direct way to communicate with the office. Symone is Dr. Boucher?s real estate legal secretary and she answers the office phone [...] may include dieticians, social workers, speech therapists, special police officer, neurologist, and physical therapist. Dr. Boucher will provide these referrals as needed. Please let her know if you would like to request a specific referral. For your convenience, Dr. Boucher sees patients at several [facility] locations including [facility] and [facility] at the main campus of [facility]. While we try to make your [...] History o (more content not included)... 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 Boucher?s clinic. We are here to assist you through your ENT care at [facility]. Dr. Boucher is an Ear surgeon. This means that she specializes in taking care of patients with complex ear problems. Dr. Boucher's office number is [phone]. While you may see her at a satellite office, she has a team committed to help meet your healthcare needs at [facility]. This number is the most direct way to communicate with the office. Symone is Dr. Boucher?s real estate legal secretary and she answers the office phone [...] may include dieticians, social workers, speech therapists, special police officer, neurologist, and physical therapist. Dr. Boucher will provide these referrals as needed. Please let her know if you would like to request a specific referral. For your convenience, Dr. Boucher sees patients at several [facility] locations including [facility] and [facility] at the main campus of [facility]. While we try to make your [...] Normal [facility] No Panel Informationon 01-24 -Otolaryngo [facility] 6549 Work Phone: Order Reconciliationon 01-24 Order Reconciliation Page 1 Discharge Reconciliation Document Reconciliation Type: Discharge requested on behalf of Mariel Thurman (Resident) done by Mariel Thurman (Resident)) Discharge - Reconciliation: 24-Jan-2022 11:05 by: Mariel Thurman ( (Resident)) Discharge - Reset to Incomplete: 24-Jan-2022 13:35 by: Mariel Thurman ( (Resident)) Discharge - Reconciliation: 24-Jan-2022 13:35 by: Mariel Thurman ( (Resident)) Home Medications EnteredHOME MEDICATIONS AT DISCHARGE [...] with you (more content not included)... Normal [facility] Surgical Pathology Depar tmenton 01-24-2022 [facility] Surgical Pathology Department Name MAI MILLER Pathologist: ANDREWS SERRANO DMD. Date of Procedure: 01/24/2022 Date Received: 01/24/2022 Date Reported 02/10/2022 Submitting Physician: RASHMI BOUCHER MD Location: [facility] Copy To/Referring/Attending: RASHMI BOUCHER MD Other External # FINAL DIAGNOSIS MIDDLE EAR, LEFT, CONTENTS, BIOPSY: --KERATINIZING SQUAMOUS EPITHELIUM AND KERATIN DEBRIS CONSISTENT WITH CHOLESTEATOMA. --MIDDLE EAR MUCOSA WITH SCAR, CHRONIC INFLAMMATORY INFILTRATE, AND GLANDULAR METAPLASIA, CONSISTENT WITH CHRONIC OTITIS MEDIA, SEE NOTE. --DEVITALIZED CARTILAGE. Note: Appropriately controlled Congo red stain shows no evidence of amyloid. at Electronically Signed Out By ANDREWS SERRANO DMD./LOUISA By the signature on this report, the individual or group listed as making the Final Interpretation/Diagnosis certifies that they have reviewed this case. Diagnostic interpretation performed at [address] [place] [address] Clinical History: Physician Contact Number: [phone] Fixative (A): Formalin Clinical Diagnosis History 56 [...] submitted in toto in one cassette. ALT 01/30/2022 The assays/tests were performed with appropriate positive and negative controls which stained appropriately. [facility] Department of Pathology [address] [place] [address] Normal [facility] Comment on above: Performed By: #### [facility] #### [facility] Surgical Pathology Department [address] [place] [address] Patient Profile - Preop v3on 01-08-2022 Patient Profile - Preop v3 Patient Profile - Preop: Initial Info: Patient DemographicsName: MAI MILLER Date: 1965 Address: [address] [place] [facility] Date/Time [id number] 13:32 Primary Phone [phone] Instructions GivenStop taking aspirin, NSAIDs (Ibuprofen, Motrin, [...] 2022 Primary Contact Name and NumberMark [phone] Limitations on Visitors/Phone Callsnone Medications Brought to [facility]: Weight in kg80 kilogram(s) Weight in hfi720.3 pound(s) Weight Methodstated Scale Typestanding Height in feet5 feet Height in inches5.94 inch(es) Height in cm167.4 centimeter(s) Height Methodstated BMI (kg/m2)28.548 square meter Patient or Family Member Reaction to AnesthesiaPatient exercises at the [facility] 3-5 times a week. 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 Symptoms/Conditions Commenttakes estrogen Barriers to Managing Healthnone Relationship/Environ: Lives Withspouse Living Arrangementshouse Resource/Environmental Concernsnone Anticipated Transition [facility] [facility] Anticipated at Transitionnone Tobacco Use: Tobacco Useno Never smoker EtOH: 1 drink per week Denies medical marijuana, recreational drug use Pre-op Checklist: Procedure TypeLEFT SIDE LATERAL GRAFT TYMPANOPLASTY WITH POSSIBLE OCR NPOyes Last Food [id number] 19:00 Last Clear Fluid [id number] 19:00 ID Band On Patientpatient ID (name) [...] Last Updated: 24-Jan-2022 10:57 by Rachelle Murillo (RN) Normal [facility] Diagnostic Mammogram, Unilat eral left w/Jose [...] VERY IMPORTANT TO YOUR HEALTH. THE CURRENT [employer]IVE CANCER [...] by Ruben Bueno on 10/11/2021 1407 Normal [facility] Director Alumni Relations US Breast Limited, Lefton US Breast Limited, Left Please see the mammogram report from this same date Report reported and signed by Ruben Bueno on 10/11/2021 1405 Normal [facility] Specialist SCREENING MAMMOGRAM W/JOSE MARIA, BILATERAL*on 10-09-2021 SCREENING [...] VERY IMPORTANT TO YOUR HEALTH. THE CURRENT [employer]Y AND NATIONAL COMPREHENSIVE CANCER NETWORK GUIDELINES RECOMMENDS ANNUAL MAMMOGRAPHY BEGINNING AT AGE 39. THIS FACILITY USES A REMINDER SYSTEM TO ENSURE ALL PATIENTS RECEIVE REMINDER NOTIFICATIONS AT THE APPROPRIATE TIME BASED ON THE RECOMMENDATIONS OF THIS EXAM. Asymmetry: Visible on only one projection. Asymmetries that turning lathe tender to be summation artifact are benign (BI-RADS 2). 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 Boucher?s clinic. We are here to assist you through your ENT care at [facility]. Dr. Boucher is an Ear surgeon. This means that she specializes in taking care of patients with complex ear problems. Dr. Boucher's office number is [phone]. While you may see her at a satellite office, she has a team committed to help meet your healthcare needs at [facility]. This number is the most direct way to communicate with the office. Symone is Dr. Boucher?s real estate legal secretary and she answers the office phone [...] may include dieticians, social workers, speech therapists, special police officer, neurologist, and physical therapist. Dr. Boucher will provide these referrals as needed. Please let her know if you would like to request a specific referral. For your convenience, Dr. Boucher sees patients at several [facility] locations including [facility] and [facility] at the main campus of [facility]. While we try to make your [...] MG Oral Tablet Vitals Vital Signs Recorded: [id number] 04:10PM Wvteri404 lb Tobacco Useb) No Falls Screening (Age [...] or perfora (more content not included)... Normal [employer] Tobacco Screening.on 022 Fall risk assessment a) No falls within the last year MG-Otolaryngo logy-[employer] 6050A Work Phone: Tobacco use status CPHS b) No MG-Otolaryngo logy-[employer] Work Phone: COVID-19 (MC)on 06-12-2021 SARS-CoV-2 (COVID-19) RNA CLAUDE+probe Ql (Resp) Not detected Normal Not Detected [facility] Comment on above: Result Comment: This test result should be correlated with clinical presentations and medical history by a healthcare provider to determine its clinical significance. This assay was performed by a reverse transcriptase real-time polymerase chain reaction (rt PCR) method on the [employer] system. This test has been authorized only [...] or revoked sooner. Performed By: #### 2 [id number] #### [address] [address] SARS-CoV-2 (COVID-19) RNA CLAUDE+probe Ql (Unsp spec) Pass Normal Pass [facility] Comment on above: Performed By: #### 2 [id number] #### [facility] [address] [place] [address] Specimen source Nom (Unsp spec) Nasal Normal [facility] Comment on above: Performed By: #### 2 [id number] #### [facility] [address] [place] [address] Coding Summary.on 06-12-2021 Coding Summary. CD:[id number] Gh0bW w+PGhlYWQ+XX3FAHZfG91bdPO lbG1MW4sCHS4ZGFDMUYPCBJ7O HR1qpNP7WBmfD7ThbhPt UnpknLFiIY79OOw9DEN4pLjhV CaivK2ycKQpD0x0RrFiLL05lQ 76XSsrSGRyWjF1TnVsreknmWH y E5acDdQkqBRpHta+PHRhYmxlI HdpZHRoPScxMDAlJyBzdHlsZT 0bTw4pBLSuTJNdfZiuiXXfIpA j g3dzSIQkHLhnPE9nnAzxE1Zhd CJ6LVFax6f2Dp27yFI+PHRkIH K8kBffIUacr365NfFbq9liIYC 3 jRRbSBigAPV1V51xa8A0WTDbX NWxFUA0nMK7cA4xbLkkzqplG5 KtnMAkPnZ3FFT7gNDnvN0omSg n vbqppM7yDju+C26CNW0BPRJXF H1HWwn0K2XbCvewxAH+PC90YW YdDU87fYUviEOvq7yywVn2SpN w WBJyDXZ8hEnvCWozo6UiCIJsN 09gkQAoi0C2XIHgmEjfyJYvAa VmxXW4yM8hEIdnnabun2dpzao n Smqlj8teyy09uI41C10nUXzkT BLlNFV4IIZkZYFsxRlxrg4kuP 9wIi8+QLmtp2fzn6zaoKj1EaY w TJEensPciCofUCG7h5DaMw45C 3JzoAdjm4JkOsx7nq20gFHjb0 Y9xIE2WOrsQSRpfR6sJMcxKjL 6 RQLcXwPxwP42pENfLFbhFg3hb MguaCzpVH6dLUOltsplAMSlrV 6hPJDqqLSykSgbDI2iWOOeduo m i117AuHkGDB2MCYalZFhN8Jrn A1vCaAeIKIhPRKaY8RlmTZzTI wdS051DXtxLcN7QYWijiBwF4V s ASWgxDemTyN2e2N6Om8Md6Dha rsaJTB3SYncXSEzPhAdQlOoVg Y1G7EvXhi8QJOceFoiQE3gK5G h IEIqeodqtcsilCX3BOYfBYMmu E23lPHiBGcoZo3qf2W4q787XP VmALFafV04Tc6bwWuxUCPjtJJ U hG0nmyakp4voszdhMdYwYHXzQ Xo9IEf0IFToaDypStYsHRB8Es H2VWA9tCCznF9csNoxekrxvM2 w Oyc+H39nxE9nEZU4AAC4joniO MDshhWaXV00PS80R8BqStsvsN FibGU+IPJbtsCirReuPV1tYiH j k9ywk8HeGHabY6DkCCOsWBgwX qb4UXDfRBF6gFD8zA8cBUGzRD hdy6A7qNG7H7SdedRdou5fq6x s KARtJVjqG95jbMIdb5U3ZEYns LB0HZGrbNccBkMnhR54Pss+PG VtjLegc7XbRtxkz5zyz0qslSj 9 JxUrFWBcncZbjRxlEPD6g3OjK p25C23bRCunSZWcSILsQMXwLV LoiFnycx0zlW0qVl7+PGNvbCB 3 tOQ1pO4lQFIwJpT5QFqgO650V gYqoFWsNcran6zgt3mjqYo6Ul XsGLOkcbPjtYoqWNF9x7EqSl8 8 E42pZUbwSVUgORKaRQLqQOUbd Hpbks6yhV1rYz6+GJ0lb3oskb 66cA31oBN+KEToFYM6mOgsGKd w TXNvdO3qBBmuPoC8ITHfBjHwt I66yZPmBDadIq5saLnqrYmgDG 9cICXgegaiz189HoHyb1gfQPG w mHQzPJvvTZV4L13vo8P2GLUpW EZdGTX4gQC5dK4baUudfcyesF QszEalcbPpiBwxGRvgBJfrO19 6 IHRvcDsnPlBhdGllbnQgTmFtZ Gq9I2McDgq5CCJmaQvxFR4pxU UzGWxfNz2vmBxvzQjwHL0fNLR p qlqgn294OeOrp7ppZKAtcYWfR MhlSDQ6F40tc6M4SDKhBWRwAN U6bJM7sZ9apFktqcnnaMTleAw g nmVxiDywQDvzKYluL729RDUde PetZtHmhwBzDKXonHL2IZ09LO 46pAHgt8N6fMG2S0JpFZWjkps t ftvpaWU0HBVjPZOzdN92Cn9uf OmsCn1yVOMiIWI9ENFhsLXgI6 JnvI7oRpRsNWJaUQQjV1MexCK t SQrfC520ZZqfCeO8TSAcggBzN 2QvNUJdxIezNtY6u1M2Tw5WY6 P7YW98IH60eJPre8I8jFG3Y2T h VXRjncfmwnadeLD1IMDiZXFme Z35Vx1ktDmhCa0zWOKbIEG0IM OwrZXdD2PkbV1kSzSyUFUhBCV w L4PqbCHmACjeY566WCaaKrQ1Q WMmikObW4RoBFCmvSdpLzP6o4 Z5Oj9RBOx3FO42PT97jBXqa0X 5 uOY6C3BjWSErbhoqxqikuEI3X MDfGYPkpD05Rw0bzClaEo1uUC CxRFA2QOEzaGIpL7KxxS1tWgI j GPLrMDUlE0VcxGFxNRzfL549X PzlVkA3UJGxeyNeC5BcXMCedQ qkNuQ5c8S4Ow6WUUNaHT29LWR 5 kOK3QB96NL33T3SkZjhkhSIfr +PHRhYmxlIHdpZHRoPScxMD FkBoZdjIzfSB6zZb0uKZYiHYK v aNzjxJLpRvAub8rwCYJkKChwY O8nkTxtA9VqiWI1MAOeo4u1Rl 45V25lK2HglIW+FTDsuQE1sWS 0 nO7sMzGbAuJ0DZroM958RvAir NMqKjpws6hba9vxfCj3VxK2WE SpyxTnyRccWHY7t2BpYd75M15 s IHdpZHRoPSIxNSUiIHZhbGlnb r1ihB0iRq1+QYWlwMB1uLH5eW 7zOcRiKeQ2MOffV502ScBfnWL v Dxdmw2men6upvZd4SvXyWLUzi uHczOdtVQT3t0HgJp95I2ZixA ktx6HmHoy9ci24lEXjx4P2rNL 9 E5CcOPCoxkmobHBxxWelOZ9hV AFdfqfqPTDxgC6iFWUjR7v8Mj ZdCgD8HDflV3NebxF3QNDkaEF g EGfdEGB6Z60ui1K0ZTXgUHVjM XU8jCF5wX4ycPtosxdcgIReyY uckrYgcWlfYFufPPrgZ117JGE v hYxvGMHqhJ8bZHFiuMYyuXwcZ T0tNUDcqbjlBeKWEGZvON9PE2 ryHUdLAPPOTD8pBLqmeYC+PHR k DII0aQvdSCkhGSNouE2eOHAlC 7s3QoAqVyX6MYjkG7KaRQJyfj odHn31rE1hTyFkBkZ2IJqgV4J v neC5BCEflWMqABzfDOK4D58nf 1R0GFRsPEOwLEW4iSF6jI4shH lnbjogbGVmdDsgdmVydGljYWw t GExgU895CMTkrYtcAqG4DcE3X xL0EhP9L6SxUlp8HGLlnSwpWN 2dhVMvLZcgYf6osSmjxYglAA4 w JUAhdfaiSDMigV9bDWYplUMwz PjwQG8kHSWfrrljy447PbIoSV B2UUNqvSQpZ4DqtU7dMrBgGMT w NNGrB3VgjIJvBAotF915LMjlX qL7URIzanZlB5WrTBEdfKntFd U9y3A1Lh54BwLZRECcgugkeBR + PTPnQFZ7kPjsTUijJNVxjI5jS QOwC0p9HvXvFcF3MJfpS5SuYQ UvdbugGj08sC7fSrRnHkC2UUa u R1FlvcB1MJHlaHRcBNisJQH0G 56kq2A9WJUuEMPaQGI5zYK3xS 1hbGlnbjogbGVmdDsgdmVydGl j HJqqEUmbI739RRSahCzbPvWwz WFsZTwvdGQ+PNVcCMT6pYxqEX veWHRpjC7nWXSfM7i8YuKlEvD 1 OCakQ8NfMNVvsfevNl71oB3qO mMcNpG5BDusH5XrmkE3XYQwoW JpYZqkIVZ0W88hy9M6RIUySAN w ZGP2fCI8bV6qjTopmuoulULpp BsvpeOnsNqzTTvgIZeoY316LD EgtQdxIhNbX5BulkmwBzikcOM + FN23yi05I1YsBrifXbn4QRAgG RN5qFT9zN5rQGVcHMxzc9S8nA T6M4BatpCerj2ry6adIIXqLYv g S52dtBPxn2W7UVUiuAA3LMFrg BcjAoGlaT29Nau+PGNvbGdyb3 WkNbvzs4eau5zisCc1OkPtZSF g uaAvaIvcYYI8a3ZtIf88G03hH HdpZHRoPSIzMCUiIHZhbGlnbj 6rmB3aCg5+SSZpwVK1pWW8zP1 i AqDqUbL7TRmoZ951LiEpiEEfJ osnh2ghz2uhlBe1BhIkXWGqyo VxeLwaAHZ0h5AcGu02L0LgxQn y s6TkIou5ri76tBEuv5X3tDO5P 3IpXGZsdqdkqBNegWkuLM0xBA NgljyoBFWxcY2xUFGeI5c1PkO w SwN6MUfeM0DvmaU5GMUyeDRdW IWikESPfZ0mjzvro9pwquzyXq TjGUQjPVx0HZr7QLLxpCitVuB s VLX7NpA7ZSF8mDPhuA9rgLcdn zqbqC1yJqs+VLm8s3ixaNNxKG 2szBQ5LA43VI75uAAoe8G4nNA 9 E4LcQTXhrztaecnjjYJ3MNChJ WSaeC15Wl7ouHfjEi8yPDPuZB B6RQBycSPfB5IwrE3qOdXqRJS w LBPqX6MiyGGvREmsB366KTdlA pG4FCAlpgVdD7RcRDMxpUnsHg V2m6I3Pc4BIB77UU51IP27xXL g x4N7hRP8T0EdUGOkrwgxzbflb LF7KWDoZJKfcP10Sw1glWfrHr 8nZKTuTZB3ZUMiiPPkI7VzpE0 y ElOmAGDvUSRkK4XmuYOmAZnmV 725HOeiKiN2TTToyvWaY8XbTX KrzKjsTfF3b4U2Cy4RZd23CY5 0 GO97vPJcj6R0jRF5W8PpLKZwq wpwxyahgOV6JQNsPSNqkA98Bf 2mlWuvTa3lPKYhRIX3EYMfvVT z I1YbuD8kPvZyNHXuYIXhU2Nyp AXvVVdqG904FYuhAwP7WCYcpb LdH8EwGYIupGdzMhT6e0A6It8 Q KLklzxe8U0CuPkvicKB+PC90Y ONhSK12oFMhdSWov5omyDd1Km DlQPNmQRA5qCbyBXaje4AkOIE t Y29s (more content not included)... Normal [facility] Consent for Treatmenton 05-16 Consent for Treatment [id number]:127 Normal [facility] COVID-[place]on 06-11-2021 ADMITTED TO INTENSIVE CARE UNIT FOR CONDITION OF INTEREST:FIND:PT: NO Normal [facility] Comment on above: Performed By: #### 2 [id number] #### [facility] [address] [place] [address] EMPLOYED IN A HEALTHCARE SETTING:FIND:PT: Unknown Normal [facility] Comment on above: Performed By: #### 2 [id number] #### [facility] [address] [place] [address] FIRST TEST FOR CONDITION OF INTEREST:FIND:PT: Unknown Normal [facility] Comment on above: Performed By: #### 2 [id number] #### [facility] [address] [place] [address] HAS SYMPTOMS RELATED TO CONDITION OF INTEREST:FIND:PT: Unknown Normal [facility] Comment on above: Performed By: #### 2 [id number] #### [facility] [address] [place] [address] HOSPITALIZED FOR CONDITION OF INTEREST:FIND:PT: NO Normal [facility] Comment on above: Performed By: #### 2 [id number] #### [facility] [address] [place] [address] STATUS:FIND:PT: NO Normal [facility] Comment on above: Performed By: #### 2 [id number] #### [facility] [address] [place] [address] RESIDES IN A CRITICAL ACCESS HOSPITAL CARE SETTING:FIND:PT: Unknown Normal [facility] Comment on above: Performed By: #### 2 [id number] #### [facility] [address] [place] [address] Vital Signs Date Time Vital Sign Value Performing Clinician Facility 12-06-2024 13:13-0400 Body height 165.1 cm Rashmi Boucher MD Work Phone: [facility] 12-06-2024 13:13-0400 Body mass index (BMI) [Ratio] 31.12 kg/m2 Rashmi Boucher MD Work Phone: [facility] 12-06-2024 13:13-0400 Body weight 84.82 kg Rashmi Boucher MD Work Phone: [phone] [place] [address] 11-28-2024 08:41-0400 Body height 165.1 cm Carolyn Jasmine MD Work Phone: [facility] 11-28-2024 08:41-0400 Body mass index (BMI) [Ratio] 31.28 kg/m2 Carolyn Jasmine MD Work Phone: [facility] 11-28-2024 08:41-0400 Body weight 85.28 kg Carolyn Jasmine MD Work Phone: [facility] 11-28-2024 08:41-0400 Diastolic blood pressure 85 mm[Hg] Carolyn Jasmine MD Work Phone: [facility] 11-28-2024 08:41-0400 Heart rate 93 /min Carolyn Jasmine MD Work Phone: [facility] 11-28-2024 08:41-0400 Systolic blood pressure 129 mm[Hg] Carolyn Jasmine MD Work Phone: [facility] 11-21-2024 15:10-0400 Body temperature 96.3 [degF] Rashmi Boucher MD Work Phone: 2(774)749-447130 [place] [address] 11-21-2024 15:10-0400 Diastolic blood pressure 84 mm[Hg] Rashmi Boucher MD Work Phone: 1(860)725-829985 [place] [address] 11-21-2024 15:10-0400 Heart rate 94 /min Rashmi Boucher MD Work Phone: 7(749)514-329185 [place] [address] 11-21-2024 15:10-0400 Respiratory rate 15 /min Rashmi Boucher MD Work Phone: 7(441)098-330976 [address] 11-21-2024 15:10-0400 SaO2% (BldA) [Mass fraction] 94 % Rashmi Boucher MD Work Phone: 4(254)481-868976 [address] 11-21-2024 15:10-0400 Systolic blood pressure 132 mm[Hg] Rashmi Boucher MD Work Phone: 2(335)810-654476 [address] 11-21-2024 09:46-0400 Body height 165.1 cm Rashmi Boucher MD Work Phone: 6(506)301-382976 [address] 11-21-2024 09:46-0400 Body mass index (BMI) [Ratio] 31.18 kg/m2 Rashmi Boucher MD Work Phone: 6(217)726-481430 [place] [address] 11-21-2024 09:46-0400 Body weight 85 kg Rashmi Boucher MD Work Phone: 7(376)078-415085 [place] [address] 08-30-2024 09:51-0400 Body height 165.1 cm Rashmi Boucher MD Work Phone: 2(576)147-897530 [place] [address] 08-30-2024 09:51-0400 Body mass index (BMI) [Ratio] 29.95 kg/m2 Rashmi Boucher MD Work Phone: 2(859)068-946230 [place] [address] 08-30-2024 09:51-0400 Body weight 81.65 kg Rashmi Boucher MD Work Phone: [facility] 07-18-2024 11:20-0400 Body height 165.1 cm Carolyn Jasmine MD Work Phone: [facility] 07-18-2024 11:20-0400 Body mass index (BMI) [Ratio] 31.95 kg/m2 Carolyn Jasmine MD Work Phone: [facility] 07-18-2024 11:20-0400 Body weight 87.09 kg Carolyn Jasmine MD Work Phone: [facility] 07-18-2024 11:20-0400 Diastolic blood pressure 81 mm[Hg] Carolyn Jasmine MD Work Phone: [facility] 07-18-2024 11:20-0400 Heart rate 89 /min Carolyn Jasmine MD Work Phone: [facility] 07-18-2024 11:20-0400 Systolic blood pressure 136 mm[Hg] Carolyn Jasmine MD Work Phone: [facility] 07-13-2024 09:31-0400 Body height 165.1 cm [facility] 07-13-2024 09:31-0400 Body mass index (BMI) [Ratio] 31.4 kg/m2 [facility] 07-13-2024 09:31-0400 Body weight 85.72 kg [facility] 07-13-2024 09:31-0400 Diastolic blood pressure 84 mm[Hg] [facility] 07-13-2024 09:31-0400 Heart rate 91 /min [facility] 07-13-2024 09:31-0400 Respiratory rate 12 /min [facility] 07-13-2024 09:31-0400 Systolic blood pressure 127 mm[Hg] [facility] 07-05-2024 15:38-0400 Body height 165.1 cm Carolyn Jasmine MD Work Phone: [facility] 07-05-2024 15:38-0400 Body mass index (BMI) [Ratio] 32.28 kg/m2 Carolyn Jasmine MD Work Phone: [facility] 07-05-2024 15:38-0400 Body weight 88 kg Carolyn Jasmine MD Work Phone: [facility] 07-05-2024 15:38-0400 Diastolic blood pressure 76 mm[Hg] Carolyn Jasmine MD Work Phone: [facility] 07-05-2024 15:38-0400 Heart rate 85 /min Carolyn Jasmine MD Work Phone: [facility] 07-05-2024 15:38-0400 Systolic blood pressure 126 mm[Hg] Carolyn Jasmine MD Work Phone: [facility] 01-05-2024 15:39-0400 Body height 165.1 cm Carolyn Jasmine MD Work Phone: [facility] 01-05-2024 15:39-0400 Body mass index (BMI) [Ratio] 28.46 kg/m2 Carolyn Jasmine MD Work Phone: [facility] 01-05-2024 15:39-0400 Body weight 77.56 kg Carolyn Jasmine MD Work Phone: [facility] 01-05-2024 15:39-0400 Diastolic blood pressure 80 mm[Hg] Carolyn Jasmine MD Work Phone: [facility] 01-05-2024 15:39-0400 Systolic blood pressure 133 mm[Hg] Carolyn Jasmine MD Work Phone: [facility] 01-01-2024 09:10-0400 Body mass index (BMI) [Ratio] 27.62 kg/m2 Mariel Visci DO Work Phone: [facility] 01-01-2024 09:10-0400 Body weight 75.3 kg Mariel Visci DO Work Phone: [facility] 01-01-2024 09:10-0400 Diastolic blood pressure 84 mm[Hg] Mariel Visci DO Work Phone: [facility] 01-01-2024 [id number] Systolic blood pressure 118 mm[Hg] Mariel Tian DO Work Phone: [facility] 12-26-2023 13:14-0400 Body height 165.1 cm PHYSICIAN NO [facility] 12-26-2023 13:14-0400 Body mass index (BMI) [Ratio] 27.8 kg/m2 PHYSICIAN NO [facility] 12-26-2023 13:14-0400 Body temperature 97.7 [degF] PHYSICIAN NO [facility] 12-26-2023 13:14-0400 Body weight 75.86 kg PHYSICIAN NO [facility] 12-26-2023 13:14-0400 Diastolic blood pressure 88 mm[Hg] PHYSICIAN NO [facility] 12-26-2023 13:14-0400 Heart rate 91 /min PHYSICIAN NO [facility] 12-26-2023 13:14-0400 Respiratory rate 16 /min PHYSICIAN NO [facility] 12-26-2023 13:14-0400 SaO2% (BldA) [Mass fraction] 98 % PHYSICIAN NO [facility] 12-26-2023 13:14-0400 Systolic blood pressure 126 mm[Hg] PHYSICIAN NO [facility] 11-30-2023 11:21-0400 Body height 165.1 cm PHYSICIAN NO [facility] 11-30-2023 11:21-0400 Body mass index (BMI) [Ratio] 27.8 kg/m2 PHYSICIAN NO [facility] 11-30-2023 11:21-0400 Body weight 75.86 kg PHYSICIAN NO [facility] 11-30-2023 11:21-0400 Diastolic blood pressure 78 mm[Hg] PHYSICIAN NO [facility] 11-30-2023 11:21-0400 Heart rate 80 /min PHYSICIAN NO [facility] 11-30-2023 11:21-0400 Respiratory rate 12 /min PHYSICIAN NO [facility] 11-30-2023 11:21-0400 Systolic blood pressure 125 mm[Hg] PHYSICIAN NO FAMILY [facility] 01-22-2023 13:56-0500 Diastolic blood pressure 87 mm[Hg] DO Kartik Ball Work Phone: [facility] 01-22-2023 13:56-0500 Heart rate 87 /min DO Kartik Ball Work Phone: [facility] 01-22-2023 13:56-0500 Respiratory rate 16 /min DO Kartik Ball Work Phone: [facility] 01-22-2023 13:56-0500 SaO2% (BldA) [Mass fraction] 96 % DO Kartik Ball Work Phone: [facility] 01-22-2023 13:56-0500 Systolic blood pressure 140 mm[Hg] DO Kartik Ball Work Phone: [facility] 01-22-2023 13:27-0500 Body height 165.1 cm DO Kartik Ball Work Phone: [facility] 01-22-2023 13:27-0500 Body mass index (BMI) [Ratio] 30 kg/m2 DO Kartik Ball Work Phone: [facility] 01-22-2023 13:27-0500 Body weight 82 kg DO Kartik Ball Work Phone: [facility] 01-22-2023 12:21-0500 Body temperature 98.1 [degF] DO Kartik Ball Work Phone: [facility] 01-22-2023 12:21-0500 Inhaled oxygen flow rate 6 L/min DO Kartik Ball Work Phone: [facility] 09-04-2022 08:45-0400 Body height 167.64 cm Kartik Ball Other [employer] Other 09-04-2022 08:45-0400 Body mass index (BMI) [Ratio] 27.44 kg/m2 Kartik Ball Other [employer] Other 09-04-2022 08:45-0400 Body weight 77.11 kg Kratik Ball Other [employer] Other 09-04-2022 08:45-0400 Diastolic blood pressure 76 mm[Hg] Kartik Ball Other [employer] Other 09-04-2022 08:45-0400 Respiratory rate 12 /min Kartik Ball Other [employer] Other 09-04-2022 08:45-0400 Systolic blood pressure 119 mm[Hg] Kartik Ball Other [employer] Other 07-08-2022 12:30-0400 Body height 167.64 cm Kartik Ball Other [employer] Other 07-08-2022 12:30-0400 Body mass index (BMI) [Ratio] 29.86 kg/m2 Kartik Ball Other [employer] Other 07-08-2022 12:30-0400 Body weight 83.92 kg Kartik Ball Other [employer] Other 07-08-2022 12:30-0400 Diastolic blood pressure 81 mm[Hg] Kartik Ball Other [employer] Other 07-08-2022 12:30-0400 Respiratory rate 12 /min Kartik Ball Other [employer] Other 07-08-2022 12:30-0400 Systolic blood pressure 136 mm[Hg] Kartik Ball Other [employer] Other 03-11-2022 14:20-0500 Body height 167.64 cm Kartik E Ball Work Phone: [facility] Work Phone: 03-11-2022 14:20-0500 Body mass index (BMI) [Ratio] 27.44 kg/m2 Kartik Priest Work Phone: [facility] Work Phone: 03-11-2022 14:20-0500 Body surface area Derived from formula 1.87 m2 Kartik Priest Work Phone: [facility] Work Phone: 03-11-2022 14:20-0500 Body temperature 96.7 [degF] Kartik Priest Work Phone: [facility] Work Phone: 03-11-2022 14:20-0500 Body weight 77.11 kg Kartik Priest Work Phone: [facility]pd[facility]ldgugap[facility] Work Phone: 10-07-2021 16:10-0400 Body weight 76.66 kg Kartik Priest Work Phone: TM-Etoeiyfefczeht-[facility] 3300[facility] Work Phone: Encounters Encounter Date Encounter Type Care Provider Facility Start: 12-06-2024 End: 12-06-2024 Postop follow up visit related to original px Rashmi Boucher MD Work Phone: [facility] Comment on above: Postoperative state (Primary Dx); Cholesteatoma of left ear Start: 12-06-2024 End: 12-06-2024 ambulatory RASHMI BOUCHER [facility] Start: 11-28-2024 End: 11-28-2024 Bamboo flowsheet Carolyn Jasmine MD Work Phone: [facility] Start: 11-28-2024 End: 11-28-2024 Bamboo flowsheet Carolyn Jasmine MD Work Phone: [facility] Start: 11-28-2024 End: 11-28-2024 ambulatory CAROLYN JASMINE Not Available Start: 11-28-2024 End: 11-28-2024 Office outpatient visit 15 minutes Carolyn Jasmine MD Work Phone: [facility] Comment on above: 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) Start: 11-25-2024 Office outpatient ne w 30 minutes [facility] [employer] Start: 11-25-2024 ambulatory Wayne Vizcaino [facility] Start: 11-23-2024 ambulatory Marcus Vera Jr [facility] Start: 11-21-2024 End: 11-21-2024 ambulatory RASHMI BOUCHER [facility] Start: 11-21-2024 End: 11-21-2024 Subsequent hospital visit by physician Rashmi Boucher MD Work Phone: [facility] [place] Comment on above: Cholesteatoma of lef t ear (Primary Dx) Start: 10-24-2024 [facility] Start: 09-01-2024 End: 09-01-2024 Subsequent hospital visit by physician Rad External Film EF RAD EXTERNAL [facility]M [facility] Comment on above: Arrived Start: 09-01-2024 End: 09-01-2024 ambulatory RASHMI BOUCHER [facility] Start: 08-30-2024 End: 08-30-2024 Office outpatient new 45 minutes Rashmi Boucher MD Work Phone: [facility] Comment on above: Preoperative clearan ce; Cholesteatoma of left ear Start: 08-30-2024 End: 08-30-2024 Preoperative state Rashmi Boucher MD Work Phone: [facility] Start: 08-30-2024 End: 08-30-2024 ambulatory BENJIE J [facility] Start: 07-18-2024 End: 07-18-2024 Bamboo flowsashley Jasmine MD Work Phone: [facility] Start: 07-18-2024 End: 07-18-2024 Bamgallitoo flowsashley Jasmine MD Work Phone: [facility] Start: 07-18-2024 End: 07-18-2024 Office outpatient visit 15 minutes Carolyn Jasmine MD Work Phone: [facility] Comment on above: 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) Start: 07-18-2024 End: 07-18-2024 ambulatory CAROLYN H TIMMIS Not Available Start: 07-13-2024 End: 07-13-2024 ambulatory [facility] Work Phone: Start: 07-13-2024 End: 07-13-2024 Patient encounter procedure [facility] Work Phone: Start: 07-11-2024 End: 07-11-2024 [...] TIMMIS Not Available Start: 07-05-2024 End: 07-05-2024 Bryano francisco javier Jasmine MD Work Phone: [facility] Start: 07-05-2024 End: 07-05-2024 Bamboo flowsashley Jasmine MD Work Phone: [facility] Start: 02-16-2024 End: 02-16-2024 Office outpatient visit 15 minutes Raulito Nuñez MD Work Phone: [facility] Comment on above: Melanocytic nevus of [...] OB Start: 01-01-2024 End: 01-01-2024 ambulatory MARIEL A VISCI Not Available Start: 01-01-2024 End: 01-01-2024 Patient encounter status Mariel A Visci DO Work Phone: [facility] Work Phone: Start: 01-01-2024 End: 01-01-2024 Periodic preventive med est patient 40-64yrs Mariel Tian DO Work Phone: [facility] Comment on above: Encounter for gyneco logical examination with abnormal finding (Primary Dx); Encounter for screening mammogram for malignant neoplasm of breast; Vaginal atrophy; Vaginal irritation Start: 12-26-2023 End: 12-26-2023 ambulatory PHYSICIAN NO FAMILY Facility:[facility] Start: 12-26-2023 End: 12-26-2023 Departed Referred PHYSICIAN NO [facility] [place] Work Phone: Start: 12-26-2023 End: 12-26-2023 Patient encounter procedure PHYSICIAN NO [facility] Work Phone: Start: 11-30-2023 End: 11-30-2023 Patient encounter procedure PHYSICIAN NO [facility] Work Phone: Start: 02-20-2023 End: 02-20-2023 ambulatory Kartik Ball Other [employer] Other Start: 02-20-2023 Telephone encounter Kartik Priest [facility] Start: 02-19-2023 End: 02-19-2023 ambulatory Kartik Ball Other [employer] Other Start: 02-19-2023 Office outpatient vi sit 15 minutes Kartik Priest [facility] Start: 01-22-2023 Telephone encounter Kartik Priest [facility] Start: 01-22-2023 End: 01-22-2023 Admission to same day surgery center DO Kartik Ball Work Phone: [facility] [place] Start: 01-22-2023 End: 01-22-2023 ambulatory DO Kartik Ball Work Phone: [facility] Work Phone: Start: 01-07-2023 End: 01-07-2023 Patient encounter procedure DO Kartik Priest Work Phone: [facility] Work Phone: Start: 01-07-2023 End: 01-07-2023 ambulatory DO Kartik Priest Work Phone: [facility] Work Phone: Start: 09-04-2022 End: 09-04-2022 ambulatory Kartik Priest Other [employer] Other Start: 09-04-2022 Office outpatient vi sit 15 minutes Kartik Priest [facility] Start: 09-04-2022 Telephone encounter Kartik JUAREZ [facility] Start: 08-28-2022 End: 08-28-2022 ambulatory Kartik Priest Other [employer] Other Start: 08-28-2022 Telephone encounter Kartik JUAREZ [facility] Start: 07-14-2022 Encounter for genera l adult medical examination without abnormal findings DR KARTIK PRIEST [facility] Start: 07-10-2022 End: 07-11-[address] KARTIK PRIEST Facility:[facility] Start: 07-10-2022 End: 07-11-2022 Encounter for general adult medical examination without abnormal findings DR KARTIK PRIEST Facility:[facility] Start: 07-08-2022 End: 07-08-2022 ambulatory Kartik Priest Other [employer] Other Start: 07-08-2022 Encounter for genera l adult medical examination without abnormal findings Kartik Priest [facility] Start: 07-08-2022 Periodic preventive med est patient 40-64yrs Kartik Priest [facility] Start: 03-11-2022 Patient encounter procedure Kartik Moralez Jennifer Work Phone: [facility] Work Phone: Start: 03-11-2022 Postop follow up vis it related to original px Kartik Priest Work Phone: [facility] Work Phone: Start: 03-11-[address] Rashmi Boucher Facility:[id number] Start: 02-11-[address] Rashmi Boucher Facility:[id number] Start: 02-11-2022 Chart Update Kartik salamacna Work Phone: [facility] Work Phone: Start: 01-24-2022 End: 01-24-[address] Rashmi Boucher Facility:[facility] Start: 10-07-2021 Office consultation new/estab patient 60 min Kartik Priest Work Phone: OZ-Rzlphebxknioix-Bvgmep l 3300E Work Phone: Start: 10-07-2021 Patient encounter procedure Kartik Priest Work Phone: QK-Oghswlgngtabbi-Rhcycl l 3300A Work Phone: Start: 10-07-[address] Rashmi Boucher Facility:[id number] Start: 06-05-2021 End: 09-10-2021 Patient encounter procedure Jasper Salamanca Miguelito [facility] Start: 05-10-2019 Adult health examination Duy roseann Priest Other [facility] Other Procedures Date Procedure Procedure Detail Performing Clinician Start: 11-25-2024 Fundus photography w/interpretation & report Wayne Munoz Start: 11-25-2024 OCT No Charge Wayne Munoz Start: 09-01-2024 Study Interpretation of outside study Rashmi Boucher MD Work Phone: Start: 02-16-2024 End: 02-16-2024 CRYOTHERAPY SKIN LESION Raulito Nuñez MD Work Phone: Start: 01-01-2024 Smr prim src wet devika nt nfct agt Mariel A Visci DO Work Phone: Start: 01-22-2023 Blepharoplasty DO Duy Priest Work Phone: Start: 10-13-2022 Mammography Rashmi watson MD Work Phone: Start: 04-30-2017 Screening for malign ant neoplasm of colon Kartik Priest Other Start: 01-01-2015 General examination of patient Kartik Priest Other Plan of Treatment Date Care Activity Detail Author Start: 11-11-2039 RSV High Risk: (Elde rly (60+) or Population) (1 - 1-dose 75+ series) RSV High Risk: (Elderly (60+) or Population) (1 - 1-dose 75+ series) [facility] Start: 09-01-2025 Yearly Adult Physical Yearly Adult [facility] Start: 02-15-2025 End: 02-15-2025 Patient encounter procedure [facility] Start: 01-11-2025 End: 01-11-2025 Patient encounter procedure [facility] Start: 01-01-2025 Yearly Adult Physical Yearly Adult [facility] Start: 12-06-2024 End: 12-06-2024 Patient encounter procedure 12/06/2024 1:15 PM EDT Office Visit [facility] [address] [place] [address] [place] [address] [place] [address] [place], [place] [id number] [facility] Start: 11-21-2024 Subsequent hospital visit by physician 11/21/2024 Hospital Encounter [facility] [place] [address] [place] [address] [place] [address] [place] [address] [facility] [place] Start: 11-14-2024 COVID-19 Vaccine ( season) COVID-19 Vaccine ( season) [facility] Start: 11-14-2024 Influenza vaccination [facility] Start: 2024 RSV High Risk: (Elde rly (60+) or Population) (1 - Risk 60-74 years 1-dose series) RSV High Risk: (Elderly (60+) or Population) (1 - Risk 60-74 years 1-dose series) [facility] Start: 09-01-2024 End: 08-30-2025 CBC panel - Blood by Automated count CBC Lab Routine Cholesteatoma of left ear Expected: 09/01/2024 (Approximate), Expires: 08/30/2025 [facility] Work Phone: Comment on above: Expected: 09/01/2024 (Approximate), Expires: 08/30/2025 Start: 09-01-2024 End: 08-30-2025 Comprehensive metabolic 2000 panel - Serum or Plasma Comprehensive Metabolic Panel Lab Routine Cholesteatoma of left ear Expected: 09/01/2024 (Approximate), Expires: 08/30/2025 [facility] Work Phone: Comment on above: Expected: 09/01/2024 (Approximate), Expires: 08/30/2025 Start: 07-18-2024 End: 07-18-2024 Patient encounter procedure 07/18/2024 11:20 AM EDT Office Visit [facility] [address] [facility] [address] [place] [address] Carolyn Jasmine MD [address] [facility] [address] [place] [address] [facility] Start: 07-05-2024 End: 07-05-2024 [...] identified in Urine by Culture Urine Culture [facility] Start: 12-26-[address] [facility] Start: 11-15-2023 COVID-19 Vaccine ( season) COVID-19 Vaccine ( season) [facility] Start: 10-14-2023 Screening for malign ant neoplasm of breast Mammogram [facility] Start: 01-22-2023 [facility] Start: 01-22-2023 [facility] Start: 03-11-2022 FUV, Provider: Rashmi Boucher, Status: Pen, Time: 2:15 PM FUV, Provider: Rashmi Boucher, Status: Pen, Time: 2:15 PM QD-Dgyazyaaibrqbo-Kk 4100 Work Phone: Start: 2014 Pneumococcal vaccination Pneum ococcal Vaccine (1 of 1 - PCV) [facility] Start: 2014 Zoster Vaccines (1 of 2) Zoste r Vaccines (1 of 2) [facility] Start: 1986 DTaP/Tdap/Td Vaccine s (1 - Tdap) DTaP/Tdap/Td Vaccines (1 - Tdap) [facility] Start: 1985 Screening for malign ant neoplasm of cervix [facility] Start: 11-11-1983 Hepatitis B Vaccines (1 of 3 - 19+ 3-dose series) Hepatitis B Vaccines (1 of 3 - 19+ 3-dose series) [facility] Start: 11-11-1983 Pneumococcal vaccination Pneum ococcal Vaccine (1 of 2 - PCV) [facility] Start: 11-11-1983 Zoster Vaccines (1 of 2) Zoste r Vaccines (1 of 2) [facility] Start: 1982 Diabetes mellitus screening Diabetes Screening [facility] Start: 1982 Hepatitis C screening Hepatitis C Sc reening [facility] Start: 1969 COVID-19 Vaccine (#1) COVID-19 Vacci ne (#1) [facility] Start: 1965 MMR Vaccines (1 of 1 - Standard series) MMR Vaccines (1 of 1 - Standard series) [facility] Start: 1964 HIV screening HIV Screening [facility] Start: 1964 Lipid panel Lipid Panel [facility] Start: 1964 Screening for malign ant neoplasm of colon [facility] Start: 1964 Yearly Adult Physical Yearly Adult P hysical [facility] End: 11-21-2024 Blood type and Indirect antibody screen panel - Blood Type And Screen Lab Timed Cholesteatoma of left ear As needed (Lab) until discontinued starting 11/21/2024 [facility] Work Phone: Comment on above: As needed (Lab) unti l discontinued starting 11/21/2024 End: 11-21-2024 Continuous Pulse oximetry, In Phase 1 Continuous Pulse oximetry, In Phase 1 Respiratory Care Routine Continuous until discontinued starting 11/21/2024 [facility] Work Phone: Comment on above: Continuous until dis continued starting 11/21/2024 ECG 12 lead ECG 12 lead ECG Routine Preoperative clearance Cholesteatoma of left ear Ordered: 09/01/2024 [facility] Work Phone: Comment on above: Ordered: 09/01/2024 Patient referral [facility] Work Phone: Reconstruction exter nal auditory canal spx CANALOPLASTY, EAR Cholesteatoma of left ear [facility] [place] Surgical pathology study [facility] Work Phone: Comment on above: Release Upon Orderin g for 1 Occurrences starting 11/21/2024, 1 completed Payers Date Payer Category Payer Self-pay [id number] 2022 Unknown [id number] 2020 Managed Care (Private) [employer] [id number] 2019 Managed Care HMO (unspecified) AET [id number] 1964 Unknown [id number] 2.16.840.1.234099.3.57 9.2.356 1964 Unknown [id number] 2.840.1.719001.3.57 9.2.356 1964 Unknown [id number] 2.840.1.855047.3.57 9.2.356 1964 Unknown [id number] 2.840.1.662613.3.57 9.2.356 1964 Unknown [id number] 2.840.1.531129.3.57 9.2.593 1964 Unknown [id number] 2.840.1.861088.3.57 9.2.1245 1964 Unknown [id number] 2.0.1.743124.3.57 9.2.1245 1964 Unknown [id number] 2.840.1.617673.3.57 9.2.1242 1964 Unknown [id number] 2.0.1.334239.3.57 9.2.1259 1964 Unknown [id number] 2.840.1.491783.3.57 9.2.1259 1964 Unknown [id number] 2.0.1.288040.3.57 9.2.1259 1964 Unknown [id number] 2840.1.642776.3.57 9.2.1259 1964 Unknown [id number] 2.840.1.967701.3.57 9.2.1259 1964 Unknown [id number] 2.840.1.502399.3.57 9.2.1259 1964 Unknown [id number] 2.840.1.943961.3.57 9.2.1259 1964 Unknown [id number] 2.16840.1.693356.3.57 9.2.1347 1964 Unknown [id number] 2.840.1.453978.3.57 9.2.1244 1964 Unknown [id number] 2.16.840.1.717928.3.57 9.2.1244 1959 Private Health Insurance [id number] [facility] [id number] 2.16.840.1.266415.19 Private Health Insurance [id number] 2.16.840.1.128624.19 Unknown [employer] Unknown [id number] 2.16.840.1.784180.3.57 9.2.531 Unknown [id number] 2.16.840.1.578260.3.57 9.2.531 Unknown [id number] 2.16840.1.477286.3.57 9.2.531 Social History Date Type Detail Facility Tobacco smoking status No Smokin g Status Entered [facility] Start: 12-11-2022 End: 08-30-2024 Sex Assigned At Female [facility] Start: 1965 Sex Assigned At Female [facility] Start: 01-22-2023 End: 08-30-2024 Tobacco smoking status NHIS Never smoked tobacco (finding) [facility] Start: 10-28-2022 End: 08-30-2024 Tobacco use and exposure Smokeless tobacco non-user [facility] Start: 12-25-2023 End: 11-28-2024 Alcoholic beverage intake Current drinker of alcohol [...] [facility] Start: 07-13-2024 Sex Female (finding) [facility] Start: 08-28-1966 Sex assigned at Not on file [facility] Work Phone: Start: 11-21-2024 Alcoholic beverage intake Not Asked [facility] Work Phone: Start: 11-21-2024 Alcohol Comment once a month [facility] Work Phone: Start: 02-08-2022 Sex Female [facility] Start: 12-06-2024 Alcoholic beverage intake Lifetime non-drinker (finding) [facility] Work Phone: Medical Equipment Procedure Code Equipment Code Equipment Original Text Equipment Identifier Dates Graft, Biodesign Otologic Repair 2.5 X 2.5 Case [id number] Start: 01-24-2022 Comment on above: Description: Convert ed from [facility]. Please see archived information for full log information. Goals Date Patient Goal Desired Activity /State Personal health goal Functional Status Date Assessment Result Facility 11-21-2024 [place] - suicide s everity rating scale screener - recent [C-SSRS] [facility] Work Phone: 08-30-2024 Patient Health Quest ionnaire 2 item (PHQ-2) [Reported] [facility] Work Phone: Clinical Notes 01-24-2022 to 12-06-2024 Rashmi Boucher MD - 12/06/2024 1:15 PM EDTHilasara Jasmine MD - 11/28/2024 8:30 AM EDTSignificant Event - Carol Ann Cai RN - 11/21/2024 3:48 PM EDTOp Note - Rashmi Boucher MD - 11/21/2024 11:06 AM EDT Note Date & Type Note Facility 12-06-2024 History of Present illness Narrative History Of Present Illness: Mai Miller is a 59 y.o. female with a history of left EAC cholesteatoma, the patient is s/p left postauricular revision canalplasty and removal of ear canal cyst on 11/21/24. Things have been going well since surgery. She saw Dr. Jasmine who removed the strip gauze packing. Pain is manageable. Denies drainage. She is using her prescribed drops. No other complaints today. Recall 08/30/24: Mai Miller is a 58 y.o. female [...] lateral graft tympanoplasty on 01/24/[address] Sander Oneill has been following with Dr. Jasmine every 6 months for observation and EAC debridements. In 06/2024, Dr. Jasmine noted a soft tissue mass in posterior quadrant of the left EAC. She denied recent infections, otorrhea, otalgia or changes in hearing. Surgical History: She has a past surgical history that includes Colonoscopy; Colposcopy; Dilation and curettage of uterus; Other surgical history (Bilateral); Incontinence surgery; Tympanoplasty (Left); and Other surgical history (Left, 11/21/2024). Allergies: Patient has no known allergies. Medications: Current Outpatient Medications Medication Instructions acetaminophen (TYLENOL) 650 mg, oral, Every 6 hours PRN ibuprofen 600 mg, oral, Every 6 hours PRN semaglutide (OZEMPIC) 0.25 mg, Weekly traMADol (ULTRAM) 50 mg, oral, Every 4 hours PRN Review of Systems: A comprehensive 10-point review [...] synkinesis or facial tic. Ears Otoscopic examination: Right: TM and EAC normal to otoscopy Left: Gelfoam packing removed with suctioning. EAC healing well. TM intact. Nose: Dorsum symmetric with no visible or [...] Extremities: Appearance of extremities: Normal. Gait normal. Ear Cleaning Procedure: Removal of gelfoam packing Indication: Debridement following surgery Location: Left Ear Prep: Nothing was placed in the ear canal(s) prior to the procedure. Preformed by: The procedure was performed by the Provider. Visualization Instrument: A Microscope and Speculum were placed in the ear canal(s) to visualize the ear canal debris. Ear cleaning Instruments: Suction were used during the procedure. Outcome: The procedure was successful. Patient Status: The patient tolerated the procedure well. Complications: There were no complications. Patient Instructions: Continue using drops to dissolve remainder of gelfoam Last Recorded Vitals: Height 1.651 m (5' 5 ), weight 84.8 kg (187 lb). Assessment/Plan 59 y.o. female with a history of left EAC cholesteatoma, the patient is s/p left postauricular revision canalplasty and removal of ear canal cyst on 11/21/24. - Patient doing well. Follow up with Dr. Jasmine in 6 months. Patient seen and discussed with Dr. Boucher. Rashmi Irizarry MD PGY-5 Otolaryngology - Head and Neck Surgery I saw and evaluated the patient. I personally obtained the barnes and critical portions of the history and physical exam or was physically present for barnes and critical portions performed by the resident/fellow. I reviewed the resident/fellow's documentation and discussed the patient with the resident/fellow. I agree with the resident/fellow's medical decision making as documented in the note. Rashmi Boucher MD documented in this encounter [facility] Work Phone: 11-28-2024 History of Present illness Narrative Subjective Patient ID: Mai Miller is a 59 y.o. female who presents for Ear Problem (Follow up from surgery with Dr Boucher ) Pt S/P left canaloplasty 11/21 for an EAC cholesteatoma. No problems since procedure. Dr Boucher requested I see pt to start removing packing. 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 2016 ([facility] Ruptured ear drum YASMINE (stress urinary incontinence, female) 2011 Tinnitus Past Surgical History: Procedure Laterality Date COLONOSCOPY 06/05/2017 normal-[facility] COLPOSCOPY 2008 with biopsy -abnormal pap smear -[facility] COLPOSCOPY 2011 with biopsy- Abnormal pap smear pos HPV DILATION AND CURETTAGE [address] Boucher MYRINGOTOMY W/ TUBES Bilateral 07/10/2009 OTHER SURGICAL [...] Prior to Visit Medication Sig Dispense Refill acetaminophen (Tylenol) 325 MG tablet Take 650 mg by mouth every 6 (six) hours if needed cephalexin (Keflex) 500 MG capsule Docusate Sodium (DSS) 100 MG capsule Take 100 mg by mouth in the morning and 100 mg in the evening. ibuprofen 600 MG tablet Take 600 mg by mouth every 6 (six) hours if needed semaglutide (Ozempic) 2 MG/1.5ML solution pen-injector Inject 0.25 mg under the skin traMADol (Ultram) 50 MG tablet Take 50 mg by mouth every 4 (four) hours if needed valACYclovir (Valtrex) 500 MG tablet Take 500 mg by mouth if needed zolpidem (Ambien) 5 MG tablet [DISCONTINUED] ondansetron (Zofran) 4 MG tablet Take 4 mg by mouth every 8 (eight) hours if needed No current facility-administered medications on file prior to visit. Objective Last Recorded Vitals Vitals: 11/28/24 0841 BP: 129/85 Pulse: 93 ENT Physical Exam Constitutional Appearance: patient appears well-developed, well-nourished and well-groomed, Communication/Voice: communication appropriate for developmental age; vocal quality normal; Ear Ear comments: LT - postauricular incision C/D/I. Vaseline gauze removed. EAC widely patent Assessment/Plan Diagnoses and all orders for this visit: Cholesteatoma of left external auditory canal Left ear looks good so far. 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 Not clarified on instructions. Message with Dr. Boucher. Pt will see Jessica in [place] next week, she needs to call his office, will remove packing and she will start drops. She will need to still follow up with her with scheduled appt and have deeper packing removed. All other instructions reviewed. All questions answered, and patient and verbalize an understanding. [facility] 11-21-2024 Miscellaneous Notes at bedside, states he spoke with doctor awhile ago, but forgot the plan as she lives 2 hours away and will follow up with different doctor. Not clarified on instructions. Message with Dr. Boucher. Pt will see Jessica in [place] next week, she needs to call his office, will remove packing and she will start drops. She will need to still follow up with her with scheduled appt and have deeper packing removed. All other instructions reviewed. All questions answered, and patient and verbalize an understanding. 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] Procedures Left Side Post Auricular Revision Canalplasty;removal of ear canal cyst 95977 - NE RECONSTRUCTION EXTERNAL AUDITORY CANAL SPX Left Side Post Auricular Revision Canalplasty;removal of ear canal cyst 17455 - NE TMPP MASTOIDECT NTC/RCNSTED WALL W/O OCR Surgeons * Rashmi Boucher - Primary Resident/Fellow/Other Air Transport Professionals: Surgeons and Role: * No surgeons found with a matching role * Staff: Photo Printer: Priscilla Moran Person: Demi Nolasco Photo Printer: Cheyenne Nolasco Scrub: Heaven Anesthesia Staff: Anesthesiologist: Joo Andres MD ADVERTISING CAMPAIGN MANAGER: Lindsey Grayson APRN-ADVERTISING CAMPAIGN MANAGER SRNA: Jaquan Ross Procedure Summary Anesthesia: General [...] Tissue EAR LEFT SURGICAL PATHOLOGY EXAM Rashmi Boucher MD 11/21/2024 1221 Drains and/or Catheters: * None in log * Tourniquet Times: Implants: Findings: Left lateral posterior superior EAC cholesteatoma with erosion through canal skin No evidence of cortical erosion Indications: Mai Miller is an 59 y.o. female who is [...] has been actively warmed in preoperative area. Preoperative antibiotics have been ordered and given within [...] was injected with 1% Lidocaine with 1:100,000 epinephrine. The operative ear was prepped in a [...] and there was noted to be a small through and through defect in the ear canal [...] fit the EAC bony cortical bone defect. Additional perichondrium was pressed to overly the cartilage graft in order to fill the canal defect without exposed skin. Next, the EAC was packed with ciprodex gelfoam and bacitracin strip gauze. The wound was closed in a multi-layered fashion with the periosteum closed using 3-0 Vicryl sutures and the deep dermal layer using 3-0 Vicryl sutures, both thrown in a simple interrupted fashion. The superficial layer was closed with 5-0 fast gut. All counts were confirmed to be correct. A mastoid dressing was placed and the patient was handed back to anesthesia. Evidence of Infection: No Complications: None; patient tolerated the procedure well. Disposition: PACU - hemodynamically stable. Condition: stable Additional Details: Attending Attestation: I was present for the entirety of the procedure(s). MD Rashmi Peralta documented in this encounter [facility] Work Phone: 11-21-2024 Hospital Discharge instructions Aleja Peguero MD - 11/21/2024 12:32 PM EDT POST OPERATIVE INSTRUCTIONS AFTER EAR SURGERY Rashmi Boucher MD ? Robin Romero MD ? Jeff Wren MD? Cody Pineda MD Most ear surgeries should have a 2-4 week postoperative appointment. Please be sure to call the doctor's office and make a follow-up appointment, if you don't already have it. Dressing or Band-Aid can be removed the day after surgery. Once removed, replace the cotton ball in the ear as needed. Once the dressing is off, and if you have an incision behind your ear with stitches, clean the incision twice daily with soap and water and apply Vaseline or antibiotic ointment after cleaning. If you have paper strips or surgical glue over the incision, Do not apply anything behind the ear. Bloody drainage from the ear [...] your hearing may sound muffled and your voice may echo in your ear during speech. Minor swelling of the face on the same side of the surgery is not uncommon. Small bruising near the eye or mouth is not uncommon from the [...] make specific suggestions for your care. Call [phone] ([phone]) or [phone] (after-hours) any time day or night if you have any of the following: Bad smell coming out of your ear Severe swelling around your ear Any questions Pain in your ear Redness around your ear Severe dizziness The following attachments cannot be sent through Care Everywhere.How to Prevent Surgical Site Infections (Stateless)documented in this encounter [facility] Work Phone: 11-21-2024 Surgery Surgical operation note Left Side Post Auricular Revision Canalplasty;removal of ear canal cyst (L) Operative Note Date: 11/21/2024 OR Location: [facility] OR Name: Mai Miller, : 1965, Age: 59 y.o., , Sex: female Diagnosis Pre-op Diagnosis * 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] Post-op Diagnosis * 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] Procedures Left Side Post Auricular Revision Canalplasty;removal of ear canal cyst 66086 - NE RECONSTRUCTION EXTERNAL AUDITORY CANAL SPX Left Side Post Auricular Revision Canalplasty;removal of ear canal cyst 85004 - NE TMPP MASTOIDECT NTC/RCNSTED WALL W/O OCR Surgeons * Rashmi Boucher - Primary Resident/Fellow/Other Air Transport Professionals: Surgeons and Role: * No surgeons found with a matching role * Staff: Photo Printer: Priscilla Moran Person: Demi Nolasco Photo Printer: Cheyenne Nolasco Scrub: Heaven Anesthesia Staff: Anesthesiologist: Joo Andres MD ADVERTISING CAMPAIGN MANAGER: Lindsey Grayson APRN-ADVERTISING CAMPAIGN MANAGER SRNA: Jaquan Ross Procedure Summary Anesthesia: General [...] Tissue EAR LEFT SURGICAL PATHOLOGY EXAM Rashmi Boucher MD 11/21/2024 1221 Drains and/or Catheters: * None in log * Tourniquet Times: Implants: Findings: Left lateral posterior superior EAC cholesteatoma with erosion through canal skin No evidence of cortical erosion Indications: Mai Miller is an 59 y.o. female who is [...] has been actively warmed in preoperative area. Preoperative antibiotics have been ordered and given within [...] was injected with 1% Lidocaine with 1:100,000 epinephrine. The operative ear was prepped in a [...] and there was noted to be a small through and through defect in the ear canal [...] fit the EAC bony cortical bone defect. Additional perichondrium was pressed to overly the cartilage graft in order to fill the canal defect without exposed skin. Next, the EAC was packed with ciprodex gelfoam and bacitracin strip gauze. The wound was closed in a multi-layered fashion with the periosteum closed using 3-0 Vicryl sutures and the deep dermal layer using 3-0 Vicryl sutures, both thrown in a simple interrupted fashion. The superficial layer was closed with 5-0 fast gut. All counts were confirmed to be correct. A mastoid dressing was placed and the patient was handed back to anesthesia. Evidence of Infection: No Complications: None; patient tolerated the procedure well. Disposition: PACU - hemodynamically stable. Condition: stable Additional Details: Attending Attestation: I was present for the entirety of the procedure(s). MD Rashmi Peralta [facility] Work Phone: 11-21-2024 History and physical note History Of Present Illness Mai Miller is a 59 y.o. female presenting with canal cholesteatoma. Past Medical History She has a past medical history of Ankle contracture, right, Breast cyst, right, Delayed emergence from general anesthesia, [place] (hard of hearing), HPV (human papilloma virus) anogenital infection, and Pulsatile tinnitus. Surgical History She has a past surgical history that includes Colonoscopy; Colposcopy; Dilation and curettage of uterus; Other surgical history (Bilateral); Incontinence surgery; and Tympanoplasty (Left). Social History She reports that she has never smoked. She has never used smokeless tobacco. No history on file for alcohol use and drug use. Family History Family [...] Blood pressure 132/80, pulse 85, temperature 36.2 C (97.2 F), temperature source Skin, resp. rate 16, height [...] intravenous, Once [3] [4] Cosigned by Rashmi Boucher MD at 11/21/2024 9:58 AM EDT [facility] Work Phone: 11-21-2024 History and physical note History Of Present Illness Mai Miller is a 59 y.o. female presenting with canal cholesteatoma. Past Medical History She has a past medical history of Ankle contracture, right, Breast cyst, right, Delayed emergence from general anesthesia, [place] (hard of hearing), HPV (human papilloma virus) anogenital infection, and Pulsatile tinnitus. Surgical History She has a past surgical history that includes Colonoscopy; Colposcopy; Dilation and curettage of uterus; Other surgical history (Bilateral); Incontinence surgery; and Tympanoplasty (Left). Social History She reports that she has never smoked. She has never used smokeless tobacco. No history on file for alcohol use and drug use. Family History Family [...] Blood pressure 132/80, pulse 85, temperature 36.2 C (97.2 F), temperature source Skin, resp. rate 16, height [...] g, intravenous, Once [3] [4] Cosigned by Rsahmi Boucher MD at 11/21/2024 9:58 AM EDT documented in this encounter [facility] Work Phone: 08-30-2024 History of Present illness Narrative History [...] history on file. documented in this encounter [facility] Work Phone: 08-30-2024 Instructions Aleja Braxton - 08/30/2024 9:30 AM EDT Welcome to Dr. Boucher's clinic. We are here to assist you through your ENT care at [facility]. Dr. Boucher is an Ear surgeon. This means that she specializes in taking care of patients with complex ear problems. Dr. Boucher's office number is [phone]. While you may see her at a satellite office, she has a team committed to help meet your healthcare needs at [facility]. This number is the most direct way to communicate with the office. Symone is Dr. Boucher's real estate legal secretary and she answers the office phone [...] may include dieticians, social workers, speech therapists, special police officer, neurologist, and physical therapist. Dr. Boucher will provide these referrals as needed. Please let her know if you would like to request a specific referral. For your convenience, Dr. Boucher sees patients at several [facility] locations including [facility] and [facility] at the main campus of [facility]. While we try to make your [...] have to reschedule. documented in this encounter [facility] Work Phone: 07-18-2024 History of Present [...] problem as well documented in this encounter [facility] 07-11-2024 Telephone encounter Note sent [facility] 07-11-2024 Miscellaneous Notes sent Pt was here last week and said a rx was to be called in but never received. Her pharmacy is [facility] in [place]. documented in this encounter [facility] 07-11-2024 Telephone encounter Note Pt was here last week and said a rx was to be called in but never received. Her pharmacy is [facility] in [place]. [facility] 07-05-2024 History of Present illness Narrative [...] within the mastoid. documented in this encounter [facility] 02-16-2024 History of Present illness Narrative [...] Examined Right arm Examined Patient wearing nail serbian, Denies dark streaks under finger nails, Denies [...] 3. Seborrheic keratosis, inflamed Left Occipital Scalp Adel and brown stuck on verrucous scaly papule [...] limited to risks of scarring, darker or control room supervisor pigmentary changes, recurrence, incomplete removal and infection. [...] limited to risks of scarring, darker or control room supervisor pigmentary changes, recurrence, incomplete removal and infection. [...] year, skin check documented in this encounter [facility] 01-05-2024 History of Present illness Narrative [...] Left keratosis debrided documented in this encounter [facility] 01-01-2024 History of Present illness Narrative Images from the original note were not included. 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 LMP: Postmenopausal Last Pap: 07/27/2019 Visit [...] tract infection (UTI) during a trip to [facility] in either May or November 2022. She [...] History: Procedure Laterality Date COLONOSCOPY 06/05/2017 normal-[facility] COLPOSCOPY 2008 with biopsy -abnormal [...] Births 1 # Outcome Date GA Lbr Atte/2nd Weight Sex Type Anes PTL Lv 3 Vag-Spont 2 Vag-Spont 1 SAB Obstetric Comments Pap 12/11/22- Neg, HPV Neg ; 07/09/16- Neg; Neg HPV; 07/04/15- Neg; POSITIVE HPV (Neg 16, 18/45); 01/12/14- neg; 05/2013- ascus (neg hpv); 2012- neg; 2011- JENNIE I. Mammogram 10/13/22- Neg Colonoscopy 2017- normal ([facility]) ROS General: Denies fevers/chills Eyes: [...] mammogram will be ordered and sent to [place]. She is due for a colonoscopy next year, as her last one was in 2014 and was normal. Return in 1 year. documented in this encounter [facility] 02-20-2023 Evaluation note Encounter Date Diagnosis Assessment Notes Feb, COVID- 19 (ICD-1 0 - U07.1) Tylenol and rest. Afrin x 2 days, Sudafed as needed. Initiate Paxlovid (unvaccinated w/ moderate symptoms) [facility] Other 12-07-2023 Evaluation note* Encounter Date Diagnosis [...] for congestion, Tylenol for pain and fever. 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 LEFT SIDE LATERAL GRAFT [...] Authored: Note Completion Co-Signer: (more content not included)...[facility]11-11-2022 History of Present illness Narrative* Mai [...] for complaint except as stated in history [facility] Work Phone: 1(728) 973-396711-11-2022 History of Present illness Narrative* Mai is [...] for complaint except as stated in history QQ[facility]dkb[facility] Work Phone: 1(132) 594-427911-11-2022 NoteHistory of Present Illness: /Lactating: Are You [...] the note. I personally evaluated the patient [id number] Electronic Signatures: Rashmi Boucher) (Signed 24-Jan-2022 13:28) Authored: Note Completion Co-Signer: History of Present Illness, Allergies, Home Medication Review, Impression/Procedure, ERAS, Physical Exam, Consent, Note Completion Mariel Thurman (Resident)) (Signed 24-Jan-2022 10:26) Authored: History of Present Illness, Allergies, Home Medication Review, Impression/Procedure, ERAS, Physical Exam, Consent, Note Completion Last Updated: 24-Jan-2022 13:28 by Rashmi Boucher)[facility] Evaluation + Plan note No data available for this section [facility] Other Evaluation noteNo InformationNort [facility] Other Evaluation noteNo assessment information available [facility] Work Phone: Evaluation note* Diagnosis Onset Date Resolution Status IFG (impaired fasting glucose) acute Leukopenia acute Overweight acute Hematuria noneactive [facility] Work Phone: Evaluation note* Diagnosis Encounter [...] left ear- Primary documented in this encounter [facility] Work Phone: Evaluation note* Diagnosis Cholesteatoma of left ear- Primary Cholesteatoma of left ear documented in this encounter [facility] Work Phone: Evaluation note* Diagnosis Cholesteatoma of left external auditory canal- Primary [facility] Diagnosis Postoperative state- Primary Other postprocedural status Cholesteatoma of left ear documented in this encounter [facility] Work Phone: History general Narrative - [...] 2004, 2005 Hospitalization History see surgical history [facility] Other History general Narrative - ReportedNort [facility] Other [facility] general Narrative - Reported* Type Description Date [...] blepharoplasty 01/2023 Hospitalization History see surgical history [facility] Other History of Present illness Narrative* HPI: [...] for complaint except as stated in history FK-Kybzjhbldvchga-Irufoax [id number] Work Phone: History of Present illness Narrative* [...] for complaint except as stated in history [facility]-Ezaxnalfwmwbdf-Rgjdvqc [id number] Work Phone: Hospital Discharge instructions No data available for this section [facility] Additional Instructions DISCHARGE INSTRUCTIONS [...] the incision. PLEASE NOTIFY OUR OFFICE at [phone] if you: -Develop a fever of 101 [...] rate. FOLLOW UP -Call the office at [phone] for a follow up appointment 1 week. 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] Procedures NE RECONSTRUCTION EXTERNAL AUDITORY CANAL SPX NE TMPP MASTOIDECT NTC/RCNSTED WALL W/O OCR Left Side Post Auricular Revision Canalplasty; Cartilage Graft Left Side Post Auricular Revision Canalplasty; [place] [address] [place] [address] Phone: tel: fax: [facility] [place] [address] [place] [address] fax: Referral ID Status Reason Start Date Expiration Date Visits Re quested Visits Authorized [id number] 1 1 [facility] Work Phone: Summary Purpose Family History No Family History [...] Time Advance Directives No June 02 10:04am Date Activated Date Inactivated Comments 11/21/2024 9:27 AM Question Answer Comments Plan of Care: Code Status Discussion Completed Decision Maker: Patient Date Activated Date Inactivated Comments 11/21/2024 9:27 AM Question Answer Comments Plan of Care: Code Status Discussion Completed Decision Maker: Patient Chief Complaint NPVNPVpostoperative visitpostoperative visit Chief Complaint and Reason for Visit Chief Complaint Cosmetic Chief Complaint Cosmetic Cosmetic Chief Complaint check up Poss uti R31.9 Reason for Visit IFG (impaired fastin g glucose) Leukopenia Overweight Hematuria Chief Complaint Admit Date Sore throat, ackey, feverish July 13, 2024 9:17am Additional Source Comments INFORMATION SOURCE (unrecogn ized section and content) DATE CREATED AUTHOR 09/11/2021 Rushing Corson [facility] DATE CREATED AUTHOR AUTHOR'S ORGANIZ ATION 10/12/2021 [facility] dical Specialist DATE CREATED AUTHOR AUTHOR'S ORGANIZ ATION 03/11/[address] [facility] Center DATE CREATED AUTHOR AUTHOR'S ORGANIZ ATION 03/14/2022 [facility] DATE CREATED AUTHOR AUTHOR'S ORGANIZ ATION 07/14/2022 [facility] DATE CREATED AUTHOR AUTHOR'S ORGANIZ ATION 12/28/2023 [facility] y[facility] DATE CREATED AUTHOR AUTHOR'S ORGANIZ ATION 09/09/2024 [facility] DATE CREATED AUTHOR AUTHOR'S ORGANIZ ATION 11/25/2024 [facility] DATE CREATED AUTHOR AUTHOR'S ORGANIZ ATION 11/29/2024 [facility] dical Specialists EPIC DATE CREATED AUTHOR AUTHOR'S ORGANIZ ATION 12/02/2024 [facility] DATE CREATED AUTHOR AUTHOR'S ORGANIZ ATION 12/18/2024 [facility] REASON FOR VISIT (unrecogniz ed section and content) Reason Comments Gynecologic Exam Yearly, Pt denies Br east pain, urinary, 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 LMP: Postmenopausal Last Pap: 07/27/2019 Reason Comments Ear Problem 2 month check Reason Comments Skin Check Reason Comments Ear Problem 6 month check ears Reason Onset Date Comments needs rx 07/11/2024 Reason Comments Ear Problem Follow up [facility] Reason Comments New Patient Visit Cholesteatoma Reason Comments Ear Problem Follow up from surge ry with Dr Boucher Reason Comments Post-op pov Care Teams (unrecognized sec tion and content) [employer] Account Manager Relationship Specialty Start Date End Date Kartik Priest DO PCP - General 10/07/21 [employer] Account Manager Relationship Specialty Start Date End Date Kartik Priest DO [address] [place] [id number] PCP - General Internal Medicine 07/05/24 Carolyn Jasmine MD [address] [facility] [address] [place] [address] Otolaryngology 08/28/21 [employer] Account Manager Relationship Specialty Start Date End Date Kartik Priest MD [address] [place] [address] PCP - General Internal Medicine 12/11/22 Carolyn Jasmine MD [address] [place] [address] [address] [place] [address] Otolaryngology 08/28/21 Team Status: Active Member Role [...] Active Member Role Status Dates Kartik Priest DO Primary Care Provider Active Team Status: Inactive Member Role Status Dates Kartik Priest DO Primary Care Provider Active Rashaun William MD Attending Provider Active Goals (unrecognized section and content) Goals may be documented in a n alternate section Scheduled Active and Recently Administ ered Medications (unrecognized section and content) Medication Order 11/19/2024 11/20/2024 11/21/2024 ceFAZolin (Ancef) [...] apply): Surgical Prophylaxis, Indications: Surgical Prophylaxis 0945 (Due) ipratropium (Atrovent) 0.02 % nebulizer solution 500 [...] Intraprocedure 1200 (Given - Provid er: Rashmi Boucher MD) balanced salts (BSS) intraocular solution (CANCELED) As needed, Starting on Thu11/21/24 at 1040, Intraprocedure 1040 (Given - Provid er: Rashmi Boucher MD - Comment: irrigation) ciprofloxacin-dexamethasone (CiproDEX) otic suspension (CANCELED) As needed, Starting on Thu11/21/24 at 1130, Intraprocedure 1130 (Given - Provid er: Rashmi Boucher MD - Comment: gelfoam dipped in ciprodex) [...] Intraprocedure 1041 (Given - Provid er: Rashmi Boucher MD) HYDROmorphone (Dilaudid) injection 0.25 mg 0.25 [...] Intraprocedure 1055 (Given - Provid er: Rashmi Boucher MD) ondansetron (Zofran) injection 4 mg 4 [...] Intraprocedure 1055 (Given - Provid er: Rashmi Boucher MD - Comment: warmed irrigation dispensed to sterile field) FOR RECORDS PERTAINING TO PATIENTS WHO ARE [...] BE BASED ON THE PRIMARY CLINICAL RECORDS. [facility]. provides no warranty or guarantee of the accuracy or completeness of information in this document.
[2024-12-27 07:27] LABS: TSH W/ REFLEX FT4 3.253 uIU/mL (0.358-3.740)
== END 2024-12-27 06:51 | disposition home or self-care (01) ==
LOC: LAB 06:51
PROVIDERS: PCP Internal Medicine; Visit Provider Internal Medicine
DX: R53.83 Other fatigue (principal)
CPT/HCPCS: 36415; 84443

== ENCOUNTER 2025-03-14 16:33 | Outpatient (OUT) | payer OTHER, SELFPAY ==
--- OUTSIDE RECORDS SUMMARY | 2025-03-01 11:08 | XMS_ITS | Continuity of Care Document ---
Author Organization [facility] Address [address] [place] [address] Phone Care Team Providers Care Vp Of Marketing Name Role Phone Kartik Priest DO Primary Care Provider Kartik Priest DO Attending Provider Care Teams Patient Care Team Team Status: Active Member Role/Relationship Status Dates Kartik Priest DO Primary Care Provider Active Visit Care Team Team Status: Active Member Role/Relationship Status Dates Kartik Priest DO Primary Care Provider Active Start: December 27, 2024 Kartik Priest DOAttmiguelito ProviderActiveStart: December 27, 2024 Visit Care Team Team Status: Inactive Member Role/Relationship Status Dates Kartik Priest DO Primary Care Provider Active Start: December 30, 2024 End: December 30Jason Abbasi ProviderActiveStart: December 30, 2024 End: December 30, 2024 Visit Care Team Team Status: Inactive Member Role/Relationship Status Dates Kartik Priest DO Primary Care Provider Active Start: January 17, 2025 End: January 17lexie Priest DOAttmiguelito ProviderActiveStart: January 17, 2025 End: January 17, 2025 Patient Care Team Team Status: Inactive Member Role/Relationship Status Dates Kartik Priest DO Primary Care Provider Active Start: March 01, 2025 End: March 01lexie Priest DOAttending ProviderActiveStart: March 01, 2025 End: Arturo 17th, 2025 Chief Complaint and Reason for Visit Chief Complaint Admit Date 2 week December 30, 2024 8 :37am Z82.49 January 17, 2025 3 :37pm 6 month March 01, 2025 3:28pm Reason for Visit Admit Date Family history of early CAD December 8:37am IFG (impaired fasting glucose) December 142024 8:37am Obesity December 30, 2024 8 :37am Primary insomnia December 30, 2024 8 :37am Allergies, Adverse Reactions, Alerts Allergen Type Severity Reaction Last Updated Verified Status No Known Allergies Allergy Unknown March 01, 2025 3:29pmYesActive Social History Smoking Status Status Start Date End Date Date of Observa tion Never smoked tobacco (finding) December 26, 2023 1:20pm Observation Status Observation Response Date of Response Legal Sex Female (finding) [facility]1965 Family History Relationship Condition Age at Onset Recorded Date/T joaquin father Heart disease Unknown fatherHypertensionUnknownHeart diseaseUnknownDiabetes mellitusUnknown Problems Active Problems Problem Diagnosis/Recorded Date Onset Date Status C omments Primary insomnia August 31, 2023 3:10pm Unknown Active Screening mammogram for breast cancerJun2024 9:03pmUnknownActiveWellness examinationJun2024 3:11pmUnknownActiveLeukopeniaJune 2023 11:16am UnknownActiveIFG (impaired fasting glucose)May 22, 2023 2:35pmUnknownActive OverweightMarch 2023 3:34pmUnknownActiveFamily history of early CADOctober 2024 8:33amUnknownActiveObesityApril 2024 9:09amUnknownActive CholesteatomaApril 2024 4:34mc2607Gnircnjqytcfsoaqrh left EAC Inactive/Resolved Problems Problem Diagnosis/Recorded Date Onset Date Status C omments Encounter for cosmetic surgery January 22, 2023 12:22pm Unknown Resolved Prob [place] List clean-up per request of Phys. EHR Cmte Encounter for screening colonoscopy June 05, 2017 6:50am Unknown Resolved Pr oblem List clean-up per request of Phys. EHR Cmte Medications Medication Status Dose Units Route Directions Qty Days Refills S tart Date Stop Date End Date Reason(s) Instructions Adherence Phentermine (Adipex-P) 37.5 mg tablet Discontinued 37.5 MG PO Daily 30 30 0 May 31, 2023 11:00pm June 29, 2023 2:21pmOverweight Overweightmust administer 30 minutes before or 1-2 hours after breakfast Valacyclovir 500 mg tabletDiscontinued0.ROUTE.FNQMNIT173Orax 2023 7:41am December 26, 2023 12:19pmTAKE 1 TABLET BY MOUTH DAILYPhentermine (Adipex-P) 37.5 mg lwoeptFyjjtqaqgtkq85.0MZCSKnntf18373Xwus 2023 8:58amAugust 2023 4:56pmOverweight Overweightmust administer 30 minutes before or 1-2 hours after breakfast Phentermine (Adipex-P) 37.5 mg xbnstvIsiwpqudzfxr26.8ACIKLvyhb97714Kdachj 2023 4:55pmSeptember 2023 11:03amOverweight Overweightmust administer 30 minutes before or 1-2 hours after breakfast p/u 10/27, start 10/28Zolpidem 5 mg tabletDiscontinued2.5MGPODaily at bedtime as needed for zsczqhzd18166Agxtv 2024 11:57amJune 2024 3:17pmPrimary insomnia Primary insomniaValacyclovir 500 mg dmbjvzQpqjthnxeytp179DPUONzsin as needed for Cold SoresJefferson [facility] 2017 11:00pmJuly 2023 7:41amPhentermine (Adipex-P) 37.5 mg WyrarshZvtrnpggutii91.5MGPODailyMarch 2017 11:00pmOctober 2022 2:47pmZ TrpJygafimqysce1OQQOUDmbdyQngbf 2017 11:00pmOctober 2022 2:47pmEstradiol-Norethindrone Acet 1-0.5 mg vmcsklJwcalydvbqcv5VWZQKAdjhe morningOct2022 11:00pmMarch 2023 10:41amHydrocodone- Acetaminophen 5-325 mg lnxjkbYrqhydtvsyof3XVZXBA6Z as needed for uzvv4583 January 22, 2023March 2023 10:41amEncounter for cosmetic surgery Encounter for cosmetic surgeryGabapentin 300 mg iecxzamIaodvgeftypl905KXDQIqmce times slmxd23769Pgpdrddl 9th, 2023 12:00amMarch 2023 10:41amSemaglutide (Weight Loss) (Wegovy) 0.25 mg/0.5 mL pen injectorDiscontinued0.25MGSUBCUTMarch 2023 12:00amMarch 2023 2:27pmSemaglutide (Weight Loss) (Wegovy) 0.25 mg/0.5 mL pen injectorDiscontinued0.25MGSUBCUTevery wofv0463Vzxyj2023 2:26pmMay 2023 2:57pmZolpidem 5 mg vcocrzPthmlismjbzp8CDINTvqyo at bedtime as needed for amskdalg73158Yahu 2023 11:00pmOctober 2023 12:19pm Primary insomnia Primary insomniaPhentermine (Adipex-P) 37.5 mg bfwfoqAoccqizdkfxo66.6HGUNKculr63 300June 2023 3:11pmJuly 2023 8:59amOverweight Overweightmust administer 30 minutes before or 1-2 hours after breakfast Sulfacetamide Sodium 10 % hgxyhQweihukvnpbq9XUOERKRDCDWQTXIPawr times qxzxk4489 August 03, 2023 11:00pmOctober 2023 12:18pm2 drops in right eye qid Doxycycline Hyclate 100 mg gzairamTviuohchgywz559CNGJRkrwx ckdra6711YfqAugust 03, 2023 11:00pmJune 2023 2:31pmPhentermine (Adipex-P) 37.5 mg tablet Otbrfczyklcn13.7HCVUQnetd47144Ndpepcogo 2023 11:00amOctober 2023 12:19pmOverweight Overweightmust administer 30 minutes before or 1-2 hours after breakfast p/u 10/27, start 10/28Phentermine (Adipex-P) 37.5 mg qjeploBvergsrtnnnq38.75MGPO DailyOctober 2023 12:17pmApril 2024 8:52amOverweight Overweightmust administer 30 minutes before or 1-2 hours after breakfast p/u 10/27, start 10/28Valacyclovir 500 mg cvtoakDzzuyhxkzwhr6752AAOPGdzg as needed December 26, 2023 12:18pmApril 2024 8:28amZolpidem 5 mg tablet Discontinued2.5MGPODaily at bedtime as needed for insomniaDecember 26, 2023 12:18pmMarch 2024 11:58amPrimary insomnia Primary insomniaCephalexin 500 mg thfygktBhuhmmluykik544LPRWOmtkd jrmhf2374 December 25, 2023 11:00pmApril 2024 8:28amMeloxicam 15 mg szbzrhIdpjbv94 SQTAKcjwm24377Pjvwezaa 2024 12:00amComplies with drug therapyPhentermine (Adipex-P) 37.5 mg kyzbmgStwrwbkuuwqg14.1QKZWTomoa74306Dvjnh 2023 2:20pm July 29, 2023 2:57pmOverweight Overweightmust administer 30 minutes before or 1-2 hours after breakfast Phentermine (Adipex-P) 37.5 mg ipilgvMvqpzwmzblqs18.2CHJOOpfgh76452Rna 2023 2:57pmJune 2023 3:11pmOverweight Overweightmust administer 30 minutes before or 1-2 hours after breakfastZolpidem 5 mg bmnhjgHzpxjk4LDMZXqbmn at bedtime as needed for vdikvtzu93553Ihof2024 3:16pmPrimary insomnia Primary insomniaComplies with drug therapyPrednisone 20 mg ydoxpmHobdoehuqudy12 MGPOThree times pcrrb0322Jlmp2024 11:00pmJun2024 7:16amTake w/ meals tidPrednisone 20 mg reovwcLshdsikuixzq75WQTLDntbe times dcqiu2733Kynl2024 7:16amOctober 2024 7:48amTake w/ meals tidSemaglutide (Weight Loss) (Wegovy) 0.25 mg/0.5 mL pen injectorDiscontinued0.25MGSUBCUTevery rrni4759 July 12, 2024 11:00pmJun2024 9:19pmadminister weeks 1 through 4 of therapyCefdinir 300 mg nxoftmjTqksuxlyvdln513LFGXVfyfe gmfmj4483Aqvli 2024 11:00pmJun2024 2:39pmPrednisone 20 mg ukeobjOcfioeqyczqv60YIRDBbdtk fkjfw607Rdjny 2024 11:00pmJun2024 2:39pm Procedures Procedure Date Performed Status CT heart calcium score wo January 17, 2025 3:5 3pm completed Relevant Diagnostic Tests and/or Laboratory Data Laboratory Results Test Collection Date/Time Result Date/Time Result Interpretation Reference Range Result Comment Performing Site Thyroid Stimulating Hormone 3rd Gen December 27, 2024 5:59am December 27, 2024 5:59am 3.253 u[iU]/mL 0.358-3.740 Diagnostic Imaging Reports Author Heri Arroyo [facility]ored[facility] 2024 8:53amReportDictated Date/TimeDictated ByStatusRadiology ReportCone Health Moses [facility]2024 8:53amMarteofilo Arroyo II [facility] [address] [place] [address] CT Scan Report Signed Patient: Mai Landa MR# : [id number] : 1965 Acct:[id number] Age/Sex: 59 / F ADM Date: 5 Loc: CT Room: Type: [facility] Attending Dr: Kartik Priest DO Copies to: Kartik Priest DO~ Ordering Provider: Kartik Priest DO Date of Service: 01/17/25 CT/CT heart calcium score wo: Z82.49 - Family history of ischemic heart disease and oth... CT heart calcium score w/o contrast REASON FOR EXAM: Family history of heart disease TECHNIQUE: Prospective gated imaging of the heart were obtained for calcium evaluation of the coronary arteries. Agatston score was calculated. The CT exam was performed using one or more the following dose reduction techniques: Automated exposure control, adjustment of the MA and/or Kv according to patient size, or use of the iterative reconstruction technique. COMPARISON:None FINDINGS: LEFT MAIN: 0 LEFT ANTERIOR DESCENDIN.8 CIRCUMFLEX: 0 RIGHT CORONARY ARTERY: 2.55 TOTAL AGATSTON CALCIUM SCORE: 13.38 This calcium score places the patient at the 62nd percentile. EXTRACARDIAC STRUCTURES: No evidence of mediastinal or hilar lymphadenopathy. No pericardial effusion. Visualized lungs demonstrate no acute process. No lung nodule is seen. Limited images of the upper abdomen demonstrate no acute findings. CT/CT heart calcium score wo IMPRESSION: No significant extracardiac CT findings. CALCIUM SCORE INTERPRETATION (0) No identifiable atherosclerotic plaque. Very low cardiovascular disease risk. Less then 5% chance of presence of coronary artery disease. (1-99) RIsk is mildly increased. Treatment recommendation - moderate intensity statin. (100-299) Risk is moderately increased. Treatment recommendation - moderate to high intensity statin plus ASA 81mg. (>300) Risk is moderately to severely increased. Treatment recommendation - high intensity statin plus ASA 81mg. Source: May 2017 - Coronary artery calcium data and reporting system. An expert consensus document of the Society of Cardiovascular Computed Tomography) CALCIUM SCORING OVERVIEW: Coronary calcium is a marker for plaque in a blood vessel or atherosclerosis (hardening of the arteries). The presence and amount of calcium detected in the coronary artery by the CT scan estimates the presence and amount of atherosclerotic plaque. These calcium deposits can appear years before the development of heart disease symptoms such as chest pain and shortness of breath. A calcium score is computed of each of the coronary arteries based upon the volume and density of the calcium deposits. This can be referred to as your calcified plaque burden. It does not correspond directly to the percentage of narrowing in the artery, but does correlate with the severity of the overall coronary atherosclerotic burden. This score is then used to determine the calcium percentile which compares your calcified plaque to that of other asymptomatic men and women of the same age. The calcium score, in combination with the percentile, enables your physician to determine your risk of developing symptomatic coronary artery disease, and to measure the progression of disease as well as the effectiveness of treatment. A score of zero indicates that there is no calcified plaque burden. This implies that there is no significant coronary artery narrowing and very low likelihood of a cardiac event over at least the next 3 years. It does not absolutely rule out the presence of soft, noncalcified plaque or totally eliminate the possibility of a cardiac event. A score greater than zero indicates at least some coronary artery disease. As the score increases, so does the likelihood of a significant coronary narrowing and the likelihood of a coronary event over the next 3 years. Similarly, the likelihood of a coronary event increases with increasing calcium percentiles. Impression dictated by: Heri Arroyo M.D. 01/18/2025 8:58 AM Dictation Location: [place] [address] Transcribed By: [facility] 01/18/25 0858 Dictated By: Heri Arroyo II, MD 01/18/25 0853 Signed By: <Electronically signed by Heri Arroyo II, MD in [place]> 01/18/25857 Vital Signs Vital Reading Result Reference Range Collection Date/Time Height 65 [in_i] December 30, 2024 7:97rbCxerfo49.69 kgOctober 2024 7:51amHeart Rate80 /shi63-207Secuwjm 2024 7:51amRespiratory rate12 /eed47-14Lbcrzai 2024 7:51amBP Dcxxartr284 mm[Hg]100-140Octkind[facility] 2024 7:51amBP Exakdlidt30 mm[Hg]60-100October 2024 7:51amBMI (Body Mass Index)31.8 kg/v1Fimlrrr 2024 7:41imXixkvq56 [in_i]March 01, 2025 3:12zfNhvwwd44.27 kgDecember 2024 3:37pmHeart Rate77 /xxk41-355Kvyxryus 2024 3:37pmRespiratory rate12 /cyo26-51Okvtvoqr 2024 3:37pmBP Swggsaqf506 mm[Hg]100-140December 2024 3:37pmBP Xiqabdqfo77 mm[Hg]60-100December 2024 3:37pmBMI (Body Mass Index)30.2 kg/p1Buytkslt 2024 3:37pm Advance Directives Advance Directive Response Recorded Date/ Time Advance Directives No June 02 018 10:04am Insurance Providers Guarantor Mai Landa Address [address] [address]Bbyttbs Info.Home Phone: Payer Group Member ID Coverage Type Subscriber Relationship to Subscriber Effective Date Expiration Date Brina EPPERSON/ABEL Unknown Id: [id number] L Chudzinski Id: [id number] [address] [place] [address] Home Phone: Email: [email or web address])[facility] No Card Id: [id number] L Chudzinski Id: [id number] [address] [place] [address] Home Phone: Email: [email or web address])[facility] Insurance Co [id number] Landa Id: [id number] [address] [place] [address] Home Phone: Email: [email or web address])Self Encounters Encounter Location(s) Arrival/Admit Date Discharge/Departure Date Discharge/Departure Disposition Provider(s) Non-patient / Non-visit -[facility] O ctober 2024 6:59am Lorena Ryan Physician/Provider Office Visit-[facility] 2024 8:37amOctober 2024 9:37amDischarged to home care or self care (routine discharge)Lorena Ryan Clinical-CT Scan [facility]2024 3:37pmJanbanner 2024 3:38pmDischarged to home care or self care (routine discharge)Lorena Ryan Physician/Provider Office [facility] 20[facility] 4:07pmDischarged to home care or self care (routine discharge)Kartik Priest , DO Recent Diagnosis Onset Date Admit Date Family history of early CAD Unknown Octo 2024 8:37am IFG (impaired fasting glucose) Unknown O ctober 2024 8:37am Obesity Unknown December 30 8:37am Primary insomnia Unknown December 30 8:37am Assessments Diagnosis Onset Date Resolution Status Admit Date Family history of early CAD acuteOctober 2024 8:37amIFG (impaired fasting glucose)acuteOctober 2024 8:37amObesityacuteOctober 2024 8:37amPrimary insomniaacuteOctober 2024 8:37am Plan of Treatment Author Kartik Priest [facility] 2024 8:33amHis A1C is between 5.7-6.5%. Instructed on low carb, high fiber diet. Instructed on routine exercise program for 30-60min three times weekly. Instructed on correlation between obesity and insulin resistance and encouraged to lose weight. Monitor A1C every 6 months. Instructed on consistent sleep routine. Avoid exercise, TV, phone, computer or food prior to bedtime. Instructed to avoid daytime naps. Instructed to read or listen to music prior to bedtime, as a way to wind down and relax. Zolpidem only if unable to sleep after an hour on work nights I have instructed this patient on a low-fat, high-fiber diet.?? I have also instructed them to reduce calories, portions sizes, sweet drinks and snacks.?? I have also recommended they exercise for 30 minutes, 3-5 times weekly. They are aware of the comorbid conditions associated with excessive weight: Diabetes, HTN, Hyperlipidemia, CAD and arthritis. Stop all medication for weight loss Await treatment of eye condition and ensure BP controlled Referred for CAC Instructed on a healthy diet and exercise Monitor BP closely Future Tests Future scheduled test information is unavailable Pending Tests Pending diagnostic test information is unavailable Future Visits Future appointment information is unavailable Future Procedures Future procedure information is unavailable Future Medications Future medication information is unavailable Patient Instructions Patient instructions are unavailable
--- OUTSIDE RECORDS SUMMARY | 2025-03-14 16:36 | XMS_ITS | Clinical Summary ---
Author Organization [facility] Address [address] [place] [address] Phone Care Team Providers Care Client Care Consultant Name Role Phone Kartik Priest DO Primary Care Provider [phone] Allergies No known active allergies Medications MedicationSigDispense QuantityRefillsLast FilledStart DateEnd DateStatus semaglutide (Ozempic) 0.25 mg or 0.5 mg(2 mg/1.5 mL) pen injector Inject 0.25 mg under the skin 1 (one) time per week.5Active ibuprofen 600 mg tablet Indications:Cholesteatoma of left earTake 1 tablet (600 mg) by mouth every 6 hours if needed for moderate pain (4 - 6) for up to 20 doses. 20 tablet 5Active traMADol (Ultram) 50 mg tablet Indications:Cholesteatoma of left earTake 1 tablet (50 mg) by mouth every 4 hours if needed for severe pain (7 - 10) ((pain unrelieved by tylenol/ibuprofen)) for up to 12 doses. 12 tablet 5Active acetaminophen (TylenoL) 325 mg tablet Indications:Cholesteatoma of left earTake 2 tablets (650 mg) by mouth every 6 hours if needed for mild pain (1 - 3) for up to 20 doses. 20 tablet 5Active Active Problems ProblemNoted DateDiagnosed DateCholesteatoma of left ear08/30/2024 Social History Tobacco UseTypesPacks/DayYears UsedDateSmoking Tobacco: NeverSmokeless Tobacco: Never Tobacco Cessation:Counseling Given: Not Answered Alcohol UseStandard Drinks/WeekCommentsNever0 (1 standard drink = 0.6 oz pure alcohol)once a monthPHQ-2AnswerDate RecordedPatient Health Questionnaire-2 Score CommentsNoSex and Gender InformationValueDate RecordedSex Assigned at BirthNot on fileLegal NkeSsnsmz51/26/2022 1:14 AM ESTGender Identity Not on fileSexual OrientationNot on file Last Filed Vital Signs Vital SignReadingTime TakenCommentsBlood Aevszypa835/8411/21/2024 3:10 PM EDT Muxxl184311/21/2024 3:10 PM UGOCjpvrydugrb41.7 ??C (96.3 ??F)11/21/2024 3:10 PM EDTRespiratory Cwwy4713 3:10 PM EDTOxygen Tujivrxmaw56%11/21/2024 3:10 PM EDTInhaled Oxygen Concentration--Pcsfbp81.8 kg (187 lb)12/06/2024 1:13 PM EDT Fvzqwx615.1 cm (5' 5 )12/06/2024 1:13 PM EDTBody Mass Index31.1209 1:13 PM EDT Plan of Treatment Health MaintenanceDue DateLast DoneCommentsCT Wvlwzffcineq19/28/1965Colonoscopy 1964Colorectal Cancer Igshgljdl64/28/1965FIT-DNA (Cologuard)1964FIT 1964HIV Swvwhelmg35/28/1965Lipid Panel1964 0541Nciwwfztolbed44/28/1965TSH Level1964MMR Vaccines (1 of 1 - Standard series)1965Diabetes Gfxadsygs70/28/1983Hepatitis C Exnxesjqb81/28/1983Cervical Cancer Screening 1985HPV/Slmihi9211/10/1985Pap Smear1985DTaP/Tdap/Td Vaccines (1 - Tdap)1986Pneumococcal Vaccine (1 of 1 - PCV)2014Zoster Vaccines (1 of 2)11/10/20148907Ihsshqsgy65/31/202407/, 10/11/2021, 10/09/2021, Additional history existsCOVID-19 Vaccine (1 - 2024- season)2024Influenza Vaccine (#1)5Yearly Adult Gaqikibt43/19/218047/, 01/01/2024, 01/01/2024, Additional history existsRSV High Risk: (Elderly (60+) or Population) (1 - 1-dose 75+ series)11/11/2039HIB VaccinesAged OutNo longer eligible based on patient's age to complete this topicHPV VaccinesAged OutNo longer eligible based on patient's age to complete this topicHepatitis A VaccinesAged OutNo longer eligible based on patient's age to complete this topicHepatitis B VaccinesAged OutNo longer eligible based on patient's age to complete this topicIPV Vaccines Aged OutNo longer eligible based on patient's age to complete this topic Meningococcal VaccineAged OutNo longer eligible based on patient's age to complete this topicRotavirus VaccinesAged OutNo longer eligible based on patient's age to complete this topic Medical Devices ImplantedTypeAreaManufacturerDevice IdentifierShelf Expiration DateModel / Serial / LotGraft, Biodesign [employer] 2.5 X 2.5 Case [id number] Implanted:Qty: 1 on 01/24/2022 by Rashmi Christine [facility] ImplantKYBURZ MEDICAL INC04/07/[id number] / / [id number]:Converted from [facility]. Please see archived information for full log information. Insurance * Guarantor: Matt Landa TypeRelation to PatientDate of PhoneBilling AddressPersonal/KqqdjzDfhr41/28/[address] [place] [address] * Guarantor: Matt Landa TypeRelation to PatientDate of PhoneBilling AddressPersonal/PmpvsdLibr93/28/[address] [place] [address] Advance Directives For more information, please contact: [phone] (Available ) * Full Code (Latest Code Status on File) Date ActivatedDate InactivatedComments11/21/2024 9:27 AMQuestionAnswerCommentsPlan of Care:* Code Status Discussion Completed Decision Maker:* Patient Care Teams Team MemberRelationshipSpecialtyStart DateEnd Date Kartik Priest DO [facility]10/07/21
--- OUTSIDE RECORDS SUMMARY | 2025-03-14 16:36 | XMS_ITS | Clinical Summary ---
Author Organization [facility] Address [address] [address] [place] [address] Care Team Providers Care Flight Crew Ordnanceman Name Role Phone Preeti Lopez MD Unavailable [phone] Kartik Priest DO Primary Care Provider [phone] Allergies No known active allergies Medications MedicationSigDispense QuantityRefillsLast FilledStart DateEnd DateStatus valACYclovir (Valtrex) 500 MG tablet Take 500 mg by mouth if waqjbo033Active zolpidem (Ambien) 5 MG tablet 4Active acetaminophen (Tylenol) 325 MG tablet Take 650 mg by mouth every 6 (six) hours if hnyiae575Active ibuprofen 600 MG tablet Take 600 mg by mouth every 6 (six) hours if gftgbp195Active Active Problems ProblemNoted DateDiagnosed DateCholesteatoma of left ear08/30/2024Keratosis obturans of external ear canal, left02/17/2023asal cell carcinoma (BCC) of back 01/27/2023ervical high risk HPV (human papillomavirus) test irhopzfk75/14/2023 Conductive hearing loss of left ear01/27/2023onductive hearing loss, unilateral, left ear with restricted hearing on the contralateral side01/27/2023 Contracture, right ankle01/27/2023Other seborrheic zpewzypwu92/14/2023Mild dysplasia of hrgirh6006/09/2013 Resolved Problems ProblemNoted DateDiagnosed DateResolved DateAbnormal uopiapcbq64/14/2023 01/27/2023Hot flashes due to jcnaufehk70Menopausal symptom Irregular agbezbt76 Encounters DateTypeDepartmentCare YmpcOsgswzyaato52/03/2025 4:05 PM ESTOffice Visit [facility] [address] [place] [address] Sharmila Cota MD Seborrheic keratosis (Primary Dx); Seborrheic keratosis, inflamed; Yusjnlvkli72/03/2025amboo flowsheet [facility] [address] [place] [phone] Sharmila Cota MD 02/15/20258087Lsucbx45/13/2025 10:00 AM ESTOffice Visit [facility] [address] [place] [phone] Chelle Gandhi MD Epiretinal membrane (ERM) of both eyes (Primary Dx)01/26/2025amboo flowsheet [facility] [address] [place] [address] Chelle Gandhi MD 01/26/20252247Tsbfua89/07/2025 7:30 PM ESTAncillary Procedure [facility] [address] [place] [phone] Encounter for screening mammogram for malignant neoplasm of ozsqns8901/20/2025 Gvsuuz0201/19/20251175Kxuqwo96/03/2025Results Follow-Up [facility] [address] [place] [address] Whitney Rodriguez LPN Pathology Bedjtt9201/11/2025 3:30 PM EDTOffice Visit [facility] [address] [place] [address] Marcos Tian DO Encounter for gynecological examination with abnormal finding (Primary Dx); Encounter for screening mammogram for malignant neoplasm of breast; Vaginal atrophy; Cervical polyp; Screening for malignant neoplasm of cervix; Screening for HPV (human papillomavirus); History of colposcopy; History of abnormal cervical Pap smear01/11/2025Orders Only [facility] External Department Unsolicited Marcos Tian DO 01/11/2025Travelfrom Last 3 Months Family History Medical HistoryRelationNameCommentsNo Known ProblemsBrotherNo Known Problems Daughter 1No Known ProblemsDaughter 2CataractsFatherRonDiabetesFatherRonHeart diseaseFatherRonHypertensionFatherRonMelanomaFatherRonEmphysemaMaternal GrandfatherCervical cancerMaternal GrandmotherCataractsMotherMelanomaMother Breast cancerMother's SisterAuntHeart diseasePaternal GrandfatherCancerPaternal GrandmotherRuthNo Known ProblemsSisterRelationNameStatusCommentsBrotherDaughter 1AliveDaughter 2AliveFatherRonAliveMaternal GrandfatherDeceasedMaternal GrandmotherDeceasedMotherAliveMother's SisterAuntPaternal GrandfatherDeceased Paternal GrandmotherRuthDeceasedSister Social History Tobacco UseTypesPacks/DayYears UsedDateSmoking Tobacco: NeverSmokeless Tobacco: Never Tobacco Cessation:Counseling Given: Not Answered Alcohol UseStandard Drinks/WeekCommentsYes1 (1 standard drink = 0.6 oz pure alcohol)Caffeine: noneAUDIT-CAnswerDate RecordedQ1: How often do you have a drink containing alcohol?Monthly or less12/11/2022Q2: How many drinks containing alcohol do you have on a typical day when you are drinking?1 or Q3: How often do you have six or more drinks on one occasion?Never12/11/2022 CommentsNoSex and Gender InformationValueDate RecordedSex Assigned at Scsnnl9612/10/2022 6:39 PM EDTLegal MloMkcqvg76/15/2023 7:06 PM EDTGender Identity Mzqyis7012/10/2022 6:39 PM EDTSexual WtujdmgyrypAhejlptz53/27/2023 6:39 PM EDT Last Filed Vital Signs Vital SignReadingTime TakenCommentsBlood Cuydkzsj414/7601/11/2025 3:30 PM EDT Ikmyc532511/28/2024 8:41 AM EDTTemperature--Respiratory Rate--Oxygen Saturation-- Inhaled Oxygen Concentration--Udxrwi41.5 kg (193 lb)01/11/2025 3:30 PM EDTHeight 165.1 cm (5' 5 )01/11/2025 3:30 PM EDTBody Mass Index32.121 3:30 PM EDT Plan of Treatment DateTypeDepartmentCare Team (Latest Contact Info)Jxjbmgxduvc81/02/2026 3:15 PM ESTOffice Visit [facility] [address] [place] [address] Marcos Tian DO [address] [place] [address] 02/15/2026 4:00 PM ESTOffice Visit [facility] [address] [place] [address] Sharmila Cota MD [address] [place] [address] Procedures Procedure NamePriorityDate/TimeAssociated DiagnosisCommentsCRYOTHERAPY SKIN AONWSUSigczzu61/03/2025 4:09 PM EST Seborrheic keratosis, inflamed OCT, RETINA - OU - BOTH EQZNYsqkesp07/13/2025 11:53 AM EST Epiretinal membrane (ERM) of both eyes BI MAMMOGRAM SCREENING TOMOSYNTHESIS KAABVSVOXCdswond72/07/2025 7:30 PM EST Encounter for screening mammogram for malignant neoplasm of breast PATHOLOGY XCNPRUEznbxfe76/29/2025 12:00 AM EDT IGP, APT HPV,RFX 16/18,92Cbfjlgu62/29/2025 12:00 AM EDT Screening for malignant neoplasm of cervix Screening for HPV (human papillomavirus) History of colposcopy History of abnormal cervical Pap smear from Last 3 Months Results * Cryotherapy, skin lesion (02/15/2025 4:09 PM EST) Narrative Authorizing ProviderResult TypeResult StatusEmvito Cota MDDERM PROCEDURE ORDERABLESFinal Result * OCT, Retina - OU - Both Eyes (01/26/2025 11:53 AM EST)Anatomical Region LateralityModalityHeadOptical Coherence Tomography Narrative 01/26/2025 11:53 AM EST Right Eye Quality was good. Scan locations included subfoveal, juxtafoveal, extrafoveal. Progression has no prior data. Findings include abnormal foveal contour, cystoid macular edema. Left Eye Quality was good. Scan locations included subfoveal, juxtafoveal, extrafoveal. Progression has no prior data. Findings include abnormal foveal contour, cystoid macular edema. Notes Macular pucker OS Authorizing ProviderResult TypeResult StatusChelle Gandhi [facility] TOMOGRAPHY Final Result * Bilateral screening mammogram with tomosynthesis (01/20/2025 7:30 PM EST) Anatomical RegionLateralityModalityBreastBilateralMammographySpecimen (Source) Anatomical Location / LateralityCollection Method / VolumeCollection Time Received Time01/23/2025 2:57 PM EST Impressions 01/23/2025 3:05 PM EST Impression: No specific evidence of malignancy seen in either breast. BIRADS 2 - Benign Findings DENSITY: The breasts are heterogeneously dense, which may obscure small masses. FOLLOW-UP: Routine Screening Mammogram Board Certified Radiologists. ??Accredited by the ACR and FDA. MAMMOGRAPHY IS VERY IMPORTANT TO YOUR HEALTH. ??THE [place] [employer] GUIDELINES RECOMMEND THAT WOMEN 40 YEARS OF AGE AND OLDER SHOULD HAVE A MAMMOGRAM EVERY YEAR. A REMINDER LETTER WILL BE SENT AT THE APPROPRIATE TIME. ?? ELECTRONICALLY SIGNED BY: Lamont Ivy M.D. Narrative 01/23/2025 3:05 PM EST Examination: BI MAMMOGRAM SCREENING TOMOSYNTHESIS BILATERAL Clinical History: screening Technique: Screening digital mammography study of both breasts was performed with 2-D and 3-D tomosynthesis imaging. Study was compared to the prior exam dated 01/06/2024. Findings: There is no evidence of interval dominant spiculated mass, grouped microcalcifications, or skin thickening which would be suggestive of malignancy. ?? Minimal benign-appearing vascular calcification noted bilaterally. Procedure Note Lamont Ivy MD - 01/23/2025 Examination: BI MAMMOGRAM SCREENING TOMOSYNTHESIS BILATERAL Clinical History: screening Technique: Screening digital mammography study of both breasts wasperformed with 2-D and 3-D tomosynthesis imaging. Study was compared tothe prior exam dated 01/06/2024. Findings: There is no evidence of interval dominant spiculated mass,grouped microcalcifications, or skin thickening which would be suggestiveof malignancy. Minimal benign-appearing vascular calcification noted bilaterally. IMPRESSION: Impression: No specific evidence of malignancy seen in either breast. BIRADS 2 - Benign Findings DENSITY: The breasts are heterogeneously dense, which may obscure smallmasses. FOLLOW-UP: Routine Screening Mammogram Board Certified Radiologists. Accredited by the ACR and FDA. MAMMOGRAPHY IS VERY IMPORTANT TO YOUR HEALTH. THE [place] [employer] GUIDELINES RECOMMEND THAT WOMEN 40 YEARS OF AGE AND OLDER SHOULD HAVE AMAMMOGRAM EVERY YEAR. A REMINDER LETTER WILL BE SENT AT THE APPROPRIATE TIME. ELECTRONICALLY SIGNED BY: Lamont Ivy M.D. Authorizing ProviderResult TypeResult StatusRichard A Visci DOI BI PROCEDURES Final Result * IGP, APT HPV,RFX 16/18,45 (01/11/2025 12:00 AM EDT)ComponentValueRef RangeTest MethodAnalysis TimePerformed AtPathologist SignatureDiagnosis:CommentL[facility] Comment: NEGATIVE FOR INTRAEPITHELIAL LESION OR MALIGNANCY. CELLULAR CHANGES ASSOCIATED WITH ATROPHY ARE PRESENT. Specimen Adequacy:CommentLABCORPComment: Satisfactory for evaluation. ??Endocervical and/or squamous metaplastic cells (endocervical component) are present. Clinician Provided ICD10:CommentLABCORPComment: Z12.4 Z11.51 Z98.890 Z87.42 N84.1 Performed By:CommentLABCORPComment:Carol Ann Warren, Notching Press Operator (ASCP)Cyto Comments .LABCORPNote:CommentLABCORPComment: The Pap smear is a screening test designed to aid in the detection of premalignant and malignant conditions of the uterine cervix. ??It is not a diagnostic procedure and should not be used as the sole means of detecting cervical cancer. ??Both false-positive and false-negative reports do occur. Test Methodology:CommentLABCORPComment: This liquid based ThinPrep(R) pap test was interpreted using the TripsByTips(R) Genius(TM) Cervical Algorithm whole slide imaging system. HPV AptimaNegativeNegativeLABCORPComment: This nucleic acid amplification test detects fourteen high-risk HPV types (16,18,31,33,35,39,45,51,52,56,58,59,66,68) without differentiation. Specimen (Source)Anatomical Location / LateralityCollection Method / Volume Collection TimeReceived LravTmlir72/ Narrative [facility] - 01/13/2025 4:08 PM EDT Performed at: 01 - [address] ??[id number] Electronics Tech: Sue Cherry MD, Phone: ??[phone] Performed at: ??02 - [address] ??[id number] Electronics Tech: Sue Cherry MD, Phone: ??[phone] Specimen Comment: [id number] Specimen Comment: No. of containers..01 ThinPrep Vial Authorizing ProviderResult TypeResult StatusRichard A Visci DOLAB BLOOD ORDERABLESFinal ResultPerforming OrganizationAddressCity/State/ZIP CodePhone Number [facility] * Pathology Report (01/11/2025 12:00 AM EDT)ComponentValueRef RangeTest Method Analysis TimePerformed AtPathologist SignatureMaterial Submitted:Comment [facility]PComment: Material submitted: ?. cervix - CERVICAL POLYP Clinician Provided MGI66VotfoqlAUPWHFMSwtfxjm: Clinician provided ICD-10: Z12.4 Diagnosis:CommentLABCORPComment: Diagnosis: CERVICAL POLYP, REMOVAL: - BENIGN ECTOCERVICAL POLYP WITH MILD CHRONIC INFLAMMATION. - NEGATIVE FOR DYSPLASIA AND MALIGNANCY. [facility] ??01/16/2025 ??0631 Local Electronically Signed:CommentLABCORPComment: Electronically signed: ? . Tom Rich MD, Pathologist Gross Description:CommentLABCORPComment: Gross description: ? . RECEIVED IN FORMALIN LABELED WITH THE PATIENT'S NAME AND CERVICAL POLYP IS A 0.8 X 0.5 X 0.1 CM AGGREGATE OF A FEW IRREGULAR FRAGMENTS OF MENDZE BROWN TISSUE. ??SUBMITTED ENTIRELY IN 1 CASSETTE(S). [facility] ??01/12/2025 ??1541 Local Pathologist Provided MJI18IvtfcpmIGHTRYMApswhnn: Pathologist provided ICD-10: N84.1 CPTCommentLABCORPComment: CPT ?. 229551 Specimen (Source)Anatomical Location / LateralityCollection Method / Volume Collection TimeReceived Time Narrative [facility] - 01/16/2025 4:08 PM EST Performed at: 01 - [address] ??[id number] Electronics Tech: Cam Zendejas MD, Phone: ??[phone] Performed at: ??02 - [facility] [address] [place], [place] ??[id number] Electronics Tech: Tom Rich MD, Phone: ??[phone] Performed at: ??03 - [facility] [address] [place], [place] ??[id number] Electronics Tech: Cam Zendejas MD, Phone: ??[phone] Specimen Comment: No. of containers..01 Tissue Authorizing ProviderResult TypeResult StatusRichard A Visci DOLAB PATHOLOGY ORDERABLESFinal ResultPerforming OrganizationAddressCity/State/ZIP CodePhone Number [facility] from Last 3 Months Insurance * Guarantor: Mai Landa TypeRelation to PatientDate of PhoneBilling AddressPersonal/IdfghxFwfb36/28/1966 [address] [place] [address] [facility] Address[address] [address] Care Teams Team MemberRelationshipSpecialtyStart DateEnd Date Kartik Priest DO [address] [facility] [place] [address] PCP - GeneralInternal Medicine07/05/24 Preeti Lopez MD [address] [facility] [address] [place] [address] Otolaryngology08/28/21
--- OUTSIDE RECORDS SUMMARY | 2025-03-14 16:36 | XMS_ITS ---
Author Organization [facility] Address [address] [facility] [place] [address] Care Team Providers Care Sanding Supervisor Name Role Phone Preeti Lopez MD Unavailable [phone] Kartik Priest DO Primary Care Provider [phone] Active Problems ProblemNoted DateDiagnosed DateCholesteatoma of left ear08/30/2024Keratosis obturans of external ear canal, left02/17/2023asal cell carcinoma (BCC) of back 01/27/2023ervical high risk HPV (human papillomavirus) test eoizbfxa26/14/2023 Conductive hearing loss of left ear01/27/2023onductive hearing loss, unilateral, left ear with restricted hearing on the contralateral side01/27/2023 Contracture, right ankle01/27/2023Other seborrheic zbduesirg79/14/2023Mild dysplasia of izykhh3306/09/2013 Current Treatment and Therapy Plans No current plan information found. Past Treatment and Therapy Plans No past plan information found. Lifetime Dose Tracking * ChemicalLifetime DoseAutomatic EntryManual KxdieLkkkvgmuv24.84 mSv37.84 mSv0 mSv Resolved Problems ProblemNoted DateDiagnosed DateResolved DateAbnormal /14/2023 01/27/2023Hot flashes due to /Menopausal symptom Irregular thkmbpy14
[2025-03-14 17:18] LABS: Free T3 2.10 pg/mL (2.18-3.98); Thyroid Stimulating Hormone 2.789 uIU/mL (0.358-3.740)
--- OUTSIDE RECORDS SUMMARY | 2025-03-14 17:22 | XMS_ITS | CCD ---
Author Organization [facility] Care Team Providers Care Spinal Surgeon Name Role Phone Kartik Rodriguez Unavailable Unavailable Unavailable Sander, Dr. Rashmi Churchill Admitting Unava ilable Sander, Dr. Rashmi Churchill Referring Unava ilable Sander, Dr. Rashmi Churchill Attending Unava ilable Kartik Rodriguez Primary Care Unavailabl e Sander, Dr. Rashmi Churchill Attending Unava ilable Self, Referral Referring Unavailable Kartik Rodriguez Primary Care Unavailabl e Sander, Dr. Rashmi Churchill Referring Unava ilable Sander, Dr. Rashmi Churchill Attending Unava ilKartik Huitron Primary Care Unavailabl e Sander, Dr. Rashmi Churchill Referring Unava ilable Sander, Dr. Rashmi Churchill Attending Claudiava ilKartik Huitron Primary Care UnavailKartik Lomas Unavailable DR KARTIK RODRIGUEZ Attending Unavailable JENNIFER, DR BOILVAR Consulting Unavailable JENNIFER, DR BOLIVAR Primary Care Unavailable JENNIFER, DR BOLIVAR Admitting Unavailable DO Kartik Rodriguez Primary Care Provider [phone] MD Rashaun William Attending Provider DO Kartik Rodriguez Primary Care Provider MD Rashaun William Attending Provider MAGDALENA Delgado Attending Provider [phone] NO FAMILY, PHYSICIAN Primary Care Provider Kartik Crockett MD Primary Care Provider Carolyn Lopez MD Unavailable [phone] Kartik Rodriguez MD Primary Care Provider Kartik Rodriguez DO Primary Care Provider Kartik Rodriguez DO E Primary Care Provider BENJIE KOENIG Attending Unavailable JENNIFER, KARTIK E Primary Care Unavailable SANDER, RASHMI E Referring Unavailable BALL, KARTIK E Primary Care Unavailable SANDER, RASHMI E Admitting Unavailable SANDER, RASHMI E Attending Unavailable TIMMIS, CAROLYN CHOUDHURY Referring Unavaila ble BALL, KARTIK E Primary Care Unavailable Al Shadelia, Wayne Attending Unavailable Marcus Vera Jr Attending Unavailable Al Shweiki, Wayne Attending Unavailable Al Shweiki, Wayne Referring Unavailable SANDER, RASHMI E Attending Unavailable JENNIFER, KARTIK E Primary Care Unavailable SANDER, RASHMI E Attending Unavailable TIMMIPhillip, CAROLYN CHOUDHURY Referring Unavaila ble BALL, KARTIK E Primary Care Unavailable Kartik Rodriguez DO Primary Care Provider Kartik Rodriguez DO Attending Provider Rashmi Boucher MD Attending Provider Kartik Rodriguez DO Primary Care Provider Kartik Rodriguez DO Primary Care Provider [phone] Rashmi Boucher MD Attending Provider Kartik Rodriguez DO Attending Provider Kartik Rodriguez Attending Unavailable Jennifer, Kartik Primary Care Unavailable Kartik Rodriguez Admitting Unavailable TIMMIS, CARLOYN H Attending Unavailable TIMMIS, CAROLYN H Referring Unavailable TIMMIS, CAROLYN H Attending Unavailable TIMMISCAROLYN H Attending Unavailable VISCIMARIEL A Attending Unavailable VISCIMARIEL A Referring Unavailable PETITTRAULITO Fernandez Attending Unavailable Allergies Allergy ClassificationReported Allergen(s)Allergy TypeDate of OnsetReaction(s) Facility (3 sources)patient allergy list reviewed by nurse or physiciaPropensity to adverse xsfbyyguz53-61-3292Hsgnizk:[facility] Other (1 source)ALLERGIES NOT ON FILE; Translations: [ALLERGIES NOT ON FILE]Propensity to adverse reactions (disorder)[facility] Medications Current Medications MedicationDrug Class(es)DatesSig (Normalized)Sig (Original)0.5 ML semaglutide 0.5 MG/ML Auto-Injector [Wegovy] (6 sources)Start: 04-07-2868Bthbn: 94-56-8433Lwjjvn 0.25 MG/0.5ML 0.5 mL Subcutaneous 28 for 30 days Jun, Activeacetaminophen 325 mg oral tablet (9 sources)Start: 74-95-2972kfmi 2 tablets by mouth every six hours as needed acetaminophen (Tylenol) 325 MG tablet Take 650 mg by mouth every 6 (six) hours if needed 11/21/2024tiveStart: 60-54-7949umxq 1 tablet by mouth every four hours as uormwi100 mg, oral, Every 4 hours PRN, pain mild (1-3), first line, Starting on Thu11/21/24 at 1304, Recovery (only), When able to take oral medications., If ordered PRN for pain, nurse is permitted to administer this medication for higher pain scores based on patient preference? Yesalbuterol 0.83 mg/ml inhalation solution (1 source)beta2-Adrenergic AgonistStart: .5 mg, nebulization, Once as needed, wheezing, Starting on Thu11/21/24 at 1304, For 1 dose, Recovery (only) azithromycin 250 mg oral tablet (6 sources)Macrolide AntimicrobialStart: 99-51-9962Myeaivotjsjz 250 MG as directed Orally daily for 5 days Jan, Activecalcium chloride 0.0014 meq/ml / potassium chloride 0.004 meq/ml / sodium chloride 0.103 meq/ml / sodium lactate 0.028 meq/ml injectable solution (1 source)Start: 11-21-2024 End: 95-03-5975kost 100 mL intravenously every mssg880 mL/hr, intravenous, Continuous, Starting on Thu11/21/24 at 1330, For 3 hours, Recovery (only)docusate sodium 100 mg oral capsule (4 sources)Start: 11-21-2024 End: 17-37-2292joma 1 capsule by mouth in the morningDocusate Sodium (DSS) 100 MG capsule Take 100 mg by mouth in the morning and 100 mg in the evening. 11/21/2024 12/01/2024 Active2 ml droperidol 2.5 mg/ml injection (1 source)Dopamine-2 Receptor AntagonistStart: .625 mg, intravenous, Once as needed, nausea/vomiting, second line, Starting on Thu11/21/24 at 1304, For 1 dose, Recovery (only), Monitor QTc while on therapy (2 lead monitoring)0.5 ml HYDROmorphone hydrochloride 1 mg/ml prefilled syringe (2 sources)Opioid AgonistStart: .5 mg, intravenous, Every 5 min PRN, pain severe (7-10), first line, Starting on Thu11/21/24 at 1304, For 4 doses, Recovery (only), Max total of 4 mg regardless of dose.Start: .25 mg, intravenous, Every 5 min PRN, pain moderate (4-6), first line, Starting on Thu11/21/24 at 1304, Recovery (only), Max total of 4 mg regardless of dose.ibuprofen 600 mg oral tablet (8 sources)Nonsteroidal Anti-inflammatory DrugStart: 78-23-3609jwdt 1 tablet by mouth every six hours as neededibuprofen 600 MG tablet Take 600 mg by mouth every 6 (six) hours if needed 11/21/2024 Activemolnupiravir 200 MG Oral Capsule [Lagevrio] (1 source)Start: 61-29-4517amfk 4 capsules by mouth every twelve hours Molnupiravir 200 MG 4 capsules Orally every 12 hrs for 5 days Feb, Activeofloxacin 3 mg/ml otic solution (4 sources)Quinolone AntimicrobialStart: 07-11-2024 End: 40-10-8570wcftbbayk (Floxin) 0.3 % otic solution Indications: Cholesteatoma of left external auditory canal Administer 4 drops into the left ear in the morning and 4 drops before bedtime. Do all this for 10 days. 10 mL 07/11/2024 07/21/2024 Activeondansetron 4 mg oral tablet (4 sources)Serotonin-3 Receptor AntagonistStart: 11-21-2024 End: 93-15-0108qcvt 1 tablet by mouth every eight hours as neededondansetron (Zofran) 4 MG tablet Take 4 mg by mouth every 8 (eight) hours if needed 11/21/2024 11/28/2024 Discontinued (Therapy completed)Start: mg, intravenous, Once as needed, nausea/vomiting, first line, Starting on Thu11/21/24 at 1304, For1 dose, Recovery (only), When administering via IV Push, administer over 3-5 minutes.oxyCODONE hydrochloride 5 mg oral tablet (1 source)Opioid AgonistStart: 13-40-3343ogip 1 tablet by mouth every four hours as needed5 mg, oral, Every 4 hours PRN, pain moderate (4-6), second line, Starting on Thu11/21/24 at 1304, Recovery (only), When able to take oral medications., If ordered PRN for pain, nurse is permitted to administer this medication for higher pain scores based on patient preference? Yesoxygen (O2) therapy (1 source)Start: 02-93-5355urwnutsrrm, Continuous - O2/gases, oxygen, Starting on Thu11/21/24 at 1304, Recovery (only), Device:Nasal Cannula, Rate in liters per minute: 4 LPM, Keep O2 Sat Above: 92%paxlovid (300/100) 20 x 150 mg & 10 x 100mg tablet therapy pack (1 source)Start: 47-65-5850Yrltiodt (300/100) 20 x 150 MG & 10 x 100MG as directed Orally bid for 5 days Feb, Activewegovy 0.25 mg/0.5ml solution auto-injector (1 source)Start: 36-49-3966Gzywyr 0.25 MG/0.5ML 0.5 mL Subcutaneous 28 for 30 days Jun, Active{20 (nirmatrelvir 150 MG Oral Tablet) / 10 (ritonavir 100 MG Oral Tablet) } Pack [Paxlovid 5-Day] (1 source)Start: 66-43-6876Waruvwjy (300/100) 20 x 150 MG & 10 x 100MG as directed Orally bid for 5 days Feb, Active Completed/Discontinued Medications MedicationDrug Class(es)DatesSig (Normalized)Sig (Original)acetaminophen 325 mg / HYDROcodone bitartrate 5 mg oral tablet (5 sources)Opioid AgonistStart: 01-22-2023 End: 41-67-3164zjcj 2 tablets by mouth every six hours as needed for pain Hydrocodone-Acetaminophen 5-325 mg tablet Discontinued 2 TAB PO Q6H as needed for pain 30 7 0 January 22, 2023 May 21, 2023 10:41am Encounter for cosmetic surgery Encounter for cosmetic surgerycefdinir 300 mg oral capsule (2 sources)Cephalosporin AntibacterialStart: 07-13-2024 End: 72-45-4229tird 1 capsule by mouth twice dailyCefdinir 300 mg capsule Discontinued 300 MG PO Twice daily 10 5 0 July 12, 2024 11:00pm August 31, 2024 2:39pmcephalexin 500 mg oral capsule (9 sources)Cephalosporin AntibacterialStart: 11-21-2024 End: 16-65-1429zlfabrawln (Keflex) 500 MG capsule 11/21/2024 01/11/2025 Discontinued (Therapy completed)Start: 12-26-2023 End: 11-67-5217mdyh 1 capsule by mouth twice dailyCephalexin 500 mg capsule Discontinued 500 MG PO Twice daily 10 5 0 December 25, 2023 11:00pm July 13, 2024 8:28amdoxycycline hyclate 100 mg oral capsule (4 sources)Tetracycline-class DrugStart: 08-04-2023 End: 12-90-2039crtl 1 capsule by mouth twice dailyDoxycycline Hyclate 100 mg capsule Discontinued 100 MG PO Twice daily 10 5 0 August 03, 2023 11:00pmJune 2023 2:31pmestradiol 0.1 mg/ml vaginal cream (5 sources)EstrogenStart: 01-04-2024 End: 41-98-4739wkngjjopi (Estrace) 0.1 MG/GM vaginal cream Indications: Vulvovaginal Atrophy Insert 1 g into the vagina 2 (two) times a week 42.5 g 2 01/04/2024 01/05/2024 Discontinued (Therapy completed)Estradiol-Norethindrone Acet (6 sources)EstrogenStart: 01-07-2023 End: 35-57-8978Iqztydlfb-Norethindrone Acet 1-0.5 mg tablet Discontinued 1 TAB PO Every morning January 0620220316:00pm May 21, 2023 10:41amStart: 01-07-2023 End: 98-01-7761Kuynmabrn-Norethindrone Acet 1-0.5 mg tablet Discontinued 1 TAB PO Every morning January 072:00am May 21, 2023 11:41amStart: 01-07-2023 End: 70-11-9444gpho 1 tablet by mouth once daily in the morningEstradiol- Norethindrone Acet Discontinued 1 TAB PO Every morning January 07, 2023 12:00am May 21, 2023 11:41amStart: 80-06-1581ibbj 1 tablet by mouth once daily in the morningEstradiol-Norethindrone Acet Active 1 TAB PO Every morning January 06, 2023 11:00pmStart: 64-39-4023hnkn 1 tablet by mouth once daily in the morningEstradiol-Norethindrone Acet Active 1 TAB PO Every morning January 07, 2023 12:00amEstradiol-Norethindrone Acet 1-0.5 MG Oral Tablet (5 sources)Start: 10-15-4593Sseapmvxg-Norethindrone Acet 1-0.5 MG Oral Tablet Quantity: 28 Refills: 0 Ordered: 19-Sep-2021 DO Start : 19-Sep-2021 Active gabapentin 300 mg oral capsule (5 sources)Anti-epileptic AgentStart: 01-22-2023 End: 69-26-5965cafc 1 capsule by mouth three times dailyGabapentin 300 mg capsule Discontinued 300 MG PO Three times daily 30 10 0 January 22, 2023 12:00am May 21, 2023 10:41amoseltamivir 75 mg oral capsule (7 sources)Neuraminidase InhibitorStart: 62-71-1456ksbq 1 capsule by mouth every twelve hoursTamiflu 75 MG 1 capsule Orally Twice a day for 5 day(s) Apr, Not-Taking/PRNphentermine hydrochloride 37.5 mg oral tablet (20 sources)Sympathomimetic Amine AnorecticStart: 12-26-2023 End: 87-55-1347Pfbhbmhvmyt (Adipex-P) 37.5 mg tablet Discontinued 18.75 MG PO Daily December 26, 2023 12:17pm July 13, 2024 8:52am Overweight Overweight must administer 30 minutes before or 1-2 hours after breakfast p/u 10/27, start art: 06-01-2023 End: 77-40-0042mvfj 1 tablet by mouth once daily 30 minutes after breakfast Phentermine (Adipex-P) 37.5 mg tablet Discontinued 37.5 MG PO Daily 30 30 0 July 29, 2023 2:57pm August 31, 2023 3:11pm Overweight Overweight must administer 30 minutes before or 1-2 hours after breakfastStart: 17-70-5167xess 1 tablet by mouth once daily before breakfastAdipex-P 37.5 MG 1 tablet before breakfast Orally Once a day for 30 days Aug, ActiveStart: 06-04-2017 End: 81-38-6905bzhx 1 capsule by mouth once dailyPhentermine (Adipex-P) 37.5 mg Capsule Discontinued 37.5 MG PO Daily June 03, 2017 11:00pm January 07, 2023 2:47pmpolyethylene glycol 3350 42757 mg powder for oral solution (3 sources)Osmotic LaxativeStart: 09-95-6229stff 1 capsule by mouth once daily Polyethylene Glycol 3350 17 GM/SCOOP Oral Powder TAKE 17 GRAMS (1 CAP FULL) MIX WITH LIQUID BY MOUTH ONCE A DAY Quantity: 238 Refills: 0 Ordered: 24-Jan-2022 DO Start : 24-Jan-2022 ActivepredniSONE 20 mg oral tablet (6 sources)Start: 08-31-2024 End: 08-85-8238amkc 1 tablet by mouth three times daily at mealtimePrednisone 20 mg tablet Discontinued 20 MG PO Three times daily 21 7 0 September 01, 2024 7:16am December 30, 2024 7:48am Take w/ meals tidStart: 07-13-2024 End: 85-28-3489nnyj 1 tablet by mouth twice dailyPrednisone 20 mg tablet Discontinued 20 MG PO Twice daily 6 3 0 July 12, 2024 11:00pm August 2:39pm0.25 mg, 0.5 mg dose 1.5 ml semaglutide 1.34 mg/ml pen injector (9 sources)Start: 08-18-2024 End: 66-66-0841dxikussziut (Ozempic) 2 MG/1.5ML solution pen-injector Inject 0.25 mg under the skin 08/18/2024 01/11/2025 Discontinued (Therapy completed) Semaglutide (Weight Loss) (11 sources)Start: 07-13-2024 End: 11-16-0623Baspudootyu (Weight Loss) (Wegovy) 0.25 mg/0.5 mL pen injector Discontinued 0.25 MG SUBCUT every week 2 July 12, 2024 11:00pm August 31, 2024 9:19pm administer weeks 1 through 4 of therapyStart: 07-13-2024 End: 54-86-7723Ectinvswpkv (Weight Loss) (Wegovy) 0.25 mg/0.5 mL pen injector Discontinued 0.25 MG SUBCUT every week 2 July 13, 2024 12:00am August 31, 2024 10:19pm administer weeks 1 through 4 of therapyStart: 07-13-2024 Semaglutide (Weight Loss) (Wegovy) 0.25 mg/0.5 mL pen injector Active 0.25 MG SUBCUT every week 2 July 13, 2024 12:00am administer weeks 1 through 4 of therapyStart: 05-22-2023 End: 32-47-2109Doycfecftaa (Weight Loss) (Wegovy) 0.25 mg/0.5 mL pen injector Discontinued 0.25 MG SUBCUT every week 2 May 22, 2023 2:26pm July 29, 2023 2:57pmStart: 05-22-2023 End: 15-33-6715Lfdcrmdtlee (Weight Loss) (Wegovy) 0.25 mg/0.5 mL pen injector Discontinued 0.25 MG SUBCUT every week 2 May 22, 2023 3:26pm July 29, 2023 3:57pmStart: 05-22-2023 End: 85-46-7086Lwbxjvodvhc (Weight Loss) (Wegovy) 0.25 mg/0.5 mL pen injector Discontinued 0.25 MG SUBCUT every week 2 May 22, 2023 3:26pm July 29, 2023 3:57pmStart: 05-21-2023 End: 18-91-1752Ooguyovpjfy (Weight Loss) (Wegovy) 0.25 mg/0.5 mL pen injector Discontinued 0.25 MG SUBCUT May 21, 2023 12:00am May 22, 2023 2:27pmStart: 05-21-2023 End: 32-84-0270Fhuanqwhxpq (Weight Loss) (Wegovy) 0.25 mg/0.5 mL pen injector Discontinued 0.25 MG SUBCUT May 21, 2023 1:00am May 22, 2023 3:27pm sulfacetamide sodium 100 mg/ml ophthalmic solution (4 sources)Sulfonamide AntibacterialStart: 08-04-2023 End: 75-53-8975kkns 2 drop(s) into the eye(s) four times dailySulfacetamide Sodium 10 % drops Discontinued 2 DROPS OPHTHALMIC Four times daily 5 August 03, 2023 11:00pm December 26, 2023 12:18pm 2 drops in right eye qidStart: 08-04-2023 End: 50-38-2574hkuk 2 drop(s) into the eye(s) four times dailySulfacetamide Sodium Discontinued 2 DROPS OPHTHALMIC Four times daily 5 August 04, 2023 12:00am December 26, 2023 1:18pm 2 drops in right eye qidtraMADol hydrochloride 50 mg oral tablet (7 sources)Opioid AgonistStart: 11-21-2024 End: 56-06-6596tizo 1 tablet by mouth every four hours as neededtraMADol (Ultram) 50 MG tablet Take 50 mg by mouth every 4 (four) hours if needed 11/21/2024 01/11/2025 Discontinued (Therapy completed)valACYclovir 500 mg oral tablet (20 sources)Herpesvirus Nucleoside Analog DNA Polymerase Inhibitor, Herpes Simplex Virus Nucleoside Analog DNA Polymerase Inhibitor, Herpes Zoster Virus Nucleoside Analog DNA Polymerase InhibitorStart: 12-26-2023 End: 24-61-9554cbuc 2 tablets by mouth once as neededValacyclovir 500 mg tablet Discontinued 1000 MG PO Once as needed December 26, 2023 12:18pm July 13, 2024 8:28amStart: 56-88-6989rioh 1000 mg by mouth onceValacyclovir Active 1000 MG PO Once December 26, 2023 1:18pmStart: 09-22-2023 End: 49-50-2962ucgi 1 tablet by mouth once dailyValacyclovir 500 mg tablet Discontinued 0 .ROUTE .COMPLEX 30 0 September 22, 2023 7:41am December 26, 2023 12:19pm TAKE 1 TABLET BY MOUTH DAILYStart: 85-82-4831usmXNSboukkp HCl - 500 MG Oral Tablet Quantity: 30 Refills: 0 Ordered: 02-Jan-2022 DO Start : 02-Jan-2022 ActiveStart: 06-04-2017 End: 28-54-0172ygfm 1 tablet by mouth once daily as neededValacyclovir 500 mg tablet Discontinued 500 MG PO Daily as needed for Cold Sores June 03, 2017 11 :00pm September 22, 2023 7:41amZ Philipp (6 sources)Start: 06-05-2017 End: 14-94-7339dbad 1 tablet by mouth once dailyZ Philipp Discontinued 1 TAB PO Daily June 04, 2017 11:00pm January 07, 2023 2:47pmStart: 06-05-2017 End: 80-61-0001qdgp 1 tablet by mouth once dailyZ Philipp Discontinued 1 TAB PO Daily June 05, 2017 12:00am January 07, 2023 3:47pmzolpidem tartrate 5 mg oral tablet (20 sources)gamma-Aminobutyric Acid-ergic AgonistStart: 07-43-9454hckx 1 tablet by mouth once daily at bedtime as neededStart: 12-26-2023 End: 63-09-9167yepi 2.5 mg by mouth once daily at bedtime as neededZolpidem 5 mg tablet Discontinued 2.5 MG PO Daily at bedtime as needed for insomnia 30 5 June 10, 2024 11:57am August 31, 2024 3:17pm Primary insomnia Primary insomniaStart: 14-04-9962hido 2.5 mg by mouth once daily at bedtimeZolpidem Active 2.5 MG PO Daily at bedtime December 26, 2023 1:18pmStart: 08-31-2023 End: 20-53-5623bbmd 1 tablet by mouth once daily at bedtime as neededZolpidem 5 mg tablet Discontinued 5 MG PO Daily at bedtime as needed for insomnia 15 30 5 August 30, 2023 11:00pm December 26, 2023 12:19pm Primary insomnia Primary insomnia Problems Active Problems Problem ClassificationProblemDateDocumented DateEpisodic/ChronicCataract (1 source)Age-related nuclear cataract, bilateral; Translations: [Cataract, Nuclear Sclerosis OU]Onset: 34-60-5264IhbvylbTadksrpl mellitus without complication (7 sources)Impaired fasting glycemia; Translations: [Impaired fasting glucose] 29-83-3485UhrwbgfiMryoyrau of white blood cells (5 sources)Leukopenia; Translations: [Decreased white blood cell count, unspecified]03-84-8907HvnfblaWetkrculydjwe symptoms and ill-defined conditions (1 source)Hematuria, unspecified; Translations: [Hematuria, unspecified] 01-75-7935ZngocmtaQmkpmkoimwvaf mental health disorders (6 sources)Primary insomnia; Translations: [Primary insomnia]07-08-3454Uaplsdz Open wounds of head; neck; and trunk (7 sources)Traumatic tympanic membrane perforation; Translations: [Open wound of ear drum, without mention of complication]Onset: 46-37-6243WpdwdyzwTpcqg acquired deformities (20 sources)Contracture of joint of right ankle; Translations: [Contracture, right ankle]Onset: 764406-93-7556PpobncgQftvr aftercare (10 sources)Therapeutic drug level - finding; Translations: [Encounter for therapeutic drug level monitoring]EpisodicOther and unspecified benign neoplasm (2 sources)Melanocytic nevus of trunk; Translations: [Melanocytic nevi of trunk] 67-35-5466FrpgqhznCoytr and unspecified benign neoplasm (1 source)Benign neoplasm of right choroid; 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, both eyes]Onset: 46-65-4308ZztohffiMuyqd circulatory disease (2 sources)Spider nevus; Translations: [Nevus, non-neoplastic]74-66-6113Eyxqgaxf Other connective tissue disease (7 sources)Iliotibial band friction syndrome of left knee; Translations: [Iliotibial band syndrome, left leg]EpisodicOther connective tissue disease (3 sources)Enthesopathy of hip region; Translations: [Iliotibial band syndrome, left leg]EpisodicOther ear and sense organ disorders (5 sources)Mixed conductive and sensorineural hearing loss, bilateral; Translations: [Mixed hearing loss, bilateral]ChronicOther ear and sense organ disorders (2 sources)Mixed conductive and sensorineural hearing loss, bilateral; Translations: [Mixed conductive and sensorineural hearing loss, bilateral]Onset: 94-05-9623JoutmhnHmyyc ear and sense organ disorders (1 source)Mixed conductive and sensorineural hearing loss, unilateral, left ear, with unrestricted hearing onthe contralateral side; Translations: [Mix cndct/snrl hear loss,uni,l ear,w unrestr hear cntra side]Onset: 01-24-2022 ChronicOther ear and sense organ disorders (20 sources)Left conductive hearing loss; Translations: [Conductive hearing loss, unilateral, left ear, with unrestricted hearing on the contralateral side] Onset: 514895-94-8233UyfebwcZfcva ear and sense organ disorders (20 sources)Bilateral hearing loss; Translations: [Conductive hearing loss, unilateral, left ear with restricted hearing on the contralateral side]Onset: 671438-60-9172CydfynvXsfcn ear and sense organ disorders (7 sources)Cholesteatoma of external ear; Translations: [Cholesteatoma of left external ear]65-70-7497MzmnawjhXrana ear and sense organ disorders (4 sources)Unspecified cholesteatoma, left ear; Translations: [Unspecified cholesteatoma, left ear]Onset: 48-12-6316QsuaxxgxIurrh female genital disorders (2 sources)Vaginal irritation; Translations: [Other specified noninflammatory disorders of vagina]66-53-5425XungzgzhSvycl female genital disorders (2 sources)Polyp of cervix; Translations: [Polyp of cervix uteri]01-11-2025 EpisodicOther female genital disorders (2 sources)History of abnormal cervical Papanicolaou smear ; Translations: [Personal history of other diseasesof the female genital tract]01-11-2025 EpisodicOther injuries and conditions due to external causes (2 sources)Foreign body in left ear; Translations: [Foreign body in left ear, initial encounter]21-65-1686LbqscakeUvfee nervous system disorders (5 sources)H/O: ear disorder; Translations: [Personal history of other disorders of nervous system and sense organs]EpisodicOther nutritional; endocrine; and metabolic disorders (14 sources)Obesity; Translations: [Obesity, unspecified]54-37-6545KosdmzsCfked nutritional; endocrine; and metabolic disorders (14 sources)Overweight; Translations: [Overweight]61-62-1610YfvcszfyOyyib nutritional; endocrine; and metabolic disorders (4 sources)Overweight; Translations: [Overweight]EpisodicOther screening for suspected conditions (not mental disorders or infectious disease) (20 sources)Patient encounter status; Translations: [Encounter for screening for malignant neoplasm of colon]Onset: 01-27-2023 Resolved: [id number] on above:Problem List clean-up per request of Phys. EHR CmteOther skin disorders (2 sources)Inflamed seborrheic keratosis; Translations: [Inflamed seborrheic keratosis]87-81-8770KpwbqkeqKuwmm skin disorders (2 sources)Actinic keratosis; Translations: [Actinic keratosis]02-16-2024 EpisodicOther skin disorders (2 sources)Lentiginosis; Translations: [Other melanin hyperpigmentation] 08-60-6280XkxagkenRpnlmnjg codes; unclassified (3 sources)General well-being finding; Translations: [Unspecified problems with limbs and other problems]EpisodicResidual codes; unclassified (1 source)Preoperative wqcup55-28-8803BofigmyvQxwlhexu codes; unclassified (1 source)Postoperative state; Translations: [Other specified postprocedural states]22-77-4203QipwvlolFeygnxtn codes; unclassified (2 sources)Other specified postprocedural states; Translations: [Other specified postprocedural states]Onset: 20-18-4228FddnjvuuJfapbdiz codes; unclassified (4 sources)FH: premature coronary heart disease; Translations: [Family history of ischemic heart disease and other diseases of the circulatory system] 25-61-9589HgwthkesTvrmaskr codes; unclassified (2 sources)Past history of procedure; Translations: [Other specified postprocedural states]80-14-6092UdwaxwvsJdhcpkjf codes; unclassified (1 source)Family history of ischemic heart disease and other diseases of the circulatory system; Translations: [Family history of ischemic heart disease and other diseases of the circulatory system]Onset: 31-15-5723ByejtsedUtzzvyn detachments; defects; vascular occlusion; and retinopathy (2 sources)Puckering of macula, left eye; 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, left eye]Onset: 04-96-0843VtfdiceGfcnutgvste; intervertebral disc disorders; other back problems (3 sources)Solitary sacroiliitis; Translations: [Sacroiliitis, not elsewhere classified]Onset: 63-74-9681WgflfsmCyxzemh disorders (6 sources)Subclinical hypothyroidism; Translations: [Other specified hypothyroidism]ChronicUnclassified (2 sources)Autogenerated ProblemOnset: 645643-92-9507Bxcyrzlocrxv (2 sources)New Patient Visit; Translations: [New Patient Visit]Onset: 08-30-2024 Viral infection (1 source)Herpesviral vesicular dermatitisEpisodicViral infection (12 sources)Disease caused by 2019-nCoV; Translations: [COVID-19] Past or Other Problems Problem ClassificationProblemDateDocumented DateEpisodic/ChronicAllergic reactions (3 sources)Contact dermatitis; Translations: [Contact dermatitis and other eczema, due to unspecified cause]Onset: 86-71-0855BbdkowxyHsntetxdtt disorders (20 sources)Menopausal symptom; Translations: [Menopausal and female climacteric states]Onset: 01-27-2023 Resolved: 379291-07-6677YujydbkCkayobedl disorders (20 sources)Irregular periods; Translations: [Irregular menstruation, unspecified]Onset: 01-27-2023 Resolved: 235809-75-4344FxpdtdhTkcti connective tissue disease (3 sources)Spasm; Translations: [Spasm of muscle]Onset: 69-46-8277BzfttsymTfdcg connective tissue disease (3 sources)Achilles bursitis; Translations: [Achilles bursitis or tendinitis] Onset: 18-69-4621MsbqhrdaRoors connective tissue disease (3 sources)Plantar fascial fibromatosis; Translations: [Plantar fascial fibromatosis]Onset: 51-08-5044GmqsfzblQqbpf ear and sense organ disorders (20 sources)Cholesteatoma; Translations: [Unspecified cholesteatoma, unspecified ear]Onset: 168517-08-2047FziodkqvOdtgvit on above:Left EACcanaloplasty left EACOther ear and sense organ disorders (3 sources)Otorrhea of left ear; Translations: [Otorrhea, left ear]Onset: 93-75-2216AassjibwCgbjs ear and sense organ disorders (20 sources)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; Translations: [Cholesteatoma of left external ear]Onset: 368227-64-7918WfrhxzryRqcgl female genital disorders (20 sources)Cervical intraepithelial neoplasia grade 1; Translations: [Mild cervical dysplasia]Onset: 823377-74-4436MexmhkyrFwtnj lower respiratory disease (3 sources)Chronic cough; Translations: [Chronic cough]Onset: 95-92-1187Sryahijg Other non-epithelial cancer of skin (20 sources)Basal cell carcinoma of back; Translations: [Basal cell carcinoma of skin of other part of trunk]Onset: 309108-50-4693BinrfkxdDlhse nutritional; endocrine; and metabolic disorders (12 sources)Body mass index 25-29 - overweight; Translations: [Body mass index 27.0-27.9, adult]Onset: 75-48-2160DonowcpiUxifa skin disorders (20 sources)Seborrheic keratosis; Translations: [Other seborrheic keratosis] Onset: 102998-03-3686QzsthbasNzshfp media and related conditions (5 sources)Unspecified perforation of tympanic membrane, left ear; Translations: [Otitis media]Onset: 99-43-5271OseibcukXuxwddig transmitted infections (not HIV or hepatitis) (20 sources)Human papillomavirus deoxyribonucleic acid test positive, high risk on cervical specimen; Translations: [Cervical high risk human papillomavirus (HPV) DNA test positive]Onset: 918133-33-8129DljpmatmGxtlweabatb; intervertebral disc disorders; other back problems (9 sources)Low back pain; Translations: [Lumbago]Onset: 97-54-8027Idvizlwb Sprains and strains (3 sources)Sprain of hip; Translations: [Sprain and strain of unspecified site of hip and thigh]Onset: 09-25-9113YbdiwfbiTcloqdxfzec injury; contusion (3 sources)Contusion of left elbow; Translations: [Contusion of left elbow, initial encounter]Onset: 22-87-2714JcqluctwDzyefmvodler (1 source)Exposure to 2019 novel coronavirus; Translations: [Contact with and (suspected) exposure to COVID19]Unclassified (4 sources)Onset: 08-30-2024 Resolved: 54-66-645751859891-23-9573 Results Test NameValueInterpretationReference RangeFacilityBI MAMMOGRAM SCREENING TOMOSYNTHESIS BILATERALon 44-01-4919FR MAMMOGRAM SCREENING TOMOSYNTHESIS BILATERALThis is a summary report. The complete report is available in the patient's medical record. If you cannot access the medical record, please contact the sending organization for a detailed fax or copy. Examination: BI MAMMOGRAM SCREENING TOMOSYNTHESIS BILATERAL Clinical History: screening Technique: Screening digital mammography study of both breasts was performed with 2-D and 3-D tomosynthesis imaging. Study was compared to the prior exam dated 01/06/2024. Findings: There is no evidence of interval dominant spiculated mass, grouped microcalcifications, or skin thickening which would be suggestive of malignancy. Minimal benign-appearing vascular calcification noted bilaterally. IMPRESSION: Impression: No specific evidence of malignancy seen in either breast. BIRADS 2 - Benign Findings DENSITY: The breasts are heterogeneously dense, which may obscure small masses. FOLLOW-UP: Routine Screening Mammogram Board Certified Radiologists. Accredited by the ACR and FDA. MAMMOGRAPHY IS VERY IMPORTANT TO YOUR HEALTH. THE [employer] GUIDELINES RECOMMEND THATWOMEN 40 YEARS OF AGE AND OLDER SHOULD HAVE A MAMMOGRAM EVERY YEAR. A REMINDER LETTER WILL BE SENT AT THE APPROPRIATE TIME. ELECTRONICALLY SIGNED BY: Lamont Ivy M.D.NormalNot AvailableComment on above: Order Comment: Us and spot compression prnCT heart calcium score woon 01-18-2025 CT heart calcium score [facility] [place] [address] [place] [address] CT Scan Report Signed Patient: Mai Miller MR#: [id number] : 1965 Acct:[id number] Age/Sex: 59 / F ADM Date: 01/17/25 Loc: CT Room: Type: [facility] CLI Attending Dr: Kartik Rodriguez DO Copies to: Kartik Rodriguez DO Ordering Provider: Kartik Rodriguez DO Date of Service: 01/17/25 CT/CT heart [...] the coronary artery by the CT scan es timates the presence and amount of atherosclerotic plaque. [...] Arroyo M.D. 01/18/2025 8:58 AM Dictation Location: [place] [address] Transcribed By: [facility] 01/18/25 0858 Dictated By: Heri Arroyo II, MD 01/18/25 0853 Signed By: 01/18/25 0858[facility] Physician GroupNo Panel Informationon [id number] ICD code [Identifier][facility] HealthcareComment on above: Clinician provided ICD-10: Z12.4 Pathologist provided ICD-10: N84.1 Pathology Reporton [id number] nameCommentCASTLEVIEW HOSPITAL HealthcareComment on above:Electronically signed: . Tom Rich MD, Pathologist Pathology report final diagnosis NarrativeCommentNOMD HealthcareComment on above: Diagnosis: CERVICAL POLYP, REMOVAL: - BENIGN ECTOCERVICAL POLYP WITH MILD CHRONIC INFLAMMATION. - NEGATIVE FOR DYSPLASIA AND MALIGNANCY. TMZ 01/16/2025 0631 Local Pathology report gross observation NarrativeCommentCASTLEVIEW HOSPITAL HealthcareComment on above:Gross description: . RECEIVED IN FORMALIN LABELED WITH THE PATIENT'S NAME AND CERVICAL POLYP IS A 0.8 X 0.5 X 0.1 CM AGGREGATE OF A FEW IRREGULAR FRAGMENTS OF MENDEZ BROWN TISSUE. SUBMITTED ENTIRELY IN 1 CASSETTE(S). [facility] 01/12/2025 1541 Local Pathology report site of origin NarrativeComSt. John's Health Center HealthcareComment on above: Material submitted: . cervix - CERVICAL POLYP Payment procedureCommentNOMD HealthcareComment on above:CPT . 520491 Performed at: - [facility] [address] [place] [address] [id number] Flare Maker: Cam Zendejas MD, Phone: [phone] Performed at: [facility] [address] [place] [address] [id number] Flare Maker: Tom Rich MD, Phone: [phone] Performed at: [facility] [address] [place] [address] [id number] Flare Maker: Cam Zendejas MD, Phone: [phone] Specimen Comment: No. of containers..01 TissueUnited Memorial Medical CenterLaboratory - Chemistry and Chemistry - challengeOrdered By: Kartik Rodriguez on 33-40-1520WHD Qn3.253 m[IU]/L0.358-3.740[facility] CampusLaboratory - Chemistry and Chemistry - challengeOrdered By: Kartik Rodriguez on 03-70-5252Fiqk T4 [Mass/Vol]0.94 ng/dL0.76-1.46[facility] Qn1.962 m[IU]/L0.358-3.740[facility] Butler Hospitalerum or plasma thyroperoxidase antibody assay (units/volume)Ordered By: Kartik Rodriguez on 45-42-9380MZP Ab Qn74 [IU]/mLAbnormal0-34[facility] Comment on above:Performed at: [place] [id number] Director: Eagle Sánchez PhD, Phone: [phone] pathology studyon [id number] pathology studyPathology report.total SEE COMMENT Surgical Pathology Case: [id number] Authorizing Provider: Rashmi Boucher MD Collected: 11/21/2024 1221 Ordering Location: [facility] OR Received: 11/21/2024 1242 Pathologist: [...] canal contents , are multiple fragments of mendez-white soft tissue aggregating to 2.5 x 2.0 x 0.5 cm. The specimen is entirely submitted in one cassette. ATB Gross performed at: [facility] Department of Pathology [address] [place], [place] [address]Comment on above:Order Comment: Pre-op diagnosis: 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]Basophils Auto (Bld) [#/Vol]Ordered By: Rashmi Boucher on 80-03-1161Hawkqkqsf (Bld) [#/Vol]0.0 10 3/uL0.0-0.1FCleveland Clinic Lutheran HospitalBasophils/100 WBC Auto (Bld)Ordered By: Rashmi Boucher on 11-16-2024 Basophils/100 WBC (Bld)0.8 %0.2-2.0[facility] Eosinophils/100 WBC Auto (Bld)Ordered By: Rashmi Boucher on 11-16-2024 Eosinophils/100 WBC (Bld)2.8 %0.9-7.0[facility] Erythrocyte distribution width Auto (RBC) [Ratio]Ordered By: Rashmi Boucher on 74-59-0289Tdwvryjfgda distribution width (RBC) [Ratio]12.3 %11.0-15.0[facility] CampusGlobulin Calc (S) [Mass/Vol]Ordered By: Rashmi Boucher on 90-64-1896Clkwazjr (S) [Mass/Vol]3.9 g/dLTrinity Health System East Campus Glomerular filtration rate (GFR) estimation in non- AmericanOrdered By: Rashmi Boucher on 69-26-0137PMA/1.73 sq M.predicted among non-blacks MDRD (S/P/Bld) [Vol rate/Area]mL/min/{1.73_m2}>=60 mL/min/1.73m 2FCleveland Clinic Lutheran HospitalHematocrit Auto (Bld) [Volume fraction]Ordered By: Rashmi Boucher on 00-55-7374Pgznrclwth (Bld) [Volume fraction]41.7 %36.0-48.0[facility] CampusHemoglobin [Mass/volume] in BloodOrdered By: Rashmi Boucher on 80-52-6329Elzlbbkvub (Bld) [Mass/Vol]13.9 g/dL12.0-16.0[facility] CampusLaboratory - Chemistry and Chemistry - challengeOrdered By: Rashmi Boucher on 45-63-7938Zohlizu [Mass/Vol]3.8 g/dL3.4-5.0[facility] CampusALP [Catalytic activity/Vol]87 U/O63-271DixovywxdTrinity Health System [facility] Campus ALT [Catalytic activity/Vol]42 U/H16-43ObpdfxfdyTrinity Health System East CampusAST [Catalytic activity/Vol]20 U/G00-90EoahwqotjTrinity Health System East CampusBilirubin [Mass/Vol]0.4 mg/dL0.2-1.0[facility] CampusCalcium [Mass/Vol]9.1 mg/dL8.5-10.1FCleveland Clinic Lutheran HospitalChloride [Moles/Vol]106 mmol/L 98-107Tr[facility] CampusCO2 [Moles/Vol]28.9 mmol/L21.0-32.0 [facility] CampusCreatinine [Mass/Vol]0.76 mg/dL0.55-1.02 [facility] CampusGFR/1.73 sq M.predicted MDRD (S/P/Bld) [Vol rate/Area]mL/min/{1.73_m2}>=60 mL/min/1.73m 2FC[facility] Hospital Glucose [Mass/Vol]107 mg/aFNmum32-198RcwypdnjnTrinity Health System East CampusPotassium [Moles/Vol]5.1 mmol/L3.5-5.1FCleveland Clinic Lutheran HospitalProtein [Mass/Vol] 7.7 g/dL6.4-8.2FLima City Hospitalodium [Moles/Vol]142 mmol/L 136-145[facility] CampusUrea nitrogen [Mass/Vol]15.0 mg/dL 7.0-18.0[facility] CampusUrea nitrogen/Creatinine [Mass ratio] 19.7 mg/mgTrinity Health System East CampusLaboratory - Hematology and Cell countsOrdered By: Rashmi Boucher on 16-20-2871Grlnzxha granulocytes/100 WBC (Bld) 0.2 %0.0-0.5FCleveland Clinic Lutheran HospitalLeukocytes [#/volume] corrected for nucleated erythrocytes in Blood by Automated counOrdered By: Rashmi Boucher on 45-75-9249PNF corrected for nucl RBC Auto (Bld) [#/Vol]5.3 10 3/uL4.0-11.0 [facility] CampusLymphocytes Auto (Bld) [#/Vol]Ordered By: Rashmi Boucher on 02-86-4675Ryaqwhpwevs (Bld) [#/Vol]2.2 10 3/uL1.2-3.8[facility] CampusLymphocytes/100 WBC Auto (Bld)Ordered By: Rashmi Boucher on 68-58-6050Rcswcbxestx/100 WBC (Bld)42.3 %20.5-60.0[facility] CampusMCH Auto (RBC) [Entitic mass]Ordered By: Rashmi Boucher on 04-28-2760DHE (RBC) [Entitic mass]30.5 pg26.7-34.0[facility] CampusMCHC Auto (RBC) [Mass/Vol]Ordered By: Rashmi Boucher on 88-62-1868RXYO (RBC) [Mass/Vol]33.3 g/dL29.9-35.2FCleveland Clinic Lutheran HospitalMCV Auto (RBC) [Entitic vol] Ordered By: Rashmi Boucher on 37-15-2777EWF (RBC) [Entitic vol]91.6 fL81.0-99.0 [facility] CampusMonocytes Auto (Bld) [#/Vol]Ordered By: Rashmi Boucher on 64-35-2418Nvevelxdx (Bld) [#/Vol]0.6 10 3/uL0.3-0.8[facility] CampusMonocytes/100 WBC Auto (Bld)Ordered By: Rashmi Boucher on 11-16-2024 Monocytes/100 WBC (Bld)10.4 %1.7-12.0[facility] Neutrophils Auto (Bld) [#/Vol]Ordered By: Rashmi Boucher on 32-61-9351Dkdccosqnrh (Bld) [#/Vol]2.3 10 3/uL1.4-6.5FCleveland Clinic Lutheran HospitalNeutrophils/100 WBC Auto (Bld)Ordered By: Rashmi Boucher on 56-28-3650Uievqrcvidx/100 WBC (Bld)43.5 %43.0-75.0[facility] CampusNo Panel InformationOrdered By: Rashmi Boucher on 62-30-5498Qlfpiwqwdoy # (Auto)0.2 10 3/uL0.0-0.7FCleveland Clinic Lutheran HospitalImmature Granulocyte # (Auto)0.01 10 3/uL0.00-0.03 [facility] CampusPlatelet mean volume Auto (Bld) [Entitic vol] Ordered By: Rashmi Boucher on 31-99-3499Mlecxdss mean volume (Bld) [Entitic vol]9.2 fLLow9.5-13.5FCleveland Clinic Lutheran HospitalPlatelets Auto (Bld) [#/Vol] Ordered By: Rashmi Boucher on 12-88-2737Fzwzegkwz (Bld) [#/Vol]211 10 3/jS508-715 [facility] CampusRBC Auto (Bld) [#/Vol]Ordered By: Rashmi Sander on 94-23-8511VGX (Bld) [#/Vol]4.55 10 6/uL4.20-5.40[facility] Hospitalerum or plasma albumin/globulin mass ratioOrdered By: Rashmi Boucher on 72-24-0096Mderkxo/Globulin [Mass ratio]1.0 {ratio}[facility] Hospitalerum or plasma anion gap determinationOrdered By: Rashmi Boucher on 46-40-3209Vcctw gap [Moles/Vol]12.2 mmol/LFCleveland Clinic Lutheran Hospital Basophils Auto (Bld) [#/Vol]Ordered By: Kartik Rodriguez on 98-74-1847Wqrpfgjlh (Bld) [#/Vol]0.0 10 3/uL0.0-0.1FCleveland Clinic Lutheran HospitalBasophils/100 WBC Auto (Bld)Ordered By: Kartik Rodriguez on 56-81-6388Sajpozmre/100 WBC (Bld)0.8 %0.2-2.0[facility] CampusCholesterol in LDL Calc [Mass/Vol] Ordered By: Kartik Rodriguez on 38-61-9610Eghkvlsnqhx in LDL [Mass/Vol]88.0 mg/dL [facility] CampusComment on above:<100 mg/dl WINWUBJ828-327 mg/dl NEAR OR ABOVE BZWSEYK914-743 mg/dl BORDERLINE ZHAT650-263 mg/dl HIGH>190 mg/dl VERY HIGHCholesterol in VLDL Calc [Mass/Vol]Ordered By: Kartik Rodriguez on 05-70-5664Nmeqeqrcchy in VLDL [Mass/Vol]35.4 mg/dLTrinity Health System East CampusEosinophils/100 WBC Auto (Bld)Ordered By: Kartik Rodriguez on 10-01-2024 Eosinophils/100 WBC (Bld)3.0 %0.9-7.0[facility] Erythrocyte distribution width Auto (RBC) [Ratio]Ordered By: Kartik Rodriguez on 19-49-0801Kzvbcsagrmd distribution width (RBC) [Ratio]12.6 %11.0-15.0[facility] CampusGlobulin Calc (S) [Mass/Vol]Ordered By: Kartik Rodriguez on 35-69-2472Jhhffcot (S) [Mass/Vol]3.5 g/dLTrinity Health System [facility] Campus Glomerular filtration rate (GFR) estimation in non- AmericanOrdered By: Kartik Rodriguez on 10-52-7690KBC/1.73 sq M.predicted among non-blacks MDRD (S/P/Bld) [Vol rate/Area]mL/min/{1.73_m2}>=60 mL/min/1.73m 2FCleveland Clinic Lutheran HospitalHematocrit Auto (Bld) [Volume fraction]Ordered By: Kartik Rodriguez on 35-95-7676Dikntclfxn (Bld) [Volume fraction]40.3 %36.0-48.0[facility] CampusHemoglobin [Mass/volume] in BloodOrdered By: Kartik Rodriguez on 07-57-5084Otydjizwkh (Bld) [Mass/Vol]13.6 g/dL12.0-16.0[facility] CampusLaboratory - Chemistry and Chemistry - challengeOrdered By: Kartik Rodriguez on 97-95-9404Fnbukbs [Mass/Vol]3.6 g/dL3.4-5.0[facility] CampusALP [Catalytic activity/Vol]85 U/Z28-633RnaizppilTrinity Health System East CampusALT [Catalytic activity/Vol]40 U/W62-08SrucxfuvjTrinity Health System [facility] Campus AST [Catalytic activity/Vol]22 U/S69-12QnkgexbxeTrinity Health System [facility] Campus Bilirubin [Mass/Vol]0.4 mg/dL0.2-1.0[facility] CampusCalcium [Mass/Vol]8.6 mg/dL8.5-10.1FC[facility] Lutheran HospitalChloride [Moles/Vol] 106 mmol/K19-759YvsuicvocTrinity Health System East CampusCholesterol [Mass/Vol]198 mg/dL <=200Tr[facility] CampusCholesterol in HDL [Mass/Vol]75 mg/dLHigh 40-60Tr[facility] CampusComment on above:> or =60 mg/dl - LOW CARDIOVASCULAR RISK<40 mg/dl - HIGH CARDIOVASCULAR RISKCO2 [Moles/Vol]28.1 mmol/L21.0-32.0[facility] CampusCreatinine [Mass/Vol]0.74 mg/dL 0.55-1.02[facility] CampusGFR/1.73 sq M.predicted MDRD (S/P/Bld) [Vol rate/Area]mL/min/{1.73_m2}>=60 mL/min/1.73m 2FC[facility] Luther[facility] HospitalGlucose [Mass/Vol]92 mg/dM53-992AnkfiqznfTrinity Health System East CampusPotassium [Moles/Vol]4.5 mmol/L3.5-5.1FC[facility] Luther[facility] HospitalProtein [Mass/Vol] 7.1 g/dL6.4-8.2FLima City Hospitalodium [Moles/Vol]144 mmol/L 136-145[facility] CampusTriglyceride [Mass/Vol]177 mg/dLHigh <=150Tr[facility] CampusTSH Qn4.370 m[IU]/LHigh0.358-3.740 [facility] CampusUrea nitrogen [Mass/Vol]19.0 mg/dLHigh7.0-18.0 [facility] CampusUrea nitrogen/Creatinine [Mass ratio]25.7 mg/mg [facility] CampusLaboratory - Hematology and Cell countsOrdered By: Kartik Rodriguez on 19-05-2204Cfgykmhp granulocytes/100 WBC (Bld)0.2 %0.0-0.5 [facility] CampusLeukocytes [#/volume] corrected for nucleated erythrocytes in Blood by Automated counOrdered By: Kartik Rodriguez on 10-01-2024 WBC corrected for nucl RBC Auto (Bld) [#/Vol]4.7 10 3/uL4.0-11.0[facility] CampusLymphocytes Auto (Bld) [#/Vol]Ordered By: Kartik Rodriguez on 01-61-2457Bcbbipmmdzv (Bld) [#/Vol]1.9 10 3/uL1.2-3.8[facility] CampusLymphocytes/100 WBC Auto (Bld)Ordered By: Kartik Rodriguez on 86-45-5635Bydepmgwfoa/100 WBC (Bld)39.7 %20.5-60.0[facility] Auto (RBC) [Entitic mass]Ordered By: Kartik Rodriguez on 78-83-7359HTL (RBC) [Entitic mass]30.8 pg26.7-34.0[facility] Medical CenterHC Auto (RBC) [Mass/Vol]Ordered By: Kartik Rodriguez on 55-62-6094YWMZ (RBC) [Mass/Vol]33.7 g/dL29.9-35.2FCleveland Clinic Lutheran HospitalMCV Auto (RBC) [Entitic vol] Ordered By: Kartik Rodriguez on 18-16-1309XTH (RBC) [Entitic vol]91.4 fL81.0-99.0 [facility] CampusMonocytes Auto (Bld) [#/Vol]Ordered By: Kartik Rodriguez on 92-85-0943Yapvybnej (Bld) [#/Vol]0.5 10 3/uL0.3-0.8[facility] CampusMonocytes/100 WBC Auto (Bld)Ordered By: Kartik Rodriguez on 18-93-3382Rljpqcrng/100 WBC (Bld)10.1 %1.7-12.0[facility] Neutrophils Auto (Bld) [#/Vol]Ordered By: Kartik Rodriguez on 75-92-7542Temqujlrrrs (Bld) [#/Vol]2.2 10 3/uL1.4-6.5FC[facility] Lutheran HospitalNeutrophils/100 WBC Auto (Bld)Ordered By: Kartik Rodriguez on 34-91-1562Xknvpogikdr/100 WBC (Bld) 46.2 %43.0-75.0[facility] CampusNo Panel InformationOrdered By: Kartik Rodriguez on 45-49-1070Ryhviahqniw # (Auto)0.1 10 3/uL0.0-0.7FC[facility] Lutheran HospitalImmature Granulocyte # (Auto)0.01 10 3/uL0.00-0.03 [facility] CampusPlatelet mean volume Auto (Bld) [Entitic vol] Ordered By: aKrtik Rodriguez on 29-05-9360Ixclieng mean volume (Bld) [Entitic vol] 9.3 fLLow9.5-13.5FCleveland Clinic Lutheran HospitalPlatelets Auto (Bld) [#/Vol] Ordered By: Kartik Jennifer on 09-64-9889Gdodojpgu (Bld) [#/Vol]227 10 3/uH859-854 [facility] CampusRBC Auto (Bld) [#/Vol]Ordered By: Kartik Rodriguez on 48-38-1826SVA (Bld) [#/Vol]4.41 10 6/uL4.20-5.40[facility] Hospitalerum or plasma albumin/globulin mass ratioOrdered By: Kartik Rodriguez on 67-57-2313Ybbtpbq/Globulin [Mass ratio]1.0 {ratio}[facility] Hospitalerum or plasma anion gap determinationOrdered By: Kartik Rodriguez on 94-91-3883Hghfa gap [Moles/Vol]14.4 mmol/LFLima City Hospitalerum or plasma total cholesterol/high density lipoprotein (HDL) cholesterol mass rat Ordered By: Kartik Rodriguez on 91-13-5623Swfplkjzsjb.total/Cholesterol in HDL [Mass ratio]2.6 {ratio}[facility] CampusComment on above:3.3 - 4.4 LOW RISK4.4 - 7.1 AVERAGE RISK7.1 - 11.0 MODERATE RISK>11.0 HIGH RISKCT TRANSFER OF OUTSIDE FILMSon 14-74-8763PS TRANSFER OF OUTSIDE FILMSOutside images for comparison or treatment purposes, not interpreted by Radiologists.Normal [facility] Hospitaltudy Interpretation of outside studyon 70-97-0890Rczdbgj images for comparison or treatment purposes, not interpreted by Radiologists.IMAGINGCT ORBITS/SELLA WO IV CONTRASTon 04-31-8768QG ORBITS/SELLA WO IV CONTRASTEXAM: CT Orbits/Sella Without IV Contrast. REASON FOR [...] report is generated using voice recognition reporting (Minicabster). On occasion Simpli.ficribe erroneously drops words from the report or replaces the spoken word with similar sounding words. Please call with any questions/concerns regarding this report.* Dictated and transcribed 07/11/24/dpd This report has been electronically signed and approved by the interpreting radiologist.NormalNot AvailableComment on above:Order Comment: CT Temporal WO at [facility]. Please call patient to schedule. HX CHOLESTEATOMA LT EARNo Panel Informationon 59-31-3964YCYFAspirus Medford HospitalMM TOMOSYNTHESIS SCREENING BIon 59-73-9[place], [place] [address] Mammography Report Signed Patient: MAI MILLER MR#: [id number] : 1965 Acct:[id number] Age/Sex: 58 / F ADM Date: 01/06/24 Loc: MAMMO Attending Dr: MARIEL SINGER Ordering Physician: MARIEL SINGER Results: Date of Service: 01/06/24 Follow Up: Procedure(s): MM tomosynthesis screening BI Accession Number(s): [id number] cc: Kartik Rodriguez D.O.; MARIEL SINGER Patient Name: MAI MILLER MR#: [id number] : 1965 Exam Date: 01/06/2024 Ordering Doctor: DR MARIEL SINGER RADIOLOGY REPORT PROCEDURE: MM TOMOSYNTHESIS SCREENING [...] cervical cancer at age 69. LOCATION: [facility] BREAST COMPOSITION: The breasts are heterogeneously dense,which [...] M.D. Signed By: 01/10/241825 DD/ 24 TD/TT: Baker Pastry:TBHRadiology, Radiologist, MD - 01/10/2024 [place] [address] Mammography Report Signed Patient: MAI MILLER MR#: [id number] : 1965 Acct:[id number] Age/Sex: 58 / F ADM Date: 01/06/24 Loc: MAMMO Attending Dr: MARIEL SINGER Ordering Physician: MARIEL SINGER Results: Date of Service: 01/06/24 Follow Up: Procedure(s): MM tomosynthesis screening BI Accession Number(s): [id number] cc: Kartik Rodriguez D.O.; MARIEL SINGER Patient Name: MAI MILLER MR#: [id number] : 1965 Exam Date: 01/06/2024 Ordering Doctor: DR MARIEL SINGER RADIOLOGY REPORT PROCEDURE: MM TOMOSYNTHESIS SCREENING [...] cervical cancer at age 69. LOCATION: [facility] BREAST COMPOSITION: The breasts are heterogeneously dense,which [...] M.D. Signed By: 01/10/241825 DD/ 24 TD/TT: Baker Pastry: [facility]Rad[facility] Study observation (narrative)[facility] TOMOSYNTHESIS SCREENING BIOrdered By: Radiologist Radiology on 20-18-9329MLMYCox North Work Phone: Laboratory - Microbiology and Antimicrobial susceptibilityon 12-60-6547Ncyqbjbcl vaginosis and vaginitis DNA panel Probe+sig amp (Vag fld)NegativeCox NorthNo Panel Informationon 01-01-2024 Interpretation and review of laboratory resultsAbnormalNOSt. Joseph Medical Center Trichomonas, UANegativeNOSt. Joseph Medical CenterYeastNegativeCox North+ Parabasal cells c/w atrophyNOAspirus Medford HospitalCBC AUTO DIFFon [id number] # 0.0 103/ulNormal0.0-0.1The [facility] CenterComment on above:Performed By: #### CBC #### [facility] [address] [address] [address] Nelly VirkBasophils/100 WBC (Bld)0.8 %Normal0.2-2.0The [facility] Comment on above:Performed By: #### CBC #### [facility] [address] [place] [address] Dr. Nelly Che #0.1 103/ulNormal0.0-0.7The [facility] CenterComment on above: Performed By: #### CBC #### [facility] [address] [place] [address] Dr. Nelly Ordonezosinophils/100 WBC (Bld)2.3 %Normal0.9-7.0The [facility] Comment on above:Performed By: #### CBC #### [facility] [address] [place] [address] Dr. Nelly Ordonezrythrocyte distribution width (RBC) [Ratio]12.3 %Tkftmn46.0-15.0 The [facility] CenterComment on above:Performed By: #### CBC #### [facility] [address] [place] [address] Dr. Nelly VirkHematocrit (Bld) [Volume fraction]41.4 %Qcgfkm46.0-48.0The [facility] CenterComment on above:Performed By: #### CBC #### [facility] [address] [place] [address] Dr. Nelly VirkHemoglobin (Bld) [Mass/Vol]13.5 g/gBZfgzfk79.0-16.0The [facility] CenterComment on above:Performed By: #### CBC #### [facility] [address] [place] [address] Dr. Nelly Aguilar #0.01 10e3/ulNormal0.00-0.03The [facility] CenterComment on above:Performed By: #### CBC #### [facility] [address] [place] [address] Dr. Yilan ChangIG %0.2 %Normal0.0-0.5The [facility] CenterComment on above: Performed By: #### CBC #### [facility] [address] [place] [address] Dr. Nelly Rodriguez #1.9 103/ulNormal1.2-3.8The [facility] CenterComment on above:Performed By: #### CBC #### [facility] [address] [place] [address] Dr. Nelly Mcnallyhocytes/100 WBC (Bld)40.6 %Ckunpl38.5-60.0The [facility] CenterComment on above:Performed By: #### CBC #### [facility] [address] [place] [address] Dr. Nelly Hoffman DIFF REQNONormalThe [facility] CenterComment on above: Performed By: #### CBC #### [facility] [address] [place] [address] Dr. Nelly Casanova (RBC) [Entitic mass]30.8 tgBtnqup37.7-34.0The [facility] CenterComment on above:Performed By: #### CBC #### [facility] [address] [place] [address] Dr. Nelly Motley (RBC) [Mass/Vol]32.6 g/dNUesqsr19.9-35.2The [facility] CenterComment on above:Performed By: #### CBC #### [facility] [address] [place] [address] Dr. Nelly Castillo (RBC) [Entitic vol]94.5 oYWnjzos87.0-99.0The [facility] CenterComment on above:Performed By: #### CBC #### [facility] [address] [place] [address] Dr. Nelly Comer #0.4 103/ulNormal0.3-0.8The [facility] CenterComment on above:Performed By: #### CBC #### [facility] [address] [place] [address] Dr. Yilan ChangMonocytes/100 WBC (Bld)8.5 %Normal1.7-12.0The [facility] Comment on above:Performed By: #### CBC #### [facility] [address] [place] [address] Dr. Nelly Sprague #2.2 103/ulNormal1.4-6.5The [facility] CenterComment on above:Performed By: #### CBC #### [facility] [address] [place] [address] Dr. Nelly Miramontesutrophils/100 WBC (Bld)47.6 %Voehmg76.0-75.0The [facility] CenterComment on above:Performed By: #### CBC #### [facility] [address] [place] [address] Dr. Nelly Neves mean volume (Bld) [Entitic vol]9.3 fLCritically low 9.5-13.5The [facility] CenterComment on above:Performed By: #### CBC #### [facility] [address] [place] [address] Dr. Nelly VirkPLT207 103/ikLirbjv931-668Ita [facility] CenterComment on above: Performed By: #### CBC #### [facility] [address] [place] [address] Dr. Nelly VirkRBC4.38 106/ulNormal4.20-5.40The [facility] CenterComment on above:Performed By: #### CBC #### [facility] [address] [place] [address] Dr. Nelly VirkWBC4.7 103/ulNormal4.0-11.0The [facility] CenterComment on above: Performed By: #### CBC #### [facility] [address] [place] [address] Dr. Nelly VirkLIPID PROFILEon [id number]-HDL RATIO NORMSEE [facility]leness HospitalComment on above:Result Comment: 3.3 - 4.4 LOW RISK 4.4 - 7.1 AVERAGE RISK 7.1 - 11.0 MODERATE RISK >11.0 HIGH RISKPerformed By: #### LIPID, CMP, TSH #### [facility] [address] [address] [address] Nelly VirkCholesterol [Mass/Vol]219 mg/dLCritically high<=200[facility] on above:Performed By: #### LIPID, CMP, TSH #### [facility] [address] [place] [address] Dr. Nelly VirkCholesterol in HDL [Mass/Vol]80 mg/dLCritically jsre55-65Pfb [facility] CenterComment on above:Performed By: #### LIPID, CMP, TSH #### [facility] [address] [address] [address] Nelly VirkCholesterol in LDL [Mass/Vol]111.2 mg/dLOhioHealth Shelby HospitalCommckenzie memorial hospital on above:Performed By: #### LIPID, CMP, TSH #### [facility] [address] [place] [address] Dr. Nelly Tinsleyesterantonella.total/Cholesterol in HDL [Mass ratio]2.7 {ratio} NormalThe [facility] Medical CenterComment on above:Performed By: #### LIPID, CMP, TSH #### [facility] [address] [place] [address] Dr. Nelly Corbin NORMAL> or = 60 mg/dl - LOW CARDIOVASCULAR RISK <40 mg/dl - HIGH CARDIOVASCULAR RISKOhioHealth Shelby HospitalCommckenzie memorial hospital on above:Performed By: #### LIPID, CMP, TSH #### [facility] [address] [place] [address] Dr. Nelly VirkLDL CALC NORMALSEE BELOWOhioHealth Shelby HospitalComment on above:Result Comment: <100 mg/dl OPTIMAL 100 - 129 mg/dl NEAR OR ABOVE OPTIMAL 130 - 159 mg/dl BORDERLINE HIGH 160 - 189 mg/dl HIGH >190 mg/dl VERY HIGH Performed By: #### LIPID, CMP, TSH #### [facility] [address] [place] [address] Dr. Nelly VirkTriglyceride [Mass/Vol]139 mg/dLNormal<=150[facility] Comment on above:Performed By: #### LIPID, CMP, TSH #### [facility] [address] [address] [address] Nelly GardnerLDL CALC27.8 mg/dLNormalThe [facility] CenterComment on above: Performed By: #### LIPID, CMP, TSH #### [facility] [address] [address] [address] Nelly VirkPROF 14(COMP METB)on 01-39-5397Srofhvj [Mass/Vol]3.7 g/dLNormal 3.4-5.0The [facility] CenterComment on above:Performed By: #### LIPID, CMP, TSH #### [facility] [address] [place] [address] Dr. Nelly VirkAlbumin/Globulin [Mass ratio]1.0 {ratio}NormalThe [facility] CenterComment on above:Performed By: #### LIPID, CMP, TSH #### [facility] [address] [place] [address] Dr. Nelly Ann [Catalytic activity/Vol]62 U/BIoentk97-091Ldk [facility] CenterComment on above:Performed By: #### LIPID, CMP, TSH #### [facility] [address] [place] [address] Dr. Nelly Modi [Catalytic activity/Vol]24 U/SDsmoye86-57Mod [facility] CenterComment on above:Performed By: #### LIPID, CMP, TSH #### [facility] [address] [place] [address] Dr. Nelly Tran gap [Moles/Vol]14.4 mmol/LNormalThe [facility] on above:Performed By: #### LIPID, CMP, TSH #### [facility] [address] [place] [address] Dr. Nelly Ji [Catalytic activity/Vol]16 U/TRgebxg06-73Qwa Access Hospital Daytonment on above:Performed By: #### LIPID, CMP, TSH #### [facility] [address] [place] [address] Dr. Nelly VirkBilirubin [Mass/Vol]0.4 mg/dLNormal0.2-1.0The [facility] Comment on above:Performed By: #### LIPID, CMP, TSH #### [facility] [address] [place] [address] Dr. Nelly VirkCalcium [Mass/Vol]8.9 mg/dLNormal8.5-10.1The [facility] Comment on above:Performed By: #### LIPID, CMP, TSH #### [facility] [address] [address] [address] Nelly VirkChloride [Moles/Vol]104 mmol/PYoqbwg83-083Arz [facility] Comment on above:Performed By: #### LIPID, CMP, TSH #### [facility] [address] [place] [address] Dr. Nelly VirkCO2 [Moles/Vol]26.6 mmol/SGamwlc61.0-32.0The [facility] Comment on above:Performed By: #### LIPID, CMP, TSH #### [facility] [address] [place] [address] Dr. Nelly VirkCreatinine [Mass/Vol]0.88 mg/dLNormal0.55-1.02[facility]itt[facility] Medical CenterComment on above:Performed By: #### LIPID, CMP, TSH #### [facility] [address] [place] [address] Dr. Nelly OrdonezGFR-AF CYMRAES>60Normal>=60The [facility] CenterComment on above:Performed By: #### LIPID, CMP, TSH #### [facility] [address] [place] [address] Dr. Nelly OrdonezGFR-NON AF CYMRAES>60Normal>=60The [facility] CenterComment on above:Performed By: #### LIPID, CMP, TSH #### [facility] [address] [place] [address] Dr. Nelly VirkGlobulin (S) [Mass/Vol]3.8 g/dLNormalThe [facility] CenterComment on above:Performed By: #### LIPID, CMP, TSH #### [facility] [address] [address] [address] Nelly VirkGlucose [Mass/Vol]108 mg/dLCritically ucgy00-203Jzi [facility] CenterComment on above:Performed By: #### LIPID, CMP, TSH #### [facility] [address] [place] [address] Dr. Nelly VirkPotassium [Moles/Vol]4.0 mmol/LNormal3.5-5.1The [facility] Comment on above:Performed By: #### LIPID, CMP, TSH #### [facility] [address] [place] [address] Dr. Nelly VirkProtein [Mass/Vol]7.5 g/dLNormal6.4-8.2The [facility] Comment on above:Performed By: #### LIPID, CMP, TSH #### [facility] [address] [address] [address] Nelly VirkSodium [Moles/Vol]141 mmol/EKsqvsy050-617Czj [facility] Comment on above:Performed By: #### LIPID, CMP, TSH #### [facility] [address] [address] [address] Nelly VirkUrea nitrogen [Mass/Vol]18.0 mg/dLNormal7.0-18.0The [facility] CenterComment on above:Performed By: #### LIPID, CMP, TSH #### [facility] [address] [place] [address] Dr. Nelly VirkUrea nitrogen/Creatinine [Mass ratio]20.5 mg/mgNormalThe [facility] CenterComment on above:Performed By: #### LIPID, CMP, TSH #### [facility] [address] [place] [address] Dr. Nelly Dial 03-83-9576MCK0.057 uIU/mLCritically high0.358-3.740The [facility] CenterComment on above:Performed By: #### LIPID, CMP, TSH #### [facility] [address] [place] [address] Dr. 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 Dominguezs clinic. We are here to assist you through your ENT care at [facility]. Dr. Boucher is an Ear surgeon. This means that she specializes in taking care of patients with complex ear problems. Dr. Boucher's office number is [phone]. While you may see her at a satellite office, she has a team committed to help meet your healthcare needs at [facility]'s [facility]. This number is the most direct way to communicate with the office. Symone is Dr. Boucher?s medical secretary and she answers the office phone [...] may include dieticians, social workers, speech therapists, stock repairer, neurologist, and physical therapist. Dr. Boucher will provide these referrals as needed. Please let her know if you would like to request a specific referral. For your convenience, Dr. Boucher sees patients at several [facility] locations including [facility] and [facility] at the main campus of [facility]. While we try tomake your appointments as convenient as possible, occasionally a visit to another location may be ne cessary to provide the best care for you. [...] my direction and personally dictated by me. Noemy reviewed the chart and agree that the [...] precautions - Okay to follow-up with Dr. Lopez routinely, would get another hearing test summer [...] 55 year old woman referred by Dr. Lopez to ENT clinic for left sided TM [...] hearing loss. Mother with historyof Meniere syndrome. 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 Boucher?s clinic. We are here to assist you through your ENT care at [facility]. Dr. Boucher is an Ear surgeon. This means that she specializes in taking care of patients with complex ear problems. Dr. Boucher's office number is [phone]. While you may see her at a satellite office, she has a team committed to help meet your healthcare needs at [facility]'s main campus. This number is the most direct way to communicate with the office. Symone is Dr. Boucher?s medical secretary and she answers the office phone [...] may include dieticians, social workers, speech therapists, stock repairer, neurologist, and physical therapist. Dr. Boucher will provide these referrals as needed. Please let her know if you would like to request a specific referral. For your convenience, Dr. Boucher sees patients at several [facility] locations including [facility] and [facility] at the main campus [facility]. While we try tomake your appointments as convenient as possible, occasionally a visit to another location may be ne cessary to provide the best care for you. [...] 55 year old woman referred by Dr. Lopez to ENT clinic for left sided TM [...] hearing loss. Mother with historyof Meniere syndrome. The patient denies otalgia, otorrhea, [...] (1 CAP FULL) MIX WITH LIQUID BY MOUTHONCE A DAY valACYclovir HCl - 500 MG Oral Tablet Physical Exam Constitutional General appearance: Healthy-appearing, well-nourished, well groomed, in no acute distress. Ability to communicate: Normal communication without aids, normal voice quality. Head and face: Atraumatic with no masses, lesions, or scarring. Facial strength: Normal streng (more content not included)...NormalUH Touchworks No Panel Informationon 39-07-7658NM-Otolaryngology-[facility] 9367 Work Phone: Order Reconciliationon [id number] Reconciliation Page 1 Discharge Reconciliation Document Reconciliation [...] be shared with you (more content not included)...[facility] Surgical Pathology Departmenton [id number] Surgical Pathology DepartmentName ANGELA MAI Pathologist: ANDREWS SERRANO DMD. Date of Procedure: 01/24/2022 Date Received: 01/24/2022 Date Reported 02/10/2022 Submitting Physician: RASHMI BOUCHER MD Location: [facility] Copy To/Referring/Attending: RASHMI BOUCHER MD Other [...] reviewed this case. Diagnostic interpretation performed at [facility] [address] [facility] [address] Clinical History: Physician Contact Number: [phone] Fixative (A): Formalin Clinical Diagnosis History 56 [...] positive and negative controls which stained appropriately. [facility] Department of Pathology [id number] [place], [place] [address] and ClinicsComment on above:Performed By: #### [facility] #### [facility] Surgical Pathology Department [address] [place], [place] [address]Patient Profile - Preop v3on 56-04-6380Lsazntq Profile - Preop x9Krdahte Profile - Preop: Initial Info: Patient DemographicsName: MAI MILLER Date: 1965 [address]: [address] [facility] [address], [facility] Date/Time [id number] 13:32 Primary Phone [phone] Instructions GivenStop taking aspirin, NSAIDs (Ibuprofen, Motrin, [...] 24, 2022 Primary Contact Name and NumberMark [phone] Limitations on Visitors/Phone Callsnone Medications Brought to [facility] General Health: Weight in kg80 kilogram(s) Weight in wgd545.3 pound(s) Weight Methodstated Scale Typestanding Height in feet5 feet Height in inches5.94 inch(es) Height in cm167.4 centimeter(s) Height Methodstated BMI (kg/m2)28.548 square meter Patient or Family Member Reaction to AnesthesiaPatient exercises at the [facility] 3-5 times a week. Patient walks on [...] nausea after surgery on delayed awakening. 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 Symptoms/Conditions Commenttakes estrogen Barriers to Managing Healthnone Relationship/Environ: Lives Withspouse Living Arrangementshouse Resource/Environmental Concernsnone [facility] Anticipated at Transitionnone Tobacco Use: Tobacco Useno Never smoker EtOH: 1 drink per week Denies medical marijuana, recreational drug use Pre-op Checklist: Procedure TypeLEFT SIDE LATERAL GRAFT TYMPANOPLASTY WITH POSSIBLE OCR NPOyes Last Food Gdjdye07-Cbx-7652 19:00 Last Clear Fluid Wrbidx50-Dta-6671 19:00 ID Band On Patientpatient ID (name) [...] Catalog Name: Other specified postprocedural states, Description: - 2015 History of surgery: Onset Date: 08-Jan-2022, Catalog Name: Other specified postprocedural states, Description: Bladder sling placement Electronic Signatures: Priscilla Adam (PAC) (Signed 08-Jan-2022 14:01) Authored: Initial Info, General Health, Health Mgmt, Tobacco Use, Additional Information Rachelle Murillo) (Signed 24-Jan-2022 10:57) Authored: Initial Info, General Health, Health Mgmt, Relationship/Environ, Pre-op Checklist Last Updated: 24-Jan-2022 10:57 by Rachelle Murillo)[facility] ClinicsDiagnostic Mammogram, Unilateral left w/Jose Maria (3D)on 10-11-2021 Diagnostic Mammogram, Unilateral left w/Jose Maria (3D)COMPARISON: October 09, 2021 TECHNIQUE: Additional 2D and 3D Tomosynthesis of the left breast was performed. FINDINGS: On these additional views, no underlying nodule, mass, suspicious calcification or distortion is identified. IMPRESSION: BIRADS 2: Benign mammogram. Please see ultrasound report. Board Certified Radiologist. Accredited by the ACR and FDA. MAMMOGRAPHY IS VERY IMPORTANT TO YOUR HEALTH. THE CURRENT [employer]PREH[employer]IVE CANCER [...] and signed by Ruben Bueno on 10/11/2021 1407NormalNortflorence community healthcaren [facility] SpecialistUS Breast Limited, Lefton [id number] Breast Limited, LeftPlease see the mammogram report from this same date Report reported and signed by Ruben Bueno on 10/11/2021 1405NormalNortflorence community healthcaren [facility] SpecialistSCREENING MAMMOGRAM W/JOSE MARIA, BILATERAL*on 10-09-2021 SCREENING MAMMOGRAM W/JOSE MARIA, BILATERAL*COMPARISON: Dating back to October 08, 2020, October [...] VERY IMPORTANT TO YOUR HEALTH. THE CURRENT [employer] AND [employer] COMPREHENS[employer] NETWORK GUIDELINES RECOMMENDS ANNUAL MAMMOGRAPHY BEGINNING AT AGE 39. THIS FACILITY USES A REMINDER SYSTEM TO ENSURE ALL PATIENTS RECEIVE REMINDER NOTIFICATIONS AT THE APPROPRIATE TIME BASED ON THE RECOMMENDATIONS OF THIS EXAM. Asymmetry: Visible on only one projection. Asymmetries that return agent to be summation artifact are benign (BI-RADS 2). 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 Sanford clinic. We are here to assist you through your ENT care at [facility]. Dr. Boucher is an Ear surgeon. This means that she specializes in taking care of patients with complex ear problems. Dr. Boucher's office number is [phone]. While you may see her at a satellite office, she has a team committed to help meet your healthcare needs at [facility]'s [facility]. This number is the most direct way to communicate with the office. Symone is Dr. Dominguezs medical secretary and she answers the office phone [...] may include dieticians, social workers, speech therapists, stock repairer, neurologist, and physical therapist. Dr. Boucher will provide these referrals as needed. Please let her know if you would like to request a specific referral. For your convenience, Dr. Boucher sees patients at several [facility] locations including [facility] and [facility] at the main [place] [facility]. While we try tomake your appointments as convenient as possible, occasionally a visit to another location may be ne cessary to provide the best care for you. [...] 55 year old woman referred by Dr. Lopez to ENT clinic for left sided TM [...] hearing loss. Mother with historyof Meniere syndrome. The patient denies otalgia, otorrhea, [...] MG Oral Tablet Vitals Vital Signs Recorded: [id number] 04:10PM Pawtwa421 lb Tobacco Useb) No Falls Screening (Age [...] no effusion or perfora (more content not included)...NormalUH TouchworksTobacco Screening.on 01-02-7222Qznc risk assessmenta) No falls within the last miraXL-Ysyqxrqsdfkfxf-Fprfcjk [address] Work Phone: Tobacco use status CPHSb) XoXP-Evezakkbqmutjx-Uvlfand [address] Work Phone: [phone] ([facility] [facility])on 60-85-2585BJJW-CoV-2 (COVID-19) RNA CLAUDE+probe Ql (Resp)Not detectedNormalNot [facility] Comment on above:Result Comment: This test result should be correlated with clinical presentations and medical history by a healthcare provider to determine its clinical significance. This assay was performed by a reverse transcriptase real-time polymerase chain reaction (rt PCR) method on the Panl system. This test has been authorized only [...] (1), unless authorization is terminated or revoked sooner.Performed By: #### [id number] #### [facility] [address] [place], [place] [address]ZIDQ-FwV-6 (COVID-19) RNA CLAUDE+probe Ql (Unsp spec)PassNormal [facility] CenterComment on above:Performed By: #### [id number] #### [facility] [address] [place], [place] [address]Oxjpjqea source Nom (Unsp spec)NasalNormalMount St. Mary HospitalComment on above:Performed By: #### [id number] #### [facility] [address] [place], [place] [address]Vrooij Summary.on 93-57-5653Xlieia Summary. CD:[id number]:[id number]+PGhlYWQ+SX5IAZFbN66ejWBilN2WL9gWIZ6TDERLEETWTI5LED3qw NH4BBwiP3ModtDd [file] Y29s (more content not included)...[facility] HospitalConsent for Treatmenton 59-11-0875Hmcvqrd for Treatment [id number]#1.00CD:[address] [place], [place] [address]VID-19 ([facility])on 34-64-8207MYWEKBHR TO INTENSIVE CARE UNIT FOR CONDITION OF INTEREST:FIND:PT:NONMorrow County HospitalComment on above: Performed By: #### [id number] #### [facility] [address] [place], [place] [address]EMPLOYED IN A HEALTHCARE SETTING:FIND:PT:UnknownNoOhioHealth Arthur G.H. Bing, MD, Cancer CenterComment on above:Performed By: #### [id number] #### [facility] [address] [place], [place] [address]FIRST TEST FOR CONDITION OF INTEREST:FIND:PT:Unknownrmal [facility] HospitalComment on above:Performed By: #### [id number] #### [facility] [address] [place], [place] [address]HAS SYMPTOMS RELATED TO CONDITION OF INTEREST:FIND:PT:Unknown [facility] HospitalComment on above:Performed By: #### [id number] #### [facility] [address] [place], [place] [address]HOSPITALIZED FOR CONDITION OF INTEREST:FIND:PT:NONMorrow County HospitalComment on above:Performed By: #### [id number] #### [facility] [address] [place], [place] [address]PREGNANCY STATUS:FIND:PT:NONormal[facility] Comment on above:Performed By: #### [id number] #### [facility] [address] [place], [place] [address]GOXAXWM IN A [facility] CARE SETTING:FIND:PT:UnknownNormal [facility] HospitalComment on above:Performed By: #### [id number] #### [facility] [address] [place] [address] Vital Signs Date TimeVital SignValuePerforming TkmdqojaxHtbdccwb52-23-9823 15:30-0400Body olgrem075.1 cmRichard Visci DO Work Phone: [facility] NorthIyoacqwuyz93-78-0127 15:30-0400Body mass index (BMI) [Ratio]32.12 kg/u4Qyuumss Visci DO Work Phone: [facility] NorthFynfupxfxt49-93-5166 15:30-0400Body ozpccl76.54 kgRichard Visci DO Work Phone: [facility] NorthFawwnpzngy65-46-4267 15:30-0400Diastolic blood adputhij94 mm[Hg]Mariel Visci DO Work Phone: [facility] NorthKmmwcfaide28-88-6796 15:30-0400Systolic blood nmubmrvb791 mm[Hg]Mariel Visci DO Work Phone: [facility] NorthKdmuuvmiut44-57-8437 08:51-0400Body mrdomo336.1 cmBenjamin Ball DO Work Phone: [facility]10-17-2025 08:51-0400 Body mass index (BMI) [Ratio]31.8 kg/y1Cnqwpojz Ball DO Work Phone: [facility]10-17-2025 08:51-0400 Body nafvfo10.69 kgBenjamin Ball DO Work Phone: [facility]10-17-2025 08:51-0400 Diastolic blood jyheqkqq18 mm[Hg]Kartik Ball DO Work Phone: [facility]10-17-2025 08:51-0400 Heart rate80 /minBenjamin Ball DO Work Phone: [facility]10-17-2025 08:51-0400 Respiratory rate12 /minBenjamin Ball DO Work Phone: [facility]10-17-2025 08:51-0400 Systolic blood qpufpbaw612 mm[Hg]Kartik Ball DO Work Phone: [facility]09-23-2025 13:13-0400 Body apeeok753.1 Cat Boucher MD Work Phone: 1([phone] [place], [place] [address]596009-23-2025 13:13-0400 Body mass index (BMI) [Ratio]31.12 kg/h5OevzpRashmi Boucher MD Work Phone: [phone]09-23-2025 13:13-0400 Body dktadc37.82 kgRashmi Boucher MD Work Phone: [phone]09-15-2025 08:41-0400 Body apaddu530.1 Maikol Lopez MD Work Phone: [phone] NorthRjkxpcsfsd21-62-3759 08:41-0400Body mass index (BMI) [Ratio]31.28 kg/g5KsphynCarolyn Lopez MD Work Phone: [phone] NorthFnyufrlidk01-24-5437 08:41-0400Body yqygtk85.28 kgCarolyn Lopez MD Work Phone: [phone] [address]Znihwxxjkg19-23-2665 08:41-0400Diastolic blood szoopykn90 mm[Hg]Carolyn Lopez MD Work Phone: [phone]5[place] [address]Sfedsoveqa58-01-2149 08:41-0400Heart rate93 /min Carolyn Lopez MD Work Phone: [place] [address]Nvljfnilbf16-20-2436 08:41-0400Systolic blood qqdaxryr950 mm[Hg]Carolyn Lopez MD Work Phone: [facility] NorthVdcumlgjih84-17-9440 15:10-0400Body temperature 96.3 [degF]Rashmi Boucher MD Work Phone: 1()[address] [place], [place] 0787809-08-2025 15:10-0400 Diastolic blood kcbhekld50 mm[Hg]Rashmi Boucher MD Work Phone: 1()[address] [place], [place] 0787809-08-2025 15:10-0400 Heart rate94 /Christian Boucher MD Work Phone: 1()[address] [place], [place] 0787809-08-2025 15:10-0400 Respiratory rate15 /Christian Boucher MD Work Phone: 1()[address] [place], [place] 0787809-08-2025 15:10-0400 SaO2% (BldA) [Mass fraction]94 %Rashmi Boucher MD Work Phone: 1()[address] [place], [place] 0787809-08-2025 15:10-0400 Systolic blood crvvweow913 mm[Hg]Rashmi Boucher MD Work Phone: 1()[address] [place], [place] 0787809-08-2025 09:46-0400 Body halawh323.1 Cat Boucher MD Work Phone: 1()[address] [place], [place] 0787809-08-2025 09:46-0400 Body mass index (BMI) [Ratio]31.18 kg/g5GelknRashmi Boucher MD Work Phone: 1()[address] [place], [place] 0787809-08-2025 09:46-0400 Body xyluzn00 kgRashmi Boucher MD Work Phone: 1()[address] [place], [place] 0787806-17-2025 09:51-0400 Body hgsuxg459.1 Cat Boucher MD Work Phone: 1()[address] [place], [place] 0787806-17-2025 09:51-0400 Body mass index (BMI) [Ratio]29.95 kg/x2TdlehRashmi Boucher MD Work Phone: 1()[address] [place], [place] 0787806-17-2025 09:51-0400 Body mpadse17.65 kgRashmi Boucher MD Work Phone: [phone])[address]05-05-2025 11:20-0400 Body lczrag652.1 cmCarolyn Lopez MD Work Phone: [phone] NorthHrvpizykvw72-58-0919 11:20-0400Body mass index (BMI) [Ratio]31.95 kg/r3GhhqixCarolyn Lopez MD Work Phone: [phone] NorthRxllezdbmm73-44-4264 11:20-0400Body qgddoy25.09 kgCarolyn Lopez MD Work Phone: [phone] NorthFtijtuxfvc74-01-0272 11:20-0400Diastolic blood iswaikyk27 mm[Hg]Carolyn Lopez MD Work Phone: [phone] NorthMupwdxpdkx80-82-2558 11:20-0400Heart rate89 /min Carolyn Lopez MD Work Phone: [phone] NorthAjcpypncoj68-67-7280 11:20-0400Systolic blood qteswnkh685 mm[Hg]Carolyn Lopez MD Work Phone: 1(098)692-[facility] NorthHqoqydlfhw64-89-6683 09:31-0400Body rpqspu225.1 cm[facility]04-30-2025 09:31-0400Body mass index (BMI) [Ratio]31.4 kg/h6TclzcvedaTr[facility] Health [facility]04-30-2025 09:31-0400Body msfoep83.72 kgTr[facility]04-30-2025 09:31-0400Diastolic blood mm[Hg][facility]04-30-2025 09:31-0400 Heart rate91 /[facility]04-30-2025 09:31-0400 Respiratory rate12 /[facility]04-30-2025 09:31-0400 Systolic blood genjpzfx398 mm[Hg][facility]04-22-2025 15:38-0400Body peovij219.1 cmCarolyn Lopez MD Work Phone: [phone] NorthNtzsnbwowq13-69-3025 15:38-0400Body mass index (BMI) [Ratio]32.28 kg/j7EdluthCarolyn Lopez MD Work Phone: [facility] NorthQvligrscby65-91-6691 15:38-0400Body nypdwh53 kg Carolyn Lopez MD Work Phone: 1(997)[facility]-8411Cox NorthXuhvadoikm03-48-6129 15:38-0400Diastolic blood xapdbjao50 mm[Hg]Carolyn Lopez MD Work Phone: 1(880)[facility]-[address] [place], [place] [address]Hnovrnydqv61-07-5601 15:38-0400Heart rate85 /min Carolyn Lopez MD Work Phone: [facility] NorthQckdtpesis76-96-0218 15:38-0400Systolic blood uyxvxsdh731 mm[Hg]Carolyn Lopez MD Work Phone: [facility] NorthBlemzvjdgb75-63-8318 15:39-0400Body lgisvi441.1 cmCarolyn Lopez MD Work Phone: [facility] NorthTstfwzbrgp46-54-9578 15:39-0400Body mass index (BMI) [Ratio]28.46 kg/i4YpyhcmCarolyn Lopez MD Work Phone: [facility] NorthCzfqilabmh30-85-5745 15:39-0400Body weoypv45.56 kgCarolyn Lopez MD Work Phone: [facility] NorthStftryzizx30-67-2273 15:39-0400Diastolic blood siwacomp93 mm[Hg]Carolyn Lopez MD Work Phone: [facility] NorthMhhyftdnls15-53-4494 15:39-0400Systolic blood vysrenvi182 mm[Hg]Carolyn Lopez MD Work Phone: [facility] NorthEhmqmlxevx83-65-7150 09:10-0400Body mass index (BMI) [Ratio]27.62 kg/m7Fabguti Visci DO Work Phone: [facility] NorthLypzllsbff24-96-3485 09:10-0400Body wtkcub17.3 kg Mariel Visci DO Work Phone: [place] [address]Ayefhlhexc78-43-8937 09:10-0400Diastolic blood jhszbimw40 mm[Hg]Mariel Singer DO Work Phone: [facility] NorthLsvbdzjttq76-33-4249 09:10-0400Systolic blood bvvotszx458 mm[Hg]Mariel Singer DO Work Phone: [facility] NorthFkekdkqerd81-29-7522 13:14-0400Body birtmj954.1 cmPHYSICIAN [facility]10-12-2024 13:14-0400Body mass index (BMI) [Ratio]27.8 kg/y2STJPACSAF [facility]10-12-2024 13:14-0400Body onkmapenixn28.7 [degF]PHYSICIAN [facility]10-12-2024 13:14-0400Body oeqmpq33.86 kg PHYSICIAN [facility]10-12-2024 13:14-0400 Diastolic blood efgiwluv11 mm[Hg]PHYSICIAN [facility]10-12-2024 13:14-0400Heart rate91 /minPHYSICIAN [facility]10-12-2024 13:14-0400Respiratory rate16 /minPHYSICIAN [facility]10-12-2024 13:14-4139OdQ8% (BldA) [Mass fraction]98 %PHYSICIAN [facility]10-12-2024 13:14-0400Systolic blood yhmvudmi639 mm[Hg]PHYSICIAN [facility]09-16-2024 11:21-0400Body yyeydq000.1 cmPHYSICIAN [facility]09-16-2024 11:21-0400Body mass index (BMI) [Ratio]27.8 kg/i1DYAIKSTUA [facility]09-16-2024 11:21-0400Body urmykw41.86 kgPHYSICIAN [facility]09-16-2024 11:21-0400Diastolic blood upvmhklt07 mm[Hg]PHYSICIAN [facility]09-16-2024 11:21-0400Heart rate80 /minPHYSICIAN [facility]09-16-2024 11:21-0400Respiratory rate 12 /minPHYSICIAN NO [facility]09-16-2024 11:21-0400 Systolic blood vnufcjzq462 mm[Hg]PHYSICIAN [facility]11-09-2023 13:56-0500Diastolic blood zecbnkkd16 mm[Hg]DO Kartik Ball Work Phone: [phone]11-09-2023 13:56-0500 Heart rate87 /minDO Kartik Ball Work Phone: 1(335)068-[address] [place], [place] 5446611-09-2023 13:56-0500 Respiratory rate16 /minDO Kartik Ball Work Phone: 1(451)856-[address] [place], [place] 5446611-09-2023 13:56-0500 SaO2% (BldA) [Mass fraction]96 %DO Kartik Ball Work Phone: 1(027)720-[address] [place], [place] 5446611-09-2023 13:56-0500 Systolic blood mm[Hg]DO Kartik Ball Work Phone: 1([phone])[address]11-09-2023 13:27-0500 Body .1 cmDO Kartik Ball Work Phone: [phone]11-09-2023 13:27-0500 Body mass index (BMI) [Ratio]30 kg/m2DO Kartik Ball Work Phone: [phone]11-09-2023 13:27-0500 Body efwvis18 kgDO Kartik Ball Work Phone: 1(633)562-[address] [place], [place] 5446611-09-2023 12:21-0500 Body kcklrlmxynh47.1 [degF]DO Kartik Ball Work Phone: 2(732)521-[address] [place], [place] 5446611-09-2023 12:21-0500 Inhaled oxygen flow rate6 L/minDO Kartik Ball Work Phone: 1(036)711-[address] [place], [place] 5446606-22-2023 08:45-0400 Body pifsbp051.64 cmBenjamin Ball Other [employer] Other 06-22-2023 08:45-0400Body mass index (BMI) [Ratio] 27.44 kg/n8Wjctadcx Ball Other [employer] Other 06-22-2023 08:45-0400Body xqnkla97.11 kgBenjamin Ball Other [employer] Other 06-22-2023 08:45-0400Diastolic blood qbqqxauf46 mm[Hg] Kartik Ball Other [employer] Other 06-22-2023 08:45-0400Respiratory rate12 /minBenjamin Ball Other [employer] Other 06-22-2023 08:45-0400Systolic blood xahlusht696 mm[Hg] Kartik Ball Other [employer] Other 04-25-2023 12:30-0400Body wbwozh683.64 cmBenjamin Ball Other [employer] Other 04-25-2023 12:30-0400Body mass index (BMI) [Ratio] 29.86 kg/n7Unyzqqad Ball Other [employer] Other 04-25-2023 12:30-0400Body qqowll88.92 kgBenjamin Ball Other [employer] Other 04-25-2023 12:30-0400Diastolic blood zgjofwvb99 mm[Hg] Kartik Ball Other [employer] Other 04-25-2023 12:30-0400Respiratory rate12 /minBenjamin Ball Other [facility] [place] [facility] Other 04-25-2023 12:30-0400Systolic blood ysfhgjuj891 mm[Hg] Kartik Rodriguez Other [facility] Other 12-27-2022 14:20-0500Body .64 cmBenjamin E Ball Work Phone: 1(545) [phone]-QwjrmodrsmuwqzCH[facility] 4100 Work Phone: 1(291) 932-336112-27-2022 14:20-0500Body mass index (BMI) [Ratio] 27.44 kg/a2Csnovbox E Ball Work Phone: 1(227) [phone]-UldnjjwuenmbacEncompass Health Rehabilitation Hospital 4100 Work Phone: [phone]1-17-2490 14:20-0500Body surface area Derived from formula1.87 m7Jmqhfzaz E Ball Work Phone: 1(607) [phone]-UigxaxkagxhxyyEncompass Health Rehabilitation Hospital 4100 Work Phone: [phone]0-54-3231 14:20-0500Body nfnmscviphm49.7 [degF] Kartik Rodriguez Work Phone: 1(960) [phone]-RzzosodegcuokeEncompass Health Rehabilitation Hospital 4100 Work Phone: [phone]-9013 14:20-0500Body zdputx08.11 kgBenjamin E Ball Work Phone: 1(729) [phone]-EawnnskskifpacEncompass Health Rehabilitation Hospital 4100 Work Phone: 1(417) 776-278907-25-2022 16:10-0400Body pvjkko62.66 kgBenjamin E Ball Work Phone: 1(616) [phone]-Epfaurjwgeggyo-[place] [address]A Work Phone: Encounters Encounter DateEncounter TypeCare ProviderFacilityStart: 01-20-2025 End: 62-58-5194iljkgnupubMHGONLV A VISCINot AvailableStart: 01-17-2025 End: 25-08-7596Kfgszpn encounter procedureBenmarilin Rodriguez DO-CT Scan [place] Work Phone: Start: 01-17-2025 End: 16-11-0469ggcvdmxuueDfbdtkfr Ball DO Work Phone: -[facility]Start: 01-11-2025 End: 36-47-2938Fbvkauo encounter statusRichdonato Saunders Visci DO Work Phone: noms HealthcareStart: 01-11-2025 End: 83-26-2059Fdwdiona preventive med est patient 40-64yrsRichdonato Saunders Visci DO Work Phone: noSt. [facility] OBGYNComment on above:Encounter for gynecological examination with abnormal finding (Primary Dx); Encounter for screening mammogram for malignant neoplasm of breast; Vaginal atrophy; Cervical polyp; Screening for malignant neoplasm of cervix; Screening for HPV (human papillomavirus); History of colposcopy; History of abnormal cervical Pap smearStart: 01-11-2025 End: 44-80-7797kuvbcatczdFNGFZUP A VISCINot AvailableStart: 01-11-2025 End: 08-83-8077Avprpq OnlyRichdonato Saunders Visci DO Work Phone: noms External Department UnsolicitedStart: 12-30-2024 End: 50-00-0285idkgnaqadbTvknqtdn Ball DO Work Phone: -[facility] Centertart: 12-30-2024 End: 50-58-0341Yvzjhzr encounter procedureBenmarilin Rodriguez DO-[facility] Work Phone: Start: 70-72-8605Xhn-patient / Non-visitBenemmamin Ball DO-[facility] Work Phone: Start: 12-06-2024 End: 69-83-1203Nxcapx follow up visit related to original Rakesh Boucher MD Work Phone: uh [facility] HospitalComment on above:Postoperative state (Primary Dx); Cholesteatoma of left earStart: 12-06-2024 End: 89-47-7376jqqhdapahdRDYPXNorthside Hospital Duluth AmbulatoryStart: 11-28-2024 End: 70-61-1893Lifikybinta Lopez MD Work Phone: noms [place] OtolaryngologyStart: 11-28-2024 End: 57-12-3084Dxrcxp flowsDlaton Lopez MD Work Phone: noms [place] OtolaryngologyStart: 11-28-2024 End: 19-69-0859bjpwnbpbltXVJDGC H TIMMISNot AvailableStart: 11-28-2024 End: 36-57-5302Sdwvpw outpatient visit 15 minutesCarolyn Lopez MD Work Phone: noms [place] OtolaryngologyComment on above: 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)Start: 59-84-3075Osg- patient / Non-visitKartik Rodriguez DO-[facility] Work Phone: Start: 72-32-2185Zrdhte outpatient new 30 minutes Wayne [facility] Eye InstituteStart: 56-65-8904wislydxtylEpdanw Al ShweikiCincinnati Eye InstituteStart: 56-06-7080xjakduopfvAiczml Levon Vera [facility] Eye InstituteStart: 11-21-2024 End: 14-06-3470gkoeqojwtjGYRHRBrown Memorial Hospital Start: 11-21-2024 End: 71-49-7306Uwoniwgmia hospital visit by Adela Boucher MD Work Phone: uh [facility] ORComment on above: Cholesteatoma of left ear (Primary Dx)Start: 18-88-3207Oxb-patient / Non-visit Rashmi Boucher MD-[facility] Work Phone: Start: 14-19-3040svyzngrsmfSmsafe Regions Hospitaltart: 96-03-5697Ohp-patient / Non-visitBelaneyroseann Rodriguez DO-[facility] Work Phone: Start: 09-01-2024 End: 53-08-5837Ddgkhxrplb hospital visit by physicianRad External FilmEF RAD EXTERNAL FILM VIRTUALComment on above:ArrivedStart: 09-01-2024 End: 06-75-6659lqurfxhghvQZZLQ E MOWRYMercy Health Tiffin Hospitaltart: 60-21-2347Huvkdlv encounter statusJaguardianamarilin Rodriguez DO Work Phone: [facility] Hospitaltart: 08-30-2024 End: 99-09-9205Fxulds outpatient new 45 minutesRashmi Boucher MD Work Phone: [facility] HospitalComment on above:Preoperative clearance; Cholesteatoma of left earStart: 08-30-2024 End: 86-57-9007Ryxvcwavooal stateSteodora Boucher MD Work Phone: [facility] HospitalStart: 08-30-2024 End: 69-10-7340kiicwwzcqiMDZENHY J [facility] Medical Centertart: 07-18-2024 End: 32-00-6332Egwuatbinta Lopez MD Work Phone: noms [facility]OSPITALtart: 07-18-2024 End: 49-00-7553Bcrzktjessica Lopez MD Work Phone: noms [facility] HOSPITALKStart: 07-18-2024 End: 82-80-7527Chbbty outpatient visit 15 minutesCarolyn Lopez MD Work Phone: noms ENT [facility] HOSPITALomment on above: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)Start: 07-18-2024 End: 03-22-8741apzsnwlawsLKOTAV H TIMMISNot AvailableStart: 07-13-2024 End: 54-23-7811ykjqmchanaDplwinfixOhio Valley Surgical Hospital Work Phone: Start: 07-13-2024 End: 03-31-9083Vnzvfkw encounter [facility] Work Phone: Start: 07-11-2024 End: 77-55-7793Nwfvxxnpb encounterCarolyn Lopez MD Work Phone: noms CI ENTComment on above:needs rxStart: 07-08-2024 End: 03-05-4422uciuzdforoWGOKHS Madina SWEENEYSNot AvailableStart: 07-05-2024 End: 45-73-0583Abktxy outpatient visit 15 minutesCarolyn Lopez MD Work Phone: noms CI ENTComment on above: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)Start: 07-05-2024 End: 90-41-5649myludvnxfbFTHQVD Madina Charlton AvailableStart: 07-05-2024 End: 51-33-6949Fvduam flowsheetCarolyn Lopez MD Work Phone: noms CI ENTStart: 07-05-2024 End: 34-13-3918Qnlxlp Orlando Lopez MD Work Phone: noms CI ENTStart: 02-16-2024 End: 75-21-1154Obvogy outpatient visit 15 minutesEmvito Cota MD Work Phone: noms SWS DERMComment on above:Melanocytic nevus of trunk (Primary Dx); Seborrheic keratosis; Seborrheic keratosis, inflamed; Actinic keratosis; Capillary angioma; LentiginesStart: 02-16-2024 End: 09-05-9669jkqciciorbAZUNK A PETITTINot AvailableStart: 02-16-2024 End: 16-46-4432Vttuddjessica Cota MD Work Phone: noms SWS DERMStart: 02-16-2024 End: 19-14-2666Bxwgjtjessica Cota MD Work Phone: noms SWS DERMStart: 01-10-2024 End: 13-26-3695Dtzlhkksm Result EncounterRichard A Visci DO Work Phone: noms External Department UnsolicitedStart: 01-10-2024 End: 95-76-1195Dcfuesibh Result EncounterRichard A Visci DO Work Phone: noms External Department UnsolicitedStart: 01-05-2024 End: 92-14-7332Tvtlvfs encounter Dougie Lopez MD Work Phone: noms CI ENTComment on above:Foreign body of left ear, initial encounter (Primary Dx)Start: 01-05-2024 End: 92-73-3754Ilywgs flowsDalton Lopez MD Work Phone: noms CI ENTStart: 01-05-2024 End: 64-70-8050Smizfw flowsDalton Lopez MD Work Phone: noms CI ENTStart: 01-01-2024 End: 37-85-3540Kpjsdp flowsheetDevonteard A Visci DO Work Phone: noms PCF OBStart: 01-01-2024 End: 32-10-8741Ehkmvu flowsheetDevonteard A Visci DO Work Phone: noms PCF OBStart: 01-01-2024 End: 86-70-4586Jkhqqyz encounter statusRichard A Visci DO Work Phone: [facility] Work Phone: start: 01-01-2024 End: 88-97-7087Uvoerynk preventive med est patient 40-64yrsRichard A Visci DO Work Phone: noms PCF OBComment on above:Encounter for gynecological examination with abnormal finding (Primary Dx); Encounter for screening mammogram for malignant neoplasm of breast; Vaginal atrophy; Vaginal irritationStart: 12-26-2023 End: 23-77-5134fuvdmwgmviUJXJFWIEY NO FAMILYFirelands Regional Medical Ctr Work Phone: Start: 12-26-2023 End: 21-55-0267Jwffqsvk ReferredPHYSICIAN NO [facility] [place] Work Phone: Start: 12-26-2023 End: 57-81-6790Lqxjuva encounter procedurePHYSICIAN NO [facility] [place] Work Phone: Start: 11-30-2023 End: 94-28-3524Ndbpgft encounter procedurePHYSICIAN NO [facility] Work Phone: Start: 02-20-2023 End: 23-63-3591areiwrqzxvHegrlpnf Ball Other [employer] Other Start: 51-88-6735Crropyhou encounterBenjamin RosarioG [facility] ClinicStart: 02-19-2023 End: 80-72-5243vsftbtqouvMwefjfef Ball Other [employer] Other Start: 24-08-3397Tyxcjc outpatient visit 15 minutes Kartik RosarioG [facility] ClinicStart: 00-54-2788Xgtblcbkr encounterBenjamin RosarioG [facility] ClinicStart: 01-22-2023 End: 72-07-9850Iiyrlatox to same day surgery centerDO aKrtik Rodriguez Work Phone: [facility] HospitalStart: 01-22-2023 End: 78-31-5993sgcxpvilcpTS Kartik Rodriguez Work Phone: [facility] Work Phone: Start: 01-07-2023 End: 08-36-6771opcnbpzqubBO Kartik Rodriguez Work Phone: [facility] Work Phone: Start: 01-07-2023 End: 79-58-0574Wmpnexe encounter procedureDO Kartik Rodriguez Work Phone: [facility]-Pre-Surgical [facility] Work Phone: Start: 09-04-2022 End: 06-39-5728vlsloapgtzRhgermzl Ball Other [facility] [employer] Other Start: 46-41-6057Rjuswg outpatient visit 15 minutes Kartik RosarioG [facility] ClinicStart: 03-88-4614Ubiimmhdt encounterBenjamin BallANNG [facility] ClinicStart: 08-28-2022 End: 60-72-2565jkblxffkovZfjphnyq Ball Other [place] [employer] Other Start: 20-56-7041Gjdibmzdh encounterBenmarilin BallANNG [facility] ClinicStart: 92-28-3283Crequwuis for general adult medical examination without abnormal findingsDR KARTIK RODRIGUEZL[facility] Hospital HospitalStart: 07-10-2022 End: 34-42-5939rpubbymgwhWC KARTIK RODRIGUEZFacility:T9Btpko: 07-10-2022 End: 73-05-5763Nmuojvyqu for general adult medical examination without abnormal findingsDR KARTIK RODRIGUEZFacility:Q7Hhdfd: 07-08-2022 End: 31-41-3954exebqotdyiPqsjgtkx Ball Other [facility] [employer] Other Start: 84-92-1607Mqbuvqxtt for general adult medical examination without abnormal findingsBenjaroseann BallANNG Ball Medical ClinicStart: 94-26-1706Tzljhtwf preventive med est patient 40-64yrsBenjaroseann BallANNG Ball Medical ClinicStart: 39-56-6233Agmwvlf encounter procedureBenemmamin E Ball Work Phone: [phone]-Zaezkxprntchfb-[facility] 4[address] Work Phone: Start: 45-34-6890Nmgmfz follow up visit related to original pxBenjamin E Ball Work Phone: [phone]-NmrbfrwhyhyavoLake [facility] Work Phone: Start: 41-74-2738qrqqqdrnlvAv. Rashmi Churchill Sander Facility:9448Start: 91-06-8126aqtrdckbkgAu. Rashmi Dickeyzabeth Ruddycility:9448 Start: 83-89-0326Pasdf UpdateBenjamin E Ball Work Phone: [phone]-YmmpvkpwhinbvvLake Region [facility] Work Phone: Start: 01-24-2022 End: 84-52-7400rmaahpzzfpRu. Rashmi Kerline Ruddycility:[facility] Start: 70-36-2876Tfpukz consultation new/estab patient 60 minBenjamin E Ball Work Phone: [phone]-EljzhptfcaehucFormerly [facility] HospitalGen[facility] 3300A Work Phone: Start: 00-39-4347Jfeuydd encounter procedureBenjamin E Ball Work Phone: [phone]-YjtonhucxjanaoFormerly [facility] HospitalGen[facility] 3300A Work Phone: Start: 37-21-8995caftgjlxstLj. Rashmi Churchill Sander Facility:9297Start: 06-05-2021 End: 60-42-6575Jjdvgqj encounter procedureJasper Allen [facility] Start: 12-23-6045Lwngh health examinationBenjamin Ball Other [place] [employer] Other Procedures DateProcedureProcedure DetailPerforming ClinicianStart: 25-23-2225ENCOBRTMB REPORTRichdonato Singer DO Work Phone: start: 04-63-5906Ojkesl photography w/interpretation & reportSameer Al NoeikiStart: 39-49-0140WNQ No ChargeSameer Al NoeikiStart: 73-87-1363Sgfdx Interpretation of outside studyRashmi Boucher MD Work Phone: Start: 02-16-2024 End: 48-63-4290BAFVQOJRDNM SKIN LESIONEmvito Cota MD Work Phone: Start: 86-58-0441PC TOMOSYNTHESIS SCREENING BIRichdonato Saunders Asmita DO Work Phone: start: 39-84-2028Wgs prim src wet mount nfct agt Mariel Singer DO Work Phone: start: 51-50-0478HaisubmmggpedxYU Kartik Rodriguez Work Phone: Start: 70-59-7246ZmsopcsnazhVqbbr Mowry MD Work Phone: Start: 19-88-9574Yneqgvisk for malignant neoplasm of colonBenmarilin Rodriguez Other Start: 60-75-5542Qhoxqwo examination of patient Kartik Rodriguez Other Plan of Treatment DateCare ActivityDetailAuthorStart: 90-89-8165DFI High Risk: (Elderly (60+) or Population) (1 - 1-dose 75+ series)RSV High Risk: (Elderly (60+) or Population) (1 - 1-dose 75+ series)[facility] Start: 01-15-2026 End: 33-28-7622Mhnjuii encounter pnwddnigi22/02/2026 3:15 PM EST Office Visit KANDIS WILHELM [address] [place] [address] Mariel Singer, DO [address] [place] [address] KANDIS HAWTHORNENStart: 09-70-8854Omuamq Adult PhysicalYearly Adult PhysicalSelect Medical TriHealth Rehabilitation HospitalStart: 02-15-2025 End: 07-90-1204Gtlpyyw encounter procedureNOMS SWS DERMStart: 01-26-2025 End: 20-68-2325Erxlngc encounter gksegcvmf87/13/2025 10:00 AM EST Office Visit [facility] [address] [place] [phone] Chelle Gandhi MD [address] [place] [address] [facility] EyeStart: 01-20-2025 End: 07-03-4206Yrvoofjokaxe / ancillary services sinxvaglrs34/07/2025 7:30 PM EST Ancillary Procedure [facility] [address] [place] [address] [facility]Jewish [facility] ImagingStart: 57-51-3326Tnlvznn CTCT heart calcium score [facility] Start: 95-62-8102HB [facility] Systemtart: 01-11-2025 End: 99-89-8712Hyymlfh encounter procedureNOSILVER LAKE [facility] OBStart: 01-11-2025 End: 25-88-7557KCC Breast - bilateral screeningBilateral screening mammogram with tomosynthesis Imaging Routine Encounter for screening mammogram for malignant neoplasm of breast Expected: 01/11/2025, Expires: 03/13/2026[facility] Work Phone: comment on above:Expected: 01/11/2025, Expires: 03/13/2026Start: 98-32-4016Qunlez Adult PhysicalYearly Adult PhysicalSelect Medical TriHealth Rehabilitation HospitalStart: 12-06-2024 End: 82-09-4743Dxxqrat encounter /23/2025 1:15 PM EDT Office Visit [facility] [address] [place] [address] [place] [address] [place], [place] [id number] [facility]: 11-21-2024 Subsequent hospital visit by xigomtijv84/08/2025 Hospital Encounter [facility] [place] [address] [place] [address] [place] [address] [place], [place] [address] [facility] ORStart: 94-80-8558BOQSN-19 Vaccine ( season) COVID-19 Vaccine ( season)[facility]: 28-04-0122Icpxfbmdb vaccinationUnSumma Health [facility]: 45-96-0692NLM High Risk: (Elderly (60+) or Population) (1 - Risk 60-74 years 1-dose series)RSV High Risk: (Elderly (60+) or Population) (1 - Risk 60-74 years 1-dose series)[facility]: 09-01-2024 End: 74-62-2660VKL panel - Blood by Automated countCBC Lab Routine Cholesteatoma of left ear Expected: 09/01/2024 (Approximate), Expires: 08/30/2025[facility] Service Area Work Phone: Comment on above:Expected: 09/01/2024 (Approximate), Expires: 08/30/2025Start: 09-01-2024 End: 82-38-1514Gvarlyxwmerqt metabolic 2000 panel - Serum or PlasmaComprehensive Metabolic Panel Lab Routine Cholesteatoma of left ear Expected: 09/01/2024 (Approximate), Expires: 08/30/2025[facility] Work Phone: Comment on above:Expected: 09/01/2024 (Approximate), Expires: 08/30/2025Start: 07-18-2024 End: 59-62-0763Ktolaqw encounter ongxuprcz94/05/2025 11:20 AM EDT Office Visit [facility] [address] [facility] [address] [place] [address] Carolyn Lopez MD [address] [facility] [address] [place] [address] [facility] NORWALKStart: 07-05-2024 End: 94-81-1226Tmcznbs encounter procedureNOMS CI ENTComment on above:Arrived Start: 02-16-2024 End: 63-00-2776Cmbbupf encounter procedureNOMS SWS DERMComment on above:Arrived Start: 01-05-2024 End: 93-72-7991Dqvqxxs encounter procedureNOMS CI ENTComment on above:Arrived Start: 01-01-2024 End: 13-54-0304ZSZ Breast - bilateral screeningBilateral screening mammogram with tomosynthesis Imaging Routine Encounter for screening mammogram for malignant neoplasm of breast Expected: 01/01/2024, Expires: 03/02/2025[facility] HealthcareComment on above:Expected: 01/01/2024, Expires: 03/02/2025Start: 01-01-2024 End: 05-21-8326NXU, APT HPV,RFX 16/18,45IGP, APT HPV,RFX 16/18,45 Lab Routine Encounter for gynecological examination with abnormal findingExpected: 01/01/2024 (Approximate), Expires: 12/31/2024[facility] Work Phone: comment on above:Expected: 01/01/2024 (Approximate), Expires: 12/31/2024Start: 07-29-6032Nablbizc identified in Urine by CultureUrine [facility] Limatart: 31-43-5411Wxvcr cultureTriHealth Bethesda Butler Hospitaltart: 00-85-5978PUCUA-19 Vaccine ( season) COVID-19 Vaccine ( season)[facility]: 01-40-6034Rzucbklbw for malignant neoplasm of breastMammogramUnSumma Health [facility] Campus: 70-80-2644IpdobiqgrTriHealth Bethesda Butler Hospitaltart: 12-10-7008WawlvpjmkTriHealth Bethesda Butler Hospitaltart: 99-05-7252JXD, Provider: Rashmi Boucher, Status: Pen, Time: 2:15 PMFUV, Provider: Rashmi Boucher, Status: Pen, Time: 2:15 IJYS-Vbxitjzoucxugr-FjyrzzbLake Region [facility] Work Phone: Start: 00-25-8823Zhnljwmgepgw vaccinationPneumococcal Vaccine (1 of 1 - PCV)[facility]: 93-93-3163Olguyd Vaccines (1 of 2)Zoster Vaccines (1 of 2)[facility]: 61-89-1085VVwY/Tdap/Td Vaccines (1 - Tdap)DTaP/Tdap/Td Vaccines (1 - Tdap) [facility]: 62-24-8930Picctrolv for malignant neoplasm of cervixUnSumma Health [facility]: 63-62-7839Wrpfdjqio B Vaccines (1 of 3 - 19+ 3-dose series)Hepatitis B Vaccines (1 of 3 - 19+ 3-dose series)[facility]: 70-82-9304Jwqoqwkpfwgu vaccinationPneumococcal Vaccine (1 of 2 - PCV)[facility] Start: 79-28-5297Odpvpy Vaccines (1 of 2)Zoster Vaccines (1 of 2)[facility]: 74-41-5498Avldwmzg mellitus screeningDiabetes ScreeningUnSumma Health [facility]: 22-88-6997Kkrhsmaom C screening Hepatitis C ScreeningSumma Health [facility] Campus: 81-19-1324AUFAF-19 Vaccine (#1)COVID-19 Vaccine (#1)[facility]: 72-31-7715PVV Vaccines (1 of 1 - Standard series)MMR Vaccines (1 of 1 - Standard series)[facility]: 09-93-0999JPW screeningHIV ScreeningUnSumma Health [facility]: 36-77-9080Kddvv panelLipid PanelUnSumma Health [facility]: 17-22-9432Ihxdhbxia for malignant neoplasm of colonUnSumma Health [facility]: 75-91-4519Heowhq Adult PhysicalYearly Adult PhysicalUnCorey Hospital End: 11-51-6742Gsrxn type and Indirect antibody screen panel - BloodType And Screen Lab Timed Cholesteatoma of left ear As needed (Lab) until discontinued starting 11/21/2024[facility] Service Area Work Phone: Comment on above:As needed (Lab) until discontinued starting 11/21/2024 End: 50-37-1014Wskqmkrthk Pulse oximetry, In Phase 1Continuous Pulse oximetry, In Phase 1 Respiratory Care Routine Continuous until discontinued starting 11/21/2024[facility] Service Area Work Phone: Comment on above:Continuous until discontinued starting 11/21/2024[facility]EC[facility] 12 leadECG 12 lead ECG Routine Preoperative clearance Cholesteatoma of left ear Ordered: 09/01/2024[facility] Work Phone: Comment on above:Ordered: 09/01/2024IGP, APT HPV,RFX 16/18,45IGP, APT HPV,RFX 16/18,45 Lab Routine Screening for malignant neoplasm of cervix Screening for HPV (human papillomavirus) History of colposcopy History of abnormal cervical Pap smear Ordered: 01/11/2025[facility] HealthcareComment on above:Ordered: 01/11/2025Pathology ReportPathology Report Pathology and Cytology Routine Cervical polyp Ordered: 01/11/2025[facility] HealthcareComment on above: Ordered: 01/11/2025Patient [facility] Work Phone: Reconstruction external auditory canal spx CANALOPLASTY, EAR Cholesteatoma of left earVirtual AHU A ORSurgical pathology studySelect Medical [facility]Health Rehabilitation Hospital Work Phone: Comment on above:Release Upon Ordering for 1 Occurrences starting 11/21/2024, 1 completed Payers DatePayer CategoryPayerPolicy [id number] Care (Private)[employer] Member Subscriber Plan / Payer (Effective 2020- Present) Name: Mai Miller Relation to Subscriber: Self Name: Mai Miller Payer ID: [id number] ([facility]) Type: Not on file Address: [address] [place] [id number] Care HMO (unspecified)[employer] Member Subscriber Plan / Payer (Effective 2019- Present) Name: Mai Miller Relation to Subscriber: Self Name: Mai Miller Payer ID: [id number] ([employer]) Type: HMO Address: [address] [place] [id number] [id number] 2..1.805209.3.57[id number] 2..1.654890.3.57[id number] 2..1.211588.3.57[id number] 2..1.534225.3.579.2.98290-56-9900Eboatsm9704497 2..1.368192.3.579.[id number] 2..1.136671.3.57[id number] 2.0.1.665608.3.57[id number] 2.0.1.705013.3.579.2.755636-87-4671Ynxnrno7632714 2.0.1.356568.3.579.[id number] 2..1.186439.3.579.2.[id number] 2.0.1.254766.3.579.2.059866-84-6794Eyznbvp21570558 2..1.703003.3.579.2.497474-87-2607Hlnxkao72926202 2..1.807655.3.579.2.265511-64-9556Nqmbslh81838948 2..1.548670.3.579.2.144163-42-1089Nwqzfua5138286 2..1.547595.3.579.2.846684-02-0607Afyftfr9517451 2..1.798010.3.579.2.467040-11-3387Saxxzlq8785866 2..1.762624.3.579.2.406690-12-6986Pzwaihi1223009 2..1.456538.3.579.2.308103-75-0951Zsjuwka Health [id number] Cross Blue [id number] 2..1.351277.Private Health Insurance [id number] 2..1.0470[id number] 08t1r09w-j29m-414t-51ac-[id number] 2..1.325989.3.579.2.531 Social History DateTypeDetailFacilityTobacco smoking statusNo Smoking Status EnteredMetroHealth Main Campus Medical Centertart: 12-11-2022 End: 46-73-3393Owf Assigned At BirthFemaleFisher - Angelito Medical CenterStart: 63-41-5573Ukr Assigned At BirthSt. John of God Hospital CenterStart: 01-22-2023 End: 35-03-0434Evtepjt smoking status NHISNever smoked tobacco (finding) [facility] Hospitaltart: 10-28-2022 End: 85-44-5176Ecxyxoe use and exposureSmokeless tobacco non-userNOMS Healthcare Start: 12-25-2023 End: 75-14-3935Iwtkngaon beverage intakeCurrent drinker of alcohol (finding)[facility] HealthcareStart: 12-11-2022 End: 74-97-9144Dfintcg of Social functionNOMS HealthcareHow often to you have a drink containing alcohol?Monthly or lessNOMS HealthcareHow many standard drinks containing alcohol do you have on a typical day?1 or 2NOMS HealthcareHow often do you have 6 or more drinks on 1 occasion?NeverNOMS HealthcareStart: 10-24-2022 Alcohol CommentCaffeine: noneNOMS HealthcareStart: 89-20-9370Filgck identity Identifies as female gender (finding)[facility] HealthcareStart: 61-94-4283Gdqrds orientationHeterosexual (finding)[facility] HealthcareStart: 47-29-7614ZkdJwsspt (finding)[facility] CenterStart: 90-27-4098Zie assigned at Not on fileSelect Medical TriHealth Rehabilitation Hospital Work Phone: Start: 21-15-6657Gfforbpig beverage intakeNot Asked [facility] Work Phone: Start: 34-10-7302Leyibcg Commentonce a monthSelect Medical TriHealth Rehabilitation Hospital Work Phone: Start: 02-08-2022 End: 44-04-3914OvqSvjlhpTlnkkajkvlKettering Memorial HospitalStart: 12-06-2024 Alcoholic beverage intakeLifetime non-drinker (finding)[facility] Work Phone: Medical Equipment Procedure CodeEquipment CodeEquipment Original TextEquipment IdentifierDates Graft, Biodesign Otologic Repair 2.5 X 2.5 Case [id number]: 04-75-5001Mfcweef on above:Description: Converted from [facility] Acute. Please see archived information for full log information. Goals DatePatient GoalDesired Activity/StatePersonal health goal Functional Status TmeqFdnfoeozwkOcriebRjhrkzxm96-31-2867Tixpqtbe - suicide severity rating scale screener - recent [C-SSRS][facility] Work Phone: [phone] 221-83260670247-26-2651Wlfdbov Health Questionnaire 2 item (PHQ-2) [Reported][facility] Work Phone: Clinical Notes 01-24-2022 to 01-11-2025 Note Date & KkcrQjlpQcvgpibv80-62-5945 History of Present illness Narrative* Mariel Singer, DO - 01/11/2025 3:30 PM EDT Images from the original note were not included. Mariel Singer, Obstetrics and Gynecology Mai Miller 1965 01/11/25 [id number] Yearly Wellness Exam Chief Complaint Patient presents with Gynecologic Exam Pt presents for yearly. 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 Visit Vitals BP 130/76 Ht 5' 5 Wt 193 lb LMP (LMP Unknown) BMI 32.12 kg/m OB Status Postmenopausal Smoking Status Never BSA 2 m History of Present Illness Current Outpatient Medications Medication Sig Dispense Refill acetaminophen (Tylenol) 325 MG tablet Take 650 mg by mouth every 6 (six) hours if needed ibuprofen 600 MG tablet Take 600 mg by mouth every 6 (six) hours if needed valACYclovir (Valtrex) 500 MG tablet Take 500 mg by mouth if needed zolpidem (Ambien) 5 MG tablet No current facility-administered medications for this visit. No Known Allergies Past Medical History: Diagnosis Date Abnormal mammogram 01/27/2023 Abnormal Pap smear of cervix pos HPV (2011) Abnormal Pap smear of cervix LGSIL Breast cyst, right 2013 Cholesteatoma 2005 left COVID-19 02/2021 Hot flashes due to menopause 01/27/2023 Irregular periods 01/27/2023 Menopausal symptom 01/27/2023 Pap smear abnormality of cervix/human papillomavirus (HPV) positive 2016 ([facility]) hospitalization history Ruptured ear drum YASMINE (stress [...] hpv); 2012- neg; 2011- JENNIE I. Mammogram 01/06/24- Neg ([place]) Colonoscopy 2017- normal ([facility]) ROS General: Denies fevers/chills Eyes: [...] without sores/lesions, atrophic vaginal mucosa-no discharge, cervix with 1cm broad-based polyp, uterus AV, NSSC, no adnexal masses, cul-de-sac negative, TVT in correct location without mesh erosion. EXTREMITIES No edema. NEUROLOGIC: Alert and oriented. PSYCH: Cooperative with exam. Procedures Broad-based cervical polyp removed with multiple biopsies using StreamLine Callchler biopsy gun. Monsels applied. Hemostasis adequate. Specimen to pathology. Tolerated well. ICD-10-CM 1. Encounter for gynecological examination with abnormal finding Z01.411 2. Encounter for screening mammogram for malignant neoplasm of breast Z12.31 Bilateral screening mammogram with tomosynthesis 3. Vaginal atrophy N95.2 4. Cervical polyp N84.1 Pathology Report 5. Screening for malignant neoplasm of cervix Z12.4 IGP, APT HPV,RFX 16/18,45 6. Screening for HPV (human papillomavirus) Z11.51 IGP, APT HPV,RFX 16/18,45 7. History of colposcopy Z98.890 IGP, APT HPV,RFX 16/18,45 8. History of abnormal cervical Pap smear Z87.42 IGP, APT HPV,RFX 16/18,45 Advised pt to perform monthly self breast exams. Encouraged calcium and Vitamin D intake. Denies hot flashes or night sweats. Denies vaginal dryness. Due for mammogram, order sent to [facility] imaging as requested. Colonoscopy up to date. On exam she has a cervical polyp, removed with oval tipped biopsypunch. She tolerated procedure well and sent to pathology. Pap also repeated this year as her cervix looks slightly abnormal but could be attributed to cervical polyp. Plan to return in 1 year for annual exam. Entered by Whitney Rodriguez LPN acting as scribe for Dr. Mariel Singer. Signature: Whitney Rodriguez LPN The documentation recorded by the scribe accurately reflects the service(s) I personally performed and the decisions I made. Signature: Mariel Singer DO Assessment & Plan documented in this [facility]10-17-2025 Evaluation note* Diagnosis Onset Date Resolution Status Admit Date Family history of early CAD acuteOctober 2024 8:37amIFG (impaired fasting glucose)acuteOctober 2024 8:37amObesityacuteOctober 2024 8:37amPrimary insomniaacuteOctober 2024 8:37am [facility] Work Phone: 1(360) 392-564009-23-2025 History of Present illness Narrative* Rashmi Boucher MD - 12/06/2024 1:15 PM EDT History Of Present Illness: Mai Miller is a 59 y.o. female with a history of left EAC cholesteatoma, the patient is s/pleft postauricular revision canalplasty and removal of ear canal cyst on 11/21/24. Things have been going well since surgery. She saw Dr. Lopez who removed the strip gauze packing. Pain is manageable. Denies drainage. She is using her prescribed drops. No other complaints today. Recall 08/30/24: Mai Miller is a 58 y.o. female whom presents for left EAC cholesteatoma, referred here today by Carolyn Lopez MD. 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 Otology past surgical history: - left tympmastoid in 2005 for a choleste[address]oma with Dr. Lopez - left lateral graft tympanoplasty on 01/24/[address] Boucher Mai has been following with Dr. Lopez every 6 months for observation and EAC debridements. In 06/2024, Dr. Lopez noted a soft tissue mass in posterior quadrant of the left EAC. She denied recentinfections, otorrhea, otalgia or changes in hearing. Surgical [...] Patient doing well. Follow up with Dr. Lopez in 6 months. Patient seen and discussed with Dr. Boucher. Rashmi Irizarry MD PGY-5 Otolaryngology - Head and Neck Surgery I saw and evaluated the patient. I personally obtained the barnes and critical portions of the historyand physical exam or was physically present for barnes and critical portions performed by the resident/fellow. I reviewed the resident/fellow's documentation and discussed the patient with the resident/f billy. I agree with the resident/fellow's medical decision making as documented in the note. Rashmi Boucher MD documented in this [facility] Work Phone: 1(458) 194-871009-15-2025 History of Present illness Narrative* Carolyn Lopez MD - 11/28/2024 8:30 AM EDT Subjective Patient ID: Mai Miller is a [...] abnormality of cervix/human papillomavirus (HPV) positive 2016 ([facility]) Ruptured ear drum YASMINE (stress urinary incontinence, [...] Dr Boucher as planned documented in this encounterCox NorthQqgdvuukjo88-16-3133 manager of loss prevention operations Note* Significant Event - Carol Ann Cai RN - 11/21/2024 3:48 PM EDT at bedside, states he spoke with doctor awhile ago, but forgot the plan as she lives 2 hours away and will follow up with different doctor. Not clarified on instructions. Message with Dr. Boucher. Pt will see Dr. Lopez in [place] next week, she needs to call his office, will remove packing and she will start drops. She will need to still follow up with her with scheduled appt and have deeper packing removed. All other instructions reviewed. All questions answered, and patient and verbalize an understanding. [facility]09-08-2025 Miscellaneous Notes* Significant Event - Carol Ann Cai RN - 11/21/2024 3:48 PM EDT at bedside, states he spoke with doctor awhile ago, but forgot the plan as she lives 2 hours away and will follow up with different doctor. Not clarified on instructions. Message with Dr. Boucher. Pt will see Dr. Lopez in [place] next week, she needs to call his office, will remove packing and she will start drops. She will need to still follow up with her with scheduled appt and have deeper packing removed. All other instructions reviewed. All questions answered, and patient and verbalize an understanding. * Op Note - Rashmi Boucher MD - 11/21/2024 11:06 AM EDT Left Side Post Auricular Revision Canalplasty;removal of ear canal cyst (L) Operative Note Date: 11/21/2024 OR Location: [facility] OR Name: Mai Miller, : 1965, Age: 59 y.o., , Sex: female Diagnosis Pre-op Diagnosis * 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] Post-op Diagnosis * 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] Procedures Left Side Post Auricular Revision Canalplasty;removal of ear canal cyst 30041 - [place] RECONSTRUCTION EXTERNAL AUDITORY CANAL SPX Left Side Post Auricular Revision Canalplasty;removal of ear canal cyst 40950 - [place] TMPP MASTOIDECT NTC/RCNSTED WALL W/O OCR Surgeons * Rashmi Boucher - Primary Resident/Fellow/Other Miller Head Assistant Wet Process: Surgeons and Role: * No surgeons found with a matching role * Staff: Chairman And Ceo: Priscilla Moran Person: Demi Nolasco Chairman And Ceo: Cheyenne Nolasco Scrub: Heaven Anesthesia Staff: Anesthesiologist: Joo Andres MD ELECTRICAL ENGINEER: Lindsey Grayson APRN-JOSEY SRNA: Jaquan Ross Procedure [...] procedure(s). MD Rashmi Peralta documented in this [facility] Work Phone: 1(743) 730-744809-08-2025 Hospital Discharge instructions* Discharge Instructions* Aleja Peguero MD - 11/21/2024 [...] make specific suggestions for your care. Call [phone] ([phone]) or [phone] (after-hours) any time day or night if you have any of the following: Bad smell coming out of your ear Severe swelling around your ear Any questions Pain in your ear Redness around your ear Severe dizziness * Attachments The following attachments cannot be sent through Care Everywhere. * How to Prevent Surgical Site Infections (Amharic) documented in this [facility] Work Phone: 1(133) 317-974709-08-2025 Surgery Surgical operation note* Op Note - Rashmi Boucher MD - 11/21/2024 11:06 AM EDT Left Side Post Auricular Revision Canalplasty;removal of ear canal cyst (L) Operative Note Date: 11/21/2024 OR Location: [facility] OR Name: Mai Miller, : 1965, Age: 59 y.o., , Sex: female Diagnosis Pre-op Diagnosis * 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] Post-op Diagnosis * 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] Procedures Left Side Post Auricular Revision Canalplasty;removal of ear canal cyst 63067 - NC RECONSTRUCTION EXTERNAL AUDITORY CANAL SPX Left Side Post Auricular Revision Canalplasty;removal of ear canal cyst 14501 - NC TMPP MASTOIDECT NTC/RCNSTED WALL W/O OCR Surgeons * Rashmi Boucher - Primary Resident/Fellow/Other Miller Head Assistant Wet Process: Surgeons and Role: * No surgeons found with a matching role * Staff: Chairman And Ceo: Priscilla Moran Person: Demi Nolasco Chairman And Ceo: Cheyenne Nolasco Scrub: Heaven Anesthesia Staff: Anesthesiologist: Joo Andres MD ELECTRICAL ENGINEER: Lindsey Grayson APRN-ELECTRICAL ENGINEER SRNA: Jaquan Ross Procedure Summary Anesthesia: General [...] entirety of the procedure(s). MD Rashmi Peralta [facility] Work Phone: 1(730) 457-140809-08-2025 History and physical note* Aleja Peguero MD - 11/21/2024 9:56 AM EDT History Of Present Illness Mai Miller is a 59 y.o. female presenting with canal cholesteatoma. Past Medical History She has a past medical history of Ankle contracture, right, Breast cyst, right, Delayed emergence from general anesthesia, RED DEVIL (hard of hearing), HPV (human papilloma virus) [...] Boucher MD at 11/21/2024 9:58 AM EDT [facility] Work Phone: 1(223) 835-322109-08-2025 History and physical note* Aleja Peguero MD - 11/21/2024 9:56 AM EDT History Of Present Illness Mai Miller is a 59 y.o. female presenting with canal cholesteatoma. Past Medical History She has a past medical history of Ankle contracture, right, Breast cyst, right, Delayed emergence from general anesthesia, RED DEVIL (hard of hearing), HPV (human papilloma virus) [...] 11/21/2024 9:58 AM EDT documented in this [facility] Work Phone: 1(630) 396-493606-17-2025 History of Present illness Narrative* Rashmi Boucher MD - 08/30/2024 9:30 AM EDT History Of Present Illness: Mai Miller is a 58 y.o. female whom presents for left EAC cholesteatoma, referred here today by Carolyn Lopez MD. 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 Otology past surgical history: - left tympmastoid in 2005 for a cholesteatoma with Dr. Lopez - left lateral graft tympanoplasty on 01/24/[address] Boucher Recall 03/11/22: Mai is a 56 yo female w/ a hx of left TM perforation and left-sided mixed hearing loss, she is s/p left lateral graft tympanoplasty on 01/24/22. Her hearing is not completely restored, but overall her ear is feeling better. 08/30/24: Mai has been following with Dr. Lopez every 6 months for observation and EAC debridements. In 06/2024, Dr. Lopez noted a soft tissue mass in posterior quadrant of the left EAC. She denied recentinfections, otorrhea, otalgia or changes in hearing Past Medical History: She has no past medical history on file. Surgical History: She has no past surgical history on file. Social History: She reports that she has never smoked. She has never used smokeless tobacco. No history on file foralcohol use and drug use. Family History: Family [...] patient for left EAC cholesteatoma, referred here todayby Carolyn Lopez MD. Physical exam is significant for a [...] the barnes and critical portions of the historyand physical exam or was physically present for barnes and critical portions performed by the resident/fellow. I reviewed the resident/fellow's documentation and discussed the patient with the resident/trinidad cervantes. I agree with the resident/fellow's medical decision making as documented in the note. Rashmi Boucher MD [1] No family history on file. documented in this [facility] Work Phone: [phone]) 501-755606-17-2025 Instructions* Patient Instructions* Aleja Braxton - 08/30/2024 9:30 AM EDT Welcome to Dr. Boucher's clinic. We are here to assist you through your ENT care at [facility]. Dr. Boucher is an Ear surgeon. This means that she specializes in taking care of patients with complex ear problems. Dr. Boucher's office number is [phone]. While you may see her at a satellite office, she has a team committed to help meet your healthcare needs at [facility]'s main campus. This number is the most direct way to communicate with the office. Symone is Dr. Boucher's medical secretary and she answers the office phone [...] may include dieticians, social workers, speech therapists, stock repairer, neurologist, and physical therapist. Dr. Boucher will provide these referrals as needed. Please let her know if you would like to request a specific referral. For your convenience, Dr. Boucher sees patients at several [facility] locations including [facility] and [facility] at the main campus of [facility]. While we try tomake your appointments as convenient as possible, occasionally a visit to another location may be ne cessary to provide the best care for you. We look forward to working with you to meet your healthcare goals. Dr. Boucher makes every effort to run on time for your appointments. Therefore, if you are more than 30 minutes late unrelated to a scan or another appointment such therapy or audio you will have to reschedule. documented in this [facility] Work Phone: 1([phone]) 179-145105-05-2025 History of Present illness Narrative* Carolyn Lopez MD - 07/18/2024 11:20 AM EDT Subjective Patient ID: Mai Miller is a [...] matrix can be suctioned. 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 H/O left tympanomastoidectomy by Dr Boucher in 2021./ I will have Mai see her for management of this problem as well documented in this encounterCox [id number] Telephone encounter Note* Telephone Encounter - Carolyn Lopez MD - 07/11/2024 11:22 AM EDT sent [facility] [id number] Miscellaneous Notes* Telephone Encounter - Carolyn Lopez MD - 07/11/2024 11:22 AM EDT sent * Telephone Encounter - Robina Lopez - 07/11/2024 8:22 AM EDT Pt was here last week and said a rx was to be called in but never received. Her pharmacy is [facility] in [place]. documented in this encounterCox [id number] Telephone encounter Note* Telephone Encounter - Robnia Lopez - 07/11/2024 8:22 AM EDT Pt was here last week and said a rx was to be called in but never received. Her pharmacy is [facility] in [place]. [facility] [id number] History of Present illness Narrative* Carolyn Lopez MD - 07/05/2024 3:40 PM EDT Subjective Patient ID: Mai Miller is a [...] originates within the mastoid. documented in this encounterCox [id number] History of Present illness Narrative* Raulito Cota MD - 02/16/2024 3:45 PM EST Skin Check Location: Patient requests a full body skin examination Dermatologic history: no history of skin cancer, no history of atypical moles, no family history ofmelanoma Last visit: 1 year ago Established patient [...] Examined Right arm Examined Patient wearing nail surinamese, Denies dark streaks under finger nails, Denies darkstreaks on toenails Left arm Examined Lymphatics: Not examined Hands Examined 1. Melanocytic nevus of trunk Scattered benign appearing, regular brown to light brown melanocytic papules and macules with similar morphology Counseled regarding these benign growths. Rarely, a nevus can develop into malignant melanoma, so any changing nevi should be promptly re-evaluated. 2. Seborrheic keratosis Stuck on verrucous, mendez-brown papules and plaques. Patient was counseled regarding these benign growths. Removal is normally not necessary, but they may be removed if they are symptomatic or for cosmetic reasons. 3. Seborrheic keratosis, inflamed Left Occipital Scalp [place] and brown stuck on verrucous scaly papule [...] office if abnormal redness or tenderness develops atthe treatment site. Cryotherapy today, see procedure note. Diagnosis: Inflamed seborrheic keratosis Indication: Inflamed Consent: Verbal consent was obtained and risks were discussed, including, but not limited to risks of scarring, darker or waterworks chief engineer pigmentary changes, recurrence, incomplete removal and infection. [...] lesions that fail to resolve should be re- evaluated. 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 [...] No treatment is necessary. 6. Lentigines Scattered mendez macules in sun-exposed areas. The patient was informed that lentigines are benign pigmented lesions that occur on sun-exposed andsun-damaged skin. No treatment is necessary. Recommended regular use of broad spectrum sunscreen SPF 30 or higher Next Visit: 1 year, skin check documented in this encounterCox [id number] History of Present illness Narrative* Carolyn Lopez MD - 01/05/2024 3:40 PM EDT Images from the original note were not [...] 1 g into the vagina 2 (two) timesa week 42.5 g 2 No current facility-administered [...] encounter Left keratosis debrided documented in this encounterCox [id number] History of Present illness Narrative* Mariel Singer, DO - 01/01/2024 9:00 AM EDT Images from the original note were not included. 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 LMP: Postmenopausal Last Pap: 07/27/2019 Visit [...] HPV. She has an appointment with Dr. Lopez next week. She is due for a mammogram and plans to have blood work done next week. Her colonoscopy in 2014 showed no abnormalities. She reports no breast issues or bowel or bladder problems. She experienced a urinary tract infection (UTI) during a trip to [facility] in either May or November 2022. She [...] masses, cul-de-sac negative, TVT in correct location withoutmesh erosion. EXTREMITIES No edema. NEUROLOGIC: Alert and [...] patient's records are currently inaccessible due to computerissues. 2. Menopausal Symptoms. The observed dryness is likely due to menopause and a lack of estrogen. She will be prescribed an estrogen cream to be applied twice weekly at bedtime. The cream will be sent to her pharmacy and should be applied in a small amount, approximately the size of a blueberry, at the vaginal opening twiceweekly. 3. Urinary Tract Infection (UTI). She experienced a UTI recently and was treated with Cephalexin. Symptoms have improved, a wet prep will be examined under the microscope to ensure there is no ongoing infection. No current symptoms of bladder issues or leakage. Wet prep-+ parabasal cells c/w atrophy 4. Health Maintenance. A mammogram will be ordered and sent to [place]. She is due for a colonoscopy next year, as her last one was in 2014 and was normal. Return in 1 year. documented in this encounterCox [id number] Evaluation note* Encounter Date Diagnosis Assessment Notes Treatment Notes Treatment Clinical Notes Feb, COVID-19 (ICD-10 - U07.1) Tyleno l and rest. Afrin x 2 days, Sudafed as needed. Initiate Paxlovid (unvaccinated w/ moderate symptoms) [facility] Other 12-07-2023 Evaluation note* Encounter Date Diagnosis Assessment Notes Treatment Notes Treatment Clinical Notes Feb, COVID-19 (ICD-10 - U07.1) Tyleno l and rest. Afrin x 2 days, Sudafed [...] saline or Flonase NS for congestion, Tylenol forpain and fever. [facility] Other 06-22-2023 Evaluation note* Encounter Date Diagnosis Assessment Notes Treatment Notes Treatment Clinical Notes Aug, Overweight (ICD-10 - E66.3) This patient has been instructed on a low-fat, high-fiber diet. They are instructed to reduce calories, portion sizes and snacks. It is recommended that they exercise for 30 minutes, 3-5 times weekly. Aug,Mohamud labmykelis (ICD-10 - B00.1)Stopped her Valtrex and suffered an outbreak Requesting to restart medication [facility] Other 04-25-2023 Evaluation note* Encounter Date Diagnosis Assessment Notes Treatment Notes Treatment Clinical Notes Jun, Wellness examination (ICD-10 - Z 00.00) Healthy diet and exercise. Reviewed age-appropriate preventive testing recommended. Jun,Overweight (ICD-10 - E66.3)This patient has been instructed on a low-fat, high-fiber diet. They are instructed to reduce calories, portion sizes and snacks. It is recommended that they exercise for 30 minutes, 3-5 times weekly. 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 LEFT SIDE LATERAL GRAFT [...] Authored: Note Completion Co-Signer: (more content not included)...[facility]11-11-2022 History of Present illness Narrative* Mai is [...] 55 year old woman referred by Dr. Lopez to ENT clinic for left sided TM [...] for complaint except as stated in history TJ-Ruckygfbmqbjng-KltjxjcEssentia Health [facility] Work Phone: 1(571) 915-472511-11-2022 History of Present illness Narrative* Mai is [...] 55 year old woman referred by Dr. Lopez to ENT clinic for left sided TM [...] for complaint except as stated in history CY-Nheeosostjmswm-DcbuxpzEssentia Health [facility] Work Phone: 1([phone]) [phone] NoteHistory of Present Illness: /Lactating: Are You [...] the note. I personally evaluated the patient [id number] Electronic Signatures: Rashmi Boucher) (Signed 24-Jan-2022 13:28) Authored: Note Completion Co-Signer: History of Present Illness, Allergies, Home Medication Review, Impression/Procedure, ERAS, Physical Exam, Consent, Note Completion Mariel Thurman (Resident)) (Signed 24-Jan-2022 10:26) Authored: History of Present Illness, Allergies, Home Medication Review, Impression/Procedure, ERAS, Physical Exam, Consent, Note Completion Last Updated: 24-Jan-2022 13:28 by Rashmi Boucher)[facility] Evaluation + Plan note No data available for this section [facility] noteNort [facility] Other Evaluation noteNo InformationNort [facility] Other Evaluation noteNo assessment information available [facility] Work Phone: Evaluation note* Diagnosis Onset Date Resolution Status IFG (impaired fasting glucose) acuteLeukopeniaacuteOverweightacuteHematurianoneactive [facility] Work Phone: Evaluation note* [...] auditory canal- Primary documented in this encounter [facility] HealthcareEvaluation note* Diagnosis Cholesteatoma of left external auditory canal- Primary documented in this encounter [facility]Evaluation [facility]* Diagnosis Cholesteatoma of left external auditory canal- Primary documented in this encounter [facility]* Diagnosis Preoperative clearance Unspecified pre-operative examination 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- Primary documented in this encounter [facility] Work Phone: Evaluation note* Diagnosis Cholesteatoma of left ear- Primary Cholesteatoma of left ear documented in this encounter [facility] Work Phone: Evaluation note* Diagnosis Cholesteatoma of left external auditory canal- Primary documented in this encounter [facility] HealthcareEvaluation note* Diagnosis Postoperative state- Primary Other postprocedural status Cholesteatoma of left ear documented in this encounter [facility] Work Phone: Evaluation note* Diagnosis Onset Date Resolution Status Admit Date Family history of early CAD acuteOctober 2024 8:37amIFG (impaired fasting glucose)acuteOctober 2024 8:37amObesityacuteOctober 2024 8:37amPrimary insomniaacuteOctober 2024 8:37am [facility] Work Phone: Evaluation note* Diagnosis Encounter for gynecological examination with abnormal finding- Primary Encounter for screening mammogram for malignant neoplasm of breast Vaginal atrophy Postmenopausal atrophic vaginitis Cervical polyp Mucous polyp of cervix Screening for malignant neoplasm of cervix Screening for malignant neoplasm of the cervix Screening for HPV (human papillomavirus) Special screening examination for human papillomavirus (HPV) History of colposcopy History of abnormal cervical Pap smear documented in this encounter [facility] HealthcareHistory general Narrative - Reported* Type Description Date Medical History COVID Medical HistoryIliotibial band syndrome of left sideMedical HistoryMenopause syndromeMedical HistoryMild obesityMedical HistoryEncounter for medication monitoringMedical HistoryOverweight with body mass index (BMI) 25.0-29.9Medical HistoryUnspecified cholesteatoma, unspecified earSurgical Historybladder suspension, unspecifiedSurgical Historyablasion of uterusSurgical History cholesteatoma left [id number] Historyleft [id number], 2006 Hospitalization Historysee surgical history [facility] Other History general Narrative - ReportedNort BabyList Other History general Narrative - Reported* Type Description Date Medical History COVID Medical HistoryIliotibial band syndrome of left sideMedical HistoryMenopause syndromeMedical HistoryMild obesityMedical HistoryEncounter for medication monitoringMedical HistoryOverweight with body mass index (BMI) 25.0-29.9Medical HistoryUnspecified cholesteatoma, unspecified earSurgical Historybladder suspension, unspecifiedSurgical Historyablasion of uterusSurgical History cholesteatoma left [id number] Historyleft [id number], 2006Surgical HistoryB/L zyregfauzgmsgc01/2023Hospitalization Historysee surgical history [facility] Other History of Present illness Narrative* HPI: The patient is a 55 year old woman referred by Dr. Lopez to ENT clinic for left sided TM [...] for complaint except as stated in history KC-Vseuvxvcyzxpww-Nngxosn 5654Q Work Phone: History of Present illness Narrative* HPI: The patient is a 55 year old woman referred by Dr. Lopez to ENT clinic for left sided TM [...] for complaint except as stated in history QA-Lowmnewslzgynf-Othbhmu 2835Z Work Phone: Hospital Discharge instructions No data available for this section [facility] Discharge instructions Additional Instructions DISCHARGE INSTRUCTIONS FOR [...] the incision. PLEASE NOTIFY OUR OFFICE at [phone] if you: -Develop a fever of 101 [...] rate. FOLLOW UP -Call the office at [phone] for a follow up appointment 1 week. * AFTER HOURS PHONE NUMBER [phone] *[facility] Work Phone: Progress note No data available for this section [facility] HospitalReason for referral (narrative)No reason for referral information availableSumma Health [facility] Work Phone: Reason for visit Narrative* Auth/CertSpecialty Diagnoses / ProceduresReferred By ContactReferred To Contact Diagnoses 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] Procedures NC RECONSTRUCTION EXTERNAL AUDITORY CANAL SPX NC TMPP MASTOIDECT NTC/RCNSTED WALL W/O OCR Left Side Post Auricular Revision Canalplasty; Cartilage Graft Left Side Post Auricular Revision Canalplasty; [place] [address] [place] [address] Phone: tel: fax: [facility] [place] [address] [place] [address] fax: Referral IDStatusReasonStart DateExpiration DateVisits RequestedVisits [id number] [facility] Work Phone: Summary Purpose Family History No Family History Records Found Relationship Condition Age at Onset Recorded Date/T joaquin father Heart disease Unknown Relationship Condition Age at Onset Recorded Date/T joaquin father Heart disease Unknown fatherHypertensionUnknownHeart diseaseUnknownDiabetes mellitusUnknown Advance Directives No Advanced Directives Records Found Advance Directive Response Recorded Date/ Time Advance Directives No June 02 018 11:04am Advance Directive Response Recorded Date/ Time Advance Directives No June 02 018 10:04am Date ActivatedDate InactivatedComments11/21/2024 9:27 AMQuestionAnswerCommentsPlan of Care:* Code Status Discussion Completed Decision Maker:* Patient Date ActivatedDate InactivatedComments11/21/2024 9:27 AMQuestionAnswerCommentsPlan of Care:* Code Status Discussion Completed Decision Maker:* Patient Chief Complaint NPVNPVpostoperative visitpostoperative visit Chief Complaint and Reason for Visit Chief Complaint Admit Date 2 week December 30, 2024 8 :37am Z82.49 January 17, 2025 3 :37pm Reason for Visit Admit Date Family history of early CAD December 8:37am IFG (impaired fasting glucose) December 142024 8:37am Obesity December 30, 2024 8 :37am Primary insomnia December 30, 2024 8 :37am Chief Complaint Cosmetic Chief Complaint Cosmetic Cosmetic Chief Complaint check up Poss uti R31.9Reason for VisitIFG (impaired fasting glucose) Leukopenia Overweight Hematuria Chief Complaint Admit Date Sore throat, ackey, feverish July 13, 2024 9:17am Chief Complaint Admit Date 2 week December 30, 2024 8 :37am Additional Source Comments INFORMATION SOURCE (unrecogn ized section and content) DATE CREATED AUTHOR 09/11/[address] [facility] DATE CREATED AUTHOR AUTHOR'S ORGANIZ ATION 10/12/2021 [facility] DATE CREATED AUTHOR AUTHOR'S ORGANIZ ATION 03/11/2022 [facility] DATE CREATED AUTHOR AUTHOR'S ORGANIZ ATION 03/14/2022 [employer] DATE CREATED AUTHOR AUTHOR'S ORGANIZ ATION 07/14/2022 [facility] DATE CREATED AUTHOR AUTHOR'S ORGANIZ ATION 09/09/2024 [facility] DATE CREATED AUTHOR AUTHOR'S ORGANIZ ATION 11/25/2024 [facility] DATE CREATED AUTHOR AUTHOR'S ORGANIZ ATION 12/02/2024 [facility] DATE CREATED AUTHOR AUTHOR'S ORGANIZ ATION 12/18/2024 [facility] DATE CREATED AUTHOR AUTHOR'S ORGANIZ ATION 01/19/2025 [facility] DATE CREATED AUTHOR AUTHOR'S ORGANIZ ATION 01/24/2025 [facility] EPIC REASON FOR VISIT (unrecogniz ed section and content) ReasonCommentsGynecologic ExamYearly, Pt denies Breast pain, urinary, 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 LMP: Postmenopausal Last Pap: 07/27/2019ReasonCommentsEar Problem2 month checkReasonCommentsSkin CheckReasonCommentsEar Problem6 month check ears ReasonOnset DateCommentsneeds rx07/11/2024ReasonCommentsEar ProblemFollow up CT [facility] 07/08/24ReasonCommentsNew Patient VisitCholesteatomaReasonCommentsEar ProblemFollow up from surgery with Dr KaplanCommentsPost-oppovReason CommentsGynecologic ExamPt presents for yearly. 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 Care Teams (unrecognized sec tion and content) Team Status: Active Member Role/Relationship Status Dates Kartik Rodriguez DO Primary Care Provider Active Team Status: Active Member Role/Relationship Status Dates Kartik Rodriguez DO Primary Care Provider Active Start: October 01, 2024 Jason Ryan ProviderActiveStart: October 01, 2024 Team Status: Active Member Role/Relationship Status Dates Kartik Rodriguez DO Primary Care Provider Active Start: November 16, 2024 Rashmi TOBI Boucherttmiguelito ProviderActiveStart: November 16, 2024 Team Status: Active Member Role/Relationship Status Dates Kartik Rodriguez DO Primary Care Provider Active Start: November 26, 2024 Jason Ryan ProviderActiveStart: November 26, 2024 Team Status: Active Member Role/Relationship Status Dates Kartik Rodriguez DO Primary Care Provider Active Start: December 27, 2024 Jason Ryan ProviderActiveStart: December 27, 2024 Team Status: Inactive Member Role/Relationship Status Dates Kartik Rodriguez DO Primary Care Provider Active Start: December 30, 2024 End: December 30Jason Abbasi ProviderActiveStart: December 30, 2024 End: December 30, 2024Team MemberRelationshipSpecialtyStart DateEnd Date Kartik Rodriguez DO PCP - General10/07/21Team MemberRelationshipSpecialtyStart DateEnd Kartik Garrett DO [address] [place] [id number] PCP - GeneralInternal Medicine07/05/24 Carolyn Lopez MD [address] [facility] [address] [place] [address] Otolaryngology08/28/21Team MemberRelationshipSpecialtyStart DateEnd Date Kartik Rodriguez MD [address] [place] [id number] PCP - GeneralInternal Medicine12/11/22 Carolyn Lopez MD [address] [facility] [address] [place] [address] Otolaryngology08/28/21 Team Status: Active Member Role Status Dates PHYSICIAN NO FAMILY Primary Care Provider Active Team Status: Inactive Member Role Status Dates Kartik Rodriguez DO Primary Care Provide r, Attending Provider Active Start: November 30, 2023 End: November 30, 2023 Team Status: Inactive Member Role Status Dates Kartik Rodriguez DO Primary Care Provider Active Start: December 26, 2023 End: December 25Bobbi Farrell ProviderActiveStart: December 26, 2023 End: December 26, 2023 Team Status: Inactive Member Role Status Dates Nicolasa Delgado APRN Attending Provider Active Sta rt: December 26, 2023 End: December 25HYSICIAN NO FAMILYPrimary Care ProviderActiveStart: December 26, 2023 End: December 26, 2023 Team Status: Active Member Role Status Dates Kartik Rodriguez DO Primary Care Provider Active Team Status: Inactive Member Role Status Dates Kartik Ball , DO Primary Care Provider Active Rashaun William MDAttmiguelito ProviderActive Goals (unrecognized section and content) Goals may be documented in a n alternate section Scheduled Active and Recently Administ ered Medications (unrecognized section and content) Medication Order/ ceFAZolin (Ancef) 2 g in dextrose (iso) [...] that apply): Surgical Prophylaxis, Indications: Surgical Prophylaxis * 0945 (Due) ipratropium (Atrovent) 0.02 % nebulizer solution 500 mcg 500 mcg, nebulization, Once, On Thu11/21/24 at 1330, For 1 dose, Recovery (only) * 1441 (Not Given - Provider: Mago Haque RN - Reason: Other - Comment: per provider) lidocaine PF (Xylocaine) 10 mg/mL (1 %) injection 1 mg 1 mg (0.1 mL), subcutaneous, Once, On Thu11/21/24 at 1330, For 1 dose, Recovery (only), To be used for IV insertion ONLY * 1441 (Not Given - Provider: Mago Haque RN - Reason: Other - Comment: per provider) Medication Order/ lactated Ringer's infusion 100 mL/hr, intravenous, Continuous, Starting on Thu11/21/24 at 1330, For 3 hours, Recovery (only) * 1430 (Rate/Dose Verify - Provider: Mago Haque RN) * 1501 (Stopped - Provider: Mago Haque RN) Medication Order/ acetaminophen (Tylenol) tablet 650 mg 650 mg, [...] needed, Starting on Thu11/21/24 at 1200, Intraprocedure * 1200 (Given - Provider: Rashmi Boucher MD) balanced salts (BSS) intraocular solution (CANCELED) As needed, Starting on Thu11/21/24 at 1040, Intraprocedure * 1040 (Given - Provider: Rashmi Boucher MD - Comment: irrigation) ciprofloxacin-dexamethasone (CiproDEX) otic suspension (CANCELED) As needed, Starting on Thu11/21/24 at 1130, Intraprocedure * 1130 (Given - Provider: Rashmi Boucher MD - Comment: gelfoam dipped in ciprodex) droperidol (Inapsine) injection 0.625 mg 0.625 mg, intravenous, Once as needed, nausea/vomiting, second line, Starting on Thu11/21/24 at 1304, For 1 dose, Recovery (only), Monitor QTc while on therapy (2 lead monitoring) EPINEPHrine HCl (PF) (Adrenalin) 1 mL in sodium chloride 0.9% 19 mL syringe (CANCELED) As needed, Starting on Thu11/21/24 at 1041, Intraprocedure * 1041 (Given - Provider: Rashmi Boucher MD) HYDROmorphone (Dilaudid) injection 0.25 [...] total of 4 mg regardless of dose. * 1307 (Given - Provider: Kristen Lott RN) * 1346 (Given - Provider: Kristen Lott RN) lidocaine-epinephrine (Xylocaine W/EPI) 1 %-1:100,000 injection (CANCELED) As needed, Starting on Thu11/21/24 at 1055, Intraprocedure * 1055 (Given - Provider: Rashmi Boucher MD) ondansetron (Zofran) injection 4 mg 4 mg, intravenous, Once as needed, nausea/vomiting, first line, Starting on Thu11/21/24 at 1304, For1 dose, Recovery (only), When administering via IV [...] pain scores based on patient preference? Yes * 1445 (Given - Provider: Mago Haque RN) oxygen (O2) therapy inhalation, Continuous - O2/gases, oxygen, Starting on Thu11/21/24 at 1304, Recovery (only), Device:Nasal Cannula, Rate in liters per minute: 4 LPM, Keep O2 Sat Above: 92% * 1357 (Start - Provider: Kristen Lott RN) * 1430 (Stopped - Provider: Mago Haque RN) sodium chloride 0.9 % irrigation solution (CANCELED) As needed, Starting on Thu11/21/24 at 1055, Intraprocedure * 1055 (Given - Provider: Rashmi Boucher MD - Comment: warmed irrigation [...] BE BASED ON THE PRIMARY CLINICAL RECORDS. [facility] [employer] [facility]. provides no warranty or guarantee of the accuracy or completeness of information in this document.
== END 2025-03-14 16:34 | disposition home or self-care (01) ==
PROVIDERS: PCP Internal Medicine; Visit Provider Internal Medicine
DX: E06.9 Thyroiditis, unspecified (principal)
CPT/HCPCS: 36415; 84443; 84480; 84481